=== PATIENT | female | born 1950 | race Caucasian/White ===

== ENCOUNTER 2024-02-18 09:39 | Outpatient (OUT) | payer MEDICARE, SELFPAY ==
--- NOTE | 2024-02-18 09:49 | MM_ITS ---
Patient Name: EUGENE ROGERS MR#: [id number] : 1950 Exam Date: 02/18/2024 Ordering Doctor: DR. SARAY BUCIO . RADIOLOGY REPORT PROCEDURE: MM TOMOSYNTHESIS SCREENING BI COMPARISON: MG MAMM SCREEN 3D ANTONIO CAD, 11/30/2022. MG MAMM SCREEN 3D ANTONIO CAD, 11/11/2021. MG MAMM SCREEN ANTONIO W CAD, 09/13/2020. MG MAMM ANTONIO SCRN W CAD DIG, 02/27/2014. INDICATIONS: Screening Calculator Name NCI Breast Cancer Risk Assessment Tool 5 Year Breast Cancer Risk 1.80% Lifetime Breast Cancer Risk 4.90% Personal Breast Cancer No Personal Ovarian Cancer No Treatments None Family Cancers Brother with lymphoma cancer at age 40; Brother with neurofibromitosis cancer at age 39; Brother with prostate cancer at age 69; Brother with prostate cancer at age 60. LOCATION: [facility] BREAST COMPOSITION: The breasts are heterogeneously dense,which may obscure small masses. FINDINGS: DIAGNOSTIC CATEGORY 1--NEGATIVE. RIGHT BREAST: No significant suspicious finding. No significant change has occurred. LEFT BREAST: No significant suspicious finding. No significant change has occurred. RECOMMENDATIONS: ROUTINE MAMMOGRAM AND CLINICAL EVALUATION IN 12 MONTHS. PLEASE NOTE: A NORMAL MAMMOGRAM DOES NOT EXCLUDE THE POSSIBILITY OF BREAST CANCER. A CLINICALLY SUSPICIOUS PALPABLE LUMP SHOULD BE BIOPSIED. Dictated by: Colt Hubbard M.D. on 02/18/2024 at 13:19 Approved by: Colt Hubbard M.D. on 02/18/2024 at 13:22
== END 2024-02-18 09:40 | disposition home or self-care (01) ==
LOC: MAMMO 09:44
PROVIDERS: PCP Family Medicine; Visit Provider Family Medicine
DX: Z12.31 Encounter for screening mammogram for malignant neoplasm of breast (principal); Z80.7 Family history of other malignant neoplasms of lymphoid, hematopoietic and related tissues; Z80.42 Family history of malignant neoplasm of prostate; Z80.8 Family history of malignant neoplasm of other organs or systems
CPT/HCPCS: 77063; 77067

== ENCOUNTER 2025-02-20 09:52 | Outpatient (OUT) | payer MEDICARE, SELFPAY ==
--- NOTE | 2025-02-20 10:22 | MM_ITS ---
Patient Name: EUGENE ROGERS MR#: [id number] : 1950 Exam Date: 02/20/2025 Ordering Doctor: CARMEN ANDERSON . RADIOLOGY REPORT PROCEDURE: MM TOMOSYNTHESIS SCREENING BI COMPARISON: MM TOMOSYNTHESIS SCREENING BI, 02/18/2024. MG MAMM SCREEN 3D ANTONIO CAD, 11/30/2022. MG MAMM SCREEN 3D ANTONIO CAD, 11/11/2021. MG MAMM ANTONIO SCRN W CAD DIG, 02/27/2014. INDICATIONS: Screening Calculator Name NCI Breast Cancer Risk Assessment Tool 5 Year Breast Cancer Risk 1.80% Lifetime Breast Cancer Risk 4.60% Personal Breast Cancer No Personal Ovarian Cancer No Treatments None Family Cancers Brother with lymphoma cancer at age 40; Brother with neurofibromitosis cancer at age 39; Brother with prostate cancer at age 69; Brother with prostate cancer at age 60. LOCATION: [facility] BREAST COMPOSITION: There are scattered areas of fibroglandular density. FINDINGS: DIAGNOSTIC CATEGORY 1--NEGATIVE. RIGHT BREAST: No significant suspicious finding. LEFT BREAST: No significant suspicious finding. RECOMMENDATIONS: ROUTINE MAMMOGRAM AND CLINICAL EVALUATION IN 12 MONTHS. PLEASE NOTE: A NORMAL MAMMOGRAM DOES NOT EXCLUDE THE POSSIBILITY OF BREAST CANCER. A CLINICALLY SUSPICIOUS PALPABLE LUMP SHOULD BE BIOPSIED. Dictated by: Juancho Villasenor DO on 02/20/2025 at 15:55 Approved by: Juancho Villasenor DO on 02/20/2025 at 15:56
== END 2025-02-20 09:53 | disposition home or self-care (01) ==
LOC: MAMMO 09:52
PROVIDERS: PCP Family Medicine; Visit Provider Nurse Practitioner
DX: Z12.31 Encounter for screening mammogram for malignant neoplasm of breast (principal); Z80.7 Family history of other malignant neoplasms of lymphoid, hematopoietic and related tissues; Z80.42 Family history of malignant neoplasm of prostate; Z80.8 Family history of malignant neoplasm of other organs or systems
CPT/HCPCS: 77063; 77067

== ENCOUNTER 2025-05-29 08:54 | Outpatient (OUT) | payer MEDICARE, SELFPAY ==
--- OUTSIDE RECORDS SUMMARY | 2025-05-19 23:59 | XMS_ITS | Continuity of Care Document ---
Author Organization [facility] Address [address] [place] [id number] Care Team Providers Care Drywall Hanger Framer Name Role Phone Darcy Trujillo Primary Care Physician [phone] Encounter FT_AMBFIN [id number] Date(s): 05/19/25 - 05/19/[address] [address]- Encounter Diagnosis Generalized anxiety disorder(Discharge Diagnosis) - 05/19/25 HTN (hypertension)(Discharge Diagnosis) - 05/19/25 BMI 23.0-23.9, adult(Discharge Diagnosis) - 05/19/25 Former smoker(Discharge Diagnosis) - 05/19/25 Discharge Disposition: Home (Routine DC) Attending Physician: Darcy Cerda Encounter Type: Clinic Allergies, Adverse Reactions, Alerts Substance Criticality Severity Reaction Reaction Severity Status Advicor Unknown Active Assessment and Plan Future Appointments Appointment Date:05/29/2025 12:30:00 PM Scheduled Provider: Location:[facility] Appointment Type:Urology CALL PAT FT Appointment Date:06/02/2025 11:00:00 AM Scheduled Provider: Location:[facility] Appointment Type:Urology FT Appointment Date:06/03/2025 01:00:00 PM Scheduled Provider: Location:[facility] Appointment Type:FM Medicare Wellness Subsequent Appointment Date:06/03/2025 02:00:00 PM Scheduled Provider:Darcy Cerda Location:[facility] Appointment Type: Open Future Scheduled Tests Laboratory* Basic Metabolic Panel 05/07/25 Immunizations Given and Recorded Vaccine Date Status Refusal Reason zoster vaccine, inactivated 09/09/24 Recorded zoster vaccine, inactivated 06/05/24 Recorded influenza virus vaccine, inactivated 08/12/24 Alex rded influenza virus vaccine, inactivated 09/04/23 Alex rded influenza virus vaccine, inactivated 08/15/22 Alex rded influenza virus vaccine, inactivated 08/05/21 Alex rded influenza virus vaccine, inactivated 07/28/20 Alex rded influenza virus vaccine, inactivated 08/22/19 Alex rded SARS-CoV-2 (COVID-19) [id number] 08/15/22 Recorded SARSCoV2 mRNA(gckuhpmys-zigh-sjdgqc) vac 02/24/22 Recorded SARS-CoV-2 (COVID-19) mRNA BNT-162b2 vax 07/28/21 Recorded SARS-CoV-2 (COVID-19) mRNA BNT-162b2 vax 01/11/21 Recorded SARS-CoV-2 (COVID-19) mRNA BNT-162b2 vax 12/20/20 Recorded pneumococcal 23-valent vaccine 07/28/20 Recorded pneumococcal 13-valent vaccine 08/22/19 Recorded Medications atorvastatin 20 mg Tab See Instructions, TAKE 1 TABLET BY MOUTH DAILY, # 90 tab(s), Refills(s) 0, Pharmacy: [facility] [id number], 171, cm, 03/03/25 13:32:00 EDT, Height/Length Dosing, 73.9, kg, 03/03/25 13:32:00 EDT, Weight Dosing Start Date: 03/20/25 Status: Ordered Quantity: 90.0 Unit: tab(s) Repeat number: 1 bisoprolol-hydrochlorothiazide 5 mg-6.25 mg Tab See Instructions, 90 tab(s), Refill(s) 0, TAKE 1 TABLET BY MOUTH DAILY, [facility] [id number], 171, cm, 03/03/25 13:32:00 EDT, Height/Length Dosing, 73.9, kg, 03/03/25 13:32:00 EDT, Weight Dosing Start Date: 04/03/25 Status: Ordered Quantity: 90.0 Unit: tab(s) Repeat number: 1 busPIRone 15 mg Tab 15 mg = 1 tab(s), Oral, TID, # 90 tab(s), Refills(s) 0, Pharmacy: [facility] [id number], 173, cm, 05/19/25 11:46:00 EDT, Height/Length Dosing, 69.2, kg, 05/19/25 11:46:00 EDT, Weight Dosing Start Date: 05/19/25 Status: Ordered Quantity: 90.0 Unit: tab(s) Repeat number: 1 Indications: Essential (primary) hypertension; Generalized anxiety disorder; CeleBREX 200 mg Cap 200 mg = 1 cap(s), Oral, Daily, # 90 cap(s), Refills(s) 0, Pharmacy: [facility] [id number], 171,cm, 05/02/24 10:21:00 EDT, Height/Length Dosing, 72.7, kg, 05/02/24 10:21:00 EDT, Weight Dosing Start Date: 01/27/25 Status: Ordered Quantity: 90.0 Unit: cap(s) Repeat number: 1 Indications: Menopausal and female climacteric states; Cipro 250 mg Tab 250 mg = 1 tab(s), Oral, q24hr, # 30 tab(s), Refills(s) 1, Pharmacy: [facility] [id number], 173,cm, 04/27/25 12:29:00 EDT, Height/Length Dosing, 71.1, kg, 04/27/25 12:29:00 EDT, Weight Dosing Start Date: 04/28/25 Status: Ordered Quantity: 30.0 Unit: tab(s) Repeat number: 2 cloNIDine 0.1 mg tab 0.1 mg = 1 tab(s), Oral, BID, # 14 tab(s), Refills(s) 0, Pharmacy: [facility] [id number], 173, cm, 05/01/25 10:05:00 EDT, Height/Length Dosing, 69.8, kg, 05/01/25 10:05:00 EDT, Weight Dosing Start Date: 05/13/25 Status: Ordered Quantity: 14.0 Unit: tab(s) Repeat number: 1 Indications: Hesitancy of micturition; Essential (primary) hypertension; Unspecified abnormal findings in urine; Personal history of nicotine dependence; Body mass index [BMI] 25.0-25.9, adult; cloNIDine 0.1 mg tab See Instructions, TAKE 1 TABLET BY MOUTH 2 TIMES A DAY, # 60 tab(s), Refills(s) 0, Pharmacy: [facility] [id number], 173, cm, 05/19/25 11:46:00 EDT, Height/Length Dosing, 69.2, kg, 05/19/25 11:46:00 EDT, Weight Dosing Start Date: 05/19/25 Status: Ordered Quantity: 60.0 Unit: tab(s) Repeat number: 1 levothyroxine 100 mcg (0.1 mg) Tab See Instructions, TAKE 1 TABLET BY MOUTH DAILY, # 90 tab(s), Refills(s) 0, Pharmacy: [facility] [id number], 171, cm, 03/03/25 13:32:00 EDT, Height/Length Dosing, 73.9, kg, 03/03/25 13:32:00 EDT, Weight Dosing Start Date: 03/20/25 Status: Ordered Quantity: 90.0 Unit: tab(s) Repeat number: 1 meloxicam 15 mg Tab 15 mg = 1 tab(s), Oral, Daily, # 30 tab(s), Refills(s) 1, Pharmacy: [facility] [id number], 171, cm, 05/02/24 10:21:00 EDT, Height/Length Dosing, 72.7, kg, 05/02/24 10:21:00 EDT, Weight Dosing Start Date: 08/25/24 Status: Ordered Quantity: 30.0 Unit: tab(s) Repeat number: 2 Indications: Menopausal and female climacteric states; MiraLax 17 gm, Oral, Daily, Refill(s) 0 Start Date: 09/27/22 Status: Ordered Repeat number: 1 omeprazole 20 mg Cap-DR See Instructions, TAKE 1 CAPSULE BY MOUTH DAILY, # 90 cap(s), Refills(s) 0, Pharmacy: [facility] [id number], 171, cm, 03/03/25 13:32:00 EDT, Height/Length Dosing, 73.9, kg, 03/03/25 13:32:00 EDT, Weight Dosing Start Date: 03/17/25 Status: Ordered Quantity: 90.0 Unit: cap(s) Repeat number: 1 Vitamin D3 2000 intl units oral Tab 50 mcg, Oral, Daily, tab(s), Refills(s) 0 Start Date: 05/02/24 Status: Ordered Repeat number: 1 Problem List Condition Confirmation Course Effective Dates Status Health Status Informant BMI 23.0-23.9, adult Confirmed Active Chronic UTI Confirmed Active Cloudy urine Confirmed Active Urinary hesitancy Confirmed Active Diverticulosis Confirmed Active Dizziness Confirmed Active Fatigue Confirmed Active GERD (gastroesophageal reflux disease) Confirmed Active Generalized anxiety disorder Confirmed Active Hyperlipidemia Confirmed Active HTN (hypertension) Confirmed Active Hypothyroidism Confirmed Active Iron deficiency Confirmed Resolved Iron deficiency anemia Confirmed Active Menopausal syndrome Confirmed Active Pre-op exam Confirmed Active Pneumaturia Confirmed Active Pre-diabetes Confirmed Active Pure hypercholesterolemia Confirmed Active Recurrent UTI Confirmed Active UTI symptoms Confirmed Active Procedures Procedure Date Related Diagnosis Body Site Status Colonoscopy 2010 Completed Fracture of odontoid process Completed History of cervical spine surgery Completed Social History Social History Type Response Smoking Status Former smoker, quit more than 30 days ago entered on: 05/19/25 Sex Female Sex Representation Female (finding) Patient Care team information Care Team Personnel Name: TRAM DURBIN DO Position: FT Physician Member Role: Surgeon Address: [address] [place] [id number] Telecom: Name: Bro Schaefer Member Role: Junior Systems Engineer Telecom: Name: Darcy Cerda Position: FT Ambulatory - Primary Care - RONALDO Member Role: Primary Care Physician Address: [address] [place] [address]- Telecom: Name: JR VANESSA JOYNER GEORGE C Position: FT Physician Member Role: Orthopaedist Address: [address] [place] [phone] Telecom: Care Team Related Persons Name: TRAM ROGERS Name: TRAM ROGERS Name: TRAM ROGERS Insurance Providers Guarantor name: Health Plan Information #: 1 Payer: NA Payer Identifier: [id number] Member Number: [id number] Group Number: [id number] Subscriber Identifier: [id number] Relationship to Subscriber: Self Coverage Type: MEDICARE Coverage Verification Date: 25 Telecom: NA Address: Health Plan Information #: 2 Payer: LONNIE Payer Identifier: [id number] Member Number: [id number] Group Number: [id number] Subscriber Identifier: [id number] Relationship to Subscriber: Self Coverage Type: PRIVATE HEALTH INSURANCE Coverage Verification Date: 25 Telecom: LONNIE Address:
--- OUTSIDE RECORDS SUMMARY | 2025-05-29 08:56 | XMS_ITS | Clinical Summary ---
Author Organization [facility] Address [address] [place] [address] Care Team Providers Care Pecan Mallow Dipper Name Role Phone Trent Nielsen MD Unavailable [phone] Darcy Trujillo NP Unavailable Allergies No known active allergies Medications atorvastatin (Lipitor) 20 MG tablet 1 (one) time each day at the same time. Active bisoprolol-hydr oCHLOROthiazide (Ziac) 5-6.25 MG tablet 1 (one) time each day at the same time. Active cholecalciferol (Vitamin D-3) 10 MCG (400 UNIT) tablet 1 (one) time each day at the same time. 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 08/01/2023 Peripheral neuritis of left foot 08/01/2023 Shoulder arthritis 08/01/2023 Unilateral primary osteoarthritis, left hip 07/22 Hyperlipidemia 04/10/2019 Hypothyroid 04/10/2019 Immunizations Immunization Administration Dates Next Due Influenza, High Dose Seasonal, Preservative Free 08/22/2019 Influenza, High-dose Seasona l, Quadrivalent, Preservative Free 08/15/2022,08/05/2021 Influenza, Seasonal, Quadrivalent, Adjuvanted Pneumococcal Conjugate PCV 13 08/22/2019 Pneumococcal Polysaccharide PPSV23 07/28/2020 Family History Relation Name Status Comments Father Mother Social History Tobacco Use Types Packs/Day Years Used Date Smoking Tobacco: Never Smokeless Tobacco: Never Tobacco Cessation:Counseling Given: Not Answered Alcohol Use Standard Drinks/Week Comments Yes 0 (1 standard drink = 0.6 oz pur e alcohol) AUDIT-C Answer Date Recorded Q1: How often do you have a drink containing alc ohol? 2-4 times a month 12/05/2023 Average Number of Drinks Not on file 024 Frequency of Binge Drinking Not on file 11/22 Comments Unknown Sex and Gender Information Value Date Recorded Sex Assigned at Not on file Legal Sex Female 8:00 PM EDT Gender Identity Not on file Sexual Orientation Not on file Last Filed Vital Signs Vital Sign Reading Time Taken Comments Blood Pressure - - Pulse - - Temperature - - Respiratory Rate - - Oxygen Saturation - - Inhaled Oxygen Concentration - - Weight 70.3 kg (155 lb) 12/15/2024 10:07 AM EST Height 172.7 cm (5' 8 ) 12/15/2024 10:07 AM EST Body Mass Index 23.57 12/15/2024 10:07 AM EST Plan of Treatment Health Maintenance Due Date Last Done Comments CT Colonography 1952 FIT-DNA 1950 FIT 1950 FOBT 1950 Sigmoidoscopy 1950 Mammogram 1992 Influenza Vaccine (#1) 2025 4, 09/04/2023, 08/15/2022, Additional history exists Colonoscopy 06/09/2031 06/09/2021 Colorectal Cancer Screening 06/09/2031 Pneumococcal Vaccine: 65+ Years Completed 0, 08/22/2019 Insurance MEDICARE AETNA Care Teams Pecan Mallow Dipper Relationship Specialty Start Date End Date Trent Nielsen MD [address] [place] [address] Referring Physician Family Medicine 12/30/24 Darcy Trujillo NP [address] [place] [address] Referring Physician Family Medicine 12/30/24
--- OUTSIDE RECORDS SUMMARY | 2025-05-29 08:56 | XMS_ITS | Clinical Summary ---
Author Organization [employer] tem Address [id number] [address] [place] [address] Care Team Providers Care Petroleum Products Sales Representative Name Role Phone Trent Nielsen MD Primary Care Provider Allergies No known active allergies Medications levothyroxine (SYNTHROID, LEVOTHROID) 175 MCG tablet Take 175 mcg by mouth daily. 03/14/2019 Active atorvastatin (LIPITOR) 20 mg tablet Take 20 mg by mouth daily. 03/07/2019 Active celecoxib (CeleBREX) 200 mg capsule Take 200 mg by mouth 2 (two) times a day. Active sennosides (sennosides) 8.8 mg/5 mL syrup Take by mouth nightly. Active Active Problems Problem Noted Date Diagnosed Date Hyperlipidemia 04/10/2019 Hypothyroid 04/10/2019 Family History Medical History Relation Name Comments Hodgkin's lymphoma Brother 1 Cancer Brother 2 Neurofibromatos is Parkinsonism Father Relation Name Status Comments Brother 1 Brother 2 Brother 3 Alive Brother 4 Alive Brother 5 Alive Daughter Alive Father Mother Sister 1 Alive Sister 2 Alive Sister 3 Alive Sister 4 Alive Sister 5 Alive Sister 6 Alive Son 1 Alive Son 2 Alive Son 3 Alive Social History Tobacco Use Types Packs/Day Years Used Date Smoking Tobacco: Former Cigarettes Q uit: 2010 Smokeless Tobacco: Never Alcohol Use Standard Drinks/Week Comments Yes 0 (1 standard drink = 0.6 oz pur e alcohol) socially Childcare Answer Date Recorded Childcare Unknown 03/31/2019 Employment Answer Date Recorded Employment Unknown 03/31/2019 Purpose - Life Answer Date Recorded Purpose and direction in life Unknown Comments No Sex and Gender Information Value Date Recorded Sex Assigned at Not on file Legal Sex Female 11:21 AM EDT Gender Identity Not on file Sexual Orientation Not on file Last Filed Vital Signs Vital Sign Reading Time Taken Comments Blood Pressure 134/78 06/17/2021 8:59 AM EDT Pulse 77 06/09/2021 9:00 AM EDT Temperature 36.2 C (97.1 F) 06/17/2021 8:59 AM EDT Respiratory Rate 19 06/09/2021 9:00 AM EDT Oxygen Saturation 97% 06/09/2021 9:00 AM EDT Inhaled Oxygen Concentration - - Weight 67.1 kg (148 lb) 06/17/2021 8:59 AM EDT Height 172.7 cm (5' 8 ) 06/17/2021 8:59 AM EDT Body Mass Index 22.5 06/17/2021 8:59 AM EDT Plan of Treatment Health Maintenance Due Date Last Done Comments Depression Screening 1964 Tobacco Screening 1964 Adult BMI Screening 1970 DTaP,Tdap and Td Vaccines (1 - Tdap) 1971 Fall Risk Screening 2017 COVID-19 Vaccine (6 2023-2 5 season) 2024 08/15/2022, 02/24/2022, 07/28/2021, Additional history exists Zoster (Shingles) Vaccine (2 of 3) 11/09/2024 09/14/2024 Influenza Vaccine 06/22/2025 08/12/2024, , 08/05/2021, Additional history exists Colonoscopy 06/09/2026 06/09/2021, 06/09/2021 Medical Devices Not on file Procedures Procedure Name Priority Date/Time Associated Diagnosis Comments COLONOSCOPY 06/09/2021 7:56 AM EDT from Last 3 Months or Most Recently Relevant to Health Maintenance Results * Colonoscopy (06/09/2021 7:56 AM EDT) 06/09/2021 7:56 AM EDT Narrative PM CARDIOVASCULAR - 06/09/2021 8:22 AM EDT [facility] Patient Name: Kelin Wong Procedure Date No Time: 06/09/2021 [facility] : [id number] Date of : 1950 Admit Type: Outpatient Age: 70 Room: [place] [address] Gender: Female Note Status: Finalized Attending MD: Arnie Bell DO Procedure: Colonoscopy Indications: Constipation Providers: Arnie Bell DO Referring MD: Arnie Bell DO Medicines: Propofol per Anesthesia Complications: No immediate complications. Procedure: After I obtained informed consent, the scope was passed under direct vision. Throughout the procedure, the patient's blood pressure, pulse, and oxygen saturations were monitored continuously. The [employer] [id number] #[id number] ADULT COLONOSCOPE was introduced through the anus with the intention of advancing to the cecum. The scope was advanced to the splenic flexure before the procedure was aborted. Medications were given. The colonoscopy was technically difficult and complex due to poor bowel prep with stool present. Successful completion of the procedure was aided by changing the patient to a supine position. The patient tolerated the procedure well. The quality of the bowel preparation was poor. Findings: The perianal and digital rectal examinations were normal. Multiple large-mouthed diverticula were found in the sigmoid colon and descending colon. The exam was otherwise without abnormality. Will need to have outpatient barium enema air contrast with better prep Estimated Blood Loss: Estimated blood loss: none. Impression: - Preparation of the colon was poor. - Diverticulosis in the sigmoid colon and in the descending colon. - The examination was otherwise normal. - No specimens collected. Recommendation: - Discharge patient to home. - Patient has a contact number available for emergencies. The signs and symptoms of potential delayed complications were discussed with the patient. Return to normal activities tomorrow. Written discharge instructions were provided to the patient. - High fiber diet for the rest of the patient's life. - Continue present medications. - Perform an air contrast barium enema in 1 week. Procedure Code(s): --- Professional --- 68213, 53, Colonoscopy, flexible; diagnostic, including collection of specimen(s) by brushing or washing, when performed (separate procedure) Diagnosis Code(s): --- Professional --- K59.00, Constipation, unspecified K57.30, Diverticulosis of large intestine without perforation or abscess without bleeding CPT copyright 2019 [employer]. All rights reserved. The codes documented in this report are preliminary and upon dry chain operator review may be revised to meet current compliance requirements. DO Arnie Stovall DO 06/09/2021 8:22:33 AM Number of Addenda: 0 Note Initiated On: 06/09/2021 7:56 AM Procedure Note Arnie Bell DO - 06/09/2021 [facility] Patient Name: Kelin Wong Procedure Date No Time: 06/09/2021 CSN : [id number] Date of : 1950 Admit Type: Outpatient Age: 70 Room: [place] [address] Gender: Female Note Status: Finalized Attending MD: Arnie Bell DO Procedure: Colonoscopy Indications: Constipation Providers: Arnie Bell DO Referring MD: Arnie Bell DO Medicines: Propofol per Anesthesia Complications: No immediate complications. Procedure: After I obtained informed consent, the scope was passed under direct vision. Throughout theprocedure, the patient's blood pressure, pulse, and oxygen saturations were monitored continuously. [facility] [id number] #[id number] ADULT COLONOSCOPE was introduced through the anus with the intention of advancing to the cecum. The scope was advanced to the splenic flexure before the procedure was aborted.Medications were given. The colonoscopy was technicallydifficult and complex due to poor bowel prep with stoolpresent. Successful completion of the procedure was aided by changing the patient to a supine position. Thepatient tolerated the procedure well. The quality of thebowel preparation was poor. Findings: The perianal and digital rectal examinations were normal. Multiple large-mouthed diverticula were found in the sigmoid colonand descending colon. The exam was otherwise without abnormality. Will need to have outpatient barium enema air contrast with betterprep Estimated Blood Loss: Estimated blood loss: none. Impression: - Preparation of the colon was poor. - Diverticulosis in the sigmoid colon and in the descending colon. - The examination was otherwise normal. - No specimens collected. Recommendation: - Discharge patient to home. - Patient has a contact number available for emergencies. The signs and symptoms of potential delayed complications were discussed with thepatient. Return to normal activities tomorrow. Written discharge instructions were provided to thepatient. - High fiber diet for the rest of the patient'slife. - Continue present medications. - Perform an air contrast barium enema in 1 week. Procedure Code(s): --- Professional --- 41017, 53, Colonoscopy, flexible; diagnostic, including collection of specimen(s) by brushing or washing, when performed (separate procedure) Diagnosis Code(s): --- Professional --- K59.00, Constipation, unspecified K57.30, Diverticulosis of large intestine without perforation orabscess without bleeding CPT copyright 2019 [employer]. All rights reserved. The codes documented in this report are preliminary and upon dry chain operator reviewmay be revised to meet current compliance requirements. DO Arnie Stovall DO 06/09/2021 8:22:33 AM Number of Addenda: 0 Note Initiated On: 06/09/2021 7:56 AM Arnie Bell DO GI PROCEDURE ORDERABLES Fin al Result PM CARDIOVASCULAR from Last 3 Months or Most Recently Relevant to Health Maintenance Insurance MEDICARE AETNA Care Teams Petroleum Products Sales Representative Relationship Specialty Start Date End Date Trent Nielsen MD PCP - General Family Medicine 04/17/23
--- OUTSIDE RECORDS SUMMARY | 2025-05-29 08:56 | XMS_ITS | Encounter Summary ---
Author Organization [facility] Address [address] [place] [address] Care Team Providers Care Ironer Hand Name Role Phone Trent Nielsen MD Unavailable [phone] Darcy Trujillo NP Unavailable Encounter Details Date Type Department Care Team ([facility] Contact Info) Description 05/13/2023 External Result Encounter [facility] External Department Unsolicited Provider, Generic External Data Social History Tobacco Use Types Packs/Day Years Used Date Smoking Tobacco: Never Assessed Comments Unknown Sex and Gender Information Value Date Recorded Sex Assigned at Not on file Legal Sex Female 8:00 PM EDT Gender Identity Not on file Sexual Orientation Not on file documented as of this encounter Plan of Treatment Not on file documented as of this encounter Procedures Procedure Name Priority Date/Time Associated Diagnosis Comments UNLISTED TEST ([facility]) Routine 08/02/2023 10:48 AM EDT LYME DISEASE AB ([facility]) Routine 08/02/2023 10:40 AM EDT CBC WITH AUTO DIFFERENTIAL Routine 08/02/2023 10:40 AM EDT HLA-B27 ANTIGEN Routine 08/02/2023 10:40 AM EDT SED RATE BY MODIFIED WESTERGREN Routine 08/02/2023 10:40 AM EDT RHEUMATOID FACTOR Routine 08/02/2023 10: 40 AM EDT C-REACTIVE PROTEIN Routine 08/02/2023 10 :40 AM EDT BARBARA SCREEN W/REFLEX Routine 08/02/2023 1 0:40 AM EDT URIC ACID Routine 08/02/2023 10:40 AM EDT DEXA BONE DENSITY 05/13/2023 6:1 6 PM EDT documented in this encounter Results * UNLISTED TEST ([facility]) (08/02/2023 10:48 AM EDT) UNLISTED LAB TEST Sent to reference lab [facility] 08/02/2023 10:4 8 AM EDT 08/02/2023 10:49 AM EDT Jr. Gonzalo Amaral DO LAB BLOOD ORDERABLES [facility] Result [facility] * LYME DISEASE AB ([facility]) (08/02/2023 10:40 AM EDT) LYME DISEASE AB See Below [facility] Comment: NOTE TEST RESULT FLAG UNIT REF.RANGE Lyme IgG Wblot Negative Negative CDC criteria for a positive Western blot are the presence of >=5 bands for IgG. Lyme IgG Bands No Bands Seen Lyme IgM Wblot Negative Negative CDC criteria for a positive Western Blot are the presence of >=2 bands for IgM. Lyme IgM Bands p-23 Lyme Interp See below No evidence of antibodies to Borrelia burgdorferi. Test Performed By: [email or web address] [address] [place] [address] Laserist: Mike Simmons III, M.D. CLIA #[id number]^ PERFORMED AT [address] [place] [address] 08/02/2023 10:4 0 AM EDT 08/02/2023 10:44 AM EDT . [facility] LAB BLOOD ORDERABLES Fi nal Result Performing Organization Address [facility] Co de Phone Number [facility] * BARBARA (08/02/2023 10:40 AM EDT) BARBARA SCREEN W/REFLEX Negative Negative [facility] Comment: Testing performed using multiplex flow immunoassay. Eleven different antigens associated with systemic autoimmune diseases (dsDNA,Sm,Sm/[employer],Chromatin, SSA,SSB,Gifty-1,Scl70,Ribo P,Centromere B) are included in this screening test. PERFORMED [address],[place] [address] 08/02/2023 10:4 0 AM EDT 08/02/2023 10:44 AM EDT . [facility] LAB BLOOD ORDERABLES Fi nal Result Performing Organization Address [facility] Co de Phone Number [facility] * HLA-B27 antigen (08/02/2023 10:40 AM EDT) HLA-B27 TYPING Negative [facility] Comment:PERFORMED AT [address],[place] [address] 08/02/2023 10:4 0 AM EDT 08/02/2023 10:44 AM EDT [facility] LAB MOLECULAR DIAGNOSTI CS ORDERABLES Final Result Performing Organization Address City/[facility] Co de Phone Number [facility] * Uric acid (08/02/2023 10:40 AM EDT) URIC ACID 4.6 2.6 - 7.2 mg/dL [facility] Comment:PERFORMED AT [address],[place] [address] 08/02/2023 10:4 0 AM EDT 08/02/2023 10:44 AM EDT us Jr. [facility]alo [facility] LAB BLOOD ORDERABLES Fi nal Result Performing Organization Address [facility] Co de Phone Number [facility] * C-reactive protein (08/02/2023 10:40 AM EDT) C REACTIVE PROTEIN <0.1 0.000 - 0.744 mg/dL [facility] Comment:PERFORMED AT [address],[place] [address] 08/02/2023 10:4 0 AM EDT 08/02/2023 10:44 AM EDT us Jr. Gonzalo Sloan [facility] LAB BLOOD ORDERABLES Fi nal Result Performing Organization Address [facility] de Phone Number [facility] * Sedimentation rate, automated (08/02/2023 10:40 AM EDT) ESR 22 0 - 30 mm/h [facility] Comment:PERFORMED AT [address],[place] [address] 08/02/2023 10:4 0 AM EDT 08/02/2023 10:44 AM EDT [facility] LAB BLOOD ORDERABLES Fi nal Result Performing Organization Address [facility] Co de Phone Number [facility] * Rheumatoid factor (08/02/2023 10:40 AM EDT) RHEUMATOID FACTOR <10 <20 IU/mL [facility] Comment:PERFORMED AT [address],[place] [address] 08/02/2023 10:4 0 AM EDT 08/02/2023 10:44 AM EDT us Jr. Walter [facility] LAB BLOOD ORDERABLES Fi nal Result Performing Organization Address [facility]/ZIP Co de Phone Number [facility] * (ABNORMAL) CBC auto differential (08/02/2023 10:40 AM EDT) WHITE BLOOD CELL COUNT, WBC 4.9 4.0 - 11.0 X10E9/L [facility] RED BLOOD CELL COUNT, RBC 4.22 3.80 - 5.20 X10E12/L [facility] HEMOGLOBIN 10.8(L) 11.7 - 15.5 g/dL [facility] HEMATOCRIT 32.8(L) 35 - 47 % [facility] MEAN CELL VOLUME, MCV 78(L) 80 - 100 fL [facility] MEAN CELL HEMOGLOBIN, MCH 25.6(L) 27 - 34 pg [facility] MEAN CELL HEMOGLOGIN CONCENTRATION, MCHC 33.0 32 - 36 g/dL [facility] RED CELL DISTRIBUTION WIDTH, RDW 15.2(H) 11.5 - 15.0 % [facility] PLATELET COUNT 350 150 - 450 X10E9/L [facility] MEAN PLATELET VOLUME, MPV 7.4 7 - 12 fL [facility] % NEUTROPHILS 56.7 % [facility] % LYMPHOCYTES 35.7 % [facility] % MONOCYTES 4.1 % [facility] % EOSINOPHILS 3.0 % [facility] % BASOPHILS 0.5 % [facility] ABSOLUTE NEUTROPHIL 2.8 1.5 - 6.6 X10E9/L [facility] ABSOLUTE LYMPHOCYTE 1.7 1.0 - 3.5 X10E9/L [facility] ABSOLUTE MONOCYTE 0.2 0 - 0.9 X10E9/L [facility] ABSOLUTE EOSINOPHIL 0.1 0.0 - 0.4 X10E9/L [facility] ABSOLUTE BASOPHIL 0.0 0.0 - 0.2 X10E9/L [facility] Comment:PERFORMED AT [facility] [address],[place] [address] 08/02/2023 10:4 0 AM EDT 08/02/2023 10:44 AM EDT Jr. Gonzalo Amaral DO LAB BLOOD ORDERABLES Fi nal Result [facility] * DEXA bone density (05/13/2023 6:16 PM EDT) Anatomical Region Laterality Modality Body Radiographic Altagracia ging 05/13/2023 6:16 PM EDT Narrative 05/13/2023 6:15 PM EDT [facility] CENTRAL SKELETAL: 05/10/2023 11:19 AM CLINICAL: Post menopausal. Exam/Technique: DEXA Scan (Dual Energy X-ray Absorptiometry) Findings: PA Lumbar Spine: BMD: 1.004 g/cm2. T-score: -1.5 Left Proximal Femur: BMD 0.933 g/cm2. T-score: -0.8 Right Proximal Femur: BMD 0.982 g/cm2. T-score: -0.4 Fracture Risk: According to FRAX, 10 year probability of any major osteoporosis-related fracture is 19.4%, 10 year probability of hip fracture is 2.7 % IMPRESSION: * Osteopenia, nearly stable compared with 06/10/2015. PLEASE NOTE * T-score compares patient BMD to a reference of young normal controls. World Health Organization Classification: Osteoporosis: T-score=-2.5 or below. Osteopenia (low bone mass): T-score between -1.0 and -2.5. Normal: T-score -1.0 or above. Secondary causes of bone loss should be evaluated if clinically indicated since the etiology of low BMD cannot be determined by BMD measurement alone. Finalized by Vaibhav Lorenzo MD on 05/13/2023 6:15 PM The copy-to physician of this order is GONZALO Fulton JR Note Radiology, Radiologist, - 05/13/2023 [facility] CENTRAL SKELETAL: 05/10/2023 11:19 AM CLINICAL: Post menopausal. Exam/Technique: DEXA Scan (Dual Energy X-ray Absorptiometry) Findings: PA Lumbar Spine: BMD: 1.004 g/cm2. T-score: -1.5 Left Proximal Femur: BMD 0.933 g/cm2. T-score: -0.8 Right Proximal Femur: BMD 0.982 g/cm2. T-score: -0.4 Fracture Risk: According to FRAX, 10 year probability of any major osteoporosis-relatedfracture is 19.4%, 10 year probability of hip fracture is 2.7 % IMPRESSION: * Osteopenia, nearly stable compared with 06/10/2015. PLEASE NOTE * T-score compares patient BMD to a reference of young normal controls. World Health Organization Classification: Osteoporosis: T-score=-2.5 or below. Osteopenia (low bone mass): T-score between -1.0 and -2.5. Normal: T-score -1.0 or above. Secondary causes of bone loss should be evaluated if clinically indicatedsince the etiology of low BMD cannot be determined by BMD measurementalone. Finalized by Vaibhav Lorenzo MD on 05/13/2023 6:15 PM The copy-to physician of this order is GONZALO Fulton JR Generic External Data Provider IMG DXA PROCEDURE S Final Result documented in this encounter Visit Diagnoses Not on filedocumented in this encounter Care Teams Ironer Hand Relationship Specialty Start Date End Date Trent Nielsen MD [address] [place] [address] Referring Physician Family Medicine 12/30/24 Darcy Trujillo NP [address] [place] [address] Referring Physician Family Medicine 12/30/24 documented as of this encounter
--- OUTSIDE RECORDS SUMMARY | 2025-05-29 08:56 | XMS_ITS | Clinical Summary ---
Author Organization [facility] Address [address] [place] [address] Care Team Providers Care Dyeing Machine Tender Name Role Phone Justina Mitchell MD Primary Care Provider [phone] Social History Tobacco Use Types Packs/Day Years Used Date Smoking Tobacco: Never Assessed Comments Unknown Sex and Gender Information Value Date Recorded Sex Assigned at Not on file Legal Sex Female 10:45 PM EDT Gender Identity Not on file Sexual Orientation Not on file Plan of Treatment Not on file Care Teams Dyeing Machine Tender Relationship Specialty Start Date End Date Justina Mitchell MD [address] [place] [address] PCP - General 11/21/12
[2025-05-29 09:12] LABS: Estimated GFR (African America >60 (>=60 mL/min/1.73m^2); Estimated GFR (Non-African Ame >60 (>=60 mL/min/1.73m^2)
--- NOTE | 2025-05-29 09:13 | CT_ITS ---
The [address] [address] Patient Name: EUGENE ROGERS MRN: [id number] date: 1950 Sex: F Assigned Patient Location: LAB Current Patient Location: LAB Accession/Order Number: [id number] Exam Date: 05/29/2025 11:28 Report Date: 05/29/2025 11:51 At the request of: HIPOLITO ROJAS Procedure: CT abdomen pelvis wo/w con CT ABDOMEN AND PELVIS WITHOUT AND WITH INTRAVENOUS CONTRAST CLINICAL DATA: Recurrent urinary tract infections with cloudy urine and pneumaturia. Chronic constipation. Symptoms began after a hip replacement 2 months ago. COMPARISON: None Spiral images were obtained through the abdomen and pelvis before and after intravenous administration of 100 mL of Omnipaque 300. Patient also received oral and rectal contrast. This CT exam was performed using one or more following dose reduction techniques: Automated exposure control, adjustment of the mA and/or kV according to patient size, or use of iterative reconstruction technique. Limited cuts through the lung bases show no contributory pulmonary findings. There is a tiny hiatal hernia. The kidneys are within normal limits for size, position and contour. No renal, ureteral or bladder stones are seen precontrast. Assessment of the pelvis is slightly limited by artifact from a left hip replacement. There is a small amount of air within the urinary bladder. Correlation will be needed as to whether patient was recently catheterized in order to exclude iatrogenic etiology. The Following contrast administration, the renal nephrograms are symmetric. No hydronephrosis is identified. A tiny left upper pole renal cyst is present. No renal mass lesions are seen. The urinary bladder is displaced to the right. The bladder wall is top normal in thickness. Along the left aspect of the bladder there is an air-containing structure with thickened enhancing wall measuring approximately 4 cm in size. This does abut the sigmoid colon and could be a large inflamed diverticulum or diverticular abscess. There is, however, no significant surrounding inflammation. Delayed images of the pelvis were obtained after patient voided. There is contrast within the urinary bladder however it is impossible to determine if this is renal excretion versus a possible rectovesical fistula. No calcified gallstones are identified. Mild fatty infiltration of the liver is suspected. The spleen and pancreas show no acute findings. There is minor left adrenal limb thickening. There is atherosclerotic plaque involving the aorta and iliac arteries. No enlarged lymph nodes or ascites are present. The small bowel loops are normal caliber. There is stool along the colon. There are several scattered colonic diverticula, greater on the left. There is slight dextroscoliotic curvature and degenerative changes spine. Images through the pelvis show no appendiceal inflammation. No dilated small bowel loops are seen. There is stool and contrast in the distal colon. A rectal catheter is present. There are additional colonic diverticula, without associated active inflammation. The uterus is slightly dextroverted. There is no ascites. CT/CT abdomen pelvis wo/w con IMPRESSION: TINY HIATAL HERNIA. FATTY LIVER. NO BOWEL OR URINARY TRACT OBSTRUCTION. EXTENSIVE DIVERTICULAR DISEASE. AIR WITHIN THE URINARY BLADDER, DESCRIBED. THERE IS AN AIR-CONTAINING THICK-WALLED STRUCTURE ALONG THE LEFT ASPECT OF THE BLADDER THAT ALSO ABUTS THE SIGMOID COLON. DIVERTICULITIS AND/OR DIVERTICULAR ABSCESS WITH COLOVESICAL FISTULA IS NOT COMPLETELY EXCLUDED ON THE BASIS OF THIS STUDY, DISCUSSED ABOVE. CONTINUED FOLLOW-UP WILL BE NEEDED. Impression dictated by: Renea Ryan M.D. 05/29/2025 11:51 AM Dictation Location: [place] [address] Electronically authenticated by: [id number] Y Date: 05/29/2025 11:51
== END 2025-05-29 08:55 | disposition home or self-care (01) ==
LOC: LAB 08:54
PROVIDERS: PCP Family Medicine; Visit Provider Physician Assistant
DX: R39.89 Other symptoms and signs involving the genitourinary system (principal); N39.0 Urinary tract infection, site not specified
CPT/HCPCS: 36415; 74178; 82565; Q9963; Q9967

== ENCOUNTER 2025-06-09 09:52 | Outpatient (OUT) | payer MEDICARE, SELFPAY ==
--- OUTSIDE RECORDS SUMMARY | 2025-06-02 23:59 | XMS_ITS | Continuity of Care Document ---
Author Organization [facility] Address Unknown Care Team Providers Care Colleter Name Role Phone Darcy Trujillo Primary Care Physician [phone] Encounter [facility] [id number] Date(s): 06/02/25 - 06/02/[address] [address] Discharge Disposition: Home (Routine DC) Attending Physician: Reza ROBLERO MD Admitting Physician: Reza ROBLERO MD Referring Physician: Reza ROBLERO MD Encounter Type: Outpatient Allergies, Adverse Reactions, Alerts Substance Criticality Severity Reaction Reaction Severity Status Advicor Unknown Active Assessment and Plan Extracted from: Title:History and Physical > 30 days Author:Reza ORELLANA MD Date:06/02/25 Impression and Plan Diagnosis Pneumaturia ([id number]-SG R39.89, Working, Medical). Recurrent UTI ([id number]-KI N39.0, Working, Medical). Condition: Stable. Counseled: Patient, Regarding diagnosis, Regarding treatment. Future Appointments Appointment Date:06/03/2025 01:00:00 PM Scheduled Provider: Location:[facility] Appointment Type: Medicare Wellness Subsequent Appointment Date:06/03/2025 02:00:00 PM Scheduled Provider:Darcy Cerda Location:[facility] Appointment Type: Open Future Scheduled Tests Laboratory* [...] vaccine, inactivated 08/22/19 Alex rded SARS-CoV-2 (COVID-19) [id number] 08/15/22 Recorded SARSCoV2 mRNA(mgiixetam-nqlp-vkdcxh) vac 02/24/22 Recorded SARS-CoV-2 (COVID-19) mRNA BNT-162b2 vax 07/28/21 Recorded SARS-CoV-2 (COVID-19) mRNA BNT-162b2 vax 01/11/21 Recorded SARS-CoV-2 (COVID-19) mRNA BNT-162b2 vax 12/20/20 Recorded pneumococcal 23-valent vaccine 07/28/20 Recorded pneumococcal 13-valent vaccine 08/22/19 Recorded Medications atorvastatin 20 mg Tab See Instructions, TAKE 1 TABLET BY MOUTH DAILY, # 90 tab(s), Refills(s) 0, Pharmacy: [facility] [id number], 171, cm, 03/03/25 13:32:00 EDT, Height/Length Dosing, 73.9, kg, 03/03/25 13:32:00 EDT, Weight Dosing Start Date: 03/20/25 Status: Ordered Quantity: 90.0 Unit: tab(s) Repeat number: 1 bisoprolol-hydrochlorothiazide 5 mg-6.25 mg Tab See Instructions, 90 tab(s), Refill(s) 0, TAKE 1 TABLET BY MOUTH DAILY, [facility] [id number], 171, cm, 03/03/25 13:32:00 EDT, Height/Length Dosing, 73.9, kg, 03/03/25 13:32:00 EDT, Weight Dosing Start Date: 04/03/25 Status: Ordered Quantity: 90.0 Unit: tab(s) Repeat number: 1 busPIRone 15 mg Tab 15 mg = 1 tab(s), Oral, TID, # 90 tab(s), Refills(s) 0, Pharmacy: [facility] [id number], 173, cm, 05/19/25 11:46:00 EDT, Height/Length Dosing, 69.2, kg, 05/19/25 11:46:00 EDT, Weight Dosing Start Date: 05/19/25 Status: Ordered Quantity: 90.0 Unit: tab(s) Repeat number: 1 Indications: Generalized anxiety disorder; Essential (primary) hypertension; CeleBREX 200 mg Cap 200 mg = 1 cap(s), Oral, Daily, # 90 cap(s), Refills(s) 0, Pharmacy: [facility] [id number], 171,cm, 05/02/24 10:21:00 EDT, Height/Length Dosing, 72.7, kg, 05/02/24 10:21:00 EDT, Weight Dosing Start Date: 01/27/25 Status: Ordered Quantity: 90.0 Unit: cap(s) Repeat number: 1 Indications: Menopausal and female climacteric states; Cipro 250 mg Tab 250 mg = 1 tab(s), Oral, q24hr, # 30 tab(s), Refills(s) 1, Pharmacy: [facility] [id number], 173,cm, 04/27/25 12:29:00 EDT, Height/Length Dosing, 71.1, kg, 04/27/25 12:29:00 EDT, Weight Dosing Start Date: 04/28/25 Status: Ordered Quantity: 30.0 Unit: tab(s) Repeat number: 2 cloNIDine 0.1 mg tab See Instructions, TAKE 1 TABLET BY MOUTH 2 TIMES A DAY, # 60 tab(s), Refills(s) 0, Pharmacy: [facility] [id number], 173, cm, 05/19/25 11:46:00 EDT, Height/Length Dosing, 69.2, kg, 05/19/25 11:46:00 EDT, Weight Dosing Start Date: 06/01/25 Status: Ordered Quantity: 60.0 Unit: tab(s) Repeat number: 1 levothyroxine 100 mcg (0.1 mg) Tab See Instructions, TAKE 1 TABLET BY MOUTH DAILY, # 90 tab(s), Refills(s) 0, Pharmacy: [facility] [id number], 171, cm, 03/03/25 13:32:00 EDT, Height/Length Dosing, 73.9, kg, 03/03/25 13:32:00 EDT, Weight Dosing Start Date: 03/20/25 Status: Ordered Quantity: 90.0 Unit: tab(s) Repeat number: 1 meloxicam 15 mg Tab 15 mg = 1 tab(s), Oral, Daily, # 30 tab(s), Refills(s) 1, Pharmacy: [facility] [id number], 171, cm, 05/02/24 10:21:00 EDT, Height/Length Dosing, [...] DAILY, # 90 cap(s), Refills(s) 0, [facility] [id number], 171, cm, 03/03/25 13:32:00 EDT, Height/Length Dosing, [...] 05/19/25 Sex Female Sex Representation Female (finding) Hospital Discharge Instructions Patient Education 06/02/2025 11:32:33 EU - Cystoscopy Discharge Instructions (CUSTOM) Cystoscopy ??? Voiding after the procedure: there may be some pain, burning, urgency, frequency and blood tinged urine following the procedure. These symptoms usually resolve within 2-5 days. Drink the amount of fluid it takes to keep the urine pink to yellow or clear in color. Drinking enough water and fluids will help to ease any discomfort after your procedure. ??? If you are having problems that seem out of the ordinary, please call. ??? If unable to contact your physician and you feel it is an emergency, go to the nearest emergency room or call 911 ??? Diet ??? you may resume your normal diet. ??? Activity ??? you may resume your normal activities ??? Call if you have a fever over 100 degrees. Follow Up Care 04/28/2025 15:45:42 With:Reza ROBLERO Address: [address] [place] [address] [facility] (1) When: Unknown Comments:Office will call to schedule follow up Surgical operation note * Reza ROBLERO MD: PERFORM, SIGN, VERIFY Event Display: Operative Report Authored Date: Patient: EUGENE ROGERS Age: 74 years Sex: Female : 1950 Associated Diagnoses: None Author: Reza ROBLERO MD Procedure Operative Information Details: Date/ Time: 06/02/2025 11:33:00. Pre-Op Dx: Hx of UTI's - Z87.440, Pneumaturia. Post-Op Dx: Same, Plus colovesical fistula. Anesthesia Type: Local. Procedure: Local Cystoscopy. Complications: None. Risks/Benefits/Informed Consent: Surgical risks, benefits, details of the procedure have been explained to the patient, Full informed consent has been obtained. Intraoperative Information Prepped: Patient is brought back to the endoscopy suite, Patient is placed in modified dorso/lithotomy position, Patient prepped in the usual fashion with Betadine solution, 2% Xylocaine Jelly is placed per Urethra, After waiting several minutes the Cystoscope is introduced. The Urethra is: Tight. The Bladder is: Abnormal, Trabeculated Moderate (2), No bladder tumors. On the left floor towards the left wall proximal to the left UO is a large 4 to 5 cm edematous patch with erythematous areas centrally. I believe this represents the fistulous site and extrinsic compression from the bowel abscess onto the bladder. I did not see any E flux of colonic debris.. The ureteral orifices: Show efflux of clear urine. Devices Implanted: None. Removal: Cystoscope is removed, The patient tolerated it well. Postoperative Information Discharge: Patient is discharged home with antibiotic coverage, Follow up arranged. She needs to get referral to a general surgeon for bowel resection regarding her severe diverticular disease, colonic abscess and colovesical fistula. For now, she will continue her Cipro.. Electronically Signed By: Reza ROBLERO MD Date and Time Signed: 06/02/25 11:37 EDT History and physical note * Reza ROBLERO MD: PERFORM, SIGN, VERIFY Event Display: History and Physical Authored Date: [id number] Patient: EUGENE ROGERS Age: 74 years Sex: Female : 1950 Associated Diagnoses: None Author: Reza ROBLERO MD Preoperative Information Pneumaturia, Recurrent UTI's Chief Complaint Pneumaturia, Recurrent UTI's Review of Systems Constitutional: Negative. Eye: Negative. Ear/Nose/Mouth/Throat: Negative. Respiratory: No shortness of breath. Cardiovascular: No palpitations. Genitourinary: Pneumaturia, Recurrent UTI's. Endocrine: Negative. Immunologic: Negative. Musculoskeletal: Negative. Neurologic: Alert and oriented X4. Health Status Allergies: Allergic Reactions (Selected) Severity Not Documented Advicor- Unknown. Current medications: Home Medications (12) Active atorvastatin 20 mg Tab See Instructions bisoprolol-hydrochlorothiazide 5 mg-6.25 mg Tab See Instructions busPIRone 15 mg Tab 15 mg = 1 tab(s), Oral, TID CeleBREX 200 mg Cap 200 mg = 1 cap(s), Oral, Daily Cipro 250 mg Tab 250 mg = 1 tab(s), Oral, q24hr cloNIDine 0.1 mg tab 0.1 mg = 1 tab(s), Oral, BID cloNIDine 0.1 mg tab See Instructions levothyroxine 100 mcg (0.1 mg) Tab See Instructions meloxicam 15 mg Tab 15 mg = 1 tab(s), Oral, Daily MiraLax 17 gm, Oral, Daily omeprazole 20 mg Cap-DR See Instructions Vitamin D3 2000 intl units oral Tab 50 mcg, Oral, Daily Problem list: All Problems Hypothyroidism / SNOMED CT 38673339 / Confirmed Hyperlipidemia / SNOMED CT 33205492 / Confirmed GERD (gastroesophageal reflux disease) / SNOMED CT 104768644 / Confirmed HTN (hypertension) / SNOMED CT 6449228232 / Confirmed Pure hypercholesterolemia / SNOMED CT 108873776 / Confirmed BMI 23.0-23.9, adult / SNOMED CT 9027241380 / Confirmed Menopausal syndrome / SNOMED CT 083003422 / Confirmed Fatigue / SNOMED CT 276579742 / Confirmed Iron deficiency anemia / SNOMED CT 511157590 / Confirmed Pre-op exam / SNOMED CT 474592983 / Confirmed Pre-diabetes / SNOMED CT 9435715267 / Confirmed UTI symptoms / SNOMED CT 197734460 / Confirmed Cloudy urine / SNOMED CT 88539382 / Confirmed Urinary hesitancy / SNOMED CT 366117381 / Confirmed Pneumaturia / SNOMED CT 56304598 / Confirmed Recurrent UTI / SNOMED CT 084357706 / Confirmed Diverticulosis / SNOMED CT 3754460668 / Confirmed Dizziness / SNOMED CT 5135855275 / Confirmed Chronic UTI / SNOMED CT 825964028 / Confirmed Generalized anxiety disorder / SNOMED CT 92876412 / Confirmed Resolved: Iron deficiency / SNOMED CT 03634806 Canceled: Dysphagia / SNOMED CT 02925304 Canceled: Low hemoglobin / SNOMED CT 3813287548 Histories Family History: Heart disease Father NF - Neurofibromatosis Brother Hodgkin's disease Mother Procedure history: Colonoscopy ([id number]) in 2010 at 61 Years. Fracture of odontoid process (6211373455). History of cervical spine surgery (7531425611). Social History Social & Psychosocial Habits Alcohol 05/19/2025 Risk Assessment: Low Risk 05/19/2025 Type: Wine Frequency: 3-5 times per week Use: Current Comment: Patient states she drinks alcohol 2-3 times per month, 1-2 drinks per episode. - 04/10/2024 10:28 - Dorinda Mills LPN Substance Abuse 05/19/2025 Risk Assessment: Denies Substance Abuse Tobacco 05/19/2025 Risk Assessment: Denies Tobacco Use 05/19/2025 Tobacco Use: Former smoker, quit more . Physical Examination General: Alert and oriented, No acute distress. HENT: Normocephalic. Neck: Supple. Respiratory: Respirations are non-labored, Symmetrical chest wall expansion. Cardiovascular: Normal peripheral perfusion. Gastrointestinal: Soft. Musculoskeletal Normal strength. Integumentary: Warm, Dry, [place]. Neurologic: Alert, Oriented. Psychiatric: Cooperative, Appropriate mood & affect. Impression and Plan Diagnosis Pneumaturia (VNC08-QM R39.89, Working, Medical). Recurrent UTI (APV93-RS N39.0, Working, Medical). Condition: Stable. Counseled: Patient, Regarding diagnosis, Regarding treatment. Electronically Signed By: Reza ROBLERO MD Date and Time Signed: 06/02/25 07:57 EDT Patient Care team information Care Team Personnel Name: TRAM DURBIN DO Position: FT Physician Member Role: Surgeon Address: [address] [place] [id number]- Telecom: Name: Bro Schaefer Member Role: Chief Cardiopulmonary Technologist Telecom: Name: Darcy Cerda Position: FT Ambulatory - Primary Care - RONALDO Member Role: Primary Care Physician Address: [address] [place] [phone]- Telecom: Name: JR VANESSA JOYNER GEORGE C Position: FT Physician Member Role: Orthopaedist Address: [address] [place] [phone] Telecom: Care Team Related Persons Name: TRAM ROGERS Name: TRAM ROGERS Name: TRAM ROGERS Name: TRAM ROGERS Name: TRAM ROGERS Insurance Providers Guarantor name: Health Plan Information #: 1 Payer: NA Payer Identifier: [id number] Member Number: [id number] Group Number: [id number] Subscriber Identifier: [id number] Relationship to Subscriber: Self Coverage Type: MEDICARE Coverage Verification Date: 25 Telecom: NA Address: Health Plan Information #: 2 Payer: LONNIE Payer Identifier: [id number] Member Number: [id number] Group Number: [id number] Subscriber Identifier: [id number] Relationship to Subscriber: Self Coverage Type: PRIVATE HEALTH INSURANCE Coverage Verification Date: 25 Telecom: NA Address:
--- OUTSIDE RECORDS SUMMARY | 2025-06-03 23:59 | XMS_ITS | Continuity of Care Document ---
Author Organization [facility] Address [address] [place] [address] Care Team Providers Care Photo Technologist Name Role Phone Darcy Trujillo Primary Care Physician Encounter FT_AMBFIN [id number] Date(s): 06/03/25 - 06/03/25 [facility] [address] [place] [phone] Encounter Diagnosis HTN (hypertension)(Discharge Diagnosis) - 06/03/25 Ovarian failure due to menopause(Discharge Diagnosis) - 06/03/25 Medicare annual wellness visit, subsequent(Discharge Diagnosis) - 06/03/25 GERD (gastroesophageal reflux disease)(Discharge Diagnosis) - 06/03/25 Generalized anxiety disorder(Discharge Diagnosis) - 06/03/25 Hypothyroidism(Discharge Diagnosis) - 06/03/25 Pre-diabetes(Discharge Diagnosis) - 06/03/25 Hyperlipidemia(Discharge Diagnosis) - 06/03/25 Discharge Disposition: Home (Routine DC) Attending Physician: Darcy Cerda Encounter Type: Clinic Allergies, Adverse Reactions, Alerts Substance Criticality Severity Reaction Reaction Severity Status Bactrim Vomit Active Advicor Unknown Active Assessment and Plan Future Appointments Appointment Date:06/03/2026 01:00:00 PM Scheduled Provider: Location:[facility] Appointment Type:FM Medicare Wellness Subsequent Future Scheduled Tests Laboratory* Basic Metabolic Panel [...] vaccine, inactivated 08/22/19 Alex rded SARS-CoV-2 (COVID-19) [id number] 08/15/22 Recorded SARSCoV2 mRNA(mmbahirjd-gbri-srmmqf) vac 02/24/22 Recorded SARS-CoV-2 (COVID-19) mRNA BNT-162b2 vax 07/28/21 Recorded SARS-CoV-2 (COVID-19) mRNA BNT-162b2 vax 01/11/21 Recorded SARS-CoV-2 (COVID-19) mRNA BNT-162b2 vax 12/20/20 Recorded pneumococcal 23-valent vaccine 07/28/20 Recorded pneumococcal 13-valent vaccine 08/22/19 Recorded Medications atorvastatin 20 mg Tab See Instructions, TAKE 1 TABLET BY MOUTH DAILY, # 90 tab(s), Refills(s) 0, Pharmacy: [facility] [id number], 171, cm, 03/03/25 13:32:00 EDT, Height/Length Dosing, 73.9, kg, 03/03/25 13:32:00 EDT, Weight Dosing Start Date: 03/20/25 Status: Ordered Quantity: 90.0 Unit: tab(s) Repeat number: 1 bisoprolol-hydrochlorothiazide 5 mg-6.25 mg Tab See Instructions, 90 tab(s), Refill(s) 0, TAKE 1 TABLET BY MOUTH DAILY, [facility] [id number], 171, cm, 03/03/25 13:32:00 EDT, Height/Length Dosing, 73.9, kg, 03/03/25 13:32:00 EDT, Weight Dosing Start Date: 04/03/25 Status: Ordered Quantity: 90.0 Unit: tab(s) Repeat number: 1 busPIRone 15 mg Tab 15 mg = 1 tab(s), Oral, TID, # 90 tab(s), Refills(s) 0, Pharmacy: [facility] [id number], 173, cm, 05/19/25 11:46:00 EDT, Height/Length Dosing, 69.2, kg, 05/19/25 11:46:00 EDT, Weight Dosing Start Date: 05/19/25 Status: Ordered Quantity: 90.0 Unit: tab(s) Repeat number: 1 Indications: Essential (primary) hypertension; Generalized anxiety disorder; CeleBREX 200 mg Cap 200 mg = 1 cap(s), Oral, Daily, # 90 cap(s), Refills(s) 0, Pharmacy: [facility] [id number], 171,cm, 05/02/24 10:21:00 EDT, Height/Length Dosing, 72.7, kg, 05/02/24 10:21:00 EDT, Weight Dosing Start Date: 01/27/25 Status: Ordered Quantity: 90.0 Unit: cap(s) Repeat number: 1 Indications: Menopausal and female climacteric states; Cipro 250 mg Tab 250 mg = 1 tab(s), Oral, q24hr, # 30 tab(s), Refills(s) 1, Pharmacy: [facility] [id number], 173,cm, 04/27/25 12:29:00 EDT, Height/Length Dosing, 71.1, kg, 04/27/25 12:29:00 EDT, Weight Dosing Start Date: 04/28/25 Status: Ordered Quantity: 30.0 Unit: tab(s) Repeat number: 2 cloNIDine 0.1 mg tab See Instructions, TAKE 1 TABLET BY MOUTH 2 TIMES A DAY, # 60 tab(s), Refills(s) 0, Pharmacy: [facility] [id number], 173, cm, 05/19/25 11:46:00 EDT, Height/Length Dosing, 69.2, kg, 05/19/25 11:46:00 EDT, Weight Dosing Start Date: 06/01/25 Status: Ordered Quantity: 60.0 Unit: tab(s) Repeat number: 1 Flonase 0.05 mg/inh [place] 2 spray(s), Nasal, Daily, 16 gram, Refill(s) 0, each nostril, [facility] [id number], 173, cm, 06/03/25 14:03:00 EDT, Height/Length Dosing, 67.6, kg, 06/03/25 14:03:00 EDT, Weight Dosing Start Date: 06/03/25 Status: Ordered Quantity: 16.0 Unit: g Repeat number: 1 Indications: Unspecified nonsuppurative otitis media, right ear; Personal history of nicotine dependence; Essential (primary) hypertension; Body mass index [BMI] 22.0-22.9, adult; levothyroxine 100 mcg (0.1 mg) Tab See Instructions, TAKE 1 TABLET BY MOUTH DAILY, # 90 tab(s), Refills(s) 0, Pharmacy: [facility] [id number], 171, cm, 03/03/25 13:32:00 EDT, Height/Length Dosing, 73.9, kg, 03/03/25 13:32:00 EDT, Weight Dosing Start Date: 03/20/25 Status: Ordered Quantity: 90.0 Unit: tab(s) Repeat number: 1 meloxicam 15 mg Tab 15 mg = 1 tab(s), Oral, Daily, # 30 tab(s), Refills(s) 1, Pharmacy: [facility] [id number], 171, cm, 05/02/24 10:21:00 EDT, Height/Length Dosing, 72.7, kg, 05/02/24 10:21:00 EDT, Weight Dosing Start Date: 08/25/24 Status: Ordered Quantity: 30.0 Unit: tab(s) Repeat number: 2 Indications: Menopausal and female climacteric states; MiraLax 17 gm, Oral, Daily, Refill(s) 0 Start Date: 09/27/22 Status: Ordered Repeat number: 1 Multi Vitamin+ Refill(s) 0 Start Date: 06/03/25 Status: Ordered Repeat number: 1 omeprazole 20 mg Cap-DR See Instructions, TAKE 1 CAPSULE BY MOUTH DAILY, # 90 cap(s), Refills(s) 0, Pharmacy: [facility] [id number], 171, cm, 03/03/25 13:32:00 EDT, Height/Length Dosing, 73.9, kg, 03/03/25 13:32:00 EDT, Weight Dosing Start Date: 03/17/25 Status: Ordered Quantity: 90.0 Unit: cap(s) Repeat number: 1 Vitamin D3 2000 intl units oral Tab 50 mcg, Oral, Daily, tab(s), Refills(s) 0 Start Date: 05/02/24 Status: Ordered Repeat number: 1 Problem List Condition Confirmation Course Effective Dates Status Health Status Informant BMI 22.0-22.9, adult Confirmed Active Chronic UTI Confirmed Active Cloudy urine Confirmed Active Urinary hesitancy Confirmed Active Diverticulosis Confirmed Active Dizziness Confirmed Active Fatigue Confirmed Active Fluid level behind tympanic membrane of right ear Confirmed Active GERD (gastroesophageal reflux disease) Confirmed [...] Procedure Date Related Diagnosis Body Site Status History of left hip replacement 03/25/25 Completed Colonoscopy 2010 Completed Fracture of odontoid process Completed History of cervical spine surgery Completed Social History Social History Type Response Smoking Status Former smoker, quit more than 30 days ago 1 entered on: 06/03/25 Sex Female Sex Representation Female (finding) 1denies use. Stopped smoking in . Hospital Discharge Instructions Patient Education 06/03/2025 14:08:19 Health Maintenance After Age 65 Health Maintenance After Age 65 After age 65, you are at a higher risk for certain long-term diseases and infections as well as injuries from falls. Falls are a major cause of broken bones and head injuries in people who are older than age 65. Getting regular preventive care can help to keep you healthy and well. Preventive care includes getting regular testing and making lifestyle changes as recommended by your health care provider. Talk with your health care provider about: ??? Which screenings and tests you should have. A screening is a test that checks for a disease when you have no symptoms. ??? A diet and exercise plan that is right for you. What should I know about screenings and tests to prevent falls? Screening and testing are the best ways to find a health problem early. Early diagnosis and treatment give you the best chance of managing medical conditions that are common after age 65. Certain conditions and lifestyle choices may make you more likely to have a fall. Your health care provider mayrecommend: ??? Regular vision checks. Poor vision and conditions such as cataracts can make you more likely tohave a fall. If you wear glasses, make sure to get your prescription updated if your vision changes. ??? Medicine review. Work with your health care provider to regularly review all of the medicines you are taking, including ogoe-lzv-erlzapu medicines. Ask your health care provider about any side effects that may make you more likely to have a fall. Tell your health care provider if any medicines that you take make you feel dizzy or sleepy. ??? Strength and balance checks. Your health care provider may recommend certain tests to check your strength and balance while standing, walking, or changing positions. ??? Foot health exam. Foot pain and numbness, as well as not wearing proper footwear, can make you more likely to have a fall. ??? Screenings, including: ??? Osteoporosis screening. Osteoporosis is a condition that causes the bones to get weaker and break more easily. ??? Blood pressure screening. Blood pressure changes and medicines to control blood pressure can make you feel dizzy. ??? Depression screening. You may be more likely to have a fall if you have a fear of falling, feeldepressed, or feel unable to do activities that you used to do. ??? Alcohol use screening. Using too much alcohol can affect your balance and may make you more likely to have a fall. Follow these instructions at home: Lifestyle ??? Do not drink alcohol if: ??? Your health care provider tells you not to drink. ??? If you drink alcohol: ??? Limit how much you have to: ??? 0???1 drink a day for women. ??? 0???2 drinks a day for men. ??? Know how much alcohol is in your drink. In the [place] one drink equals one 12 oz bottle of beer (355 mL), one 5 oz glass of wine (148 mL), or one 1?? oz glass of hard liquor (44 mL). ??? Do not use any products that contain nicotine or tobacco. These products include cigarettes, chewing tobacco, and vaping devices, such as e-cigarettes. If you need help quitting, ask your health care provider. Activity ??? Follow a regular exercise program to stay fit. This will help you maintain your balance. Ask your health care provider what types of exercise are appropriate for you. ??? If you need a cane or walker, use it as recommended by your health care provider. ??? Wear supportive shoes that have nonskid soles. Safety ??? Remove any tripping hazards, such as rugs, cords, and clutter. ??? Install safety equipment such as grab bars in bathrooms and safety rails on stairs. ??? Keep rooms and walkways well-lit. General instructions ??? Talk with your health care provider about your risks for falling. Tell your health care provider if: ??? You fall. Be sure to tell your health care provider about all falls, even ones that seem minor. ??? You feel dizzy, tiredness (fatigue), or off-balance. ??? Take yogh-ixu-eqblldp and prescription medicines only as told by your health care provider. These include supplements. ??? Eat a healthy diet and maintain a healthy weight. A healthy diet includes low-fat dairy products, low-fat (lean) meats, and fiber from whole grains, beans, and lots of fruits and vegetables. ??? Stay current with your vaccines. ??? Schedule regular health, dental, and eye exams. Summary ??? Having a healthy lifestyle and getting preventive care can help to protect your health and wellness after age 65. ??? Screening and testing are the best way to find a health problem early and help you avoid havinga fall. Early diagnosis and treatment give you the best chance for managing medical conditions thatare more common for people who are older than age 65. ??? Falls are a major cause of broken bones and head injuries in people who are older than age 65. Take precautions to prevent a fall at home. ??? Work with your health care provider to learn what changes you can make to improve your health and wellness and to prevent falls. This information is not intended to replace advice given to you by your health care provider. Make sure you discuss any questions you have with your health care provider. Document Revised: 02/27/2022 Document Reviewed: 02/27/2022 [employer]IGENCE Patient Education ?? 2023 [employer]. 06/03/2025 14:08:16 Prediabetes Eating Plan Prediabetes Eating Plan Prediabetes is a condition that causes blood sugar (glucose) levels to be higher than normal. This increases the risk for developing type 2 diabetes (type 2 diabetes mellitus). Working with a health care provider or nutrition services assistant (dietitian) to make diet and lifestyle changes can help prevent the onset of diabetes. These changes may help you: ??? Control your blood glucose levels. ??? Improve your cholesterol levels. ??? Manage your blood pressure. What are tips for following this plan? Reading food labels ??? Read food labels to check the amount of fat, salt (sodium), and sugar in prepackaged foods. Avoid foods that have: ??? Saturated fats. ??? Trans fats. ??? Added sugars. ??? Avoid foods that have more than 300 milligrams (mg) of sodium per serving. Limit your sodium intake to less than 2,300 mg each day. Shopping ??? Avoid buying pre-made and processed foods. ??? Avoid buying drinks with added sugar. Cooking ??? Cook with olive oil. Do not use butter, lard, or ghee. ??? Bake, broil, grill, steam, or boil foods. Avoid frying. Meal planning ??? Work with your dietitian to create an eating plan that is right for you. This may include tracking how many calories you take in each day. Use a food diary, notebook, or mobile application to track what you eat at each meal. ??? Consider following a Mediterranean diet. This includes: ??? Eating several servings of fresh fruits and vegetables each day. ??? Eating fish at least twice a week. ??? Eating one serving each day of whole grains, beans, nuts, and seeds. ??? Using olive oil instead of other fats. ??? Limiting alcohol. ??? Limiting red meat. ??? Using nonfat or low-fat dairy products. ??? Consider following a plant-based diet. This includes dietary choices that focus on eating mostly vegetables and fruit, grains, beans, nuts, and seeds. ??? If you have high blood pressure, you may need to limit your sodium intake or follow a diet suchas the DASH (Dietary Approaches to Stop Hypertension) eating plan. The DASH diet aims to lower highblood pressure. Lifestyle ??? Set weight loss goals with help from your health care team. It is recommended that most people with prediabetes lose 7% of their body weight. ??? Exercise for at least 30 minutes 5 or more days a week. ??? Attend a support group or seek support from a mental health counselor. ??? Take qqhn-grh-yxqdaox and prescription medicines only as told by your health care provider. What foods are recommended? Fruits Berries. Bananas. Apples. Oranges. Grapes. Papaya. Gucci. Pomegranate. Kiwi. Grapefruit. Cherries. Vegetables Lettuce. Spinach. Peas. Beets. Cauliflower. Cabbage. Broccoli. Carrots. Tomatoes. Squash. Eggplant.Herbs. Peppers. Onions. Cucumbers. [place] sprouts. Grains Whole grains, such as whole-wheat or whole-grain breads, crackers, cereals, and pasta. Unsweetened oatmeal. Bulgur. Barley. Quinoa. Brown rice. [place] or whole- wheat flour tortillas or taco shells. Meats and other proteins Seafood. Poultry without skin. Lean cuts of pork and beef. Tofu. Eggs. Nuts. Beans. Dairy Low-fat or fat-free dairy products, such as yogurt, cottage cheese, and cheese. Beverages Water. Tea. Coffee. Sugar-free or diet soda. [place] water. Low-fat or nonfat milk. Milk alternatives, such as soy or almond milk. Fats and oils [place] oil. Canola oil. [place] oil. Grapeseed oil. Avocado. Walnuts. Sweets and desserts Sugar-free or low-fat pudding. Sugar-free or low-fat ice cream and other frozen treats. Seasonings and condiments Herbs. Sodium-free spices. Mustard. Relish. Low-salt, low-sugar ketchup. Low- salt, low-sugar barbecue sauce. Low-fat or fat-free mayonnaise. The items listed above may not be a complete list of recommended foods and beverages. Contact a dietitian for more information. What foods are not recommended? Fruits Fruits canned with syrup. Vegetables Canned vegetables. Frozen vegetables with butter or cream sauce. Grains Refined white flour and flour products, such as bread, pasta, snack foods, and cereals. Meats and other proteins Fatty cuts of meat. Poultry with skin. Breaded or fried meat. Processed meats. Dairy Full-fat yogurt, cheese, or milk. Beverages Sweetened drinks, such as iced tea and soda. Fats and oils Butter. Lard. Ghee. Sweets and desserts Baked goods, such as cake, cupcakes, pastries, cookies, and cheesecake. Seasonings and condiments Spice mixes with added salt. Ketchup. Barbecue sauce. Mayonnaise. The items listed above may not be a complete list of foods and beverages that are not recommended. Contact a dietitian for more information. Where to find more information ??? [place] [employer]: www.diabetes.org Summary ??? You may need to make diet and lifestyle changes to help prevent the onset of diabetes. These changes can help you control blood sugar, improve cholesterol levels, and manage blood pressure. ??? Set weight loss goals with help from your health care team. It is recommended that most people with prediabetes lose 7% of their body weight. ??? Consider following a Mediterranean diet. This includes eating plenty of fresh fruits and vegetables, whole grains, beans, nuts, seeds, fish, and low-fat dairy, and using olive oil instead of other fats. This information is not intended to replace advice given to you by your health care provider. Make sure you discuss any questions you have with your health care provider. Document Revised: 01/06/2021 Document Reviewed: 01/06/2021 [employer]TELLIGENCE Patient Education ?? 2023 [employer]. 06/03/2025 14:08:14 Prediabetes Prediabetes Prediabetes is when your blood sugar (blood glucose) level is higher than normal but not high enough for you to be diagnosed with type 2 diabetes. Having prediabetes puts you at risk for developing type 2 diabetes (type 2 diabetes mellitus). With certain lifestyle changes, you may be able to prevent or delay the onset of type 2 diabetes. This is important because type 2 diabetes can lead to serious complications, such as: ??? Heart disease. ??? Stroke. ??? Blindness. ??? Kidney disease. ??? Depression. ??? Poor circulation in the feet and legs. In severe cases, this could lead to surgical removal of a leg (amputation). What are the causes? The exact cause of prediabetes is not known. It may result from insulin resistance. Insulin resistance develops when cells in the body do not respond properly to insulin that the body makes. This cancause excess glucose to build up in the blood. High blood glucose (hyperglycemia) can develop. What increases the risk? The following factors may make you more likely to develop this condition: ??? You have a family member with type 2 diabetes. ??? You are older than 45 years. ??? You had a temporary form of diabetes during a (gestational diabetes). ??? You had polycystic ovary syndrome (PCOS). ??? You are overweight or obese. ??? You are inactive (sedentary). ??? You have a history of heart disease, including problems with cholesterol levels, high levels ofblood fats, or high blood pressure. What are the signs or symptoms? You may have no symptoms. If you do have symptoms, they may include: ??? Increased hunger. ??? Increased thirst. ??? Increased urination. ??? Vision changes, such as blurry vision. ??? Tiredness (fatigue). How is this diagnosed? This condition can be diagnosed with blood tests. Your blood glucose may be checked with one or more of the following tests: ??? A fasting blood glucose (FBG) test. You will not be allowed to eat (you will fast) for at least8 hours before a blood sample is taken. ??? An A1C blood test (hemoglobin A1C). This test provides information about blood glucose levels over the previous 2???3 months. ??? An oral glucose tolerance test (OGTT). This test measures your blood glucose at two points in time: ??? After fasting. This is your baseline level. ??? Two hours after you drink a beverage that contains glucose. You may be diagnosed with prediabetes if: ??? Your FBG is 100???125 mg/dL (5.6???6.9 mmol/L). ??? Your A1C level is 5.7???6.4% (39???46 mmol/mol). ??? Your OGTT result is 140???199 mg/dL (7.8???11 mmol/L). These blood tests may be repeated to confirm your diagnosis. How is this treated? Treatment may include dietary and lifestyle changes to help lower your blood glucose and prevent type 2 diabetes from developing. In some cases, medicine may be prescribed to help lower the risk of type 2 diabetes. Follow these instructions at home: Nutrition ??? Follow a healthy meal plan. This includes eating lean proteins, whole grains, legumes, fresh fruits and vegetables, low-fat dairy products, and healthy fats. ??? Follow instructions from your health care provider about eating or drinking restrictions. ??? Meet with a dietitian to create a healthy eating plan that is right for you. Lifestyle ??? Do moderate-intensity exercise for at least 30 minutes a day on 5 or more days each week, or astold by your health care provider. A mix of activities may be best, such as: ??? Brisk walking, swimming, biking, and weight lifting. ??? Lose weight as told by your health care provider. Losing 5???7% of your body weight can reverseinsulin resistance. ??? Do not drink alcohol if: ??? Your health care provider tells you not to drink. ??? You are , may be , or are planning to become . ??? If you drink alcohol: ??? Limit how much you use to: ??? 0???1 drink a day for women. ??? 0???2 drinks a day for men. ??? Be aware of how much alcohol is in your drink. In the [place] one drink equals one 12 oz bottle of beer (355 mL), one 5 oz glass of wine (148 mL), or one 1?? oz glass of hard liquor (44 mL). General instructions ??? Take dddo-vcv-vdskycg and prescription medicines only as told by your health care provider. Youmay be prescribed medicines that help lower the risk of type 2 diabetes. ??? Do not use any products that contain nicotine or tobacco, such as cigarettes, e-cigarettes, andchewing tobacco. If you need help quitting, ask your health care provider. ??? Keep all follow-up visits. This is important. Where to find more information ??? [place] [employer]: www.diabetes.org ??? Academy of Nutrition and Dietetics: www.eatright.org ??? [place] [employer]: www.heart.org Contact a health care provider if: ??? You have any of these symptoms: ??? Increased hunger. ??? Increased urination. ??? Increased thirst. ??? Fatigue. ??? Vision changes, such as blurry vision. Get help right away if you: ??? Have shortness of breath. ??? Feel confused. ??? Vomit or feel like you may vomit. Summary ??? Prediabetes is when your blood sugar (blood glucose)level is higher than normal but not high enough for you to be diagnosed with type 2 diabetes. ??? Having prediabetes puts you at risk for developing type 2 diabetes (type 2 diabetes mellitus). ??? Make lifestyle changes such as eating a healthy diet and exercising regularly to help prevent diabetes. Lose weight as told by your health care provider. This information is not intended to replace advice given to you by your health care provider. Make sure you discuss any questions you have with your health care provider. Document Revised: 01/06/2021 Document Reviewed: 01/06/2021 ADTELLIGENCE Patient Education ?? 2023 [employer]. 06/03/2025 14:08:04 Hypothyroidism Hypothyroidism Hypothyroidism is when the thyroid gland does not make enough of certain hormones. This is called an underactive thyroid. The thyroid gland is a small gland located in the lower front part of the neck, just in front of the windpipe (trachea). This gland makes hormones that help control how the bodyuses food for energy (metabolism) as well as how the heart and brain function. These hormones also play a role in keeping your bones strong. When the thyroid is underactive, it produces too little ofthe hormones thyroxine (T4) and triiodothyronine (T3). What are the causes? This condition may be caused by: ??? Valdez's disease. This is a disease in which the body's disease-fighting system (immune system) attacks the thyroid gland. This is the most common cause. ??? Viral infections. ??? . ??? Certain medicines. ??? defects. ??? Problems with a gland in the center of the brain (pituitary gland). ??? Lack of enough iodine in the diet. Other causes may include: ??? Past radiation treatments to the head or neck for cancer. ??? Past treatment with radioactive iodine. ??? Past exposure to radiation in the environment. ??? Past surgical removal of part or all of the thyroid. What increases the risk? You are more likely to develop this condition if: ??? You are female. ??? You have a family history of thyroid conditions. ??? You use a medicine called lithium. ??? You take medicines that affect the immune system (immunosuppressants). What are the signs or symptoms? Common symptoms of this condition include: ??? Not being able to tolerate cold. ??? Feeling as though you have no energy (lethargy). ??? Lack of appetite. ??? Constipation. ??? Sadness or depression. ??? Weight gain that is not explained by a change in diet or exercise habits. ??? Menstrual irregularity. ??? Dry skin, coarse hair, or brittle nails. Other symptoms may include: ??? Muscle pain. ??? Slowing of thought processes. ??? Poor memory. How is this diagnosed? This condition may be diagnosed based on: ??? Your symptoms, your medical history, and a physical exam. ??? Blood tests. You may also have imaging tests, such as an ultrasound or MRI. How is this treated? This condition is treated with medicine that replaces the thyroid hormones that your body does not make. After you begin treatment, it may take several weeks for symptoms to go away. Follow these instructions at home: ??? Take [id number] and prescription medicines only as told by your health care provider. ??? If you start taking any new medicines, tell your health care provider. ??? Keep all follow-up visits as told by your health care provider. This is important. ??? As your condition improves, your dosage of thyroid hormone medicine may change. ??? You will need to have blood tests regularly so that your health care provider can monitor your condition. Contact a health care provider if: ??? Your symptoms do not get better with treatment. ??? You are taking thyroid hormone replacement medicine and you: ??? Sweat a lot. ??? Have tremors. ??? Feel anxious. ??? Lose weight rapidly. ??? Cannot tolerate heat. ??? Have emotional swings. ??? Have diarrhea. ??? Feel weak. Get help right away if: ??? You have chest pain. ??? You have an irregular heartbeat. ??? You have a rapid heartbeat. ??? You have difficulty breathing. These symptoms may be an emergency. Get help right away. Call 911. ??? Do not wait to see if the symptoms will go away. ??? Do not drive yourself to the hospital. Summary ??? Hypothyroidism is when the thyroid gland does not make enough of certain hormones (it is underactive). ??? When the thyroid is underactive, it produces too little of the hormones thyroxine (T4) and triiodothyronine (T3). ??? The most common cause is Valdez's disease, a disease in which the body's disease-fighting system (immune system) attacks the thyroid gland. The condition can also be caused by viral infections, medicine, , or past radiation treatment to the head or neck. ??? Symptoms may include weight gain, dry skin, constipation, feeling as though you do not have energy, and not being able to tolerate cold. ??? This condition is treated with medicine to replace the thyroid hormones that your body does notmake. This information is not intended to replace advice given to you by your health care provider. Make sure you discuss any questions you have with your health care provider. Document Revised: 10/10/2022 Document Reviewed: 10/10/2022 [employer] Patient Education ?? 2023 [employer]. 06/03/2025 14:07:59 High Triglycerides Eating Plan High Triglycerides Eating Plan Triglycerides are a type of fat in the blood. High levels of triglycerides can increase your risk of heart disease and stroke. If your triglyceride levels are high, choosing the right foods can help lower your triglycerides and keep your heart healthy. Work with your health care provider or a dietitian to develop an eating plan that is right for you. What are tips for following this plan? General guidelines ??? Lose weight, if you are overweight. For most people, losing 5???10 lb (2???5 kg) helps lower triglyceride levels. A weight-loss plan may include: ??? 30 minutes of exercise at least 5 days a week. ??? Reducing the amount of calories, sugar, and fat you eat. ??? Eat a wide variety of fresh fruits, vegetables, and whole grains. These foods are high in fiber. ??? Eat foods that contain healthy fats, such as fatty fish, nuts, seeds, and olive oil. ??? Avoid foods that are high in added sugar, added salt (sodium), and saturated fat. ??? Avoid low-fiber, refined carbohydrates such as white bread, crackers, noodles, and white rice. ??? Avoid foods with trans fats or partially hydrogenated oils, such as fried foods or stick margarine. ??? If you drink alcohol: ??? Limit how much you have to: ??? 0???1 drink a day for women who are not . ??? 0???2 drinks a day for men. ??? Your health care provider may recommend that you drink less than these amounts depending on your overall health. ??? Know how much alcohol is in a drink. In the [place] one drink equals one 12 oz bottle of beer (355 mL), one 5 oz glass of wine (148 mL), or one 1?? oz glass of hard liquor (44 mL). Reading food labels Check food labels for: ??? The amount of saturated fat. Choose foods with no or very little saturated fat (less than 2 g). ??? The amount of trans fat. Choose foods with no transfat. ??? The amount of cholesterol. Choose foods that are low in cholesterol. ??? The amount of sodium. Choose foods with less than 140 milligrams (mg) per serving. Shopping ??? Buy dairy products labeled as nonfat (skim) or low-fat (1%). ??? Avoid buying processed or prepackaged foods. These are often high in added sugar, sodium, and fat. Cooking ??? Choose healthy fats when cooking, such as olive oil, avocado oil, or canola oil. ??? Cook foods using lower fat methods, such as baking, broiling, boiling, or grilling. ??? Make your own sauces, dressings, and marinades when possible, instead of buying them. Store-bought sauces, dressings, and marinades are often high in sodium and sugar. Meal planning ??? Eat more home-cooked food and less restaurant, buffet, and fast food. ??? Eat fatty fish at least 2 times each week. Examples of fatty fish include salmon, trout, sardines, mackerel, tuna, and siu. ??? If you eat whole eggs, do not eat more than 4 egg yolks per week. What foods should I eat? Fruits All fresh, canned (in natural juice), or frozen fruits. Vegetables Fresh or frozen vegetables. Low-sodium canned vegetables. Grains Whole wheat or whole grain breads, crackers, cereals, and pasta. Unsweetened oatmeal. Bulgur. Barley. Quinoa. Brown rice. Whole wheat flour tortillas. Meats and other proteins Skinless chicken or turkey. Ground chicken or turkey. Lean cuts of pork, trimmed of fat. Fish and seafood, especially salmon, trout, and siu. Egg whites. Dried beans, peas, or lentils. Unsalted nuts or seeds. Unsalted canned beans. Natural peanut or almond butter or other nut butters. Dairy Low-fat dairy products. Skim or low-fat (1%) milk. Reduced fat (2%) and low- sodium cheese. Low-fat ricotta cheese. Low-fat cottage cheese. Plain, low-fat yogurt. Fats and oils Tub margarine without trans fats. Light or reduced-fat mayonnaise. Light or reduced-fat salad dressings. Avocado. Safflower, olive, sunflower, soybean, and canola oils. The items listed above may not be a complete list of recommended foods and beverages. Talk with your dietitian about what dietary choices are best for you. What foods should I avoid? Fruits Sweetened dried fruit. Canned fruit in syrup. Fruit juice. Vegetables Creamed or fried vegetables. Vegetables in a cheese sauce. Grains White bread. White (regular) pasta. White rice. Cornbread. Bagels. Pastries. Crackers that contain trans fat. Meats and other proteins Fatty cuts of meat. Ribs. Chicken wings. Cotton. Sausage. Bologna. Salami. Chitterlings. Fatback. Hot dogs. Bratwurst. Packaged lunch meats. Dairy Whole or reduced-fat (2%) milk. Wdfu-[id number]. Cream cheese. Full-fat or sweetened yogurt. Full-fatcheese. Nondairy creamers. Whipped toppings. Processed cheese or cheese spreads. Cheese curds. Fats and oils Butter. Stick margarine. Lard. Shortening. Ghee. Cotton fat. Tropical oils, such as coconut, palm kernel, or palm oils. Beverages Alcohol. Sweetened drinks, such as soda, lemonade, fruit drinks, or punches. Sweets and desserts [place] syrup. Sugars. Honey. Molasses. Candy. Jam and jelly. Syrup. Sweetened cereals. Cookies. Pies.Cakes. Donuts. Muffins. Ice cream. Condiments Store-bought sauces, dressings, and marinades that are high in sugar, such as ketchup and barbecue sauce. The items listed above may not be a complete list of foods and beverages you should avoid. Talk with your dietitian about what dietary choices are best for you. Summary ??? High levels of triglycerides can increase the risk of heart disease and stroke. Choosing the right foods can help lower your triglycerides. ??? Eat plenty of fresh fruits, vegetables, and whole grains. Choose low-fat dairy and lean meats. Eat fatty fish at least twice a week. ??? Avoid processed and prepackaged foods with added sugar, sodium, saturated fat, and trans fat. ??? If you need suggestions or have questions about what types of food are good for you, talk with your health care provider or a dietitian. This information is not intended to replace advice given to you by your health care provider. Make sure you discuss any questions you have with your health care provider. Document Revised: 02/17/2022 Document Reviewed: 02/17/2022 [employer] Patient Education ?? 2023 [employer]. 06/03/2025 14:07:55 Heart Attack, Xkyy-jr-[id number] Heart Attack A heart attack occurs when blood and oxygen supply to the heart is cut off. A heart attack can cause damage to the heart that cannot be fixed. A heart attack is also called a myocardial infarction, or UT. If you think you are having a heart attack, do not wait to see if the symptoms will go away. Get medical help right away. What are the causes? This condition may be caused by: ??? A fatty substance (plaque) in the blood vessels (arteries). This can block the flow of blood tothe heart. ??? A blood clot in the blood vessels that go to the heart. The blood clot blocks blood flow. ??? An abnormal heartbeat. ??? Some diseases, such as problems in red blood cells (anemia)orproblems in breathing (respiratoryfailure). ??? Tightening (spasm) of a blood vessel that cuts off blood to the heart. ??? A tear in a blood vessel of the heart. Other causes may include: ??? Using drugs such as cocaine or methamphetamine. ??? Low blood pressure. What increases the risk? Aging. The risk gets higher as you get older. ??? Having a personal or family history of chest pain, heart attack, stroke, or narrowing of the arteries in the legs, arms, head, or stomach (peripheral vascular disease). ??? Having taken chemotherapy or immune-suppressing medicines. ??? Being male. ??? Being overweight or obese. ??? Having any of these conditions: ??? High blood pressure. ??? High cholesterol. ??? Diabetes. ??? Making lifestyle choices such as: ??? Drinking too much alcohol. ??? Not getting regular exercise. ??? Smoking. What are the signs or symptoms? Chest pain. It may feel like: ??? Crushing or squeezing. ??? Tightness, pressure, fullness, or heaviness. ??? Pain in the arm, neck, jaw, back, or upper body. ??? Heartburn. ??? Upset stomach (indigestion). ??? Shortness of breath. ??? Feeling like you may vomit (nauseous). ??? Cold sweats. ??? Sudden light-headedness, dizziness, or passing out. ??? Feeling tired. How is this treated? A heart attack must be treated as soon as possible. Treatment may include: ??? Medicines to: ??? Break up or dissolve blood clots. ??? Thin your blood and help prevent blood clots. ??? Treat blood pressure. ??? Improve blood flow to the heart. ??? Reduce pain. ??? Reduce cholesterol. ??? Procedures to widen a blocked artery and keep it open. ??? Open heart surgery. ??? Making your heart strong again (cardiac rehabilitation) through exercise, education, and counseling. Follow these instructions at home: Medicines ??? Take vjyh-ghm-[id number] and prescription medicines only as told by your doctor. ??? Do not take these medicines unless your doctor says it is okay: ??? NSAIDs, such as ibuprofen, naproxen, or celecoxib. ??? Any vitamins or supplements. ??? Hormone replacement therapy that has estrogen with or without progestin. ??? If you are taking blood thinners: ??? Talk with your doctor before taking any medicines that have aspirin or NSAIDs, such as ibuprofen. ??? Take medicines exactly as told. Take them at the same time each day. ??? Avoid doing things that could hurt or bruise you. Take action to prevent falls. ??? Wear an alert bracelet or carry a card that shows you are taking blood thinners. Lifestyle ??? Do not smoke or use any products that contain nicotine or tobacco. If you need help quitting, ask your doctor. ??? Avoid secondhand smoke. ??? Exercise regularly. Ask your doctor about a cardiac rehab program. ??? Eat heart-healthy foods. Your doctor will tell you what foods to eat. ??? Stay at a healthy weight. ??? Learn ways to lower your stress level. ??? Do not use illegal drugs. Alcohol use ??? Do not drink alcohol if: ??? Your doctor tells you not to drink. ??? You are , may be , or are planning to become . ??? If you drink alcohol: ??? Limit how much you have to: ??? 0???1 drink a day for women. ??? 0???2 drinks a day for men. ??? Know how much alcohol is in your drink. In the [place] one drink equals one 12 oz bottle of beer (355 mL), one 5 oz glass of wine (148 mL), or one 1?? oz glass of hard liquor (44 mL). General instructions ??? Work with your doctor to treat other problems you may have, such as diabetes or high blood pressure. ??? Get screened for depression. Get treatment if needed. ??? Keep your vaccines up to date. Get the flu shot (influenza vaccine) every year. ??? Keep all follow-up visits. Contact a doctor if: ??? You feel very sad. ??? You have trouble doing your daily activities. ??? You get light-headed or dizzy. Get help right away if: ??? You have sudden, unexplained discomfort in your chest, arms, back, neck, jaw, or upper body. ??? You have shortness of breath. ??? You have sudden sweating or clammy skin. ??? You feel like you may vomit or you vomit. ??? You feel tired or weak. ??? You feel your heart beating fast. ??? You feel your heart skipping beats. ??? You have blood pressure that is higher than 180/120. These symptoms may be an emergency. Get help right away. Call your local emergency services ([facility] [place] ??? Do not wait to see if the symptoms will go away. ??? Do not drive yourself to the hospital. Summary ??? A heart attack occurs when blood and oxygen supply to the heart is cut off. ??? Do not take NSAIDs unless your doctor says it is okay. ??? Do not smoke. Avoid secondhand smoke. ??? Exercise regularly. Ask your doctor about a cardiac rehab program. This information is not intended to replace advice given to you by your health care provider. Make sure you discuss any questions you have with your health care provider. Document Revised: 03/30/2022 Document Reviewed: 03/30/2022 [employer] Patient Education ?? 2023 [employer]. 06/03/2025 14:07:53 DASH Eating Plan DASH Eating Plan DASH stands for Dietary Approaches to Stop Hypertension. The DASH eating plan is a healthy eating plan that has been shown to: ??? Lower high blood pressure (hypertension). ??? Reduce your risk for type 2 diabetes, heart disease, and stroke. ??? Help with weight loss. What are tips for following this plan? Reading food labels ??? Check food labels for the amount of salt (sodium) per serving. Choose foods with less than 5 percent of the Daily Value (DV) of sodium. In general, foods with less than 300 milligrams (mg) of sodium per serving fit into this eating plan. ??? To find whole grains, look for the word whole as the first word in the ingredient list. Shopping ??? Buy products labeled as low-sodium or no salt added. ??? Buy fresh foods. Avoid canned foods and pre-made or frozen meals. Cooking ??? Try not to add salt when you cook. Use salt-free seasonings or herbs instead of table salt or sea salt. Check with your health care provider or pharmacist before using salt substitutes. ??? Do not goodrich foods. Cook foods in healthy ways, such as baking, boiling, grilling, roasting, or broiling. ??? Cook using oils that are good for your heart. These include olive, canola, avocado, soybean, and sunflower oil. Meal planning ??? Eat a balanced diet. This should include: ??? 4 or more servings of fruits and 4 or more servings of vegetables each day. Try to fill half ofyour plate with fruits and vegetables. ??? 6???8 servings of whole grains each day. ??? 6 or less servings of lean meat, poultry, or fish each day. 1 oz is 1 serving. A 3 oz (85 g) serving of meat is about the same size as the palm of your hand. One egg is 1 oz (28 g). ??? 2???3 servings of low-fat dairy each day. One serving is 1 cup (237 mL). ??? 1 serving of nuts, seeds, or beans 5 times each week. ??? 2???3 servings of heart-healthy fats. Healthy fats called omega-3 fatty acids are found in foods such as walnuts, flaxseeds, fortified milks, and eggs. These fats are also found in cold-water fish, such as sardines, salmon, and mackerel. ??? Limit how much you eat of: ??? Canned or prepackaged foods. ??? Food that is high in trans fat, such as fried foods. ??? Food that is high in saturated fat, such as fatty meat. ??? Desserts and other sweets, sugary drinks, and other foods with added sugar. ??? Full-fat dairy products. ??? Do not salt foods before eating. ??? Do not eat more than 4 egg yolks a week. ??? Try to eat at least 2 vegetarian meals a week. ??? Eat more home-cooked food and less restaurant, buffet, and fast food. Lifestyle ??? When eating at a restaurant, ask if your food can be made with less salt or no salt. ??? If you drink alcohol: ??? Limit how much you have to: ??? 0???1 drink a day if you are female. ??? 0???2 drinks a day if you are male. ??? Know how much alcohol is in your drink. In the [place] one drink is one 12 oz bottle of beer (355mL), one 5 oz glass of wine (148 mL), or one 1?? oz glass of hard liquor (44 mL). General information ??? Avoid eating more than 2,300 mg of salt a day. If you have hypertension, you may need to reduceyour sodium intake to 1,500 mg a day. ??? Work with your provider to stay at a healthy body weight or lose weight. Ask what the best weight range is for you. ??? On most days of the week, get at least 30 minutes of exercise that causes your heart to beat faster. This may include walking, swimming, or biking. ??? Work with your provider or dietitian to adjust your eating plan to meet your specific calorie needs. What foods should I eat? Fruits All fresh, dried, or frozen fruit. Canned fruits that are in their natural juice and do not have sugar added to them. Vegetables Fresh or frozen vegetables that are raw, steamed, roasted, or grilled. Low- sodium or reduced-sodiumtomato and vegetable juice. Low-sodium or reduced-sodium tomato sauce and tomato paste. Low-sodium or reduced-sodium canned vegetables. Grains Whole-grain or whole-wheat bread. Whole-grain or whole-wheat pasta. Brown rice. Oatmeal. Quinoa. Bulgur. Whole-grain and low-sodium cereals. [place]anne bread. Low- fat, low-sodium crackers. Whole-wheat flour tortillas. Meats and other proteins Skinless chicken or turkey. Ground chicken or turkey. Pork with fat trimmed off. Fish and seafood. Egg whites. Dried beans, peas, or lentils. Unsalted nuts, nut butters, and seeds. Unsalted canned beans. Lean cuts of beef with fat trimmed off. Low-sodium, lean precooked or cured meat, such as sausages or meat loaves. Dairy Low-fat (1%) or fat-free (skim) milk. Reduced-fat, low-fat, or fat-free cheeses. Nonfat, low-sodiumricotta or cottage cheese. Low-fat or nonfat yogurt. Low-fat, low-sodium cheese. Fats and oils Soft margarine without trans fats. Vegetable oil. Reduced-fat, low-fat, or light mayonnaise and salad dressings (reduced-sodium). Canola, safflower, olive, avocado, soybean, and sunflower oils. Avocado. Seasonings and condiments Herbs. Spices. Seasoning mixes without salt. Other foods Unsalted popcorn and pretzels. Fat-free sweets. The items listed above may not be all the foods and drinks you can have. Talk to a dietitian to learn more. What foods should I avoid? Fruits Canned fruit in a light or heavy syrup. Fried fruit. Fruit in cream or butter sauce. Vegetables Creamed or fried vegetables. Vegetables in a cheese sauce. Regular canned vegetables that are not marked as low-sodium or reduced-sodium. Regular canned tomato sauce and paste that are not marked as low-sodium or reduced-sodium. Regular tomato and vegetable juices that are not marked as low-sodium or reduced-sodium. Pickles. Olives. Grains Baked goods made with fat, such as croissants, muffins, or some breads. Dry pasta or rice meal packs. Meats and other proteins Fatty cuts of meat. Ribs. Fried meat. Cotton. Bologna, salami, and other precooked or cured meats, such as sausages or meat loaves, that are not lean and low in sodium. Fat from the back of a pig (fatback). Bratwurst. Salted nuts and seeds. Canned beans with added salt. Canned or smoked fish. Whole eggs or egg yolks. Chicken or turkey with skin. Dairy Whole or 2% milk, cream, and [id number]. Whole or full-fat cream cheese. Whole-fat or sweetened yogurt. Full-fat cheese. Nondairy creamers. Whipped toppings. Processed cheese and cheese spreads. Fats and oils Butter. Stick margarine. Lard. Shortening. Ghee. Cotton fat. Tropical oils, such as coconut, palm kernel, or palm oil. Seasonings and condiments Onion salt, garlic salt, seasoned salt, table salt, and sea salt. Worcestershire sauce. Tartar sauce. Barbecue sauce. Teriyaki sauce. Soy sauce, including reduced-sodium soy sauce. Steak sauce. Canned and packaged gravies. Fish sauce. Oyster sauce. Cocktail sauce. Store-bought horseradish. Ketchup.Mustard. Meat flavorings and tenderizers. Bouillon cubes. Hot sauces. Pre-made or packaged marinades. Pre-made or packaged taco seasonings. Relishes. Regular salad dressings. Other foods Salted popcorn and pretzels. The items listed above may not be all the foods and drinks you should avoid. Talk to a dietitian mars more. Where to find more information ??? National Heart, Lung, and Blood [place] (NHLBI): nhlbi.nih.gov ??? [place] [employer] (AHA): heart.org ??? Academy of Nutrition and Dietetics: eatright.org ??? National Kidney Foundation (NKF): kidney.org This information is not intended to replace advice given to you by your health care provider. Make sure you discuss any questions you have with your health care provider. Document Revised: 10/25/2023 Document Reviewed: 10/25/2023 [employer] Patient Education ?? 2023 [employer]. 06/03/2025 14:07:51 Managing Anxiety, Adult Managing Anxiety, Adult After being diagnosed with anxiety, you may be relieved to know why you have felt or behaved a certain way. You may also feel overwhelmed about the treatment ahead and what it will mean for your life. With care and support, you can manage your anxiety. How to manage lifestyle changes Understanding the difference between stress and anxiety Although stress can play a role in anxiety, it is not the same as anxiety. Stress is your body's reaction to life changes and events, both good and bad. Stress is often caused by something external, such as a deadline, test, or competition. It normally goes away after the event has ended and will last just a few hours. But, stress can be ongoing and can lead to more than just stress. Anxiety is caused by something internal, such as imagining a terrible outcome or worrying that something will go wrong that will greatly upset you. Anxiety often does not go away even after the eventis over, and it can become a long- term (chronic) worry. Lowering stress and anxiety Talk with your health care provider or a counselor to learn more about lowering anxiety and stress.They may suggest tension-reduction techniques, such as: ??? Music. Spend time creating or listening to music that you enjoy and that inspires you. ??? Mindfulness-based meditation. Practice being aware of your normal breaths while not trying to control your breathing. It can be done while sitting or walking. ??? Centering prayer. Focus on a word, phrase, or sacred image that means something to you and brings you peace. ??? Deep breathing. Expand your stomach and inhale slowly through your nose. Hold your breath for 3???5 seconds. Then breathe out slowly, letting your stomach muscles relax. ??? Self-talk. Learn to notice and spot thought patterns that lead to anxiety reactions. Change those patterns to thoughts that feel peaceful. ??? Muscle relaxation. Take time to tense muscles and then relax them. Choose a tension-reduction technique that fits your lifestyle and personality. These techniques take time and practice. Set aside 5???15 minutes a day to do them. Specialized therapists can offer counseling and training in these techniques. The training to help with anxiety may be covered by some insurance plans. Other things you can do to manage stress and anxiety include: ??? Keeping a stress diary. This can help you learn what triggers your reaction and then learn waysto manage your response. ??? Thinking about how you react to certain situations. You may not be able to control everything, but you can control your response. ??? Making time for activities that help you relax and not feeling guilty about spending your time in this way. ??? Doing visual imagery. This involves imagining or creating mental pictures to help you relax. ??? Practicing yoga. Through yoga poses, you can lower tension and relax. Medicines Medicines for anxiety include: ??? Antidepressant medicines. These are usually prescribed for long-term daily control. ??? Anti-anxiety medicines. These may be added in severe cases, especially when panic attacks occur. When used together, medicines, psychotherapy, and tension-reduction techniques may be the most effective treatment. Relationships Relationships can play a big part in helping you recover. Spend more time connecting with trusted friends and family members. Think about going to couples counseling if you have a partner, taking family education classes, or going to family therapy. Therapy can help you and others better understandyour anxiety. How to recognize changes in your anxiety Everyone responds differently to treatment for anxiety. Recovery from anxiety happens when symptomslessen and stop interfering with your daily life at home or work. This may mean that you will startto: ??? Have better concentration and focus. Worry will interfere less in your daily thinking. ??? Sleep better. ??? Be less irritable. ??? Have more energy. ??? Have improved memory. Try to recognize when your condition is getting worse. Contact your provider if your symptoms interfere with home or work and you feel like your condition is not improving. Follow these instructions at home: Activity ??? Exercise. Adults should: ??? Exercise for at least 150 minutes each week. The exercise should increase your heart rate and make you sweat (moderate-intensity exercise). ??? Do strengthening exercises at least twice a week. ??? Get the right amount and quality of sleep. Most adults need 7???9 hours of sleep each night. Lifestyle ??? Eat a healthy diet that includes plenty of vegetables, fruits, whole grains, low-fat dairy products, and lean protein. ??? Do not eat a lot of foods that are high in fats, added sugars, or salt (sodium). ??? Make choices that simplify your life. ??? Do not use any products that contain nicotine or tobacco. These products include cigarettes, chewing tobacco, and vaping devices, such as e-cigarettes. If you need help quitting, ask your provider. ??? Avoid caffeine, alcohol, and certain vrjo-jhv-zpijale cold medicines. These may make you feel worse. Ask your pharmacist which medicines to avoid. General instructions ??? Take vjeq-may-owkisyr and prescription medicines only as told by your provider. ??? Keep all follow-up visits. This is to make sure you are managing your anxiety well or if you need more support. Where to find support You can get help and support from: ??? Self-help groups. ??? Online and community organizations. ??? A trusted spiritual leader. ??? Couples counseling. ??? Family education classes. ??? Family therapy. Where to find more information You may find that joining a support group helps you deal with your anxiety. The following sources can help you find counselors or support groups near you: ??? Mental Health [place]: mentalhealthamerica.net ??? Anxiety and Depression Association of [place] (ADAA): adaa.org ??? National [place] on Mental Illness (RONNY): ronny.org Contact a health care provider if: ??? You have a hard time staying focused or finishing tasks. ??? You spend many hours a day feeling worried about everyday life. ??? You are very tired because you cannot stop worrying. ??? You start to have headaches or often feel tense. ??? You have chronic nausea or diarrhea. Get help right away if: ??? Your heart feels like it is racing. ??? You have shortness of breath. ??? You have thoughts of hurting yourself or others. Get help right away if you feel like you may hurt yourself or others, or have thoughts about takingyour own life. Go to your nearest emergency room or: ??? Call 911. ??? Call the National Suicide Prevention Lifeline at or 919. This is open 24 hours aday. ??? Text the Crisis Text Line at 491288. This information is not intended to replace advice given to you by your health care provider. Make sure you discuss any questions you have with your health care provider. Document Revised: 07/17/2023 Document Reviewed: 01/29/2022 Elsevier Patient Education ?? 2023 [employer] 06/03/2025 14:07:47 Heartburn Heartburn Heartburn is a type of pain or discomfort that can happen in the throat or chest. It is often described as a burning pain. It may also cause a bad, acid- like taste in the mouth. Heartburn may feel worse when you lie down or bend over, and it is often worse at night. Heartburn may be caused by stomach contents that move back up into the esophagus (reflux). Follow these instructions at home: Eating and drinking ??? Avoid certain foods and drinks as told by your health care provider. This may include: ??? Coffee and tea, with or without caffeine. ??? Drinks that contain alcohol. ??? Energy drinks and sports drinks. ??? Carbonated drinks or sodas. ??? Chocolate and cocoa. ??? Peppermint and mint flavorings. ??? Garlic and onions. ??? Horseradish. ??? Spicy and acidic foods, including peppers, chili powder, nicholson powder, vinegar, hot sauces, andbarbecue sauce. ??? Gap fruit juices and citrus fruits, such as oranges, herson, and limes. ??? Tomato-based foods, such as red sauce, chili, salsa, and pizza with red sauce. ??? Fried and fatty foods, such as donuts, kosovan fries, potato chips, and high- fat dressings. ??? High-fat meats, such as hot dogs and fatty cuts of red and white meats, such as rib eye steak, sausage, ham, and cotton. ??? High-fat dairy items, such as whole milk, butter, and cream cheese. ??? Eat small, frequent meals instead of large meals. ??? Avoid drinking large amounts of liquid with your meals. ??? Avoid eating meals during the 2???3 hours before bedtime. ??? Avoid lying down right after you eat. ??? Do not exercise right after you eat. Lifestyle ??? If you are overweight, reduce your weight to an amount that is healthy for you. Ask your healthcare provider for guidance about a safe weight loss goal. ??? Do not use any products that contain nicotine or tobacco. These products include cigarettes, chewing tobacco, and vaping devices, such as e-cigarettes. These can make symptoms worse. If you need help quitting, ask your health care provider. ??? Wear loose-fitting clothing. Do not wear anything tight around your waist that causes pressure on your abdomen. ??? Raise (elevate) the head of your bed about 6 inches (15 cm) when you sleep. You can use a wedgeto do this. ??? Try to reduce your stress, such as with yoga or meditation. If you need help reducing stress, ask your health care provider. Medicines ??? Take fetn-edf-pssgtnq and prescription medicines only as told by your health care provider. ??? Do not take aspirin or NSAIDs, such as ibuprofen, unless your health care provider told you to do so. ??? Stop medicines only as told by your health care provider. If you stop taking some medicines tooquickly, your symptoms may get worse. General instructions ??? Pay attention to any changes in your symptoms. ??? Keep all follow-up visits. This is important. Contact a health care provider if: ??? You have new symptoms. ??? You have unexplained weight loss. ??? You have difficulty swallowing, or it hurts to swallow. ??? You have wheezing or a persistent cough. ??? Your symptoms do not improve with treatment. ??? You have frequent heartburn for more than 2 weeks. Get help right away if: ??? You suddenly have pain in your arms, neck, jaw, teeth, or back. ??? You suddenly feel sweaty, dizzy, or light-headed. ??? You have chest pain or shortness of breath. ??? You vomit and your vomit looks like blood or coffee grounds. ??? Your stool is bloody or black. These symptoms may represent a serious problem that is an emergency. Do not wait to see if the symptoms will go away. Get medical help right away. Call your local emergency services (911 in the [place] Do not drive yourself to the hospital. Summary ??? Heartburn is a type of pain or discomfort that can happen in the throat or chest. It is often described as a burning pain. It may also cause a bad, acid- like taste in the mouth. ??? Avoid certain foods and drinks as told by your health care provider. ??? Take atmj-llo-myvdopp and prescription medicines only as told by your health care provider. Do not take aspirin or NSAIDs, such as ibuprofen, unless your health care provider told you to do so. ??? Contact a health care provider if your symptoms do not improve or they get worse. This information is not intended to replace advice given to you by your health care provider. Make sure you discuss any questions you have with your health care provider. Document Revised: 04/13/2021 Document Reviewed: 04/13/2021 Elsevier Patient Education ?? 2023 [employer] Patient Care team information Care Team Personnel Name: TRAM DURBIN DO Position: FT Physician Member Role: Surgeon [address] [place] [address]- Telecom: Name: Bro Schaefer Member Role: Machine Lay Out Worker Telecom: Name: Darcy Cerda Position: FT Ambulatory - Primary Care - [facility] Member Role: Primary Care Physician Address: [address] [place] [address]- Telecom: Name: JR VANESSA JOYNER GEORGE C Position: FT Physician Member Role: Orthopaedist Address: [address] [place] [id number] Telecom: Care Team Related Persons Name: TRAM ROGERS Name: TRAM ROGERS Name: TRAM ROGERS S Name: TRAM ROGERS S Name: TRAM ROGERS S Insurance Providers Guarantor name: Health Plan Information #: 1 Payer: NA Payer Identifier: [id number] Member Number: [id number] Group Number: [id number] Subscriber Identifier: [id number] Relationship to Subscriber: Self Coverage Type: MEDICARE Coverage Verification Date: 25 Telecom: NA Address: Health Plan Information #: 2 Payer: NA Payer Identifier: [id number] Member Number: [id number] Group Number: [id number] Subscriber Identifier: [id number] Relationship to Subscriber: Self Coverage Type: PRIVATE HEALTH INSURANCE Coverage Verification Date: 25 Telecom: Address:
--- OUTSIDE RECORDS SUMMARY | 2025-06-03 23:59 | XMS_ITS | Continuity of Care Document ---
Author Organization [facility] Address [address] [place] [address] Care Team Providers Care Operations Support Manager Name Role Phone Darcy Trujillo Primary Care Physician [phone] Encounter FT_AMBFIN [id number] Date(s): 06/03/25 - 06/03/25 [facility] [address] [place] [address]- Encounter Diagnosis HTN (hypertension)(Discharge Diagnosis) - 06/03/25 BMI 22.0-22.9, adult(Discharge Diagnosis) - 06/03/25 Former smoker(Discharge Diagnosis) - 06/03/25 Fluid level behind tympanic membrane of right ear(Discharge Diagnosis) - 06/03/25 Discharge Disposition: Home (Routine DC) Attending Physician: Darcy Cerda Encounter Type: Clinic Allergies, Adverse Reactions, Alerts Substance Criticality Severity Reaction Reaction Severity Status Bactrim Vomit Active Advicor Unknown Active Assessment and Plan Future Appointments Appointment Date:06/03/2026 01:00:00 PM Scheduled Provider: Location:[facility] Appointment Type:FM Medicare Wellness Subsequent Future Scheduled [...] vaccine, inactivated 08/22/19 Alex rded SARS-CoV-2 (COVID-19) [id number].[id number] 08/15/22 Recorded SARSCoV2 mRNA(gisfwzuza-pzwl-kqovsi) vac 02/24/22 Recorded SARS-CoV-2 (COVID-19) mRNA BNT-162b2 vax 07/28/21 Recorded SARS-CoV-2 (COVID-19) mRNA BNT-162b2 vax 01/11/21 Recorded SARS-CoV-2 (COVID-19) mRNA BNT-162b2 vax 12/20/20 Recorded pneumococcal 23-valent vaccine 07/28/20 Recorded pneumococcal 13-valent vaccine 08/22/19 Recorded Medications atorvastatin 20 mg Tab See Instructions, TAKE 1 TABLET BY MOUTH DAILY, # 90 tab(s), Refills(s) 0, Pharmacy: [facility] [id number], 171, cm, 03/03/25 13:32:00 EDT, Height/Length Dosing, 73.9, kg, 03/03/25 13:32:00 EDT, Weight Dosing Start Date: 03/20/25 Status: Ordered Quantity: 90.0 Unit: tab(s) Repeat number: 1 bisoprolol-hydrochlorothiazide 5 mg-6.25 mg Tab See Instructions, 90 tab(s), Refill(s) 0, TAKE 1 TABLET BY MOUTH DAILY, [facility] [id number], 171, cm, 03/03/25 13:32:00 EDT, Height/Length Dosing, 73.9, kg, 03/03/25 13:32:00 EDT, Weight Dosing Start Date: 04/03/25 Status: Ordered Quantity: 90.0 Unit: tab(s) Repeat number: 1 busPIRone 15 mg Tab 15 mg = 1 tab(s), Oral, TID, # 90 tab(s), Refills(s) 0, Pharmacy: [facility] [id number], 173, cm, 05/19/25 11:46:00 EDT, Height/Length Dosing, 69.2, kg, 05/19/25 11:46:00 EDT, Weight Dosing Start Date: 05/19/25 Status: Ordered Quantity: 90.0 Unit: tab(s) Repeat number: 1 Indications: Essential (primary) hypertension; Generalized anxiety disorder; CeleBREX 200 mg Cap 200 mg = 1 cap(s), Oral, Daily, # 90 cap(s), Refills(s) 0, Pharmacy: [facility] [id number], 171,cm, 05/02/24 10:21:00 EDT, Height/Length Dosing, 72.7, kg, 05/02/24 10:21:00 EDT, Weight Dosing Start Date: 01/27/25 Status: Ordered Quantity: 90.0 Unit: cap(s) Repeat number: 1 Indications: Menopausal and female climacteric states; Cipro 250 mg Tab 250 mg = 1 tab(s), Oral, q24hr, # 30 tab(s), Refills(s) 1, Pharmacy: [facility] [id number], 173,cm, 04/27/25 12:29:00 EDT, Height/Length Dosing, 71.1, kg, 04/27/25 12:29:00 EDT, Weight Dosing Start Date: 04/28/25 Status: Ordered Quantity: 30.0 Unit: tab(s) Repeat number: 2 cloNIDine 0.1 mg tab See Instructions, TAKE 1 TABLET BY MOUTH 2 TIMES A DAY, # 60 tab(s), Refills(s) 0, Pharmacy: [facility] [id number], 173, cm, 05/19/25 11:46:00 EDT, Height/Length Dosing, 69.2, kg, 05/19/25 11:46:00 EDT, Weight Dosing Start Date: 06/01/25 Status: Ordered Quantity: 60.0 Unit: tab(s) Repeat number: 1 Flonase 0.05 mg/inh [place] 2 spray(s), Nasal, Daily, 16 gram, Refill(s) 0, each nostril, [facility] [id number], 173, cm, 06/03/25 14:03:00 EDT, Height/Length Dosing, [...] # 90 tab(s), Refills(s) 0, Pharmacy: [facility] [id number], 171, cm, 03/03/25 13:32:00 EDT, Height/Length Dosing, 73.9, kg, 03/03/25 13:32:00 EDT, Weight Dosing Start Date: 03/20/25 Status: Ordered Quantity: 90.0 Unit: tab(s) Repeat number: 1 meloxicam 15 mg Tab 15 mg = 1 tab(s), Oral, Daily, # 30 tab(s), Refills(s) 1, Pharmacy: [facility] [id number], 171, cm, 05/02/24 10:21:00 EDT, Height/Length Dosing, [...] 0, Pharmacy: [facility] [id number], 171, cm, 03/03/25 13:32:00 EDT, Height/Length Dosing, [...] (finding) 1denies use. Stopped smoking in . Patient Care team information Care Team Personnel Name: TRAM DURBIN DO Position: FT Physician Member Role: Surgeon Address: [address] [place] [id number] Telecom: Name: Bro Schaefer Member Role: Gradall Operator Telecom: Name: Darcy Cerda Position: FT Ambulatory - Primary Care - [facility] Member Role: Primary Care Physician Address: [address] [place] [address]- Telecom: Name: JR VANESSA JOYNER GEORGE C Position: FT Physician Member Role: Orthopaedist Address: [address] [place] [phone] Telecom: Care Team Related Persons Name: TRAM ROGERS Name: TRAM ROGERS Name: TRAM ROGERS Name: TRAM ROGERS Name: TRAM ROGERS Insurance Providers Guarantor name: Health Plan Information #: 1 Payer: NA Payer Identifier: [id number] Member Number: [id number] Group Number: [id number] Subscriber Identifier: [id number] Relationship to Subscriber: Self Coverage Type: MEDICARE Coverage Verification Date: 25 Telecom: NA Address: Health Plan Information #: 2 Payer: NA Payer Identifier: [id number] Member Number: [id number] Group Number: [id number] Subscriber Identifier: [id number] Relationship to Subscriber: Self Coverage Type: PRIVATE HEALTH INSURANCE Coverage Verification Date: 25 Telecom: LONNIE Address: NA
--- OUTSIDE RECORDS SUMMARY | 2025-06-03 23:59 | XMS_ITS | Continuity of Care Document ---
Author Organization [facility] Address Unknown Care Team Providers Care Regional Sales Representative Name Role Phone Darcy Trujillo Primary Care Physician [phone] Encounter _[facility] [id number] Date(s): 06/03/25 - 06/03/[address] [address] Discharge Disposition: Home (Routine DC) Attending Physician: Darcy Cerda Admitting Physician: Darcy Cerda Encounter Type: Lab Drop off Allergies, Adverse Reactions, Alerts Substance Criticality Severity Reaction Reaction Severity Status Bactrim Vomit Active Advicor Unknown Active Assessment and Plan Future Appointments Appointment Date:06/03/2026 01:00:00 PM Scheduled Provider: Location:[facility] Appointment Type:FM Medicare Wellness Subsequent Diagnostic Tests Pending * Comprehensive Metabolic Panel 06/03/25 * HgbA1c 06/03/25 * Lipid Panel 06/03/25 * Urine Microalbumin/Creatinine Ratio 06/03/25 * Thyroid Stimulating Hormone 06/03/25 Future Scheduled Tests Laboratory* Basic Metabolic Panel [...] vaccine, inactivated 08/22/19 Alex rded SARS-CoV-2 (COVID-19) [id number].[id number] 08/15/22 Recorded SARSCoV2 mRNA(xpozmjycn-cpqq-jgwmpv) vac 02/24/22 Recorded SARS-CoV-2 (COVID-19) mRNA BNT-162b2 vax 07/28/21 Recorded SARS-CoV-2 (COVID-19) mRNA BNT-162b2 vax 01/11/21 Recorded SARS-CoV-2 (COVID-19) mRNA BNT-162b2 vax 12/20/20 Recorded pneumococcal 23-valent vaccine 07/28/20 Recorded pneumococcal 13-valent vaccine 08/22/19 Recorded Medications atorvastatin 20 mg Tab See Instructions, TAKE 1 TABLET BY MOUTH DAILY, # 90 tab(s), Refills(s) 0, Pharmacy: [facility] [id number], 171, cm, 03/03/25 13:32:00 EDT, Height/Length Dosing, 73.9, kg, 03/03/25 13:32:00 EDT, Weight Dosing Start Date: 03/20/25 Status: Ordered Quantity: 90.0 Unit: tab(s) Repeat number: 1 bisoprolol-hydrochlorothiazide 5 mg-6.25 mg Tab See Instructions, 90 tab(s), Refill(s) 0, TAKE 1 TABLET BY MOUTH DAILY, [facility] [id number], 171, cm, 03/03/25 13:32:00 EDT, Height/Length Dosing, 73.9, kg, 03/03/25 13:32:00 EDT, Weight Dosing Start Date: 04/03/25 Status: Ordered Quantity: 90.0 Unit: tab(s) Repeat number: 1 busPIRone 15 mg Tab 15 mg = 1 tab(s), Oral, TID, # 90 tab(s), Refills(s) 0, Pharmacy: [facility] [id number], 173, cm, 05/19/25 11:46:00 EDT, Height/Length Dosing, 69.2, kg, 05/19/25 11:46:00 EDT, Weight Dosing Start Date: 05/19/25 Status: Ordered Quantity: 90.0 Unit: tab(s) Repeat number: 1 Indications: Essential (primary) hypertension; Generalized anxiety disorder; CeleBREX 200 mg Cap 200 mg = 1 cap(s), Oral, Daily, # 90 cap(s), Refills(s) 0, Pharmacy: [facility] [id number], 171,cm, 05/02/24 10:21:00 EDT, Height/Length Dosing, 72.7, kg, 05/02/24 10:21:00 EDT, Weight Dosing Start Date: 01/27/25 Status: Ordered Quantity: 90.0 Unit: cap(s) Repeat number: 1 Indications: Menopausal and female climacteric states; Cipro 250 mg Tab 250 mg = 1 tab(s), Oral, q24hr, # 30 tab(s), Refills(s) 1, Pharmacy: [facility] [id number], 173,cm, 04/27/25 12:29:00 EDT, Height/Length Dosing, 71.1, kg, 04/27/25 12:29:00 EDT, Weight Dosing Start Date: 04/28/25 Status: Ordered Quantity: 30.0 Unit: tab(s) Repeat number: 2 cloNIDine 0.1 mg tab See Instructions, TAKE 1 TABLET BY MOUTH 2 TIMES A DAY, # 60 tab(s), Refills(s) 0, Pharmacy: [facility] [id number], 173, cm, 05/19/25 11:46:00 EDT, Height/Length Dosing, 69.2, kg, 05/19/25 11:46:00 EDT, Weight Dosing Start Date: 06/01/25 Status: Ordered Quantity: 60.0 Unit: tab(s) Repeat number: 1 Flonase 0.05 mg/inh [place] 2 spray(s), Nasal, Daily, 16 gram, Refill(s) 0, each nostril, [facility] [id number], 173, cm, 06/03/25 14:03:00 EDT, Height/Length Dosing, [...] DAILY, # 90 tab(s), Refills(s) 0, Pharmacy: [facility] [id number], 171, cm, 03/03/25 13:32:00 EDT, Height/Length Dosing, 73.9, kg, 03/03/25 13:32:00 EDT, Weight Dosing Start Date: 03/20/25 Status: Ordered Quantity: 90.0 Unit: tab(s) Repeat number: 1 meloxicam 15 mg Tab 15 mg = 1 tab(s), Oral, Daily, # 30 tab(s), Refills(s) 1, Pharmacy: [facility] [id number], 171, cm, 05/02/24 10:21:00 EDT, Height/Length Dosing, [...] DAILY, # 90 cap(s), Refills(s) 0, Pharmacy: [facility] [id number], 171, cm, 03/03/25 13:32:00 EDT, Height/Length Dosing, [...] Position: FT Physician Member Role: Surgeon Address: [address] [place] [id number] Telecom: Name: Bro Schaefer Member Role: Air Value Tester Telecom: Name: Darcy Cerda Position: FT Ambulatory - Primary Care - [facility]ALDO Member Role: Primary Care Physician Address: [address] [place] [address]- Telecom: Name: JR VANESSA JOYNER GEORGE C Position: FT Physician Member Role: Orthopaedist Address: [address] [place] [phone] Telecom: Care Team Related Persons Name: TRAM ROGERS Name: TRAM ROGERS Name: TRAM ROGERS Name: TRAM ROGERS Name: TRAM ROGERS Insurance Providers Guarantor name: Health Plan Information #: 1 Payer: NA Payer Identifier: [id number] Member Number: [id number] Group Number: [id number] Subscriber Identifier: [id number] Relationship to Subscriber: Self Coverage Type: MEDICARE Coverage Verification Date: 25 Telecom: NA Address: Health Plan Information #: 2 Payer: NA Payer Identifier: [id number] Member Number: [id number] Group Number: [id number] Subscriber Identifier: [id number] Relationship to Subscriber: Self Coverage Type: PRIVATE HEALTH INSURANCE Coverage Verification Date: 25 Telecom: LONNIE Address: NA
--- OUTSIDE RECORDS SUMMARY | 2025-06-09 09:57 | XMS_ITS | Clinical Summary ---
Author Organization [facility] Address [address] [place] [address] Care Team Providers Care Cabinet Assembler Name Role Phone Justina Mitchell MD Primary Care Provider [phone] Social History Tobacco Use Types Packs/Day Years Used Date Smoking Tobacco: Never Assessed Comments Unknown Sex and Gender Information Value Date Recorded Sex Assigned at Not on file Legal Sex Female 10:45 PM EDT Gender Identity Not on file Sexual Orientation Not on file Plan of Treatment Not on file Care Teams Cabinet Assembler Relationship Specialty Start Date End Date Justina Mitchell MD [address] [place] [address] PCP - General 11/21/12
--- OUTSIDE RECORDS SUMMARY | 2025-06-09 09:57 | XMS_ITS | Clinical Summary ---
Author Organization Venmo tem Address [id number] [address] [place] [address] Care Team Providers Care Bomb Squad Commander Name Role Phone Trent Nielsen MD Primary Care Provider [phone] Allergies No known active allergies Medications levothyroxine [...] PM CARDIOVASCULAR - 06/09/2021 8:22 AM EDT [facility] Patient Name: Kelin Wong Procedure Date No Time: 06/09/2021 [facility] : [id number] Date of : 1950 Admit Type: Outpatient Age: 70 Room: [place] [address] Gender: Female Note Status: Finalized Attending MD: Arnie Bell DO Procedure: Colonoscopy Indications: Constipation Providers: Arnie Bell DO Referring MD: Arnie Bell DO Medicines: Propofol per Anesthesia Complications: No immediate complications. Procedure: After I obtained informed consent, the scope was passed under direct vision. Throughout the procedure, the patient's blood pressure, pulse, and oxygen saturations were monitored continuously. The [employer] [id number] #[id number] ADULT COLONOSCOPE was introduced through the anus [...] 1 week. Procedure Code(s): --- Professional --- 59842, 53, Colonoscopy, flexible; diagnostic, including collection of specimen(s) by brushing or washing, when performed (separate procedure) Diagnosis Code(s): --- Professional --- K59.00, Constipation, unspecified K57.30, Diverticulosis of large intestine without perforation or abscess without bleeding CPT copyright 2019 [employer]. All rights reserved. The codes documented in this report are preliminary and upon pearl stringer review may be revised to meet current compliance requirements. DO Arnie Stovall DO 06/09/2021 8:22:33 AM Number of Addenda: 0 Note Initiated On: 06/09/2021 7:56 AM Procedure Note Arnie Bell DO - 06/09/2021 [facility] Patient Name: Kelin Wong Procedure Date No Time: 06/09/2021 CSN : [id number] Date of : 1950 Admit Type: Outpatient Age: 70 Room: [place] [address] Gender: Female Note Status: Finalized Attending MD: Arnie Bell DO Procedure: Colonoscopy Indications: Constipation Providers: Arnie Bell DO Referring MD: Arnie Bell DO Medicines: Propofol per Anesthesia Complications: No immediate complications. Procedure: After I obtained informed consent, the scope was passed under direct vision. Throughout theprocedure, the patient's blood pressure, pulse, and oxygen saturations were monitored continuously. [employer] [facility] [id number] #[id number] ADULT COLONOSCOPE was introduced through the anus [...] 1 week. Procedure Code(s): --- Professional --- 94899, 53, Colonoscopy, flexible; diagnostic, including collection of specimen(s) by brushing or washing, when performed (separate procedure) Diagnosis Code(s): --- Professional --- K59.00, Constipation, unspecified K57.30, Diverticulosis of large intestine without perforation orabscess without bleeding CPT copyright 2019 [employer]. All rights reserved. The codes documented in this report are preliminary and upon pearl stringer reviewmay be revised to meet current compliance requirements. DO Arnie Stovall DO 06/09/2021 8:22:33 AM Number of Addenda: 0 Note Initiated On: 06/09/2021 7:56 AM Arnie Bell DO GI PROCEDURE ORDERABLES Fin al Result PM CARDIOVASCULAR from Last 3 Months or Most Recently Relevant to Health Maintenance Insurance MEDICARE [employer]ET[employer] Care Teams Bomb Squad Commander Relationship Specialty Start Date End Date Trent Nielsen MD PCP - General Family Medicine 04/17/23
--- OUTSIDE RECORDS SUMMARY | 2025-06-09 09:57 | XMS_ITS | Encounter Summary ---
Author Organization [facility] Address [address] [place] [address] Care Team Providers Care Paper Sealer Name Role Phone Trent Nielsen MD Unavailable [phone] Darcy Trujillo NP Unavailable Encounter Details Date Type Department Care Team ([facility] Contact Info) Description 05/13/2023 External Result Encounter [...] Jr. Gonzalo Amaral DO LAB BLOOD ORDERABLES [facility] Result [facility] * LYME DISEASE AB ([facility]) [...] antibodies to Borrelia burgdorferi. Test Performed By: [facility] [address] [place] [address] Lab Technician: Mike Simmons III, M.D. CLIA #[id number]^ PERFORMED AT [address] [place] [address] 08/02/2023 10:4 0 AM EDT 08/02/2023 10:44 AM EDT . [facility] LAB BLOOD ORDERABLES Fi nal Result Performing Organization Address [facility] Co de Phone Number [facility] * BARBARA (08/02/2023 10:40 AM EDT) BARBARA SCREEN W/REFLEX Negative Negative [facility] Comment: Testing performed using multiplex flow immunoassay. Eleven different antigens associated with systemic autoimmune diseases (dsDNA,Sm,Sm/ENVIRONMENTAL SAMPLING TECHNICIAN,ENVIRONMENTAL SAMPLING TECHNICIAN,Chromatin, SSA,SSB,Gifty-1,Scl70,Ribo P,Centromere B) are included in this screening test. PERFORMED AT [address],[place] [address] 08/02/2023 10:4 0 AM EDT 08/02/2023 10:44 AM EDT . [facility] LAB BLOOD ORDERABLES Fi nal Result Performing Organization Address [facility] Co de Phone Number [facility] * HLA-B27 antigen (08/02/2023 10:40 AM EDT) HLA-B27 TYPING Negative [facility] Comment:PERFORMED AT [address],[place] [address] 08/02/2023 10:4 0 AM EDT 08/02/2023 10:44 AM EDT [facility] LAB MOLECULAR DIAGNOSTI CS ORDERABLES Final Result Performing Organization Address City/[facility] Co de Phone Number [facility] * Uric acid (08/02/2023 10:40 AM EDT) URIC ACID 4.6 2.6 - 7.2 mg/dL [facility] Comment:PERFORMED AT [address],[place] [address] 08/02/2023 10:4 0 AM EDT 08/02/2023 10:44 AM EDT us Jr. Gonzalo [facility] DO LAB BLOOD ORDERABLES Fi nal Result Performing Organization Address City/[facility] Co de Phone Number [facility] * C-reactive protein (08/02/2023 10:40 AM EDT) C REACTIVE PROTEIN <0.1 0.000 - 0.744 mg/dL [facility] Comment:PERFORMED AT [address],[place] [address] 08/02/2023 10:4 0 AM EDT 08/02/2023 10:44 AM EDT us Jr. Gonzalo Sloan [facility] AGLOGIC LAB BLOOD ORDERABLES Fi nal Result Performing Organization Address [facility] de Phone Number [facility] * Sedimentation rate, automated (08/02/2023 10:40 AM EDT) ESR 22 0 - 30 mm/h [facility] Comment:PERFORMED AT [address],[place] [address] 08/02/2023 10:4 0 AM EDT 08/02/2023 10:44 AM EDT [facility] A[facility] LAB BLOOD ORDERABLES Fi nal Result Performing Organization Address [facility] Co de Phone Number [facility] * Rheumatoid factor (08/02/2023 10:40 AM EDT) RHEUMATOID FACTOR <10 <20 IU/mL [facility] Comment:PERFORMED AT [address],[place] [address] 08/02/2023 10:4 0 AM EDT 08/02/2023 10:44 AM EDT us Jr. Walter [facility] DO LAB BLOOD ORDERABLES Fi nal Result Performing Organization Address [facility]/ZIP Co de Phone Number [facility] * [...] 0.0 - 0.2 [id number] [facility] Comment:PERFORMED AT [facility] [address],[place] [address] 08/02/2023 10:4 0 AM EDT 08/02/2023 10:44 AM EDT Jr. Gonzalo Amaral DO LAB BLOOD ORDERABLES Fi nal Result [facility] * DEXA bone density (05/13/2023 6:16 PM EDT) Anatomical Region Laterality Modality Body Radiographic Altagracia ging 05/13/2023 6:16 PM EDT Narrative 05/13/2023 6:15 PM EDT [facility]AL SKELETAL: 05/10/2023 11:19 AM [...] - 05/13/2023 THIS EX[facility] D[facility]A SCAN CENTRAL SKELETAL: 05/10/2023 11:19 AM [...] on filedocumented in this encounter Care Teams Paper Sealer Relationship Specialty Start Date End Date Trent Nielsen MD [address] [place] [address] Referring Physician Family Medicine 12/30/24 Darcy Trujillo NP [address] [place] [address] Referring Physician Family Medicine 12/30/24 documented as of this encounter
--- OUTSIDE RECORDS SUMMARY | 2025-06-09 09:57 | XMS_ITS | Clinical Summary ---
Author Organization [facility] Address [address] [place] [address] Care Team Providers Care Produce Runner Name Role Phone Trent Nielsen MD Unavailable [phone] Darcy Trujillo NP Unavailable Allergies No [...] 0, 08/22/2019 Insurance MEDICARE [employer] Care Teams Produce Runner Relationship Specialty Start Date End Date Trent Nielsen MD [address] [place] [address] Referring Physician Family Medicine 12/30/24 Darcy Trujillo NP [address] [place] [address] Referring Physician Family Medicine 12/30/24
--- OUTSIDE RECORDS SUMMARY | 2025-06-09 09:57 | XMS_ITS | Clinical Summary ---
Author Organization [facility] Address [address] [place] [phone] Care Team Providers Care Cartography Supervisor Name Role Phone Darcy Trujillo Primary Care Provider [phone] Allergies Active Allergy Reactions Criticality Noted Date Comments Niacin-Lovastatin 01/07/2025 Other Reaction(s): Unknown Medications bisoprolol-hydroc hlorothiazide 5-6.25 MG tablet Take by mouth daily every morning. 04/14/20 24 Active cholecalciferol 10 MCG (400 UNIT) tablet daily. Active omeprazole [address] capsule Take 1 capsule by mouth daily. PM Active Atorvastatin 20 MG tablet Take 1 tablet by mouth daily. PM Active Levothyroxine 100 MCG tablet Take 1 tablet by mouth every morning before breakfast. Active melatonin capsule Take 2 capsules by mouth at bedtime as needed. Active Polyethylene glycol 17 g Pack packet Take 1 packet by mouth daily. Active Aspirin [address] tablet Take 1 tablet by mouth 2 times daily. This medication is for blood clot prevention. Take with food. 60 tablet 03/25/20 25 Active Celecoxib 200 MG capsule Take 1 capsule by mouth 2 times daily. Take with food. 84 capsule 03/25/20 25 Active Docusate 100 MG capsule Take 1 capsule by mouth 2 times daily. Hold for loose stools. 60 capsule 03/25/20 25 Active therapeutic multivitamin-mine rals tablet Take 1 tablet by mouth at bedtime. 30 tablet 03/25/20 25 Active hydroCODone-aceta minophen 5-325 MG tabletIndications :Acute postoperative pain of left hip Take 1-2 tablets by mouth every 6 hours as needed for Severe Pain for up to 7 days. Do not take over 4000mg acetaminophen daily. 10 tablet 03/25/20 25 Active Ondansetron 4 MG tablet Take 1 tablet by mouth every 8 hours as needed for Nausea / Vomiting. 6 tablet 03/25/20 25 Active traMADol 50 MG tabletIndications :Acute postoperative pain of left hip 1-2 tabs every 6 hours as needed for mild/moderate pain. 20 tablet 03/25/20 25 Active Acetaminophen 325 MG tablet Take 2 tablets by mouth every 4 hours as needed for Mild Pain. Do not exceed 4000mg of Tylenol in 24 hour period. 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 08/01/2023 Peripheral neuritis of left foot 08/01/2023 Unilateral primary osteoarthritis, left hip 07/22 Hyperlipidemia 04/10/2019 Hypothyroid 04/10/2019 Encounters Date Type Department Care Team Description 04/13/2025 1:20 PM EDT Office Visit [facility] [address] [place] [phone] Sarah Rojas PA-C Hx of total hip arthroplasty, left (Primary Dx) 04/13/2025 12:59 PM EDT - 04/13/2025 11:59 PM EDT Hospital Encounter [facility] [address] [place] [phone] Ashok Deluca APRN-CNP Discharge Disposition: Home or Self Care 04/09/2025 Telephone [facility] [address] [place] [phone] Ashok Deluca APRN-CNP Other (R/s) 04/07/2025 Telephone [facility] [address] [place] [phone] Kassandra Hopper LPN Returning Phone Call; Other; Post Op Questions 03/27/2025 Telephone [facility] [address] [place] [phone] Kassandra Hopper LPN Post Op Questions 03/26/2025 [facility] Patient Management [address] [place] [phone] Karma Villa RN Post-Discharge Follow Up 03/25/2025 8:00 AM EDT - 03/25/2025 9:15 AM EDT Surgery [address] [phone] Pretty Fisher MD ARTHROPLASTY HIP TOTAL DA 03/25/2025 7:44 AM EDT Anesthesia Event [address] [phone] Juan M Ibanez, FIELD CLERK-CONSTRUCTION TECHNICIAN 03/25/2025 5:31 AM EDT - 03/25/2025 4:38 PM EDT Hospital Encounter [address] [phone] Pretty Fisher MD Osteoarthritis of left hip, unspecified osteoarthritis type Discharge Disposition: Home or Self Care 03/23/[address]25 [facility] [address] [place] [phone] Sarah Rojas PA-C Results 03/23/2025 Telephone [facility] [address] [place] [phone] Brigette Garcia Results 03/18/2025 [facility] [address] [place] [phone] Brigette Garcia Surgery from Last 3 Months Family History Medical History Relation Name Comments Myocardial Infarction Brother 1 Other - Specify Brother 2 neurofibroma tosis Myocardial Infarction Brother 3 Myocardial Infarction Father Arthritis - Osteo Mother Heart Disease - Other Mother Relation Name Status Comments Brother 1 Brother 2 Alive Brother 3 Father Mother Social History Tobacco Use Types Packs/Day Years Used Date Smoking Tobacco: Never Smokeless Tobacco: Never Tobacco Cessation:Counseling Given: Not Answered Alcohol Use Standard Drinks/Week Comments Yes 0 (1 standard drink = 0.6 oz pure alcohol) 3-4 drinks/week-wine and gin/tonic Comments Unknown Sex and Gender Information Value Date Recorded Sex Assigned at Not on file Legal Sex Female 2:35 PM EDT Gender Identity Female 01/06/2025 4:16 PM EDT Sexual Orientation Straight 01/06/2025 4: 16 PM EDT Last Filed Vital Signs Vital Sign Reading Time Taken Comments Blood Pressure 140/77 03/25/2025 4:10 PM EDT Pulse 78 03/25/2025 4:10 PM EDT Temperature 36.6 C (97.8 F) 03/25/2025 10:00 AM EDT Respiratory Rate 14 03/25/2025 10:45 AM EDT Oxygen Saturation 97% 03/25/2025 4:10 PM EDT Inhaled Oxygen Concentration - - Weight 73.5 kg (162 lb) 04/13/2025 1:16 PM EDT Height 172.7 cm (5' 8 ) 04/13/2025 1:16 PM EDT Body Mass Index 24.63 04/13/2025 1:16 PM EDT Plan of Treatment Upcoming Encounters Date Type Department Care Team (Late st Contact Info) Description 07/29/2025 1:00 PM EDT Office Visit [facility] [address] [place] [address] Eliz Block [address] [place] [address] Health Maintenance Due Date Last Done Comments DEXA SCAN DISCUSSION 1950 HEPATITIS C VIRUS SCREENING 1950 TETANUS 1950 TSH 1950 TDAP (ADULT) 1971 CERVICAL CANCER SCREENING DISCUSSION 1973 LIPID SCREENING 1992 MAMMOGRAM SCREENING DISCUSSION 1992 COLORECTAL CANCER SCREENING DISCUSSION 06/10/2022 06/10/2021 COVID-19 VACCINE ( season) 2025 08/12/2024, 09/04/2023, 08/15/2022, Additional history exists INFLUENZA VACCINE (#1) 2025 , 09/04/2023, 08/15/2022, Additional history exists RSV VACCINE (1 - 1-dose 75+ series) 2027 PNEUMOCOCCAL VACCINE SERIES Completed 07/28/2020, 1 10/22/2018 ZOSTER (SHINGLES) VACCINE Completed 09/09/2024, HEP B VACCINE Aged Out No longer elig ible based on patient's age to complete this topic Medical Devices Implanted Type Area Certified Substance Abuse Counselor Device Identifier Shelf Expiration Date Model / Serial / Lot [place] Gription Acetabular Shell Sector 52mm Od Implanted:Qty: 1 on 03/25/2025 by Pretty Fisher MD at [facility] Left: Hip [employer] 01/19/2035 2 / / [id number] [place] Altrx Polyethylene Acetabular Liner Neutral 36mm Id 52mm Od Implanted:Qty: 1 on 03/25/2025 by Pretty Fisher MD at [facility] Left: Hip [employer] 10/21/2029 2 / / [id number] Actis Duofix Hip Prosthesis Femoral Stem 10/04taper Cementless Size 5 Std Collar Implanted:Qty: 1 on 03/25/2025 by Pretty Fisher MD at [facility] Left: Hip [employer] 01/19/2035 1010-08-26 0 / / [id number] [employer] Delta Ceramic Femoral Head +8.5 36mm Nidia 10/04 Taper Implanted:Qty: 1 on 03/25/2025 by Pretty Fisher MD at [facility] Left: Hip [employer] 10/21/2029 0 / / [id number] Procedures Procedure Name Priority Date/Time Associated Diagnosis Comments ORDERS (SCAN) Routine 03/26/2025 10:11 AM EDT PROCEDURE NOTE (SCANNED) Routine 03/26/2025 10:10 AM EDT CARDIAC RHYTHM Routine 03/26/2025 10:09 AM EDT ORDERS (SCAN) Routine 03/26/2025 10:07 AM EDT XR PELVIS 1-2 VIEWS Routine 03/25/2025 9 :46 AM EDT SURGICAL PATHOLOGY REQUEST Routine 03/25/2025 8:39 AM EDT Osteoarthritis of left hip, unspecified osteoarthritis type PROCEDURE - INTUBATION Routine 03/25/2025 7:51 AM EDT AK ARTHRP ACETBLR/PROX FEM PROSTC AGRFT/ALGRFT 03/25/2025 7:44 AM EDT Osteoarthritis of left hip, unspecified osteoarthritis type URINE CULTURE Today 03/25/2025 5:40 AM EDT from Last 3 Months Results * ORDERS (SCANNED) (03/26/2025 10:11 AM EDT) Anatomical Region Laterality Modality Other [facility] Provider PROC - OPERATIVE Final Resul t * PROCEDURE NOTE (SCANNED) (03/26/2025 10:10 AM EDT) Anatomical Region Laterality Modality Other [facility] Provider PROC - OPERATIVE Final Resul t * CARDIAC RHYTHM (SCANNED) (03/26/2025 10:09 AM EDT) [facility] Provider ECG ORDERABLES Final Result * ORDERS (SCANNED) (03/26/2025 10:07 AM EDT) Anatomical Region Laterality Modality Other [facility] Provider PROC - OPERATIVE Final Resul t * XR PELVIS 1-2 VIEWS (03/25/2025 9:46 AM EDT) Anatomical Region Laterality Modality Pelvis Digital Radiogra phy 03/25/2025 9:41 AM EDT Impressions 03/26/2025 11:08 AM EDT IMPRESSION: 1. Satisfactory and expected findings status post left hip arthroplasty. Narrative 03/26/2025 11:08 AM EDT EXAMINATION: XR PELVIS 1-2 VIEWS, 03/25/2025 9:41 AM EDT INDICATION: Left hip arthroplasty. FINDINGS: Left hip arthroplastic hardware appears intact. No fracture. Alignment is anatomic. Expected surrounding post surgical soft tissue findings. Limited visualization of the right hip demonstrates advanced osteoarthritis. Procedure Note Kandi Bridges MD - 03/26/2025 EXAMINATION: XR PELVIS 1-2 VIEWS, 03/25/2025 9:41 AM EDT INDICATION: Left hip arthroplasty. FINDINGS: Left hip arthroplastic hardware appears intact. No fracture. Alignment is anatomic. Expected surrounding post surgical soft tissue findings. Limited visualization of the right hip demonstrates advancedosteoarthritis. IMPRESSION IMPRESSION: 1. Satisfactory and expected findings status post left hip arthroplasty. Eliz Block DIAGNOSTIC IMAGING ORDERABLE S Final Result * SURGICAL PATHOLOGY REQUEST (03/25/2025 8:39 AM EDT) SURG PATH RESULT Surgical Final Report Patient Name: EUGENE WONG Med. Rec. #: [id number] Physician: PRETTY FISHER Specimen(s) Received Left femoral head Other Related Clinical Data Not provided Clinical / Pre-Operative Diagnosis Osteoarthritis of left hip, unspecified type Post-Operative Diagnosis Not provided Surgical Procedure Arthroplasty hip total anterior approach Diagnosis: Left Femoral Head, excision: -Consistent with degenerative joint disease Electronically Signed lks/03/26/2025 Bro Paul MD Gross Description: The specimen is received in formalin, and labeled left femoral head, Eugene Wong and date of 1950. The specimen consists of a femoral head and neck measuring 5.2 x 5 x 5 cm with articular cartilage degeneration. Sectioning reveals unremarkable bone. A commercial sales representative section is submitted in one cassette and placed in decalcification solution prior to processing. Billing Fee Code(s) A: 81515, [id number] LAB, [facility] Permanent TISSUE SPECIMEN / Unknown 03/25/2025 8:30 AM EDT Pretty Fisher MD SURG PATH Final Result LAB, [facility] [address] [place] [address] * AK PROCEDURE - INTUBATION ETT (03/25/2025 7:51 AM EDT) Anatomical Region Laterality Modality Other Narrative 03/25/2025 7:51 AM EDT Juan M Ibanez APRN-CONSTRUCTION TECHNICIAN 03/25/2025 8:02 AM *INTUBATION Date/Time: 03/25/2025 7:51 AM Authorized by: RICKIE Bell Performed by: RICKIE Bell GENERAL STAFF INFORMATION: Patient location during procedure: OR Room: 04PO OPERI No anticipated increased risk of difficult airway INDICATIONS AND PATIENT CONDITION: Sedation level: general anesthesia Patient position: supine Preoxygenated: yes Preoxygenation method: bag mask Mask difficulty assessment: Indication(s) for intubation: general anesthesia FINAL AIRWAY DETAILS: Final airway type: endotracheal airway Final airway difficulty assessment: airway not difficult Successful airway: standard ETT size: 7.0 mm Cuffed: yes Endotracheal tube insertion site: oral Successful intubation technique: video laryngoscopy Video Laryngoscope: glidescope Blade: Rubén Blade size: #4 Facilitating devices/methods: intubating stylet Cormack-Lehane Classification: grade I - full view of glottis Placement verified by: auscultation, CO2 detection and visualization through the cords Tube secured: 22 CM at the lips Tube Secured with: tape Number of attempts at approach: 1 Airway placement result: atraumatic intubation Successful Placement?: Yes Juan M DAMIAN BEDSIDE PROCEDURES Fi nal Result * URINE CULTURE (03/25/2025 5:40 AM EDT) SPECIMEN DESCRIPTION URINE [facility] CATCH [address] RESULT-CULT NO PATHOGENS ISOLATED [address] Comment:Testing performed at [place], [place] [address] Report Status 03/27/[address] Comment:FINAL Urine URINE SPECIMEN OBTAINED BY CLEAN CATCH PROCEDURE / Unknown 03/25/2025 5:40 AM EDT 03/25/2025 5:55 AM EDT Sarah Rojas PA-C MICROBIOLOGY - GENERAL ORDERABLE S Final Result [address] [address] [place] [address] [place] [address] from Last 3 Months Insurance Medicare [place] [address] Advance Directives For more information, please contact: [phone] (7:30 AM - 6PM [facility], Sunday-Sunday) Documents on File Type Date Recorded Patient Ice Cream Server Expl anation HealthCare Power of Multiple Pressure Riveter Operator 03/25/2025 5:36 AM * Full Code (Latest Code Status on File) Date Activated Date Inactivated Comments 03/25/2025 9:32 AM Care Teams Cartography Supervisor Relationship Specialty Start Date End Date Darcy Trujillo [address] [place] [phone] PCP - General Certified Nurse Practitioner 01/06/25
--- OUTSIDE RECORDS SUMMARY | 2025-06-09 09:57 | XMS_ITS | Clinical Summary ---
Author Organization [facility] Address [address] [place] [phone] Care Team Providers Care Lathe Puller Name Role Phone Unavailable Primary Care Provider Unavailabl e Social History Tobacco Use Types Packs/Day Years Used Date Smoking Tobacco: Never Assessed Comments Unknown Sex and Gender Information Value Date Recorded Sex Assigned at Not on file Legal Sex Female 11:40 AM EDT Gender Identity Not on file Sexual Orientation Not on file Plan of Treatment Upcoming Encounters Date Type Department Care Team (Late st Contact Info) Description 06/18/2025 10:40 AM EDT Office Visit Colorectal Surgery [facility] [address] [place], [place] [phone] [place] [phone] ELMA VALDEZ [place], [place] [phone] Colovesical fistuala ref by Dr Reza Gallego Health Maintenance Due Date Last Done Comments Anxiety Screening 1970 Depression Screening 1970 Hepatitis C Screening 1970 DTaP,Tdap,Td Vaccine (1 - Tdap) [address] Colonography 1997 Cologuard (FIT-DNA) 1997 Colonoscopy 1997 Colorectal Cancer Screening 1997 Diabetes Screening 1997 Fecal Occult Blood 1997 Lipid Screening 1997 Sigmoidoscopy 1997 Pneumococcal Vaccine: 50+ (1 of 1 - PCV) 2002 Shingrix Vaccine (1 of 2) 2002 Bone Density Screening 2017 Advance Directive Discussion 10/22/2024 Influenza Vaccine (#1) 2025 RSV Vaccine (1 - 1-dose 75+ series) 2027 Procedures Procedure Name Priority Date/Time Associated Diagnosis Comments CT OUTSIDE CD DICOM IMPORT 05/29/2025 from Last 3 Months Results * CT-CT ABDOMEN PELVIS WO/W CON IMPORT (05/29/2025) Anatomical Region Laterality Modality Other 05/29/2025 Narrative 06/04/2025 9:14 AM EDT Images were obtained outside of [facility] Procedure Note Provider, [facility] [place] - 06/04/2025 Images were obtained outside of [facility] Cc Provider RADIOLOGY Final Result from Last 3 Months Insurance MEDICARE A[employer] SUPPLEMENT
--- OUTSIDE RECORDS SUMMARY | 2025-06-09 12:04 | XMS_ITS | CCD ---
Author Organization [facility]iniSym[facility] Care Team Providers Care Mechanical Technologist Name Role Phone MARISOL, DR ANTONY Bowser Admitting Unavailable MARISOL, DR ANTONY Bowser Attending Unavailable MARISOL, DR ANTONY Bowser Primary Care Unavailable MARISOL, DR ANTONY Bowser Consulting Unavailable MARISOL, DR ANTONY Bowser Admitting Unavailable MARISOL, DR ANTONY Bowser Attending Unavailable MARISOL, DR ANTONY Bowser Primary Care Unavailable MARISOL, DR ANTONY Bowser Consulting Unavailable WEST, DR RYAN Wills Consulting Unavailable Justin, Carmen Leslie Primary Care Physician Antony Mitchell MD Primary Care Provider Justin, C CONSULTANT Carmen Leslie Admitting Unavailable Justin, C CONSULTANT Carmen Leslie Attending Unavailable Trent Nielsen MD Unavailable Justin GAITAN, Carmen Unavailable DENNIS RAI Attending Unavailable DENNIS RAI Referring Unavailable DENNIS RAI Referring Unavailable JR. ANYA, GONZALO Sloan Attending Unavaila alix AMARAL JR., GONZALO Sloan Attending Unavaila Carmen Connor Primary Care Provider CARMEN ANDERSON Primary Care Unavailable MANJIT KEANE Referring Unavailable MANJIT KEANE Attending Unavailable Nicole Goff APRN Attending Provider Nicole Goff Attending Unavailable Nicole Goff Admitting Unavailable Justin, C CONSULTANT Carmen Leslie Admitting Unavailable Justin, C CONSULTANT Carmen Leslie Attending Unavailable Justin, C CONSULTANT Carmen Leslie Attending Unavailable Justin, C CONSULTANT Carmen Leslie Attending Unavailable Justin, C CONSULTANT Carmen Leslie Admitting Unavailable MANJIT KEANE Attending Unavailable MANJIT KEANE Referring Unavailable MANJIT KEANE Admitting Unavailable JUSTIN, CARMEN Primary Care Unavailable JUSTIN, CARMEN Primary Care Unavailable GONZALO AMARAL JR. Referring Unavailable MANJIT KEANE Attending Unavailable MAJNIT KEANE Attending Unavailable MANJIT KEANE Referring Unavailable JUSTIN, CARMEN Primary Care Unavailable JACK, PASTORA Attending Unavailable JACK, PASTORA Referring Unavailable JUSTIN, CARMEN Primary Care Unavailable SARAH ROJAS Attending Unavailable JACK, PASTORA Referring Unavailable JUSTIN, CARMEN Primary Care Unavailable JUSTIN, CARMEN Primary Care Unavailable DIYA, MANJIT Attending Unavailable FOSTER, MANJIT Referring Unavailable Justin, Carmen L Admitting Unavailable Justin, Carmen L Attending Unavailable Justin, Carmen L Attending Unavailable Justin, Carmen L Attending Unavailable Justin, Carmen L Attending Unavailable Justin, Carmen L Referring Unavailable REBECCACHANI STEVENS Attending Unavailab le OSBALDO, Reza R Referring Unavailable ROBLERO, Reza R Admitting Unavailable ROBLERO, Reza R Attending Unavailable Justin, Carmen L Admitting Unavailable Justin, Carmen L Attending Unavailable Justin, Carmen L Attending Unavailable Justin, Carmen L Attending Unavailable Justin, Carmen L Attending Unavailable Justin, Carmen L Attending Unavailable Justin, Carmen L Attending Unavailable Justin, Carmen L Attending Unavailable Justin, Carmen L Admitting Unavailable Justin, C CONSULTANT Carmen L Attending Unavailable Justin, C CONSULTANT Carmen L Admitting Unavailable Justin, C CONSULTANT Carmen L Attending Unavailable Justin, C CONSULTANT Carmen L Attending Unavailable Justin, C CONSULTANT Carmen L Attending Unavailable Allergies Allergy Classification Reported Allergen(s) Allergy Type Date of Onset Reaction(s) Facility (20 sources) Lovastatin / Niacin; Translations: [lovastatin-niacin] Drug Allergy 5 Unknown (qualifier value) General Surgery [place] (3 sources) Sulfamethoxazole / Trimethoprim; Translations: [Bactrim] Drug Allergy [facility] Repository Medications Current Medications Medication Drug Class(es) Dates Sig (Normalized) Sig (Original) acetaminophen 325 mg oral tablet (5 sources) Start: 03-25-2025 take 2 tablets by mouth every four hours as needed Acetaminophen 325 MG tablet Take 2 tablets by mouth every 4 hours as needed for Mild Pain. Do not exceed 4000mg of Tylenol in 24 hour period. 50 tablet 1 03/25/2025 Active Start: 03-25-2025 End: 03-25-2025 take 1 tablet by mouth every six hours 1,000 mg, Oral, EVERY 6 HOURS NON-STANDARD, First dose on Sun03/25/25 at 1300, Until Discontinued, Maximum dose of acetaminophen is 4000 mg from all sources in 24 hours., Post-op/Post-Proc Start: 03-25-2025 take 1 dose by mouth every hour 1,000 mg, Oral, ONCE DIRECTED, 1 dose, Starting on Sun03/25/25 at 0545, Until Sun03/25/25 at 0612, See admin instructions, Administer 1 hour preop., Pre-op/Pre-Proc acetaminophen 325 mg / HYDROcodone bitartrate 5 mg oral tablet (2 sources) Opioid Agonist Start: 03-25-2025 End: 04-01-2025 take 1 tablet by mouth once daily as needed hydroCODone-acetaminophen 5-325 MG tablet Indications: Acute postoperative pain of left hip Take 1-2 tablets by mouth every 6 hours as needed for Severe Pain for up to 7 days. Do not take over 4000mg acetaminophen daily. 10 tablet 03/25/2025 Active amoxicillin 500 mg oral capsule (3 sources) Penicillin-class Antibacterial Start: 04-13-2025 End: 04-15-2026 Amoxicillin 500 MG capsule Take 4 capsules 1 hour before procedure 8 capsule 1 04/15/2025 04/15/2026 Active aspirin 81 mg delayed release oral tablet (4 sources) Platelet Aggregation Inhibitor, Nonsteroidal Anti-inflammatory Drug Start: 03-26-2025 End: 03-25-2025 take 81 mg by mouth every twelve hours in the morning 81 mg, Oral, EVERY 12 HOURS, First dose on Sun03/26/25 at 0900, Until Discontinued, Start in AM day after surgery, Post-op/Post-Proc Start: 03-25-2025 End: 04-24-2025 take 1 tablet by mouth twice daily Aspirin [address] tablet Take 1 tablet by mouth 2 times daily. This medication is for blood clot prevention. Take with food. 60 tablet 03/25/2025 04/24/2025 Active atorvastatin 20 mg oral tablet (20 sources) HMG-CoA Reductase Inhibitor Start: 09-27-2022 take 1 tablet by mouth once daily atorvastatin 20 mg Tab See Instructions, TAKE 1 TABLET BY MOUTH DAILY, # 90 tab(s), Refills(s) 0, Pharmacy: [facility] [id number], 171, cm, 03/03/25 13:32:00 EDT, Height/Length Dosing, 73.9, kg, 03/03/25 13:32:00 EDT, Weight Dosing Start Date: 03/20/25 Status: Ordered Quantity: 90.0 Unit: tab(s) Repeat number: 1 bisoprolol fumarate 5 mg / hydroCHLOROthiazide 6.25 mg oral tablet (20 sources) Thiazide Diuretic, beta-Adrenergic Maycol Start: 04-03-2025 bisoprolol-hydroch lorothiazide 5 mg-6.25 mg Tab See Instructions, 90 tab(s), Refill(s) 0, TAKE 1 TABLET BY MOUTH DAILY, [facility] [id number], 171, cm, 03/03/25 13:32:00 EDT, Height/Length Dosing, 73.9, kg, 03/03/25 13:32:00 EDT, Weight Dosing Start Date: 04/03/25 Status: Ordered Quantity: 90.0 Unit: tab(s) Repeat number: 1 Start: 03-20-2025 take 1 tablet by neo once daily Bisoprolol-Hydrochlorothiazide 5-6.25 mg tablet Active 1 TAB PO Daily March 20, 2025 12:00am Start: 04-14-2024 bisoprolol-hyd rochlorothiazide 5-6.25 MG tablet Take by mouth. 04/14/2024 Active Start: 05-01-2023 take 5-6.25 tablets by mouth once daily in the morning bisoprolol-hydrochlorothiazide 5-6.25 MG tablet Take by mouth daily every morning. 04/14/2024 Active celecoxib 200 mg oral capsule (19 sources) Nonsteroidal Anti-inflammatory Drug Start: 03-25-2025 take 1 dose by mouth every two hours 200 mg, Oral, ONCE DIRECTED, 1 dose, Starting on Sun03/25/25 at 0545, Until Sun03/25/25 at 0612, See admin instructions, Administer 2 hours preop., Pre-op/Pre-Proc Start: 01-27-2025 take 1 capsule by mo uth once daily CeleBREX 200 mg Cap 200 mg = 1 cap(s), Oral, Daily, # 90 cap(s), Refills(s) 0, Pharmacy: [facility] [id number], 171, cm, 05/02/24 10:21:00 EDT, Height/Length Dosing, 72.7, kg, 05/02/24 10:21:00 EDT, Weight Dosing Start Date: 01/27/25 Status: Ordered Quantity: 90.0 Unit: cap(s) Repeat number: 1 Indications: Menopausal and female climacteric states; Start: 09-27-2022 End: 05-06-2025 take 1 capsule by mouth twice daily at mealtime Celecoxib 200 MG capsule Take 1 capsule by mouth 2 times daily. Take with food. 84 capsule 03/25/2025 05/06/2025 Active cephalexin 500 mg oral capsule (1 source) Cephalosporin Antibacterial Start: 03-25-2025 End: 03-26-2025 take 1 capsule by mouth every six hours cephALEXin 500 MG capsule Take 1 capsule by mouth every 6 hours for 3 doses. Start 6 hours after last dose of IV antibiotics. 3 capsule 03/25/2025 03/26/2025 Active cholecalciferol 0.01 mg oral tablet (16 sources) Vitamin D cholecalciferol 10 MCG (400 UNIT) tablet daily. Active cloNIDine hydrochloride 0.1 mg oral tablet (2 sources) Central alpha-2 Adrenergic Agonist Start: 04-17-2025 take 1 tablet by mouth twice daily cloNIDine 0.1 mg tab 0.1 mg = 1 tab(s), Oral, BID, # 60 tab(s), Refills(s) 0, Pharmacy: [facility] [id number], 171, cm, 04/17/25 11:49:00 EDT, Height/Length Dosing, 74, kg, 04/17/25 11:49:00 EDT, Weight Dosing Start Date: 04/17/25 Status: Ordered Quantity: 60.0 Unit: tab(s) Repeat number: 1 Indications: Body mass index [BMI] 25.0-25.9, adult; Personal history of nicotine dependence; Hesitancy of micturition; Essential (primary) hypertension; Unspecified abnormal findings in urine; docusate sodium 100 mg oral capsule (4 sources) Start: 03-25-2025 End: 03-25-2025 take 1 capsule by mouth twice daily Docusate 100 MG capsule Take 1 capsule by mouth 2 times daily. Hold for loose stools. 60 capsule 03/25/2025 Active ferrous sulfate 325 mg oral tablet (10 sources) Start: 10-05-2023 End: 12-15-2024 take 1 tablet by mouth once daily ferrous sulfate 325 mg Tab 325 mg = 1 tab(s), Oral, Daily, # 90 tab(s), Refills(s) 1, Pharmacy: [facility] [id number], 173, cm, 11/01/23 9:21:00 EST, Height/Length Dosing, 70.6, kg, 11/01/23 9:21:00 EST, Weight Dosing Start Date: 11/19/23 Status: Ordered Ibuprofen (4 sources) Nonsteroidal Anti-inflammatory Drug Start: 04-10-2024 take 1 tablet by mouth once daily at bedtime Ibuprofen PM 38 mg-200 mg oral tablet 1 tab(s), Oral, Once a day (at bedtime), Refill(s) 0 Start Date: 04/10/24 Status: Ordered Repeat number: 1 Start: 04-10-2024 take 1 tablet by neo th once daily at bedtime Ibuprofen PM 38 mg-200 mg oral tablet 1 tab(s), Oral, Once a day (at bedtime), Refill(s) 0 Start Date: 04/10/24 Status: Ordered levoFLOXacin 500 mg oral tablet (1 source) Quinolone Antimicrobial Start: 04-17-2025 End: 04-24-2025 take 1 tablet by mouth every twenty-four hours levofloxacin 500 mg Tab 500 mg = 1 tab(s), Oral, q24hr, X 7 day(s), # 7 tab(s), Refills(s) 0, Pharmacy: [facility] [id number], 171, cm, 04/17/25 11:49:00 EDT, Height/Length Dosing, 74, kg, 04/17/25 11:49:00 EDT, Weight Dosing Start Date: 04/17/25 Stop Date: 04/24/25 Status: Ordered Quantity: 7.0 Unit: tab(s) Repeat number: 1 Indications: Body mass index [BMI] 25.0-25.9, adult; Personal history of nicotine dependence; Hesitancy of micturition; Essential (primary) hypertension; Unspecified abnormal findings in urine; levothyroxine sodium 0.1 mg oral tablet (20 sources) l-Thyroxine Start: 03-20-2025 take 1 tablet by mouth once daily levothyroxine 100 mcg (0.1 mg) Tab See Instructions, TAKE 1 TABLET BY MOUTH DAILY, # 90 tab(s), Refills(s) 0, Pharmacy: [facility] [id number], 171, cm, 03/03/25 13:32:00 EDT, Height/Length Dosing, 73.9, kg, 03/03/25 13:32:00 EDT, Weight Dosing Start Date: 03/20/25 Status: Ordered Quantity: 90.0 Unit: tab(s) Repeat number: 1 Start: 03-20-2025 take 1 tablet by neo once daily Levothyroxine 100 mcg tablet Active 100 MCG PO Daily March 20, 2025 12:00am Start: 03-31-2024 take 1 tablet by neo th once daily levothyroxine 100 mcg (0.1 mg) Tab 100 mcg = 1 tab(s), Oral, Daily, # 90 tab(s), Refills(s) 1, Pharmacy: [facility] [id number], 173, cm, 11/01/23 9:21:00 EST, Height/Length Dosing, 70.6, kg, 11/01/23 9:21:00 EST, Weight Dosing Start Date: 03/31/24 Status: Ordered Start: 01-09-2024 take 1 tablet by neo once daily levothyroxine 100 mcg (0.1 mg) Tab 100 mcg = 1 tab(s), Oral, Daily, # 90 tab(s), Refills(s) 1, Pharmacy: [facility] [id number], 173, cm, 11/01/23 9:21:00 EST, Height/Length Dosing, 70.6, kg, 11/01/23 9:21:00 EST, Weight Dosing Start Date: 01/09/24 Status: Ordered Start: 10-08-2023 take 1 tablet by neo once daily levothyroxine 100 mcg (0.1 mg) Tab 100 mcg = 1 tab(s), Oral, Daily, # 90 tab(s), Refills(s) 1, Pharmacy: [facility] [id number], 173, cm, 10/04/23 9:21:00 EST, Height/Length Dosing, 72.2, kg, 10/04/23 9:21:00 EST, Weight Dosing Start Date: 10/08/23 Status: Ordered Start: 08-23-2023 take 1 tablet by neo once daily levothyroxine 100 mcg (0.1 mg) Tab 100 mcg = 1 tab(s), Oral, Daily, # 30 tab(s), Refills(s) 1, Pharmacy: [facility] [id number], 173, cm, 04/30/23 9:47:00 EDT, Height/Length Dosing, 70.9, kg, 04/30/23 9:47:00 EDT, Weight Dosing Start Date: 08/23/23 Status: Ordered Start: 07-11-2023 End: 12-15-2024 levothyroxine (Synthroid, Le voxyl) 125 MCG tablet Take 100 mcg by mouth in the morning. Take before meals. 07/11/2023 12/15/2024 Discontinued (Therapy completed) Start: 07-11-2023 levothyroxine (Synthroid, Levoxyl) 125 MCG tablet 07/11/2023 Active Start: 07-11-2023 take 1 capsule by [facility] once daily levothyroxine 125 mcg (0.125 mg) oral capsule 125 mcg = 1 cap(s), Oral, Daily, # 30 cap(s), Refills(s) 2, Pharmacy: [facility] [id number], 173, cm, 04/30/23 9:47:00 EDT, Height/Length Dosing, 70.9, kg, 04/30/23 9:47:00 EDT, Weight Dosing Start Date: 07/11/23 Status: Ordered Melatonin (4 sources) take 2 capsules by mouth at bedtime as needed melatonin capsule Take 2 capsules by mouth at bedtime as needed. Active meloxicam 15 mg oral tablet (8 sources) Nonsteroidal Anti-inflammatory Drug Start: take 1 tablet by mouth once daily meloxicam 15 mg Tab 15 mg = 1 tab(s), Oral, Daily, # 30 tab(s), Refills(s) 1, Pharmacy: [facility] [id number], 171, cm, 05/02/24 10:21:00 EDT, Height/Length Dosing, 72.7, kg, 05/02/24 10:21:00 EDT, Weight Dosing Start Date: 08/25/24 Status: Ordered Quantity: 30.0 Unit: tab(s) Repeat number: 2 Indications: Menopausal and female climacteric states; End: 03-25-2025 Meloxicam 15 MG Tab Dispersi ble Take 1 tablet by mouth as needed. 03/25/2025 Discontinued (Stop Taking at Discharge) Multiple Vitamins-Minerals ( Centrum Adults) tablet (9 sources) Multiple Vitamin s-Minerals (Centrum Adults) tablet as directed Orally Active Multiple Vitamin s-Minerals (Centrum Adults) tablet as directed Orally 0 Active omeprazole 20 mg delayed release oral capsule (20 sources) Proton Pump Inhibitor Start: 09-27-2022 take 1 capsule by mouth once daily omeprazole 20 mg Cap-DR See Instructions, TAKE 1 CAPSULE BY MOUTH DAILY, # 90 cap(s), Refills(s) 0, Pharmacy: [facility] [id number], 171, cm, 03/03/25 13:32:00 EDT, Height/Length Dosing, 73.9, kg, 03/03/25 13:32:00 EDT, Weight Dosing Start Date: 03/17/25 Status: Ordered Quantity: 90.0 Unit: cap(s) Repeat number: 1 Omeprazole 20 mg capsule,delayed release(DR/EC) (2 sources) Start: 03-20-2025 take 1 capsule by mouth once daily Omeprazole 20 mg capsule,delayed release(DR/EC) Active 20 MG PO Daily March 20, 2025 12:00am ondansetron 4 mg oral tablet (4 sources) Serotonin-3 Receptor Antagonist Start: 03-25-2025 take 1 tablet by mouth every eight hours as needed Ondansetron 4 MG tablet Take 1 tablet by mouth every 8 hours as needed for Nausea / Vomiting. 6 tablet 03/25/2025 Active Start: 03-25-2025 End: 03-25-2025 take 4 mg intravenously every four hours as needed 4 mg, Intravenous, EVERY 4 HOURS NEEDED, Starting on Sun03/25/25 at 1031, Until Sun03/25/25 at 1839, Nausea / Vomiting, Post-op/Post-Proc Miralax (14 sources) Osmotic Laxative Start: 09-27-2022 take 17 g by mouth once daily MiraLax 17 gm, Oral, Daily, Refill(s) 0 Start Date: 09/27/22 Status: Ordered Repeat number: 1 Start: 09-27-2022 take 17 g by mouth once daily MiraLax 17 gm, Oral, Daily, Refill(s) 0 Start Date: 09/27/22 Status: Ordered take 1 dose by mouth once daily Polyethylene glycol 17 g Pack packet Take 1 packet by mouth daily. Active sulfamethoxazole 400 mg / trimethoprim 80 mg oral tablet (1 source) Dihydrofolate Reductase Inhibitor Antibacterial, Sulfonamide Antimicrobial Start: 04-27-2025 End: 06-26-2025 take 1 tablet by mouth once daily Bactrim 400 mg-80 mg Tab 1 tab(s), Oral, Daily for 30 day(s), 30 tab(s), Refill(s) 1, [facility] [id number], 173, cm, 04/27/25 12:29:00 EDT, Height/Length Dosing, 71.1, kg, 04/27/25 12:29:00 EDT, Weight Dosing Start Date: 04/27/25 Stop Date: 06/26/25 Status: Ordered Quantity: 30.0 Unit: tab(s) Repeat number: 2 Indications: Urinary tract infection, site not specified; therapeutic multivitamin-minerals tablet (3 sources) Start: 03-25-2025 take 1 tablet by mouth at bedtime therapeutic multivitamin-gold miner als tablet Take 1 tablet by mouth at bedtime. 30 tablet 03/25/2025 Active traMADol hydrochloride 50 mg oral tablet (3 sources) Opioid Agonist Start: 03-25-2025 End: 04-01-2025 traMADol 50 MG tablet Indications: Acute postoperative pain of left hip 1-2 tabs every 6 hours as needed for mild/moderate pain. 20 tablet 03/25/2025 Active Vitamin D3 2000 intl units oral Tab (4 sources) Start: 05-02-2024 take 1 tablet by mouth once daily Vitamin D3 2000 intl units oral Tab 50 mcg, Oral, Daily, tab(s), Refills(s) 0 Start Date: 05/02/24 Status: Ordered Repeat number: 1 Start: 05-02-2024 take 1 tablet by neo once daily Vitamin D3 2000 intl units oral Tab 50 mcg, Oral, Daily, tab(s), Refills(s) 0 Start Date: 05/02/24 Status: Ordered Vitamin D3 5000 intl units (125 mcg) oral tab (6 sources) Start: 04-30-2023 take 1 tablet by mouth once daily Vitamin D3 5000 intl units (125 mcg) oral tab 125 mcg = 1 tab(s), Oral, Daily, Refills(s) 0 Start Date: 04/30/23 Status: Ordered Completed/Discontinued Medications Medication Drug Class(es) Dates Sig (Normalized) Sig (Original) bisacodyl 10 mg rectal suppository (1 source) Stimulant Laxative Start: 03-25-2025 End: 03-25-2025 take 10 mg rectal route once daily as needed for constipation 10 mg, Rectal, DAILY NEEDED, Starting on Sun03/25/25 at 1031, Until Sun03/25/25 at 1839, constipation, Post-op/Post-Pro c calcium chloride 0.0014 meq/ml / potassium chloride 0.004 meq/ml / sodium chloride 0.103 meq/ml / sodium lactate 0.028 meq/ml injectable solution (1 source) Start: 03-25-2025 End: 03-25-2025 Intravenous, at 75 mL/hr, CONTINUOUS, Starting on Sun03/25/25 at 0600, Until Sun03/25/25 at 1839, Pre-op/Pre-Proc ceFAZolin 2000 mg injection (1 source) Cephalosporin Antibacterial Start: 03-25-2025 End: 03-25-2025 take 2 g intravenously every eight hours 2 g, Intravenous, Administer over 30 Minutes, EVERY 8 HOURS NON-STANDARD, 3 doses, First dose on Sun03/25/25 at 1600, Last dose on Sun03/26/25 at 0800, Post-op/Post-Pro c dexamethasone phosphate 10 mg/ml injectable solution (1 source) Corticosteroid Start: 03-25-2025 End: 03-25-2025 take 10 mg intravenously every twenty-four hours 10 mg, Intravenous, EVERY 24 HOURS, 1 dose, First dose on Sun03/25/25 at 1600, 24 hours post op, Post-op/Post-Pro c Start: 03-25-2025 End: 03-25-2025 take 10 mg intravenously every twenty-four hours 10 mg, Intravenous, EVERY 24 HOURS, 1 dose, First dose on Sun03/25/25 at 1600, 24 hours post op, Post-op/Post-Proc diphenhydrAMINE citrate 38 mg / ibuprofen 200 mg oral tablet (5 sources) Histamine-1 Receptor Antagonist, Nonsteroidal Anti-inflammatory Drug Start: 04-10-2024 End: 03-25-2025 Ibuprofen-diphenhydrAMINE Cit (Ibuprofen PM) 200-38 MG tablet Take by mouth as needed. 04/10/2024 03/25/2025 Discontinued (Stop Taking at Discharge) docusate sodium 50 mg / sennosides, shelter 8.6 mg oral tablet (1 source) Start: 03-25-2025 End: 03-25-2025 take 2 tablets by mouth twice daily as needed for constipation 2 tablet, Oral, 2 TIMES DAILY NEEDED, Starting on Sun03/25/25 at 1031, Until Sun03/25/25 at 1839, constipation, Post-op/Post-Proc 1 ml hydrALAZINE hydrochloride 20 mg/ml injection (1 source) Arteriolar Vasodilator Start: 03-25-2025 End: 03-25-2025 5 mg, Intravenous, EVERY 30 MINUTES NEEDED, 2 doses, Starting on Sun03/25/25 at 0940, Until Sun03/25/25 at 1839, SBP > 160 mmHg with HR 1 ml HYDROmorphone hydrochloride 1 mg/ml cartridge (2 sources) Opioid Agonist Start: 03-25-2025 End: 03-25-2025 take 0.5 mg intravenously every four hours as needed 0.5 mg, Intravenous, EVERY 4 HOURS NEEDED, Starting on Sun03/25/25 at 1031, Until Sun03/25/25 at 1839, Severe Pain, Post-op/Post-Proc Start: 03-25-2025 End: 03-25-2025 0.5 mg, Intravenous, EVERY 1 5 MINUTES NEEDED, 2 doses, Starting on Sun03/25/25 at 0940, Until Sun03/25/25 at 1839, Severe Pain, Recovery Multiple Vitamins-Minerals (WOMENS 50+ MULTI VITAMIN/MIN PO) (5 sources) End: 03-25-2025 Multiple Vitamins-Minerals (WOMENS 50+ MULTI VITAMIN/MIN PO) Take by mouth daily. 03/25/2025 Discontinued (Stop Taking at Discharge) Multiple Vitamin s-Minerals (WOMENS 50+ MULTI VITAMIN/MIN PO) Take by mouth daily. Active Multiple Vitamin s-Minerals (WOMENS 50+ MULTI VITAMIN/MIN PO) Take by mouth. Active 250 ml sodium chloride 9 mg/ml injection (1 source) Start: 03-25-2025 End: 03-25-2025 Intravenous, at 100 mL/hr, CONTINUOUS, Starting on Sun03/25/25 at 1045, Until Sun03/25/25 at 1839, Convert IV to PRN adapter post op day 1 if adequate oral intake, Post-op/Post-Proc sodium phosphate, dibasic 35.5 mg/ml / sodium phosphate, monobasic 96.4 mg/ml enema (1 source) Start: 03-25-2025 End: 03-25-2025 1 enema, Rectal, DAILY NEEDED, Starting on Sun03/25/25 at 1031, Until Sun03/25/25 at 1839, Refractory Constipation, use per package instructions, Post-op/Post-Proc total joint mixture (no clonidine) premade bag 1 Bag (1 source) Start: 03-25-2025 End: 03-25-2025 total joint mixture (no clonidine) premade bag 1 Bag tranexamic acid 650 mg oral tablet (1 source) Antifibrinolytic Agent Start: 03-25-2025 End: 03-25-2025 take 1 dose by mouth every two hours 1,950 mg, Oral, ONCE DIRECTED, 1 dose, Starting on Sun03/25/25 at 0545, Until Sun03/25/25 at 0612, See admin instructions, Administer 2 hours preop, Pre-op/Pre-Proc zolpidem tartrate 5 mg oral tablet (1 source) gamma-Aminobutyric Acid-ergic Agonist Start: 03-25-2025 End: 03-25-2025 take 5 mg by mouth once daily at bedtime as needed for sleep 5 mg, Oral, DAILY AT BEDTIME NEEDED, Starting on Sun03/25/25 at 1031, Until Sun03/25/25 at 1839, Sleep, Post-op/Post-Proc Problems Active Problems Problem Classification Problem Date Documented Date Episodic/Chronic Deficiency and other anemia (9 sources) Hemoglobin low; Translations: [Anemia, unspecified] Onset: 03-25-2025 10-04-2023 Episodic Deficiency and other anemia (11 sources) Iron deficiency anemia; Translations: [Iron deficiency anemia, unspecified] Onset: 03-25-2025 11-09-2023 Episodic Diabetes mellitus without complication (9 sources) Abnormal glucose level; Translations: [Other abnormal glucose] Onset: 02-26-2025 02-10-2025 Episodic Disorders of lipid metabolism (20 sources) Pure hypercholesterolemia, unspecified; Translations: [Hyperlipidemia] Onset: 04-10-2019 Chronic Diverticulosis and diverticulitis (2 sources) Diverticula of intestine; Translations: [Diverticulosis of intestine, part unspecified, without perforation or abscess without bleeding] Onset: 04-27-2025 Chronic Esophageal disorders (13 sources) Gastroesophageal reflux disease; Translations: [Gastro-esophageal reflux disease without esophagitis] Onset: 03-25-2025 09-27-2022 Chronic Essential hypertension (13 sources) Hypertensive disorder; Translations: [Essential (primary) hypertension] Onset: 03-25-2025 09-27-2022 Chronic Genitourinary symptoms and ill-defined conditions (10 sources) Frequency of micturition; Translations: [Urinary symptoms ] Onset: 03-20-2025 04-02-2025 Episodic Malaise and fatigue (12 sources) Fatigue; Translations: [Other fatigue] Onset: 03-25-2025 10-04-2023 Episodic Menopausal disorders (13 sources) Menopausal syndrome; Translations: [Menopausal and female climacteric states] Onset: 03-25-2025 04-30-2023 Chronic Nutritional deficiencies (8 sources) Iron deficiency 11-09-2023 Episodic Osteoarthritis (20 sources) Arthritis of hip; Translations: [Unilateral primary osteoarthritis, unspecified hip] Onset: 08-01-2023 08-01-2023 Chronic Other connective tissue disease (1 source) History of total replacement of left hip joint; Translations: [Presence of left artificial hip joint] 04-13-2025 Chronic Other connective tissue disease (2 sources) Presence of left artificial hip joint; Translations: [Presence of left artificial hip joint] Onset: 04-13-2025 Chronic Other nervous system disorders (12 sources) Difficulty walking; Translations: [Difficulty in walking, not elsewhere classified] Onset: 08-01-2023 08-01-2023 Chronic Other nervous system disorders (12 sources) Mortons neuroma of left foot; Translations: [Lesion of plantar nerve, left lower limb] Onset: 08-01-2023 08-01-2023 Chronic Other nervous system disorders (12 sources) Left foot neuritis; Translations: [Unspecified mononeuropathy of left lower limb] Onset: 08-01-2023 08-01-2023 Chronic Other nervous system disorders (2 sources) Other acute postprocedural pain; Translations: [Other acute postprocedural pain] Onset: 03-25-2025 Episodic Other non-traumatic joint disorders (12 sources) Derangement of right shoulder joint; Translations: [Other specific joint derangements of right shoulder, not elsewhere classified] Onset: 08-01-2023 08-01-2023 Chronic Other non-traumatic joint disorders (2 sources) Pain in left knee; Translations: [Pain in joint, lower leg] 12-15-2024 Episodic Other non-traumatic joint disorders (6 sources) Hip pain; Translations: [Pain in left hip] 12-15-2024 Episodic Other non-traumatic joint disorders (1 source) Joint pain; Translations: [Pain in other specified joint] 02-10-2025 Episodic Other non-traumatic joint disorders (2 sources) Pain in left hip; Translations: [Pain in left hip] Onset: 03-25-2025 Episodic Other screening for suspected conditions (not mental disorders or infectious disease) (4 sources) Encounter for screening mammogram for malignant neoplasm of breast; Translations: [ENC SCR MAMMO MALIG NEOPLASM BREAST] Onset: 11-30-2022 Episodic Residual codes; unclassified (1 source) Family history of other malignant neoplasms of lymphoid, hematopoietic and related tissues; Translations: [FAM HX OTH MAL JO-ANN LYMPH HEMATPOETC] Onset: 12-04-2022 Episodic Residual codes; unclassified (1 source) Family history of malignant neoplasm of other organs or systems; Translations: [FAM HX MALIG NEOPLASM OTH ORGN/SYS] Onset: 12-04-2022 Episodic Thyroid disorders (20 sources) Hypothyroidism, unspecified; Translations: [Hypothyroidism] Onset: 04-10-2019 09-27-2022 Chronic Unclassified (4 sources) Patient encounter status 02-26-2025 Unclassified (1 source) Pain in other specified joint; Translations: [Pain in other specified joint] Onset: 02-26-2025 Urinary tract infections (2 sources) Urinary tract infectious disease; Translations: [Urinary tract infection, site not specified] Onset: 04-27-2025 Episodic Past or Other Problems Problem Classification Problem Date Documented Da te Episodic/Chronic Unclassified (10 sources) Body mass index 20-24 - normal 09-29-2022 Unclassified (1 source) History of total replacement of left hip joint 04-15-2025 Unclassified (1 source) Pain in other specified joint; Translations: [Pain in other specified joint] Onset: 02-26-2025 Results Test Name Value Interpretation Reference Range Facility Ambulatory Visit Summaryon 0 06-04-2025 Ambulatory Visit Summary Ambulatory Visit Summary EUGENE ROGERS :1950 Visit Date:06/03/2025 Ambulatory Visit Instructions Your Diagnosis Medicare annual wellness visit, subsequent GERD (gastroesophageal reflux disease) Generalized anxiety disorder HTN (hypertension) Hyperlipidemia Hypothyroidism Pre-diabetes Ovarian failure due to menopause Tests Performed BD Bone Density DEXA -- Results Pending -- Please visit your patient portal for your results or contact your primary care physician. Your Care Team Attending Physician - Carmen Cerda Primary Care Physician - Carmen Cerda This Is Your Medications List atorvastatin (atorvastatin 20 mg Tab) bisoprolol-hydrochlorot hiazide (bisoprolol-hydrochloro thiazide 5 mg-6.25 mg Tab) busPIRone (busPIRone 15 mg Tab) celecoxib (CeleBREX 200 mg Cap) cholecalciferol (Vitamin D3 2000 intl units oral Tab) ciprofloxacin (Cipro 250 mg Tab) clonidine (cloNIDine 0.1 mg tab) levothyroxine (levothyroxine 100 mcg (0.1 mg) Tab) meloxicam (meloxicam 15 mg Tab) multivitamin (Multi Vitamin+) omeprazole (omeprazole 20 mg Cap-DR) polyethylene glycol 3350 (MiraLax) Procedures Performed History of left hip replacement (03/25/2025), Colonoscopy (2010), Fracture of odontoid process, History of cervical spine surgery. Discharge Vitals Heart Rate (Peripheral) 67 Blood Pressure 132/80 Height 173 cm Height 68 in Weight 67.6 kg Weight 149.032 lb BMI 22.59 What to do next Scheduled Follow-Up Appointments 2025 1:00 PM EDT Where: [facility] [address] [address]- You Need to Complete the Following Comprehensive Metabolic Panel, Blood, Routine collect, 06/03/25, Order for future visit, Lab Collect, HTN (hypertension) Pre-diabetes, Not Required, Print Label By Order Location HgbA1c, Blood, Routine collect, 06/03/25, Order for future visit, Lab Collect, Pre-diabetes, Required & Missing, Print Label By Order Location Lipid Panel, Blood, Routine collect, 06/03/25, Order for future visit, Lab Collect, Hyperlipidemia, Required & Missing, Print Label By Order Location Thyroid Stimulating Hormone, Blood, Routine collect, 06/03/25, Order for future visit, Lab Collect, Hypothyroidism, Required & Missing, Print Label By Order Location Urine Microalbumin/Creatinine Ratio, Urine, Routine collect, 06/03/25, Order for future visit, Nurse collect, HTN (hypertension) Pre-diabetes, Not Required, Print Label By Order Location Medications What How Much When Why Instructions Unchanged atorvastatin (atorvastatin 20 mg Tab) See instructions TAKE 1 TABLET BY MOUTH DAILY Unchanged bisoprolol-hydrochlorot hiazide (bisoprolol-hydrochloro thiazide 5 mg-6.25 mg Tab) See instructions TAKE 1 TABLET BY MOUTH DAILY Unchanged busPIRone (busPIRone 15 mg Tab) 1 Tablets By Mouth 3 times a day HTN (hypertension) Generalized anxiety disorder Unchanged celecoxib (CeleBREX 200 mg Cap) 1 Capsules By Mouth Every day Menopausal syndrome Unchanged cholecalciferol (Vitamin D3 2000 intl units oral Tab) 50 Microgram By Mouth Every day Unchanged ciprofloxacin (Cipro 250 mg Tab) 1 Tablets By Mouth Every 24 hours Unchanged clonidine (cloNIDine 0.1 mg tab) See instructions TAKE 1 TABLET BY MOUTH 2 TIMES A DAY Unchanged levothyroxine (levothyroxine 100 mcg (0.1 mg) Tab) See instructions TAKE 1 TABLET BY MOUTH DAILY Unchanged meloxicam (meloxicam 15 mg Tab) 1 Tablets By Mouth Every day Menopausal syndrome Unchanged multivitamin (Multi Vitamin+) Unchanged omeprazole (omeprazole 20 mg Cap-DR) See instructions TAKE 1 CAPSULE BY MOUTH DAILY Unchanged polyethylene glycol 3350 (MiraLax) 17 Gram By Mouth Every day Allergies Advicor (Unknown) Bactrim (Vomit) Problems Ongoing - Any problem that you are currently receiving treatment for. BMI 22.0-22.9, adult Chronic UTI Cloudy urine Diverticulosis Dizziness Fatigue Generalized anxiety disorder GERD (gastroesophageal reflux disease) HTN (hypertension) Hyperlipidemia Hypothyroidism Iron deficiency anemia Menopausal syndrome Pneumaturia Pre-diabetes Pre-op exam Pure hypercholesterolemia Recurrent UTI Urinary hesitancy UTI symptoms Historical - Any problem that you are no longer receiving treatment for. Iron deficiency Patient Survey You may receive a survey via text or e-mail asking about your office visit. Please share your experience with us by completing your survey. We appreciate your feedback and thank you for choosing us for your care. Education Materials Health Maintenance After Age 65 After age 65, you are at a higher risk for certain long-term diseases and infections as well as injuries from falls. Falls are a major cause of broken bones and head injuries in people who are older than age 65. Getting regular preventive care can help to keep you healthy and well. Preventive care (more content not included)... Normal [facility] CMPon 06-04-2025 Albumin [Mass/Vol] 4.8 g/dL Normal 3.3-5.0 [facility] Comment on above: Performed By: #### 2 [id number] #### [facility] [address] [place] [address] Albumin/Globulin [Mass ratio] 1.6 {ratio} Normal 1.1-2.2 [facility] Comment on above: Performed By: #### 2 [id number] #### [facility] [address] [place] [address] Alk Phos 71 Int._Unit/L Normal 21-98 [facility] Comment on above: Performed By: #### 2 [id number] #### [facility] [address] [place] [address] ALT 18 Int._Unit/L Normal 6-46 [facility] Comment on above: Performed By: #### 2 [id number] #### [facility] [address] [place] [address] Anion gap [Moles/Vol] 12 mmol/L Normal 6-16 [facility] Comment on above: Performed By: #### 2 [id number] #### [facility] [address] [place] [address] AST 26 Int._Unit/L Normal 5-43 [facility] Comment on above: Performed By: #### 2 [id number] #### [facility] [address] [place] [address] Bili Total 0.6 mg/dL Normal 0.0-1.1 [facility] Comment on above: Performed By: #### 2 [id number] #### [facility] [address] [place] [address] BUN/Creat Ratio 17 No Units Normal 10-20 [facility] Comment on above: Performed By: #### 2 [id number] #### [facility] [address] [place] [address] Calcium [Mass/Vol] 10.0 mg/dL Normal 8.9-11.1 [facility] Comment on above: Performed By: #### 2 [id number] #### [facility] [address] [place] [address] Chloride [Moles/Vol] 97 mmol/L Low 101-111 [facility] Comment on above: Performed By: #### 2 [id number] #### [facility] [address] [place] [address] CO2 [Moles/Vol] 28 mmol/L Normal 21-31 [facility] Comment on above: Performed By: #### 2 [id number] #### [facility] [address] [place] [address] Creatinine [Mass/Vol] 0.9 mg/dL Normal 0.5-1.3 [facility] Comment on above: Performed By: #### 2 [id number] #### [facility] [address] [place] [address] Globulin (S) [Mass/Vol] 3.0 g/dL Normal 1.4-4.0 [facility] Comment on above: Performed By: #### 2 [id number] #### [facility] [address] [place] [address] Glucose [Mass/Vol] 73 mg/dL Normal 55-199 [facility] Comment on above: Performed By: #### 2 [id number] #### [facility] [address] [place] [address] Potassium [Moles/Vol] 5.2 mmol/L Normal 3.5-5.3 [facility] Comment on above: Performed By: #### 2 [id number] #### [facility] [address] [place] [address] Protein [Mass/Vol] 7.8 g/dL Normal 6.0-7.8 [facility] Comment on above: Performed By: #### 2 [id number] #### [facility] [address] [place] [address] Sodium [Moles/Vol] 132 mmol/L Low 135-145 [facility] Comment on above: Performed By: #### 2 [id number] #### [facility] [address] [place] [address] Urea nitrogen [Mass/Vol] 15 mg/dL Normal 5-21 [facility] Comment on above: Performed By: #### 2 [id number] #### [facility] [address] [place] [address] Family Medicine Office/Clini c Noteon 06-04-2025 Family Medicine Office/Clinic Note Family Medicine Office/Clinic Note Chief Complaint Subsequent Medicare Wellness Review of Systems PHQ Score Initial Depression Screen Score: 0 SCORE Physical Exam Vitals & Measurements HR: 67(Peripheral) BP: 132/80 SpO2: 97% HT: 68 in HT: 173 cm WT: 67.6 kg WT: 149.032 lb BMI: 22.59 Assessment/Plan 1. Medicare annual wellness visit, subsequent (Z00.00: Encounter for general adult medical examination without abnormal findings) Patient in office today for her Subsequent Medicare Wellness Visit. A customized and personalized print out of all the current AHRQ USPSTF???s recommendations for preventative services and all current CDC recommended immunizations, relevant risk recommendations and the following patient brochures were given. Reviewed What can I expect during my Medicare preventative care visit CDC-Falls Prevention and home safety screening reviewed. Patient denies any falls in last 12 months, voices no worry about falling, exhibits no problems with sitting and standing. Pt voices understanding with keeping walk way area free of clutter to prevent tripping and/or falling. [place] Advance Directives reviewed, at home. Encouraged to bring in to scan into chart. Patient denies any problems with ADL???s and Instrumental ADL???s. Cognitive screening completed with memory and clock face drawing. Immunization Record reviewed with the patient. 2 COVID vaccines have been administered, 3 boosters. Immunization record is up to date. Allergies and medications reviewed and up to date. Patient denies concerns with taking medication as prescribed, reviewed OTC medications with patient with medication list up to date. Blood tests were reviewed: Discussed what tests need to be updated. Labs were ordered per patient request, [place] [facility] [place] next [place]CP visit. Reviewed concerns with bladder control over past 6 months with no concerns. Reviewed pain symptoms with patient: Patient reports headache today 12/29. Patient has not taken any medication for it. Reviewed all outside providers that patient follows. Last visit summary notes available in chart and/or have been requested. Follow up scheduled: Today after AWV. AWV has been scheduled: 06/03/2026. Medicare provides yearly screening for alcohol and depression concerns. This is completed during our Medicare wellness visit for those who do not have a current diagnosis of depression or concerns with alcohol use. I spent a total of (12) minutes on this date of service which included preparing to see the patient, face to face patient care, completing clinical documentation, obtaining and/or reviewing separately obtained history, counseling and educating the patient with handouts. Explanations were provided with reviewing questionnaires. AUDIT risk assessment screening completed, risk score(2) with patient denying concerns with use. Completed PHQ-2 risk assessment for depression with risk score(0), negative findings. Patient has been reminded to notify the provider if there would be a change or concerns with symptoms with fear, unable to sleep, worrying too much or feeling down and/or sad with lost of interest with daily activities. Will continue to monitor with screening yearly during Medicare wellness visits. 2. GERD (gastroesophageal reflux disease) (K21.9: Gastro-esophageal reflux disease without esophagitis) Patient is aware of diet changes with healthier eating habits, such as not eating late at night, losing or maintaining a healthy weight. Importance of not smoking and avoiding and/or reducing alcohol intake. Avoid tight clothing around the waist line and try to avoid spicy or high acid foods. Patient taking PPI medications as directed with symptom management. Reviewed nutrition therapy with recommended foods to help control your symptoms. 3. Generalized anxiety disorder (F41.1: Generalized anxiety disorder) Patient takes Clonidine bid as directed. KIMBERLY-7 screening completed today with a score of (9). Follows with PCP as directed for management and symptom control. Denies any suicidal ideations at this time. Education provided, stress management and relaxation techniques reviewed. Will continue to follow with PCP and communicate any changes of increased anxiety. Reviewed additional signs/symptoms to monitor for and report to provider. Patient reports that she has not started the buspirone yet as she is worried about the side effects. Patient encouraged to talk to pcp about this. 4. HTN (hypertension) (I10: Essential (primary) hypertension) Patient is taking bisoprolol-hctz daily as directed. Does monitor BP pressure at home. HTN stoplight reviewed with BP goal to be <140/90. Reviewed different factors that can alter blood pressure readings. Education handout provided with s/s to monitor for and report to provider. Patient is encouraged to increase portions of fruit, vegetables, fiber and increase exercise as much as tolerable. Reviewed importance with monitoring foods high in salt content (more content not included)... Normal [facility] Comment on above: Result Comment: Elec tronically Signed By: Carmen Cerda\.br\Date and Time Signed: 06/04/25 08:48 EDT\.br\Electronically Co-Signed By: Irasema Rojas\.br\Date and Time Co-Signed: 06/03/25 14:09 EDT [id number] 06-04-2025 HbA1c (Bld) [Mass fraction] 5.8 % Normal <=5.9 [facility] Comment on above: Performed By: #### 7 [id number] #### [facility] [address] [place] [address] Lipid Panelon 06-04-2025 Cholesterol [Mass/Vol] 199 mg/dL Normal 120-200 [facility] Comment on above: Performed By: #### 2 [id number] #### [facility] [address] [place] [address] Cholesterol in HDL [Mass/Vol] 51 mg/dL Invalid Interpretation Code [facility] Comment on above: Result Comment: '>= 60 LOW RISK' '<= 40 HIGH RISK' Performed By: #### 2 [id number] #### [facility] [address] [place] [address] Cholesterol in LDL [Mass/Vol] 111 mg/dL Normal <=129 [facility] Comment on above: Performed By: #### 2 [id number] #### [facility] [address] [place] [address] Cholesterol in VLDL [Mass/Vol] 42 mg/dL High 7-40 [facility] Comment on above: Performed By: #### 2 [id number] #### [facility] [address] [place] [address] Triglyceride [Mass/Vol] 212 mg/dL High <=149 [facility] Comment on above: Performed By: #### 2 [id number] #### [facility] [address] [place] [address] TSHon 06-04-2025 TSH Qn 6.05 m[IU]/L High 0.34-5.60 [facility] Comment on above: Performed By: #### 2 [id number] #### [facility] [address] [place] [address] U MA/Cr Ratioon 06-04-2025 Microalb/Cr Ratio 62.4 mg/gm Cr High .0-30.0 [facility] Comment on above: Result Comment: 30-3 00 mg/g Cr indicates an increased risk for diabetic nephropathy. >300 mg/g Cr is consistent with clinical nephropathy. Performed By: #### 1 [id number] #### [facility] [address] [place] [address] U Creatinine 129.9 mg/dL Invalid Interpretation Code [facility] Comment on above: Performed By: #### 1 [id number] #### [facility] [address] [place] [address] U Microalb 8.1 mg/dL High 0.0-1.9 [facility] Comment on above: Performed By: #### 1 [id number] #### [facility] [address] [place] [address] eGFRon 06-04-2025 eGFR 68 mL/min/1.73 m2 Normal >=59 [facility] Comment on above: Performed By: #### 1 [id number] #### [facility] [address] [place] [address] Family Medicine Office/Clini c Noteon 06-03-2025 Family Medicine Office/Clinic Note Family Medicine Office/Clinic Note HPI Staff Eugene is a 74 year old female presenting with check on her b/p AYAAN- she was encouraged to check her b/p 1-2 hours after taking her medication and check every other day She was taking her b/p right after taking her meds, she did not bring a log but she was checking it here and there nothing, she has been getting headaches, ears plugged up, History of Present Illness pt presents today for BP follow up. Review of Systems PHQ Score Initial Depression Screen Score: 0 SCORE Physical Exam Vitals & Measurements HR: 67(Peripheral) RR: 18 BP: 132/80 SpO2: 97% HT: 68 in HT: 173.0 cm WT: 67.6 kg WT: 149.032 lb BMI: 22.59 General: alert, no acute distress ENMT: oral mucosa moist, no pharyngeal erythema or exudate, right TM full of clear fluid Cardiovascular: regular rate and rhythm, normal peripheral perfusion Respiratory: Lungs CTA, respirations non labored Extremities: no deformity, no trauma Neurological: oriented x 4, LOC appropriate for age, CN II-XII intact, motor strength equal & normal bilaterally, speech normal Assessment/Plan 1. HTN (hypertension) (I10: Essential (primary) hypertension) BP WNL limits at visit today. pt feels the BP was elevated due to stress and anxiety. since having the cystoscopy she is feeling much better. Ordered: fluticasone nasal, 2 spray(s), Nasal, Daily, 16 gram, Refill(s) 0, each nostril, [facility] [id number], 173, cm, 06/03/25 14:03:00 EDT, Height/Length Dosing, 67.6, kg, 06/03/25 14:03:00 EDT, Weight Dosing Comprehensive Metabolic Panel Urine Microalbumin/Creatinine Ratio 2. Fluid level behind tympanic membrane of right ear (H65.91: Unspecified nonsuppurative otitis media, right ear) c/o ear pressure and headache. right TM full of clear fluid. will order flonase Ordered: fluticasone nasal, 2 spray(s), Nasal, Daily, 16 gram, Refill(s) 0, each nostril, [facility] [id number], 173, cm, 06/03/25 14:03:00 EDT, Height/Length Dosing, 67.6, kg, 06/03/25 14:03:00 EDT, Weight Dosing Lab Specimen Collect [id number] 3. BMI 22.0-22.9, adult (Z68.22: Body mass index [BMI] 22.0-22.9, adult) BMI education Ordered: fluticasone nasal, 2 spray(s), Nasal, Daily, 16 gram, Refill(s) 0, each nostril, [facility] [id number], 173, cm, 06/03/25 14:03:00 EDT, Height/Length Dosing, 67.6, kg, 06/03/25 14:03:00 EDT, Weight Dosing 4. Former smoker (Z87.891: Personal history of nicotine dependence) continue not smoking Ordered: fluticasone nasal, 2 spray(s), Nasal, Daily, 16 gram, Refill(s) 0, each nostril, [facility] [id number], 173, cm, 06/03/25 14:03:00 EDT, Height/Length Dosing, 67.6, kg, 06/03/25 14:03:00 EDT, Weight Dosing Orders: ADM OF SOC DTR G0136 Annual alcohol misuse screening, 15 min G0442 Annual Depression Screening 15 min G0444 BD Bone Density DEXA Body Mass Index (BMI) documented 3008F Current tobacco non-user 1036F Depression Screening Negative 3352F HgbA1c Influenza immunization status assessed 1030F Lipid Panel Medicare Subsequent Visit G0439 Most recent diastolic blood pressure 80-89 mm Hg 3079F Patient screen for fall risk: no falls in last year or 1 fall with no injury in last year 1101F Pneumococcus immunization status assessed 1022F Screening mammography documented and reviewed 3014F Systolic BP 130-139 mm Hg (Most Recent) 3075F Thyroid Stimulating Hormone Follow-up No qualifying data available Problem List/Past Medical History Ongoing BMI 22.0-22.9, adult Chronic UTI Cloudy urine Diverticulosis Dizziness Fatigue Fluid level behind tympanic membrane of right ear Generalized anxiety disorder GERD (gastroesophageal reflux disease) HTN (hypertension) Hyperlipidemia Hypothyroidism Iron deficiency anemia Menopausal syndrome Pneumaturia Pre-diabetes Pre-op exam Pure hypercholesterolemia Recurrent UTI Urinary hesitancy UTI symptoms Historical Iron deficiency Procedure/Surgical History History of left hip replacement (03/25/2025), Colonoscopy (2010), Fracture of odontoid process, History of cervical spine surgery. Medications atorvastatin 20 mg Tab, See Instructions bisoprolol-hydrochlorot hiazide 5 mg-6.25 mg Tab, See Instructions busPIRone 15 mg Tab, 15 mg= 1 tab(s), Oral, TID, Not taking CeleBREX 200 mg Cap, 200 mg= 1 cap(s), Oral, Daily Cipro 250 mg Tab, 250 mg= 1 tab(s), Oral, q24hr, 1 refills cloNIDine 0.1 mg tab, See Instructions Flonase 0.05 mg/inh [place], 2 spray(s), Nasal, Daily levothyroxine 100 mcg (0.1 mg) Tab, See Instructions meloxicam 15 mg Tab, 15 mg= 1 tab(s), Oral, Daily, 1 refills MiraLax, 17 gm, Oral, Daily Multi Vitamin+ omeprazole 20 mg Cap-DR, See Instructions Vitamin D3 2000 intl units oral Tab, 50 mcg, Oral, Daily Allergies Advicor (Unknown) Bactrim (Vomit) Social History Alcohol - Low Risk, 04/10/2024 Current, Wine, 1-2 times per week, 06/03/2025 Substance Abuse - Denies Substance Abuse, 09/29/2022 Ne (more content not included)... Normal [facility] Comment on above: Result Comment: Elec tronically Signed By: Carmen Cerda\.br\Date and Time Signed: 06/03/25 15:49 EDT Main OR Intraoperative Recor don 06-02-2025 Main OR Intraoperative Record Main OR Intraoperative Record IntraOp Document Type FTURO Summary Primary Physician: Reza ROBLERO MD Finalized Date/Time: 06/02/25 11:35:11 Pt. Name: EUGENE ROGERS/Sex: 1950 Female Med Rec #: [id number] Physician: Reza ROBLERO MD Financial #: [id number] Pt. Type: O Room/Bed: / Admit/Disch: 06/02/25 10:25:42 - Institution: Case Times FTURO Entry 1 Patient Times In Room 06/02/25 11:06:00 Out Room 06/02/25 11:29:00 Procedure Times Start 06/02/25 11:17:00 Stop 06/02/25 11:23:00 Anesthesia Times Last Modified By: Jeri SAGASTUME, Elvira Domínguez 06/02/25 11:23:49 Case Attendance FTURO Entry 1 Entry 2 Entry 3 Case Attendee OSBALDO GAITAN, Reza Wilcox RN, Elvira Yee CST, Kena Domínguez Role Performed Surgeon - Primary Traveling Nurse - Primary Scrub - Primary Time In 06/02/25 11:06:00 06/02/25 11:06:00 06/02/25 11:06:00 Time Out 06/02/25 11:29:00 06/02/25 11:29:00 06/02/25 11:29:00 Procedure CYSTOSCOPY LOCAL(.) CYSTOSCOPY LOCAL(.) CYSTOSCOPY LOCAL(.) Comments Last Modified By: Jeri SAGASTMUE, Elvira Wilcox RN, Elvira Wilcox RN, Elvira Domínguez 06/02/25 Elin Domínguez 06/02/25 Elin Domínguez 06/02/25 11:23:53 11:23:53 11:23:53 Surgical Procedures FTURO Entry 1 Procedure Description Procedure CYSTOSCOPY LOCAL Modifiers . Surgeon Description CYSTOSCOPY Primary Procedure Yes Primary Surgeon Reza ROBLERO MD Start 06/02/25 11:17:00 Stop 06/02/25 11:23:00 Anesthesia Type Local Surgical Service Urology Wound Class 2 - Clean-Contaminated Last Modified By: Jeri SAGASTUME, Elvira Domínguez 06/02/25 11:23:52 General Case Data FTURO Pre-Care Text: Classifies surgical wound, implements aseptic technique, initiates traffic control Entry 1 Case Information OR URO 1 FT Case Level None Wound Class 2 - Clean-Contaminated Specialty Urology Preop Diagnosis PNEUMATURIA AND Postop Same As Preop Yes RECURRENT UTI'S Postop Diagnosis PNEUMATURIA AND Outcomes Met? Yes RECURRENT UTI'S Last Modified By: Elvira Wilcox RN 06/02/25 11:06:39 Post-Care Text: The patient is free from signs and symptoms of infection EU IntraOp - FTURO Pre-Care Text: Implements protective measures prior to operative or invasive procedure, confirms identity before the operative or invasive procedure, verifies operative procedure, surgical site, and laterality Entry 1 EU Perioperative Protocols Procedure(s) CYSTOSCOPY LOCAL(.) Patient Identity Birthday, ID Band Verified (select at Check, Patient least 2): Participation Consents / H and P H&P, Surgery/Procedure Operative Site N/A Verified Consent Marking Verified Surgical Site Yes Laterality Verified n/a Verified Procedure Verified Yes Correct Patient Yes Position Verified Availability Equipment, Medication Time Out OSBALDO GAITAN, Reza Mercedes, Verified (If Participants Elvira Wilcox RN Applicable) Joselito Loya CST, Kena Rubio Time Out Complete 06/02/25 11:13:00 Allergies Reviewed? Yes Allergies Reviewed Self/Patient With Body Position Frog Legged Prep Area PERINEAL AREA Prep Agents Betadine Solution Skin. Condition Unable to Visualize Description partially clothed and draped Additional None Specimens Collected Vitals - EU Blood Pressure 190/91 Pulse 73 bpm Respirations 18 br/min SPO2 98 % I&O - EU Outcomes Met? Yes Last Modified By: Elvira Wilcox RN 06/02/25 11:13:59 Post-Care Text: The patient is free from signs and symptoms of injury caused by extraneous objects Sign Out FTURO Entry 1 Before Patient Leaves OR Nurse verbally Yes Nurse verbally Yes confirms with the confirms with the team the name of team that the procedure(s) instrument, sponge, recorded and needle counts are correct (or N/A) Nurse verbally n/a Nurse verbally n/a confirms with the confirms with the team how the team whether there specimen is labeled are any equipment (including patient problems to be name), if applicable addressed Sign Out Complete 06/02/25 11:23:00 Last Modified By: Elvira Wilcox RN 06/02/25 11:23:52 Case Comments Finalized By: Elvira Wilcox RN Document Signatures Signed By: Elvira Wilcox RN 06/02/25 11:35 Normal [facility] Main OR Preoperative Recordo n 06-02-2025 Main OR Preoperative Record Main OR Preoperative Record Holding Area Document Type FTURO Summary Primary Physician: Reza ROBLERO MD Finalized Date/Time: 06/02/25 10:45:06 Pt. Name: EUGENE ROGERS /Sex: 1950 Female Med Rec #: [id number] Physician: Reza ROBLERO MD Financial #: [id number] Pt. Type: O Room/Bed: / Admit/Disch: 06/02/25 10:25:42 - Institution: Case Times Holding FTURO Pre-Care Text: Verifies consent for planned procedure, identifies individual values and wishes concerning care, includes family members in perioperative teaching Secures patient's records' belongings, and valuables, maintains patient's dignity and privacy, and maintains patient confidentiality Entry 1 In Holding 06/02/25 10:34:00 Outcomes Met? Yes Last Modified By: Ivanna Grier LPN 06/02/25 10:34:13 Post-Care Text: The patient participates in decisions affecting his or her perioperative plan of care The patient's right to privacy is maintained Surgery Checklist FTURO Entry 1 Patient Birthday, ID Band Procedure Surgical Consent, With Identification: Check, Patient Verification: Patient Participation NPO after Midnight: n/a Personal Items: Glasses Limitations: up ad rhiannon Complaints of Pain: No Skin Integrity Intact, [place], Warm, & Dry Vitals - EU Blood Pressure 190/91 Pulse 73 bpm Respirations 18 br/min SPO2 98 % Additional None Specimens Collected Last Modified By: Ivanna Grier LPN 06/02/25 10:45:02 Finalized By: Ivanna Grier LPN Document Signatures Signed By: Ivanna Grier LPN 06/02/25 10:45 Normal [facility] Operative Reporton Operative Report Operative Report Patient: EUGENE ROGERS Age: 74 years Sex: [...] For now, she will continue her Cipro.. Normal [facility] Comment on above: Result Comment: Elec tronically Signed By: OSBALDO GAITAN, Reza Nix.br\Date and Time Signed: 06/02/25 11:37 EDT Ambulatory Visit Summaryon 0 05-19-2025 Ambulatory Visit Summary Ambulatory Visit Summary EUGENE ROGERS :1950 Visit Date:05/19/2025 Ambulatory Visit Instructions Your Care Team Attending Physician - Carmen Cerda Primary Care Physician - Carmen Cerda This Is Your Medications List atorvastatin (atorvastatin 20 mg Tab) bisoprolol-hydrochlorot hiazide (bisoprolol-hydrochloro thiazide 5 mg-6.25 mg Tab) celecoxib (CeleBREX 200 mg Cap) cholecalciferol (Vitamin D3 2000 intl units oral Tab) ciprofloxacin (Cipro 250 mg Tab) clonidine (cloNIDine 0.1 mg tab) levothyroxine (levothyroxine 100 mcg (0.1 mg) Tab) meloxicam (meloxicam 15 mg Tab) omeprazole (omeprazole 20 mg Cap-DR) polyethylene glycol 3350 (MiraLax) Procedures Performed Colonoscopy (2010), Fracture of odontoid process, History of cervical spine surgery. Discharge Vitals Temperature (Temporal Artery) 36.2 ???C Heart Rate (Peripheral) 74 Respiratory Rate 18 Blood Pressure 160/88 Height 173.0 cm Height 68 in Weight 69.2 kg Weight 152.56 lb BMI 23.12 What to do next Scheduled Follow-Up Appointments Sunday 12:30 PM EDT With: Where: [facility] Sunday 11:00 AM EDT With: Where: [facility] Sunday 1:00 PM EDT With: Where: [address] [address]- Sunday 2:00 PM EDT With: Carmen Cerda Where: [address] [address]- Medications What How Much When Why Instructions Unchanged atorvastatin (atorvastatin 20 mg Tab) See instructions TAKE 1 TABLET BY MOUTH DAILY Unchanged bisoprolol-hydrochlorot hiazide (bisoprolol-hydrochloro thiazide 5 mg-6.25 mg Tab) See instructions TAKE 1 TABLET BY MOUTH DAILY Unchanged celecoxib (CeleBREX 200 mg Cap) 1 Capsules By Mouth Every day Menopausal syndrome Unchanged cholecalciferol (Vitamin D3 2000 intl units oral Tab) 50 Microgram By Mouth Every day Unchanged ciprofloxacin (Cipro 250 mg Tab) 1 Tablets By Mouth Every 24 hours Unchanged clonidine (cloNIDine 0.1 mg tab) 1 Tablets By Mouth 2 times a day Cloudy urine Urinary hesitancy HTN (hypertension) BMI 25.0-25.9,adult Former smoker Unchanged levothyroxine (levothyroxine 100 mcg (0.1 mg) Tab) See instructions TAKE 1 TABLET BY MOUTH DAILY Unchanged meloxicam (meloxicam 15 mg Tab) 1 Tablets By Mouth Every day Menopausal syndrome Unchanged omeprazole (omeprazole 20 mg Cap-DR) See instructions TAKE 1 CAPSULE BY MOUTH DAILY Unchanged polyethylene glycol 3350 (MiraLax) 17 Gram By Mouth Every day Allergies Advicor (Unknown) Problems Ongoing - Any problem that you are currently receiving treatment for. Chronic UTI Cloudy urine Diverticulosis Dizziness Fatigue GERD (gastroesophageal reflux disease) HTN (hypertension) Hyperlipidemia Hypothyroidism Iron deficiency anemia Menopausal syndrome Pneumaturia Pre-diabetes Pre-op exam Pure hypercholesterolemia Recurrent UTI Urinary hesitancy UTI symptoms Historical - Any problem that you are no longer receiving treatment for. BMI 23.0-23.9, adult Iron deficiency Patient Survey You may receive a survey via text or e-mail asking about your office visit. Please share your experience with us by completing your survey. We appreciate your feedback and thank you for choosing us for your care. Patient Portal You may access all of your results and other medical record information on our secure patient portal. If you are not signed up for this yet, please contact [employer] at [phone] to get signed up today. Language Information Language assistance services are available as needed. Normal [facility] Family Medicine Office/Clini c Noteon 05-19-2025 Family Medicine Office/Clinic Note Family Medicine Office/Clinic Note HPI Staff Eugene is a 74 year old female presenting with blood pressure f/u taking Clonidine 10 mg BID and hydrochlorothiazide 5 mg- 6.25 mg Patient is here for follow up on hypertension. How often are you checking your blood pressure? daily for awhile What are your average readings? 130/80 Yearly BMP: July 25 2024 History of Present Illness pt presents today for follow up on BP Review of Systems PHQ Score Initial Depression Screen Score: 0 SCORE Physical Exam Vitals & Measurements T: 36.2 ???C(Temporal Artery) HR: 74(Peripheral) RR: 18 BP: 160/88 SpO2: 97% HT: 173.0 cm HT: 68 in WT: 69.2 kg WT: 152.56 lb BMI: 23.12 General: alert, no acute distress ENMT: oral mucosa moist, no pharyngeal erythema or exudate Cardiovascular: regular rate and rhythm, normal peripheral perfusion Respiratory: Lungs CTA, respirations non labored Extremities: no deformity, no trauma Neurological: oriented x 4, LOC appropriate for age, CN II-XII intact, motor strength equal & normal bilaterally, speech normal Assessment/Plan 1. HTN (hypertension) (I10: Essential (primary) hypertension) BP log reviewed. pt is very anxious about upcoming cystoscopy. is obsessing over checking her BP. encouraged her to check BP 1-2 hours after taking medication and only check every other day. to help her stop obsessing over it. RTC as needed Ordered: busPIRone, 15 mg = 1 tab(s), Oral, TID, # 90 tab(s), Refills(s) 0, Pharmacy: [facility] [id number], 173, cm, 05/19/25 11:46:00 EDT, Height/Length Dosing, 69.2, kg, 05/19/25 11:46:00 EDT, Weight Dosing 2. Generalized anxiety disorder (F41.1: Generalized anxiety disorder) pt is really struggling with anxiety and stressing over everything especially upcoming testing she has scheduled. will start Buspar to be taken as needed up to TID. pt feels she will start taking it at lunchtime and see how it goes. Ordered: busPIRone, 15 mg = 1 tab(s), Oral, TID, # 90 tab(s), Refills(s) 0, Pharmacy: [facility] [id number], 173, cm, 05/19/25 11:46:00 EDT, Height/Length Dosing, 69.2, kg, 05/19/25 11:46:00 EDT, Weight Dosing 3. BMI 23.0-23.9, adult (Z68.23: Body mass index [BMI] 23.0-23.9, adult) BMI education Orders: clonidine, See Instructions, TAKE 1 TABLET BY MOUTH 2 TIMES A DAY, # 60 tab(s), Refills(s) 0, Pharmacy: [facility] [id number], 173, cm, 05/19/25 11:46:00 EDT, Height/Length Dosing, 69.2, kg, 05/19/25 11:46:00 EDT, Weight Dosing Follow-up No qualifying data available Problem List/Past Medical History Ongoing BMI 23.0-23.9, adult Chronic UTI Cloudy urine Diverticulosis Dizziness Fatigue Generalized anxiety disorder GERD (gastroesophageal reflux disease) HTN (hypertension) Hyperlipidemia Hypothyroidism Iron deficiency anemia Menopausal syndrome Pneumaturia Pre-diabetes Pre-op exam Pure hypercholesterolemia Recurrent UTI Urinary hesitancy UTI symptoms Historical Iron deficiency Procedure/Surgical History Colonoscopy (2010), Fracture of odontoid process, History of cervical spine surgery. Medications atorvastatin 20 mg Tab, See Instructions bisoprolol-hydrochlorot hiazide 5 mg-6.25 mg Tab, See Instructions busPIRone 15 mg Tab, 15 mg= 1 tab(s), Oral, TID CeleBREX 200 mg Cap, 200 mg= 1 cap(s), Oral, Daily Cipro 250 mg Tab, 250 mg= 1 tab(s), Oral, q24hr, 1 refills cloNIDine 0.1 mg tab, 0.1 mg= 1 tab(s), Oral, BID cloNIDine 0.1 mg tab, See Instructions levothyroxine 100 mcg (0.1 mg) Tab, See Instructions meloxicam 15 mg Tab, 15 mg= 1 tab(s), Oral, Daily, 1 refills MiraLax, 17 gm, Oral, Daily omeprazole 20 mg Cap-DR, See Instructions Vitamin D3 2000 intl units oral Tab, 50 mcg, Oral, Daily Allergies Advicor (Unknown) Social History Alcohol - Low Risk, 04/10/2024 Current. Wine. 3-5 times per week., 02/27/2025 Substance Abuse - Denies Substance Abuse, 09/29/2022 Never., 02/27/2025 Tobacco - Denies Tobacco Use, 04/10/2024 Former smoker, quit more than 30 days ago Tobacco Use:., 05/19/2025 Family History Heart disease: Father. Hodgkin's disease: Mother. NF - Neurofibromatosis: Brother. Immunizations Vaccine Date Status zoster vaccine, inactivated 09/09/2024 Recorded influenza virus vaccine, inactivated 08/12/2024 Recorded zoster vaccine, inactivated 06/05/2024 Recorded influenza virus vaccine, inactivated 09/04/2023 Recorded influenza virus vaccine, inactivated 08/15/2022 Recorded SARS-CoV-2 (COVID-19) [id number] 08/15/2022 Recorded SARSCoV2 mRNA(cqvszbtrn-fafv-gyw ros) vac 02/24/2022 Recorded influenza virus vaccine, inactivated 08/05/2021 Recorded SARS-CoV-2 (COVID-19) mRNA BNT-162b2 vax 07/28/2021 Recorded SARS-CoV-2 (COVID-19) mRNA BNT-162b2 vax 01/11/2021 Recorded SARS-CoV-2 (COVID-19) mRNA BNT-162b2 vax 12/20/2020 Recorded pneumococcal 23-valent vaccine 07/28/2020 Recorded influenza virus vaccine, inactivated 07/28/2020 Recorded pneumococcal 13-valent vac (more content not included)... Normal [facility] Comment on above: Result Comment: Elec tronically Signed By: Carmen Cerda\.br\Date and Time Signed: 05/19/25 12:24 EDT Ambulatory Visit Summaryon 0 05-01-2025 Ambulatory Visit Summary Ambulatory Visit Summary EUGENE ROGERS :1950 Visit Date:05/01/2025 Ambulatory Visit Instructions Your Diagnosis BMI 23.0-23.9, adult Former smoker Your Care Team Attending Physician - Carmen Cerda Primary Care Physician - Carmen Cerda This Is Your Medications List atorvastatin (atorvastatin 20 mg Tab) bisoprolol-hydrochlorot hiazide (bisoprolol-hydrochloro thiazide 5 mg-6.25 mg Tab) celecoxib (CeleBREX 200 mg Cap) cholecalciferol (Vitamin D3 2000 intl units oral Tab) ciprofloxacin (Cipro 250 mg Tab) clonidine (cloNIDine 0.1 mg tab) levothyroxine (levothyroxine 100 mcg (0.1 mg) Tab) meloxicam (meloxicam 15 mg Tab) omeprazole (omeprazole 20 mg Cap-DR) polyethylene glycol 3350 (MiraLax) Procedures Performed Colonoscopy (2010), Fracture of odontoid process, History of cervical spine surgery. Discharge Vitals Temperature (Temporal Artery) 35.8 ???C Heart Rate (Peripheral) 78 Respiratory Rate 18 Blood Pressure 143/86 Height 173.0 cm Height 68 in Weight 69.8 kg Weight 153.882 lb BMI 23.32 What to do next Scheduled Follow-Up Appointments Sunday 12:30 PM EDT With: Where: [facility] Sunday 11:00 AM EDT With: Where: [facility] Sunday 1:00 PM EDT With: Where: [address] [address]- Sunday 2:00 PM EDT With: Carmen Cerda Where: [address] [address]- Medications What How Much When Why Instructions Unchanged atorvastatin (atorvastatin 20 mg Tab) See instructions TAKE 1 TABLET BY MOUTH DAILY Unchanged bisoprolol-hydrochlorot hiazide (bisoprolol-hydrochloro thiazide 5 mg-6.25 mg Tab) See instructions TAKE 1 TABLET BY MOUTH DAILY Unchanged celecoxib (CeleBREX 200 mg Cap) 1 Capsules By Mouth Every day Menopausal syndrome Unchanged cholecalciferol (Vitamin D3 2000 intl units oral Tab) 50 Microgram By Mouth Every day Unchanged ciprofloxacin (Cipro 250 mg Tab) 1 Tablets By Mouth Every 24 hours Unchanged clonidine (cloNIDine 0.1 mg tab) 1 Tablets By Mouth 2 times a day Cloudy urine Urinary hesitancy HTN (hypertension) BMI 25.0-25.9,adult Former smoker Unchanged levothyroxine (levothyroxine 100 mcg (0.1 mg) Tab) See instructions TAKE 1 TABLET BY MOUTH DAILY Unchanged meloxicam (meloxicam 15 mg Tab) 1 Tablets By Mouth Every day Menopausal syndrome Unchanged omeprazole (omeprazole 20 mg Cap-DR) See instructions TAKE 1 CAPSULE BY MOUTH DAILY Unchanged polyethylene glycol 3350 (MiraLax) 17 Gram By Mouth Every day Allergies Advicor (Unknown) Problems Ongoing - Any problem that you are currently receiving treatment for. Cloudy urine Diverticulosis Fatigue GERD (gastroesophageal reflux disease) HTN (hypertension) Hyperlipidemia Hypothyroidism Iron deficiency anemia Menopausal syndrome Pneumaturia Pre-diabetes Pre-op exam Pure hypercholesterolemia Recurrent UTI Urinary hesitancy UTI symptoms Historical - Any problem that you are no longer receiving treatment for. BMI 23.0-23.9, adult Iron deficiency Patient Survey You may receive a survey via text or e-mail asking about your office visit. Please share your experience with us by completing your survey. We appreciate your feedback and thank you for choosing us for your care. Patient Portal You may access all of your results and other medical record information on our secure patient portal. If you are not signed up for this yet, please contact [employer] at [phone] to get signed up today. Language Information Language assistance services are available as needed. [facility] Medicine Office/Clini c Noteon 05-01-2025 Family Medicine Office/Clinic Note Family Medicine Office/Clinic Note HPI Staff Patient is presenting to discuss medication The Cipro is making her dizzy, walking with a cane to feel more stable. having loss of appetite. Still having UTI symptoms, has appt. with urology june 02 wants to know if she can restart the vitamin d and if she should take a multivitamin History of Present Illness pt presents today to discuss dizziness and no appetite. Review of Systems PHQ Score Initial Depression Screen Score: 2 SCORE Physical Exam Vitals & Measurements T: 35.8 ???C(Temporal Artery) HR: 78(Peripheral) RR: 18 BP: 143/86 SpO2: 96% HT: 173.0 cm HT: 68 in WT: 69.8 kg WT: 153.882 lb BMI: 23.32 General: alert, no acute distress ENMT: oral mucosa moist, no pharyngeal erythema or exudate, Rigth TM full of clear fluid Cardiovascular: regular rate and rhythm, normal peripheral perfusion Respiratory: Lungs CTA, respirations non labored Extremities: no deformity, no trauma Neurological: oriented x 4, LOC appropriate for age, CN II-XII intact, motor strength equal & normal bilaterally, speech normal Assessment/Plan 1. Dizziness (R42: Dizziness and giddiness) pt is c/o dizziness. she stated that it started when she started the cipro. but her spoke up and said no it started before that. they are wondering if she has an ear infection. she does have some fluid behind right TM but no infection is noted. will send in flonase and she will take daily antihistamine. to see if that helps improve the dizziness. she will return for [facility] visit. will do annual labs then. 2. BMI 23.0-23.9, adult (Z68.23: Body mass index [BMI] 23.0-23.9, adult) BMI education given 3. Former smoker (Z87.891: Personal history of nicotine dependence) continue not smoking 4. Chronic UTI (N39.0: Urinary tract infection, site not specified) pt is being followed by urology. pt felt the cipro was causing dizziness but it started before the cipro. she will continue to take med as ordered by Primitivo Rucker from urology Follow-up No qualifying data available Problem List/Past Medical History Ongoing Chronic UTI Cloudy urine Diverticulosis Dizziness Fatigue GERD (gastroesophageal reflux disease) HTN (hypertension) Hyperlipidemia Hypothyroidism Iron deficiency anemia Menopausal syndrome Pneumaturia Pre-diabetes Pre-op exam Pure hypercholesterolemia Recurrent UTI Urinary hesitancy UTI symptoms Historical BMI 23.0-23.9, adult Iron deficiency Procedure/Surgical History Colonoscopy (2010), Fracture of odontoid process, History of cervical spine surgery. Medications atorvastatin 20 mg Tab, See Instructions bisoprolol-hydrochlorot hiazide 5 mg-6.25 mg Tab, See Instructions CeleBREX 200 mg Cap, 200 mg= 1 cap(s), Oral, Daily Cipro 250 mg Tab, 250 mg= 1 tab(s), Oral, q24hr, 1 refills cloNIDine 0.1 mg tab, 0.1 mg= 1 tab(s), Oral, BID levothyroxine 100 mcg (0.1 mg) Tab, See Instructions meloxicam 15 mg Tab, 15 mg= 1 tab(s), Oral, Daily, 1 refills MiraLax, 17 gm, Oral, Daily omeprazole 20 mg Cap-DR, See Instructions Vitamin D3 2000 intl units oral Tab, 50 mcg, Oral, Daily, Not taking Allergies Advicor (Unknown) Social History Alcohol - Low Risk, 04/10/2024 Current. Wine. 3-5 times per week., 02/27/2025 Substance Abuse - Denies Substance Abuse, 09/29/2022 Never., 02/27/2025 Tobacco - Denies Tobacco Use, 04/10/2024 Former smoker, quit more than 30 days ago Tobacco Use:., 05/01/2025 Family History Heart disease: Father. Hodgkin's disease: Mother. NF - Neurofibromatosis: Brother. Immunizations Vaccine Date Status zoster vaccine, inactivated 09/09/2024 Recorded influenza virus vaccine, inactivated 08/12/2024 Recorded zoster vaccine, inactivated 06/05/2024 Recorded influenza virus vaccine, inactivated 09/04/2023 Recorded influenza virus vaccine, inactivated 08/15/2022 Recorded SARS-CoV-2 (COVID-19) [id number] 08/15/2022 Recorded SARSCoV2 mRNA(geqchudyr-tcbn-wni ros) vac 02/24/2022 Recorded influenza virus vaccine, inactivated 08/05/2021 Recorded SARS-CoV-2 (COVID-19) mRNA BNT-162b2 vax 07/28/2021 Recorded SARS-CoV-2 (COVID-19) mRNA BNT-162b2 vax 01/11/2021 Recorded SARS-CoV-2 (COVID-19) mRNA BNT-162b2 vax 12/20/2020 Recorded pneumococcal 23-valent vaccine 07/28/2020 Recorded influenza virus vaccine, inactivated 07/28/2020 Recorded pneumococcal 13-valent vaccine 08/22/2019 Recorded influenza virus vaccine, inactivated 08/22/2019 Recorded Normal [facility] Comment on above: Result Comment: Elec tronically Signed By: Carmen Cerda\.br\Date and Time Signed: 05/01/25 13:20 EDT Ambulatory Visit Summaryon 0 04-27-2025 Ambulatory Visit Summary Ambulatory Visit Summary EUGENE ROGERS :1950 Visit Date:04/27/2025 Ambulatory Visit Instructions Your Diagnosis Pneumaturia Recurrent UTI Diverticulosis Your Care Team Attending Physician - HIPOLITO RUCKER PA-C Primary Care Physician - Carmen Cerda Referring Physician - Carmen Cerda This Is Your Medications List atorvastatin (atorvastatin 20 mg Tab) bisoprolol-hydrochlorot hiazide (bisoprolol-hydrochloro thiazide 5 mg-6.25 mg Tab) celecoxib (CeleBREX 200 mg Cap) cholecalciferol (Vitamin D3 2000 intl units oral Tab) clonidine (cloNIDine 0.1 mg tab) diphenhydrAMINE-ibuprof en (Ibuprofen PM 38 mg-200 mg oral tablet) levothyroxine (levothyroxine 100 mcg (0.1 mg) Tab) meloxicam (meloxicam 15 mg Tab) omeprazole (omeprazole 20 mg Cap-DR) polyethylene glycol 3350 (MiraLax) sulfamethoxazole-trimet hoprim (Bactrim 400 mg-80 mg Tab) Procedures Performed Colonoscopy (2010), Fracture of odontoid process, History of cervical spine surgery. Discharge Vitals Heart Rate (Peripheral) 69 Blood Pressure 190/105 Height 173 cm Height 68 in Weight 71.1 kg Weight 156.748 lb BMI 23.76 What to do next Scheduled Follow-Up Appointments Sunday 9:00 AM EDT With: Carmen Cerda Where: [address] [address] [address]- Sunday 1:00 PM EDT With: Where: [address] [address]- Sunday 2:00 PM EDT With: Carmen Cerda Where: [address] [address]- You Need to Schedule the Following Appointments Follow Up with REBECCA WILDE, FRANCISCO FELICIANO When: Comments: pending results of imaging/testing, will call with next steps Where: [address] [place] [address] Business (1) Medications What How Much When Why Instructions New sulfamethoxazole-trimet hoprim (Bactrim 400 mg-80 mg Tab) 1 Tablets By Mouth Every day Recurrent UTI Duration: 30 Days Refills: 1 Pickup at [facility] [id number] Unchanged atorvastatin (atorvastatin 20 mg Tab) See instructions TAKE 1 TABLET BY MOUTH DAILY Unchanged bisoprolol-hydrochlorot hiazide (bisoprolol-hydrochloro thiazide 5 mg-6.25 mg Tab) See instructions TAKE 1 TABLET BY MOUTH DAILY Unchanged celecoxib (CeleBREX 200 mg Cap) 1 Capsules By Mouth Every day Menopausal syndrome Unchanged cholecalciferol (Vitamin D3 2000 intl units oral Tab) 50 Microgram By Mouth Every day Unchanged clonidine (cloNIDine 0.1 mg tab) 1 Tablets By Mouth 2 times a day Cloudy urine Urinary hesitancy HTN (hypertension) BMI 25.0-25.9,adult Former smoker Unchanged diphenhydrAMINE-ibuprof en (Ibuprofen PM 38 mg-200 mg oral tablet) 1 Tablets By Mouth Once a day (at bedtime) Unchanged levothyroxine (levothyroxine 100 mcg (0.1 mg) Tab) See instructions TAKE 1 TABLET BY MOUTH DAILY Unchanged meloxicam (meloxicam 15 mg Tab) 1 Tablets By Mouth Every day Menopausal syndrome Unchanged omeprazole (omeprazole 20 mg Cap-DR) See instructions TAKE 1 CAPSULE BY MOUTH DAILY Unchanged polyethylene glycol 3350 (MiraLax) 17 Gram By Mouth Every day Pharmacy Information [facility] [id number]: [address] [place], [place] [id number] [phone] Allergies Advicor (Unknown) Problems Ongoing - Any problem that you are currently receiving treatment for. Cloudy urine Diverticulosis Fatigue GERD (gastroesophageal reflux disease) HTN (hypertension) Hyperlipidemia Hypothyroidism Iron deficiency anemia Menopausal syndrome Pneumaturia Pre-diabetes Pre-op exam Pure hypercholesterolemia Recurrent UTI Urinary hesitancy UTI symptoms Historical - Any problem that you are no longer receiving treatment for. BMI 23.0-23.9, adult Iron deficiency Patient Survey You may receive a survey via text or e-mail asking about your office visit. Please share your experience with us by completing your survey. We appreciate your feedback and thank you for choosing us for your care. Education Materials Antibiotic Medicine, Adult Antibiotic medicines are used to treat infections caused by bacteria. These medicines do not work for illnesses caused by viruses. Antibiotics work by killing the bacteria that are making you sick, but they can also have serious side effects. Antibiotics must be used safely and only when needed. When do I need to take antibiotics? You may need antibiotics for: ??? A urinary tract infection (UTI). ??? Strep throat. ??? Bacterial sinus infection. ??? Meningitis. ??? Serious lung infections. Your health care provider may start you on antibiotics while you are waiting for test results. Tests may include a culture of the throat, urine, blood, or mucus. Y (more content not included)... Normal [facility] Urology Office/Clinic Noteon 04-27-2025 Urology Office/Clinic Note Urology Office/Clinic Note HPI Staff 74 year old female referred for UTI. Went to [facility] end of February d/t cloudy urine and low abd pain. Had upcoming hip replacement surgery and was worried they'd cancel surgery if she had UTI. UA+ so they gave Macrobid. Pt had hip surgery on 03/25 and they checked Cx which was negative. Cloudy urine persisted. Also intermittent sediment in urine. And noticed air passing through urethra. Sees bubbles in urine. Causes intermittent stream. brought sample from home on 04/02, +UA so PCP started on empiric Cipro. Cx grew 3 orgs - Klebsiella, Pseudomonas, and E Coli. PCP wanted to switch to IV abx to cover all 3 but pt declined thinking it could have been a contaminated sample. Repeat sample showed 2 new orgs - Serratia and Enterococcus on 04/17. Initially started on Levaquin, then switched to Bactrim. Pt just finished this yesterday. Pt overall feels ok. Denies fever, chills, malaise, myalgia. No nausea/vomiting. Good po intake food/fluids. Hasn't seen any blood in urine. Review of Systems PHQ Score Initial Depression Screen Score: 0 SCORE No SOB, chest pain, rash, unilateral calf swelling/redness/tender ness. Physical Exam Vitals & Measurements HR: 69(Peripheral) BP: 190/105 HT: 68 in HT: 173 cm WT: 156.748 lb WT: 71.1 kg BMI: 23.76 General: nontoxic, NAD Mouth: moist mucosa Lungs: normal respiratory effort Cardio: regular rate, good distal perfusion Abdomen: nondistended Neurologic: Grossly normal Skin: No rashes or suspicious lesions Assessment/Plan Nl renal function A1c 6.1 1. Pneumaturia (R39.89: Other symptoms and signs involving the genitourinary system) Need to rule out fistula d/t pneumaturia, sediment/particles in urine, and persistent +Cx. Will order CT Abd/Pelv w rectal con. Return for cysto. The risks and benefits for cystoscopy have been discussed. The risks include bleeding, infection, and irritation of the bladder and urinary channel, among others. The patient, after being informed of procedural details and after questions have been answered, wishes to proceed. Full informed consent has been obtained. Will order Local anesthesia. Ordered: E&M of New Patient Moderate 45-59 Min 25922 2. Recurrent UTI (N39.0: Urinary tract infection, site not specified) No hx. All started recently. IO UA shows +hgb +leuks. Not enough to send for C&S. Start suppressive abx until we can complete CT/cysto - Bactrim SS qd. Risks/benefits/side effects discussed. Ordered: sulfamethoxazole-trimet hoprim, 1 tab(s), Oral, Daily for 30 day(s), 30 tab(s), Refill(s) 1, [facility] [id number], 173, cm, 04/27/25 12:29:00 EDT, Height/Length Dosing, 71.1, kg, 04/27/25 12:29:00 EDT, Weight Dosing E&M of New Patient Moderate 45-59 Min 19745 3. Diverticulosis (K57.90: Diverticulosis of intestine, part unspecified, without perforation or abscess without bleeding) Identified on recent hip MRI. No hx diverticulitis. Ordered: E&M of New Patient Moderate 45-59 Min [id number] Orders: Urnls Dip Stick Auto w/o Microscopy POC 77152 Follow-up With When Contact Information REBECCA WILDE, HIPOLITO Bowser, URL [address] [place] [address] [facility] (1) Additional Instructions: pending results of imaging/testing, will call with next steps Patient Education Antibiotic Medicine, Adult Problem List/Past Medical History Ongoing Cloudy urine Diverticulosis Fatigue GERD (gastroesophageal reflux disease) HTN (hypertension) Hyperlipidemia Hypothyroidism Iron deficiency anemia Menopausal syndrome Pneumaturia Pre-diabetes Pre-op exam Pure hypercholesterolemia Recurrent UTI Urinary hesitancy UTI symptoms Historical BMI 23.0-23.9, adult Iron deficiency Procedure/Surgical History Colonoscopy (2010), Fracture of odontoid process, History of cervical spine surgery. Medications atorvastatin 20 mg Tab, See Instructions Bactrim 400 mg-80 mg Tab, 1 tab(s), Oral, Daily, 1 refills bisoprolol-hydrochlorot hiazide 5 mg-6.25 mg Tab, See Instructions CeleBREX 200 mg Cap, 200 mg= 1 cap(s), Oral, Daily cloNIDine 0.1 mg tab, 0.1 mg= 1 tab(s), Oral, BID Ibuprofen PM 38 mg-200 mg oral tablet, 1 tab(s), Oral, Once a day (at bedtime) levothyroxine 100 mcg (0.1 mg) Tab, See Instructions meloxicam 15 mg Tab, 15 mg= 1 tab(s), Oral, Daily, 1 refills MiraLax, 17 gm, Oral, Daily omeprazole 20 mg Cap-DR, See Instructions Vitamin D3 2000 intl units oral Tab, 50 mcg, Oral, Daily Allergies Advicor (Unknown) Social History Alcohol - Low Risk, 04/10/2024 Current. Wine. 3-5 times per week., 02/27/2025 Substance Abuse - Denies Substance Abuse, 09/29/2022 Never., 02/27/2025 Tobacco - Denies Tobacco Use, 04/10/2024 Former smoker, quit more than 30 days ago Tobacco Use:., 04/27/2025 Family History Heart disease: Father. Hodgkin's disease: Mother. NF - Neurofibromatosis: Brother. Immunizations Vaccine Date Status zoster vac (more content not included)... Normal [facility] Comment on above: Result Comment: Elec tronically Signed By: HIPOLITO RUCKER PA-C\.br\Date and Time Signed: 04/27/25 13:20 EDT C Urineon 04-20-2025 Bacteria identified Cx Nom (U) Microbiology PROCEDURE: Urine Culture [R1] SOURCE: U CleanCatch BODY SITE: COLLECTED DATE/TIME: 04/17/2025 12:40 EDT RECEIVED DATE/TIME: 04/17/2025 17:20 EDT START DATE/TIME: 04/17/2025 17:20 EDT FREE TEXT SOURCE: Carmen Cerda, Carmen Leslie FINAL REPORTS Final Report [] Verified Date/Time: 04/20/2025 07:55 EDT 20,000 cfu/ml Serratia marcescens 15,000 cfu/ml Enterococcus faecium SUSCEPTIBILITY RESULTS ____ LEGEND: S=Susceptible, N/R=Not Reported, Blank=Data not available, or drug not advisable or tested, I=Intermediate, ESBL=Extended spectrum beta-lactamase, R=Resistant, TFG=Thymidine-dependent strain, FELISHA=Beta-lactamase positive, BRITNEY=mcg/m;(mg/L), S*=Predicted susceptible interp, R*=Predicted resistant interp ___ Sermar Entfaeci Antibiotic BRITNEY Dilutn BRITNEY Interp BRITNEY Dilutn BRITNEY Interp Ampicillin <=8 R* <=2 S Ampicillin/ <=8/4 R* Sulbactam Cefazolin >16 R Cefepime <=2 S Ceftazidime/ <=8 S Avibactam Ceftriaxone <=1 S Cefuroxime >16 R Ciprofloxacin 2 R 2 I Daptomycin 4 S Ertapenem <=0.5 S Gentamicin <=2 S Levofloxacin 2 R 2 S Linezolid <=2 S Meropenem <=1 S Nitrofurantoin >64 R <=32 S Penicillin 2 S Piperacillin/ <=8 S Tazobactam Tetracycline >8 R <=4 S Tobramycin 4 S Trimethoprim/ <=2/38 S Sulfa Vancomycin <=0.5 S Performing Locations R1: This test was performed at: [facility], [address] [place] [address], [address] , , [facility] Comment on above: Performed By: #### [id number] #### [facility] [address] [place] [address] Performed By: #### 2 [id number] ####[facility] [address] [place] [address] Ambulatory Visit Summaryon 0 04-17-2025 Ambulatory Visit Summary Ambulatory Visit Summary EUGENE ROGERS :1950 Visit Date:04/17/2025 Ambulatory Visit Instructions Your Diagnosis Cloudy urine BMI 25.0-25.9,adult Former smoker Your Care Team Attending Physician - Carmen Cerda Primary Care Physician - Carmen Cerda This Is Your Medications List atorvastatin (atorvastatin 20 mg Tab) bisoprolol-hydrochlorot hiazide (bisoprolol-hydrochloro thiazide 5 mg-6.25 mg Tab) celecoxib (CeleBREX 200 mg Cap) cholecalciferol (Vitamin D3 2000 intl units oral Tab) diphenhydrAMINE-ibuprof en (Ibuprofen PM 38 mg-200 mg oral tablet) levothyroxine (levothyroxine 100 mcg (0.1 mg) Tab) meloxicam (meloxicam 15 mg Tab) omeprazole (omeprazole 20 mg Cap-DR) polyethylene glycol 3350 (MiraLax) Procedures Performed Colonoscopy (2010), Fracture of odontoid process, History of cervical spine surgery. Discharge Vitals Temperature (Temporal Artery) 36.6 ???C Heart Rate (Peripheral) 69 Respiratory Rate 18 Blood Pressure 190/106 Height 171.0 cm Height 67 in Weight 74.0 kg Weight 163.142 lb BMI 25.31 What to do next Scheduled Follow-Up Appointments Sunday 9:00 AM EDT With: Carmen Cerda Where: [place] [id number]- Sunday 1:00 PM EDT With: Where: [address] [address]- Sunday 2:00 PM EDT With: Carmen Cerda Where: [address] [address]- Medications What How Much When Why Instructions Unchanged atorvastatin (atorvastatin 20 mg Tab) See instructions TAKE 1 TABLET BY MOUTH DAILY Unchanged bisoprolol-hydrochlorot hiazide (bisoprolol-hydrochloro thiazide 5 mg-6.25 mg Tab) See instructions TAKE 1 TABLET BY MOUTH DAILY Unchanged celecoxib (CeleBREX 200 mg Cap) 1 Capsules By Mouth Every day Menopausal syndrome Unchanged cholecalciferol (Vitamin D3 2000 intl units oral Tab) 50 Microgram By Mouth Every day Unchanged diphenhydrAMINE-ibuprof en (Ibuprofen PM 38 mg-200 mg oral tablet) 1 Tablets By Mouth Once a day (at bedtime) Unchanged levothyroxine (levothyroxine 100 mcg (0.1 mg) Tab) See instructions TAKE 1 TABLET BY MOUTH DAILY Unchanged meloxicam (meloxicam 15 mg Tab) 1 Tablets By Mouth Every day Menopausal syndrome Unchanged omeprazole (omeprazole 20 mg Cap-DR) See instructions TAKE 1 CAPSULE BY MOUTH DAILY Unchanged polyethylene glycol 3350 (MiraLax) 17 Gram By Mouth Every day Allergies Advicor (Unknown) Problems Ongoing - Any problem that you are currently receiving treatment for. Cloudy urine Fatigue GERD (gastroesophageal reflux disease) HTN (hypertension) Hyperlipidemia Hypothyroidism Iron deficiency anemia Menopausal syndrome Pre-diabetes Pre-op exam Pure hypercholesterolemia UTI symptoms Historical - Any problem that you are no longer receiving treatment for. BMI 23.0-23.9, adult Iron deficiency Patient Survey You may receive a survey via text or e-mail asking about your office visit. Please share your experience with us by completing your survey. We appreciate your feedback and thank you for choosing us for your care. Patient Portal You may access all of your results and other medical record information on our secure patient portal. If you are not signed up for this yet, please contact [employer] at [phone] to get signed up today. Language Information Language assistance services are available as needed. Rayshawn [facility] Family Medicine Office/Clini c Noteon 04-17-2025 Family Medicine Office/Clinic Note Family Medicine Office/Clinic Note HPI Staff Patient is presenting to recheck for UTI As per message 04/06/25, patients urine came back for multiple bacteria, two of which were treated with Cipro but the other required IV antibiotics. Pt did not set up IV antibiotics and would like a recheck for her urine first in case the sample she gave was contaminated States that after her surgery she is going to the bathroom and is having air coming from her vagina, she tried doing leg exercises. She states that now she air from her urethra while in the middle of urinating History of Present Illness pt presents today for UTI follow up Review of Systems PHQ Score Initial Depression Screen Score: 0 SCORE Physical Exam Vitals & Measurements T: 36.6 ???C(Temporal Artery) HR: 69(Peripheral) RR: 18 BP: 220/110 SpO2: 99% HT: 171.0 cm HT: 67 in WT: 74.0 kg WT: 163.142 lb BMI: 25.31 General: alert, no acute distress ENMT: oral mucosa moist, no pharyngeal erythema or exudate Cardiovascular: regular rate and rhythm, normal peripheral perfusion Respiratory: Lungs CTA, respirations non labored Extremities: no deformity, no trauma Neurological: oriented x 4, LOC appropriate for age, CN II-XII intact, motor strength equal & normal bilaterally, speech normal Assessment/Plan 1. Cloudy urine (R82.90: Unspecified abnormal findings in urine) pt completed cipro 7 days ago. is still having cloudy urine and is now complaining that she has trouble with urinary stream. she feels like she is blowing air out of her urethra. u/a was positive in office today. will send for culture. RTC 2 weeks Ordered: clonidine, 0.1 mg = 1 tab(s), Oral, BID, # 60 tab(s), Refills(s) 0, Pharmacy: [facility] [id number], 171, cm, 04/17/25 11:49:00 EDT, Height/Length Dosing, 74, kg, 04/17/25 11:49:00 EDT, Weight Dosing levofloxacin, 500 mg = 1 tab(s), Oral, q24hr, X 7 day(s), # 7 tab(s), Refills(s) 0, Pharmacy: [facility] [id number], 171, cm, 04/17/25 11:49:00 EDT, Height/Length Dosing, 74, kg, 04/17/25 11:49:00 EDT, Weight Dosing Urine Culture Urnls Dip Stick Auto w/o Microscopy POC 60885 2. Urinary hesitancy (R39.11: Hesitancy of micturition) see above. may consider referral to urology if symptoms do not improve Ordered: clonidine, 0.1 mg = 1 tab(s), Oral, BID, # 60 tab(s), Refills(s) 0, Pharmacy: [facility] [id number], 171, cm, 04/17/25 11:49:00 EDT, Height/Length Dosing, 74, kg, 04/17/25 11:49:00 EDT, Weight Dosing levofloxacin, 500 mg = 1 tab(s), Oral, q24hr, X 7 day(s), # 7 tab(s), Refills(s) 0, Pharmacy: [facility] [id number], 171, cm, 04/17/25 11:49:00 EDT, Height/Length Dosing, 74, kg, 04/17/25 11:49:00 EDT, Weight Dosing Urine Culture Urnls Dip Stick Auto w/o Microscopy POC 15748 3. HTN (hypertension) (I10: Essential (primary) hypertension) BP is elevated in office today. she is also very worked up about everything. she is going to check her BP at home in a couple hours and report it to us. if it is still elevated I will send something else in for BP. BP is still elevated at home. I sent in clonidine BID. pt will keep an eye on BP this and report to us on Sunday. she denies chest pain, headache, SOB Ordered: clonidine, 0.1 mg = 1 tab(s), Oral, BID, # 60 tab(s), Refills(s) 0, Pharmacy: [facility] [id number], 171, cm, 04/17/25 11:49:00 EDT, Height/Length Dosing, 74, kg, 04/17/25 11:49:00 EDT, Weight Dosing levofloxacin, 500 mg = 1 tab(s), Oral, q24hr, X 7 day(s), # 7 tab(s), Refills(s) 0, Pharmacy: [facility] [id number], 171, cm, 04/17/25 11:49:00 EDT, Height/Length Dosing, 74, kg, 04/17/25 11:49:00 EDT, Weight Dosing 4. BMI 25.0-25.9,adult (Z68.25: Body mass index [BMI] 25.0-25.9, adult) BMI education Ordered: clonidine, 0.1 mg = 1 tab(s), Oral, BID, # 60 tab(s), Refills(s) 0, Pharmacy: [facility] [id number], 171, cm, 04/17/25 11:49:00 EDT, Height/Length Dosing, 74, kg, 04/17/25 11:49:00 EDT, Weight Dosing levofloxacin, 500 mg = 1 tab(s), Oral, q24hr, X 7 day(s), # 7 tab(s), Refills(s) 0, Pharmacy: [facility] [id number], 171, cm, 04/17/25 11:49:00 EDT, Height/Length Dosing, 74, kg, 04/17/25 11:49:00 EDT, Weight Dosing 5. Former smoker (Z87.891: Personal history of nicotine dependence) continue not smoking Ordered: clonidine, 0.1 mg = 1 tab(s), Oral, BID, # 60 tab(s), Refills(s) 0, Pharmacy: [facility] [id number], 171, cm, 04/17/25 11:49:00 EDT, Height/Length Dosing, 74, kg, 04/17/25 11:49:00 EDT, Weight Dosing levofloxacin, 500 mg = 1 tab(s), Oral, q24hr, X 7 day(s), # 7 tab(s), Refills(s) 0, Pharmacy: [facility] [id number], 171, cm, 04/17/25 11:49:00 EDT, Height/Length Dosing, 74, kg, 04/17/25 11:49:00 EDT, Weight Dosing Follow-up No qualifying data available Problem List/Past Medical History Ongoing Cloudy urine Fatigue GERD (gastroesophageal reflux disease) HTN (hypertension) Hyperlipidemia Hypothyroidism Iron deficiency anemia Menopausal syndrome Pre-diabetes Pre-op exam Pure hyper (more content not included)... Normal [facility] Comment on above: Result Comment: Elec tronically Signed By: Carmen Cerda\.br\Date and Time Signed: 04/17/25 14:51 EDT C Urineon 04-05-2025 Bacteria identified Cx Nom (U) Microbiology PROCEDURE: Urine Culture [R1] SOURCE: U CleanCatch BODY SITE: COLLECTED DATE/TIME: 04/02/2025 10:58 EDT RECEIVED DATE/TIME: 04/02/2025 20:23 EDT START DATE/TIME: 04/02/2025 20:23 EDT FREE TEXT SOURCE: Justin DEE, Carmen DEE, Carmen Leslie FINAL REPORTS Final Report [] Verified Date/Time: 04/05/2025 08:54 EDT >100,000 cfu/ml Klebsiella pneumoniae >100,000 cfu/ml Pseudomonas fluorescens/putida 50,000 cfu/ml Escherichia coli SUSCEPTIBILITY RESULTS ____ LEGEND: S=Susceptible, N/R=Not Reported, Blank=Data not available, or drug not advisable or tested, I=Intermediate, ESBL=Extended spectrum beta-lactamase, R=Resistant, TFG=Thymidine-dependent strain, FELISHA=Beta-lactamase positive, BRITNEY=mcg/m;(mg/L), S*=Predicted susceptible interp, R*=Predicted resistant interp ___ Klepne Psefluput EC Antibiotic BRITNEY Dilutn BRITNEY Interp BRITNEY Dilutn BRITNEY Interp BRITNEY Dilutn BRITNEY Interp Ampicillin >16 R <=8 S Ampicillin/ >16/8 R <=8/4 S Sulbactam Aztreonam <=4 S Cefazolin 8 S <=2 S Cefepime <=2 S <=2 S <=2 S Ceftazidime/ <=8 S <=8 S Avibactam Ceftriaxone <=1 S <=1 S Cefuroxime <=4 S <=4 S Ciprofloxacin <=0.25 S <=0.25 S Ertapenem <=0.5 S <=0.5 S Gentamicin <=2 S <=2 S <=2 S Levofloxacin <=0.5 S <=0.5 S Meropenem <=1 S <=1 S Nitrofurantoin <=32 S <=32 S Piperacillin/ <=8 S <=8 S <=8 S Tazobactam Tetracycline >8 R 8 I <=4 S Tobramycin <=2 S <=2 S <=2 S Trimethoprim/ <=2/38 S >2/38 R <=2/38 S Sulfa Performing Locations R1: This test was performed at: [facility], [address] [place] [address], [phone]- , [place], Normal [facility] Comment on above: Performed By: #### 2 [id number] #### [facility] [address] [place] [address] UA with Cult Rflxon 04-02-20 25 Color (U) Yellow Normal Yellow [facility] Comment on above: Result Comment: Micr oscopic readings are only performed on those samples that meet specific criteria set forth by [facility]. Performed By: #### 4 [id number] #### [facility] [address] [place] [address] Glucose (U) [Mass/Vol] Negative Normal Negative [facility] Comment on above: Performed By: #### 4 [id number] #### [facility] [address] [place] [address] Ketones Ql (U) Negative Normal Negative [facility] Comment on above: Performed By: #### 4 [id number] #### [facility] [address] [place] [address] UA Blood 2+ mg/dL Abnormal Negative [facility] Comment on above: Performed By: #### 4 [id number] #### [facility] [address] [place] [address] UA Clarity Turbid Abnormal Clear [facility] Comment on above: Performed By: #### 4 [id number] #### [facility] [address] [place] [address] UA Leuk Est 500 Bella/uL Abnormal Negative [facility] Comment on above: Performed By: #### 4 [id number] #### [facility] [address] [place] [address] UA Mucous Negative Normal Negative [facility] Comment on above: Performed By: #### 4 [id number] #### [facility] [address] [place] [address] UA Nitrite Negative Normal Negative [facility] Comment on above: Performed By: #### 4 [id number] #### [facility] [address] [place] [address] UA pH 7.0 Invalid Interpretation Code 5.0-9.0 [facility] Comment on above: Performed By: #### 4 [id number] #### [facility] [address] [place] [address] UA Protein Trace Abnormal Negative [facility] Comment on above: Performed By: #### 4 [id number] #### [facility] [address] [place] [address] UA RBC >75 Abnormal 0-3 [facility] Comment on above: Performed By: #### 4 [id number] #### [facility] [address] [place] [address] UA Spec Grav 1.013 Invalid Interpretation Code 1.005-1.030 [facility] Comment on above: Performed By: #### 4 [id number] #### [facility] [address] [place] [address] UA Urobilinogen Negative Normal Negative [facility] Comment on above: Performed By: #### 4 [id number] #### [facility] [address] [place] [address] UA WBC >75 Abnormal 0-5 [facility] Comment on above: Performed By: #### 4 [id number] #### [facility] [address] [place] [address] UA WBC Clump >30 Abnormal [facility] Comment on above: Performed By: #### 4 [id number] #### [facility] [address] [place] [address] Urobilinogen (U) [Mass/Vol] Negative Normal Negative [facility] Comment on above: Performed By: #### 4 [id number] #### [facility] [address] [facility] [place] [address] UA Spec Desc Clean Catch Normal [facility] Comment on above: Performed By: #### 4 [id number] #### [facility] [address] [place] [address] Color (U) see comment Invalid Interpretation Code [facility] Comment on above: Result Comment: Orde red on wrong encounter. Microscopic readings are only performed on those samples that meet specific criteria set forth by [facility]. Performed By: #### 4 [id number] #### [facility] [address] [place] [address] Ketones Ql (U) see comment Invalid Interpretation Code [facility] Comment on above: Performed By: #### 4 [id number] #### [facility] [address] [place] [address] UA Blood see comment Invalid Interpretation Code [facility] Comment on above: Performed By: #### 4 [id number] #### [facility] [address] [place] [address] UA Bili see comment Invalid Interpretation Code [facility] Comment on above: Performed By: #### 4 [id number] #### [facility] [address] [facility] [place] [address] UA Clarity see comment Invalid Interpretation Code [facility] Comment on above: Performed By: #### 4 [id number] #### [facility] [address] [facility] [place] [address] UA Glucose see comment Invalid Interpretation Code [facility] Comment on above: Performed By: #### 4 [id number] #### [facility] [address] [place] [address] UA Leuk Est see comment Invalid Interpretation Code [facility] Comment on above: Performed By: #### 4 [id number] #### [facility] [address] [place] [address] UA Nitrite see comment Invalid Interpretation Code [facility] Comment on above: Performed By: #### 4 [id number] #### [facility] [address] [place] [address] UA pH see comment Invalid Interpretation Code 5.0-9.0 [facility] Comment on above: Performed By: #### 4 [id number] #### [facility] [address] [place] [address] UA Protein see comment Invalid Interpretation Code [facility] Comment on above: Performed By: #### 4 [id number] #### [facility] [address] [place] [address] UA RBC see comment Invalid Interpretation Code [facility] Comment on above: Performed By: #### 4 [id number] #### [facility] [address] [place] [address] UA Spec Grav see comment Invalid Interpretation Code 1.005-1.030 [facility] Comment on above: Performed By: #### 4 [id number] #### [facility] [address] [place] [address] UA Squam Epithelial see comment Invalid Interpretation Code [facility] Comment on above: Performed By: #### 4 [id number] #### [facility] [address] [place] [address] UA Urobilinogen see comment Invalid Interpretation Code [facility] Comment on above: Performed By: #### 4 [id number] #### [facility] [address] [place] [address] UA WBC see comment Invalid Interpretation Code [facility] Comment on above: Performed By: #### 4 [id number] #### [facility] [address] [place] [address] UA Spec Desc Clean Catch Normal [facility] Comment on above: Performed By: #### 4 [id number] #### [facility] [address] [place] [address] URINALYSISOrdered By: SYSTEM SYSTEM on 04-02-2025 Bilirubin Ql (U) Negative Normal Negativemg/ d L [facility] UA Auto SS Clarity (U) Turbid *ABN* (04/02/25 10:58 AM) Invalid Interpretation Code Clear [facility] UA Auto SS Color (U) Yellow 1 (04/02/25 10:58 AM) Normal Yellow [facility] UA Auto SS Comment on above: Interpretive Data: M icroscopic readings are only performed on those samples that meet specific criteria set forth by [facility]. Glucose Ql (U) Negative Normal Negativemg/d L [facility] UA Auto SS Hemoglobin Auto test strip (U) [Mass/Vol] 2+ mg/dL Invalid Interpretation Code Negativemg/d L [facility] UA Auto SS Ketones Auto test strip Ql (U) Negative Normal Negativemg/d L [facility] UA Auto SS Leukocyte clumps Auto (Urine sed) [#/Area] >30 graded/HPF Invalid Interpretation Code [facility] UA Auto SS Leukocyte esterase Auto test strip Ql (U) 500 Bella/uL Bella/uL Invalid Interpretation Code NegativeLeu/ uL [facility] UA Auto SS Mucus Auto Ql (U) Negative Normal Negativegr ad ed/LPF [facility] UA Auto SS Nitrite Auto test strip Ql (U) Negative Normal Negativemg/d L [facility] UA Auto SS pH (U) 7.0 *NA* (04/02/25 10:58 AM) Invalid Interpretation Code 5.0 - 9.0 [facility] UA Auto SS Protein Ql (U) Trace mg/dL Invalid Interpretation Code Negativemg/d L [facility] UA Auto SS RBC Ql (U) >75 graded/HPF Invalid Interpretation Code 0-3graded/HP F [facility] UA Auto SS Specific gravity (U) [Rel density] 1.013 *NA* (04/02/25 10:58 AM) Invalid Interpretation Code 1.005 - 1.030 [facility] UA Auto SS Urobilinogen (U) [Mass/Vol] Negative Normal Negativemg/d L [facility] UA Auto SS WBC Auto (Urine sed) [#/Area] >75 graded/HPF Invalid Interpretation Code 0-5graded/HP F [facility] UA Auto SS URINALYSISOrdered By: Gavin Nielsen on 04-02-2025 UA Spec Desc Clean Catch (04/02/25 10:58 AM) Normal [facility] [place] Auto SS XR PELVIS 1-2 VIEWSon 2024 XR PELVIS 1-2 VIEWS EXAMINATION: XR PELV IS 1-2 VIEWS, 03/25/2025 9:41 AM EDT INDICATION: Left hip arthroplasty. FINDINGS: Left hip arthroplastic hardware appears intact. No fracture. Alignment is anatomic. Expected surrounding post surgical soft tissue findings. Limited visualization of the right hip demonstrates advanced osteoarthritis. IMPRESSION: 1. Satisfactory and expected findings status post left hip arthroplasty. Normal [facility] URINE CULTUREon 03-25-2025 Bacteria identified Cx Nom (U) SPECIMEN DESCRIPTION URINE CLEAN CATCH CULTURE NO PATHOGENS ISOLATED * Result Note: Testing performed at [place] [address] * REPORT STATUS 03/27/2025 * Result Note: FINAL * Normal [facility] Comment on above: Performed By: #### A URNC #### Testing performed at [facility] [address] [place] [address] Testing performed at [facility] [address] [place] [address] Urine Cultureon 03-20-2025 Bacteria identified Cx Nom (U) ORGANISM: Klebsiella pneumoniae (O:KLEPNE) [place] Count 75,000 Aerobic BRITNEY Charge (NMIC56) -- SUSCEPTIBILITY - ORGANISM: O:KLEPNE ANTIBIOTIC INTERPRETATION BRITNEY Amikacin S <16 Amoxacillin/K Clavulanate S <8 Ampicillin/Sulbactam S <4 Aztreonam S <4 Cefazolin S <2 Cefepime S <2 Ceftazidime S <1 Ceftazidime/Avibactam S <4 Ceftolozane/Tazobactam S <2 Ceftriaxone S <1 Cefuroxime S <4 Ciprofloxacin S <0.25 Ertapenem S <0.5 Gentamicin S <2 Levofloxacin S <0.5 Meropenem S <1 Meropenem/Vaborbactam S <2 Nitrofurantoin S <32 Piperacillin/Tazobactam S <8 Tetracycline S <4 Tigecycline S <2 Tobramycin S <2 Trimethoprim/Sulfametho xazole S <0.5 S = SUSCEPTIBLE I = INTERMEDIATE R = RESISTANT BLANK = DATA NOT AVAILABLE, OR DRUG NOT ADVISABLE OR TESTED R* = RESISTANCE DUE TO EXTENDED SPECTRUM BETA-LACTAMASES ESBL = EXTENDED SPECTRUM BETA-LACTAMASE TFG = THYMIDINE-DEPENDENT STRAIN FELISHA = BETA-LACTAMASE POSITIVE IB = INDUCIBLE BETA-LACTAMASE. APPEARS IN PLACE OF 'S' WITH SPECIES KNOWN TO POSSESS INDUCIBLE BETA-LACTAMASES. POTENTIALLY THEY MAY BECOME RESISTANT TO ALL B-LACTAM DRUGS. PERFORMED BY: [place] [address] PATHOLOGIST [employer] МАРИНА WORTHY M.D. Normal [facility] Comment on above: Performed By: #### C UU #### [address] Family Medicine Office/Clini c Noteon 03-03-2025 Family Medicine Office/Clinic Note Family Medicine Office/Clinic Note HPI Staff Eugene is a 74 year old female presenting for surgical clearance Pt is having left total hip arthroplasty on 03/25/[address] Keane, [facility] [employer] desk) Pt has had pre admission testing done and results are in chart from 02/26/25 History of Present Illness pt presents today for pre op visit for left hip arthroplasty on 03/25/25 Review of Systems PHQ Score Initial Depression Screen Score: 0 SCORE Physical Exam Vitals & Measurements HR: 66(Peripheral) RR: 18 BP: 128/76 SpO2: 99% HT: 67 in HT: 171.0 cm WT: 73.9 kg WT: 162.921 lb BMI: 25.27 General: alert, no acute distress ENMT: oral mucosa moist, no pharyngeal erythema or exudate Cardiovascular: regular rate and rhythm, normal peripheral perfusion Respiratory: Lungs CTA, respirations non labored Extremities: no deformity, no trauma Neurological: oriented x 4, LOC appropriate for age, CN II-XII intact, motor strength equal & normal bilaterally, speech normal Assessment/Plan 1. Pre-op exam (Z01.818: Encounter for other preprocedural examination) pt presents for surgical clearance for left hip arthroplasty by Dr. Keane. I reviewed her most recent labs and EKG. physical exam WNL. pt is cleared for surgical clearance. will send letter to Dr. Keane. 2. Pre-diabetes (R73.03: Prediabetes) after reviewing pre op labs it was noted that her HGBA1C is 6.1. pt has gained some weight since she is not very active due to hip pain. encouraged her to start following a diabetic diet. she's hoping to become more active after her surgery. will recheck HGBA1C in 3 months. 3. BMI 24.0-24.9, adult (Z68.24: Body mass index [BMI] 24.0-24.9, adult) BMI education given. will start to follow diabetic diet Ordered: Body Mass Index (BMI) documented 3008F Depression Screening Negative 3352F Most recent diastolic blood pressure <80 mm Hg 3078F Patient screen for fall risk: no falls in last year or 1 fall with no injury in last year 1101F Systolic BP <130 mm Hg (Most Recent) 3074F 4. Non-smoker (Z78.9: Other specified health status) continue not smoking Ordered: Body Mass Index (BMI) documented 3008F Depression Screening Negative 3352F Most recent diastolic blood pressure <80 mm Hg 3078F Patient screen for fall risk: no falls in last year or 1 fall with no injury in last year 1101F Systolic BP <130 mm Hg (Most Recent) 3074F Follow-up No qualifying data available Problem List/Past Medical History Ongoing Fatigue GERD (gastroesophageal reflux disease) HTN (hypertension) Hyperlipidemia Hypothyroidism Iron deficiency anemia Menopausal syndrome Pre-diabetes Pre-op exam Pure hypercholesterolemia Historical BMI 23.0-23.9, adult Iron deficiency Procedure/Surgical History Colonoscopy (2010), Fracture of odontoid process, History of cervical spine surgery. Medications atorvastatin 20 mg Tab, See Instructions bisoprolol-hydrochlorot hiazide 5 mg-6.25 mg Tab, 1 tab(s), Oral, Daily, 3 refills CeleBREX 200 mg Cap, 200 mg= 1 cap(s), Oral, Daily Ibuprofen PM 38 mg-200 mg oral tablet, 1 tab(s), Oral, Once a day (at bedtime) levothyroxine 100 mcg (0.1 mg) Tab, See Instructions meloxicam 15 mg Tab, 15 mg= 1 tab(s), Oral, Daily, 1 refills MiraLax, 17 gm, Oral, Daily omeprazole 20 mg Cap-DR, See Instructions Vitamin D3 2000 intl units oral Tab, 50 mcg, Oral, Daily Allergies Advicor (Unknown) Social History Alcohol - Low Risk, 04/10/2024 Current. Wine. 3-5 times per week., 02/27/2025 Substance Abuse - Denies Substance Abuse, 09/29/2022 Never., 02/27/2025 Tobacco - Denies Tobacco Use, 04/10/2024 Former smoker, quit more than 30 days ago Tobacco Use:., 02/27/2025 Family History Heart disease: Father. Hodgkin's disease: Mother. NF - Neurofibromatosis: Brother. Immunizations Vaccine Date Status influenza virus vaccine, inactivated 09/04/2023 Recorded influenza virus vaccine, inactivated 08/15/2022 Recorded SARS-CoV-2 (COVID-19) [id number] 08/15/2022 Recorded SARSCoV2 mRNA(zurfoqjwk-nakx-oxg ros) vac 02/24/2022 Recorded influenza virus vaccine, inactivated 08/05/2021 Recorded SARS-CoV-2 (COVID-19) mRNA BNT-162b2 vax 07/28/2021 Recorded SARS-CoV-2 (COVID-19) mRNA BNT-162b2 vax 01/11/2021 Recorded SARS-CoV-2 (COVID-19) mRNA BNT-162b2 vax 12/20/2020 Recorded pneumococcal 23-valent vaccine 07/28/2020 Recorded influenza virus vaccine, inactivated 07/28/2020 Recorded pneumococcal 13-valent vaccine 08/22/2019 Recorded influenza virus vaccine, inactivated 08/22/2019 Recorded Normal [facility] Comment on above: Result Comment: Elec tronically Signed By: Carmen Cerda\.melinda\Date and Time Signed: 03/03/25 13:54 EDT Provider Letteron 03-03-2025 Provider Letter Provider Letter [address] [place] [id number] March 03, [address] [address] : [address] Keane, The above patient has been evaluated at your request for preoperative clearance. After assessment of available pertinent labs and diagnostic tests, I feel this patient is medically optimized for surgery. Final discretion of whether the patient is cleared for surgery remains up to the surgeon/anesthesiologis t. Thank you, Carmen Anderson, C CONSULTANT-C Normal [facility] CBCon 02-26-2025 ABSOLUTE BAS 0.0 10*3/uL Normal 0.0-0.2 [facility] Comment on above: Performed By: #### P T, ACBC, CMPF #### Testing performed at [address] [address] ABSOLUTE EOS 0.1 10*3/uL Normal 0.0-0.7 [facility] Comment on above: Performed By: #### P T, ACBC, CMPF #### Testing performed at [address] [address] ABSOLUTE NEUTROPHIL COUNT 4.1 10*3/uL Normal 1.4-6.5 [facility] Comment on above: Performed By: #### P T, ACBC, CMPF #### Testing performed at [address] [address] Basophils/100 WBC (Bld) 0.2 % Normal 0.0-2.0 [facility] Comment on above: Performed By: #### P T, ACBC, CMPF #### Testing performed at [address] [address] DTYPE AUT[address] Normal [facility] Comment on above: Performed By: #### P T, ACBC, CMPF #### Testing performed at [address] [address] Eosinophils/100 WBC (Bld) 1.2 % Normal 0.0-11.0 [facility] Comment on above: Performed By: #### P T, ACBC, CMPF #### Testing performed at [address] [address] Lymphocytes (Bld) [#/Vol] 1.7 10*3/uL Normal 1.2-3.4 [facility] Comment on above: Performed By: #### P T, ACBC, CMPF #### Testing performed at [address] [address] Lymphocytes/100 WBC (Bld) 27.0 % Normal 20.0-55.0 [facility] Comment on above: Performed By: #### P T, ACBC, CMPF #### Testing performed at [address] [address] Monocytes (Bld) [#/Vol] 0.5 10*3/uL Normal 0.0-0.7 [facility] Comment on above: Performed By: #### P T, ACBC, CMPF #### Testing performed at [address] [address] Monocytes/100 WBC (Bld) 8.5 % Normal 0.0-10.0 [facility] Comment on above: Performed By: #### P T, ACBC, CMPF #### Testing performed at [address] [address] Neutrophils/100 WBC (Bld) 63.1 % Normal 37.0-75.0 [facility] Comment on above: Performed By: #### P T, ACBC, CMPF #### Testing performed at [address] [address] Erythrocyte distribution width (RBC) [Ratio] 13.6 % Normal 11.5-14.5 [facility] Comment on above: Performed By: #### P T, ACBC, CMPF #### Testing performed at [address] [address] Hematocrit (Bld) [Volume fraction] 40.8 % Normal 36.0-48.0 [facility] Comment on above: Performed By: #### P T, ACBC, CMPF #### Testing performed at [address] [address] Hemoglobin (Bld) [Mass/Vol] 13.8 g/dL Normal 12.0-16.0 [facility] Comment on above: Performed By: #### P T, ACBC, CMPF #### Testing performed at [address] [address] MCH (RBC) [Entitic mass] 29.6 pg Normal 26.0-35.0 [facility] Comment on above: Performed By: #### P T, ACBC, CMPF #### Testing performed at [address] [address] MCHC (RBC) [Mass/Vol] 33.9 g/dL Normal 27.0-37.0 [facility] Comment on above: Performed By: #### P T, ACBC, CMPF #### Testing performed at [address] [address] MCV (RBC) [Entitic vol] 87.3 fL Normal 80.0-100.0 [facility] Comment on above: Performed By: #### P T, ACBC, CMPF #### Testing performed at [address] [address] Platelet mean volume (Bld) [Entitic vol] 7.1 fL Low 7.4-11.0 [facility] Comment on above: Performed By: #### P T, ACBC, CMPF #### Testing performed at [address] [address] Platelets (Bld) [#/Vol] 371 10*3/uL Normal 130-400 [facility] Comment on above: Performed By: #### P T, ACBC, CMPF #### Testing performed at [address] [address] RBC (Bld) [#/Vol] 4.67 10*6/uL Normal 4.0-5.4 [facility] Comment on above: Performed By: #### P T, ACBC, CMPF #### Testing performed at [address] [address] WBC (Bld) [#/Vol] 6.4 10*3/uL Normal 3.6-11.0 [facility] Comment on above: Performed By: #### P T, ACBC, CMPF #### Testing performed at [address] [address] CBC, EDIF, PLATELETon 2024 ABSOLUTE BASOPHIL COUNT 0 10*3/uL 0.0 - 0.2 10*3/uL [facility] Basophils/100 WBC (Bld) 0.2 % 0.0 - 2.0 % [facility] Differential cell count method Nom (Bld) AUTO DIFF % [facility] Eosinophils (Bld) [#/Vol] 0.1 10*3/uL 0.0 - 0.7 10*3/uL [facility] Eosinophils/100 WBC (Bld) 1.2 % 0.0 - 11.0 % [facility] Erythrocyte distribution width (RBC) [Ratio] 13.6 % 11.5 - 14.5 % [facility] Hematocrit (Bld) [Volume fraction] 40.8 % 36.0 - 48.0 % [facility] Hemoglobin (Bld) [Mass/Vol] 13.8 g/dL [facility] Interpretation and review of laboratory results Abnormal [facility] Lymphocytes (Bld) [#/Vol] 1.7 10*3/uL 1.2 - 3.4 10*3/uL [facility] Lymphocytes/100 WBC (Bld) 27 % 20.0 - 55.0 % [facility] MCH (RBC) [Entitic mass] 29.6 pg 26.0 - 35.0 PG [facility] MCHC (RBC) [Mass/Vol] 33.9 g/dL [facility] MCV (RBC) [Entitic vol] 87.3 fL [facility] Monocytes (Bld) [#/Vol] 0.5 10*3/uL 0.0 - 0.7 10*3/uL [facility] Monocytes/100 WBC (Bld) 8.5 % 0.0 - 10.0 % [facility] Neutrophils (Bld) [#/Vol] 4.1 10*3/uL 1.4 - 6.5 10*3/uL [facility] Neutrophils/100 WBC (Bld) 63.1 % 37.0 - 75.0 % [facility] Platelet mean volume (Bld) [Entitic vol] 7.1 fL Low [facility] Platelets (Bld) [#/Vol] 371 10*3/uL 130 - 400 10*3/uL [facility] RBC (Bld) [#/Vol] 4.67 10*6/uL 4.0 - 5.4 10*6/uL [facility] WBC (Bld) [#/Vol] 6.4 10*3/uL 3.6 - 11.0 10*3/uL [facility] CMP FASTINGon 02-26-2025 A:G RATIO 1.[address] [facility] Comment on above: Performed By: #### P T ACBC CMPF #### Testing performed at [address] [address] ALBUMIN 4.6 G/dl Normal 3.5-5.0 [facility] Comment on above: Performed By: #### P T, ACBC CMPF #### Testing performed at [address] [address] ALP [Catalytic activity/Vol] 102 U/L Normal 38-126 [facility] Comment on above: Performed By: #### P T ACBC CMPF #### Testing performed at [address] [address] ALT [Catalytic activity/Vol] 21 U/L Normal <35 [facility] Comment on above: Performed By: #### P T ACBC CMPF #### Testing performed at [address] [address] AST [Catalytic activity/Vol] 34 U/L Normal 14-36 [facility] Comment on above: Performed By: #### P T ACBC CMPF #### Testing performed at [address] [address] Bilirubin [Mass/Vol] 0.6 mg/dL Normal 0.2-1.3 [facility] Comment on above: Performed By: #### P T, ACBC, CMPF #### Testing performed at [address] [address] Calcium [Mass/Vol] 9.7 mg/dL Normal 8.4-10.2 [facility] Comment on above: Performed By: #### P T, ACBC, CMPF #### Testing performed at [address] [address] Chloride [Moles/Vol] 94 mmol/L Low 98-107 [facility] Comment on above: Result Comment: Juanito wilhelm note: Triglyceride levels of 600mg/dL or higher may positively bias chloride results by approximately 2.1 mmol Performed By: #### P T, ACBC, CMPF #### Testing performed at [address] [address] CO2 [Moles/Vol] 27 mmol/L Normal 22-30 [facility] Comment on above: Performed By: #### P TRENEE CMPF #### Testing performed at [address] [address] Creatinine [Mass/Vol] 0.90 mg/dL Normal 0.70-1.20 [facility] Comment on above: Performed By: #### P T, ACKOBI, CMPF #### Testing performed at [address] [address] EST. GFR, 79 ml/min/1.73sq.m [facility] Comment on above: Performed By: #### P T ACKOBI CMPF #### Testing performed at [address] [address] EST. GFR,Non 65 ml/min/1.73sq.m [facility] Comment on above: Performed By: #### P T ACKOBI CMPF #### Testing performed at [address] [address] GFR Information Average GFR for 70+ years old = 75. Normal [facility] Comment on above: Result Comment: Dealership Manager ariana Kidney disease, GFR = <60. Kidney failure, GFR = <15. The GFR estimate is not adjusted for extreme body surface area or acute process, nor has it been validated for women or ethnic groups other than and . Performed By: #### P T ACKOBI, CMPF #### Testing performed at [address] [address] Glucose [Mass/Vol] 104 mg/dL High 70-100 [facility] Comment on above: Result Comment: NORMAL <100 mg/dL PREDIABETES 101-126 mg/dL DIABETES 126 mg/dL or higher Performed By: #### P T, ACBC, CMPF #### Testing performed at [address] [address] Potassium [Moles/Vol] 3.9 mmol/L Normal 3.5-5.1 [facility] Comment on above: Performed By: #### P T, ACBC CMPF #### Testing performed at [address] [address] Protein [Mass/Vol] 8.1 g/dL Normal 6.3-8.2 [facility] Comment on above: Performed By: #### P T, ACBC CMPF #### Testing performed at [address] [address] Sodium [Moles/Vol] 134 mmol/L Low 137-145 [facility] Comment on above: Performed By: #### P T, ACBC CMPF #### Testing performed at [address] [address] Urea nitrogen [Mass/Vol] 16 mg/dL Normal 7-20 [facility] Comment on above: Performed By: #### P T, ACBC CMPF #### Testing performed at [address] [address] COMPREHENSIVE METABOLIC PANE Jose 02-26-2025 Albumin [Mass/Vol] 4.6 G/dl 3.5 - 5.0 G/dl [facility] Albumin/Globulin [Mass ratio] 1.3 {ratio} RATIO [facility] ALP [Catalytic activity/Vol] 102 U/L [facility] ALT [Catalytic activity/Vol] 21 U/L NINF [facility] AST [Catalytic activity/Vol] 34 U/L [facility] Bilirubin [Mass/Vol] 0.6 mg/dL [facility] Calcium [Mass/Vol] 9.7 mg/dL [facility] Chloride [Moles/Vol] 94 mmol/L Low [facility] Comment on above: Please note: Triglyc eride levels of 600mg/dL or higher may positively bias chloride results by approximately 2.1 mmol CO2 [Moles/Vol] 27 mmol/L [facility] Creatinine [Mass/Vol] 0.9 mg/dL [facility] GFR COMMENT Average GFR for 70+ years old = 75. [facility] Comment on above: Chronic Kidney disea se, GFR = <60. Kidney failure, GFR = <15. The GFR estimate is not adjusted for extreme body surface area or acute process, nor has it been validated for women or ethnic groups other than and . GFR/1.73 sq M.predicted among blacks MDRD (S/P/Bld) [Vol rate/Area] 79 mL/min/{1.73_m2} ml/min/1.73s q.m [facility] GFR/1.73 sq M.predicted among non-blacks MDRD (S/P/Bld) [Vol rate/Area] 65 mL/min/{1.73_m2} ml/min/1.73s q.m [facility] Glucose post fast [Mass/Vol] 104 mg/dL High [facility] Comment on above: NORMAL <100 mg/dL PREDIABETES 101-126 mg/dL DIABETES 126 mg/dL or higher Interpretation and review of laboratory results Abnormal [facility] Potassium [Moles/Vol] 3.9 mmol/L [facility] Protein [Mass/Vol] 8.1 g/dL [facility] Sodium [Moles/Vol] 134 mmol/L Low [facility] Urea nitrogen [Mass/Vol] 16 mg/dL [facility] ECGOrdered By: rAnie Watts on 02-26-2025 [facility] Work Phone: HEMOGLOBIN A1Con 02-26-2025 Glucose [Mass/Vol] 128 mg/dL [facility] HbA1c (Bld) [Mass fraction] 6.1 % High 0 - 6 % [facility] Comment on above: NORMAL <5.7% PREDIABETES 5.7-6.4% DIABETES 6.5% OR HIGHER Interpretation and review of laboratory results Abnormal [facility] Glucose [Mass/Vol] 128 mg/dL Normal [facility] Comment on above: Performed By: #### H A1CT #### Testing performed at [address] [address] HbA1c (Bld) [Mass fraction] 6.1 % High 06 [facility] Comment on above: Result Comment: NORMAL <5.7% PREDIABETES 5.7-6.4% DIABETES 6.5% OR HIGHER Performed By: #### H A1CT #### Testing performed at [address] [address] MRSA SCREENon 02-26-2025 MRSA DNA NGOZI+probe Ql (Unsp spec) Negative Normal NEGATIVE [facility] Comment on above: Performed By: #### M RSAST #### Testing performed at [address] [address] STAPH AUREUS SCREEN Negative Normal NEGATIVE [facility] Comment on above: Result Comment: TEST ING PERFORMED BY PCR Performed By: #### M RSAST #### Testing performed at [address] [address] PROTIMEon 02-26-2025 INR Coag (PPP) [Relative time] 0.98 {INR} Normal 0.85-1.10 [facility] Comment on above: Result Comment: 2.0-3.0 THERAPEUTIC RANGE 2.5-3.5 MECHANICAL VALVE RANGE Performed By: #### P T, RENEE, TAMIKO #### Testing performed at [address] [address] PT Coag (PPP) [Time] 13.1 s Normal 11.8-14.4 [facility] Comment on above: Performed By: #### P T, RENEE, CMPF #### Testing performed at [address] [address] PROTIME-INRon 02-26-2025 INR Coag (PPP) [Relative time] 0.98 {INR} 0.85 - 1.10 [facility] Comment on above: 2.0-3.0 THERAPEUTIC RANGE 2.5-3.5 MECHANICAL VALVE RANGE PT Coag (PPP) [Time] 13.1 s [facility] SCREEN: MRSA ONLY, NARES (IS OLATION SCREEN)on 02-26-2025 MRSA isol Org specific cx Ql (Nose) Negative NEGATIVE [facility] STAPHYOCOCCUS AUREUS BY PCR Negative NEGATIVE [facility] Comment on above: TESTING PERFORMED BY PCR [facility] URINALYSIS, MACROon 02-27-20 25 Bilirubin Ql (U) Negative NEGATIVE [facility] Clarity (U) CLEAR CLEAR [facility] Color (U) YELLOW YELLOW [facility] Glucose Test strip (U) [Mass/Vol] Negative NEGATIVE mg/dl [facility] Hemoglobin Ql (U) Negative NEGATIVE [facility] Ketones (U) [Mass/Vol] Negative NEGATIVE mg/dl [facility] Leukocyte esterase Test strip Ql (U) Negative NEGATIVE [facility] Nitrite Ql (U) Negative NEGATIVE [facility] pH (U) 6.5 [pH] 5.0 - 7.0 [facility] Protein Ql (U) Negative NEGATIVE mg/dl [facility] Specific gravity (U) [Rel density] 1.01 1.010 - 1.025 [facility] Urobilinogen (U) [Mass/Vol] 0.2 mg/dL [facility] URINE MACROSCOPICon 02-27-20 25 Bilirubin Ql (U) Negative Normal NEGATIVE [facility] Comment on above: Performed By: #### U MAC #### Testing performed at [address] [address] Clarity (U) CLEAR Normal CLEAR [facility] Comment on above: Performed By: #### U MAC #### Testing performed at [address] [address] Color (U) YELLOW Normal YELLOW [facility] Comment on above: Performed By: #### U MAC #### Testing performed at [address] [address] Glucose Ql (U) Negative Normal NEGATIVE [facility] Comment on above: Performed By: #### U MAC #### Testing performed at [address] [address] pH (U) 6.5 [pH] Normal 5.0-7.0 [facility] Comment on above: Performed By: #### U MAC #### Testing performed at [address] [address] URINE HEMOGLOBIN Negative Normal NEGATIVE [facility] Comment on above: Performed By: #### U MAC #### Testing performed at [address] [address] URINE KETONE Negative Normal NEGATIVE [facility] Comment on above: Performed By: #### U MAC #### Testing performed at [address] [address] URINE LEUKOTEST Negative Normal NEGATIVE [facility] Comment on above: Performed By: #### U MAC #### Testing performed at [address] [address] URINE NITRATES Negative Normal NEGATIVE [facility] Comment on above: Performed By: #### U MAC #### Testing performed at [address] [address] URINE SPEC GRAVITY 1.010 Normal 1.010-1.025 [facility] Comment on above: Performed By: #### U MAC #### Testing performed at [address] [address] URINE TOTAL PROTEIN Negative Normal NEGATIVE [facility] Comment on above: Performed By: #### U MAC #### Testing performed at [address] [address] Urobilinogen Qn (U) 0.2 {Gage'U}/dL Normal 0.2-1.0 [facility] Comment on above: Performed By: #### U MAC #### Testing performed at [address] [address] MR Hip - left WO contraston 02-04-2025 IMPRESSION: 1. No acute displaced fracture or dislocation of the left hip or bony pelvis no left femoral head osteonecrosis. 2. Severe left and moderate to severe right hip osteoarthritis with bilateral, left greater than right, hip effusions. There is a tiny filling defects within the left hip effusion and may represent a tiny osteochondral loose body. 3. 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 4. Normal and symmetric appearance of muscles of the hips and pelvis for patient's age. Specifically, the left gluteus minimus and gluteus medius muscles and tendons appear normal. 5. Degeneration and degenerative tears of the left acetabular labrum. RADIOLOGY EXAM: MRI HIP LEFT WITHOUT CONTRAST HISTORY: to assess abductor muscles . Left hip pain for years. No known injury. COMPARISON: Comparison is made to left hip and pelvic radiographs dated 01/07/2025. TECHNIQUE: Multiplanar multisequence imaging of the left hip without contrast. FINDINGS: There is no acute displaced fracture or dislocation of the left hip or bony pelvis. There is no left femoral head osteonecrosis. There is severe left and moderate to severe right hip osteoarthritis with bilateral, left greater than right, hip effusions. There is a tiny filling defect within the left hip effusion that may represent a tiny subcentimeter osteochondral loose body. Subchondral cysts and bone marrow edema are noted at the left neural head and superolateral left acetabulum. Similar findings are noted at the contralateral right hip to a lesser extent. There is degenerative disc disease of the lower lumbar spine with facet joint osteoarthritis. Muscles of the hips and pelvis are normal and symmetric bilaterally. Specifically, left gluteus minimus and gluteus medius tendons are normal. There is no greater trochanteric bursitis. Evaluation of the left acetabular labrum is limited on this nonarthrographic examination. However, there appears to be degeneration and degenerative tears of the left superolateral, anterior, and posterior acetabular labrum. There is colonic diverticulosis. RADIOLOGY Arnie Langford MD - 02/04/2025 EXAM: MRI HIP LEFT WITHOUT CONTRAST HISTORY: to assess abductor muscles . Left hip pain for years. No known injury. COMPARISON: Comparison is made to left hip and pelvic radiographs dated 01/07/2025. TECHNIQUE: Multiplanar multisequence imaging of the left hip without contrast. FINDINGS: There is no acute displaced fracture or dislocation of the left hip or bony pelvis. There is no left femoral head osteonecrosis. There is severe left and moderate to severe right hip osteoarthritis with bilateral, left greater than right, hip effusions. There is a tiny filling defect within the left hip effusion that may represent a tiny subcentimeter osteochondral loose body. Subchondral cysts and bone marrow edema are noted at the left neural head and superolateral left acetabulum. Similar findings are noted at the contralateral right hip to a lesser extent. There is degenerative disc disease of the lower lumbar spine with facet joint osteoarthritis. Muscles of the hips and pelvis are normal and symmetric bilaterally. Specifically, left gluteus minimus and gluteus medius tendons are normal. There is no greater trochanteric bursitis. Evaluation of the left acetabular labrum is limited on this nonarthrographic examination. However, there appears to be degeneration and degenerative tears of the left superolateral, anterior, and posterior acetabular labrum. There is colonic diverticulosis. IMPRESSION IMPRESSION: 1. No acute displaced fracture or dislocation of the left hip or bony pelvis no left femoral head osteonecrosis. 2. Severe left and moderate to severe right hip osteoarthritis with bilateral, left greater than right, hip effusions. There is a tiny filling defects within the left hip effusion and may represent a tiny osteochondral loose body. 3. 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 4. Normal and symmetric appearance of muscles of the hips and pelvis for patient's age. Specifically, the left gluteus minimus and gluteus medius muscles and tendons appear normal. 5. Degeneration and degenerative tears of the left acetabular labrum. [employer] MR Hip - left WO contrastOrd ered By: Arnie Langford on 02-04-2025 [employer] Work Phone: MRI HIP LEFT WITHOUT CONTRAS Ton 02-04-2025 MRI HIP LEFT WITHOUT CONTRAST EXAM: MRI HIP LEFT WITHOUT CONTRAST HISTORY: to assess abductor muscles . Left hip pain for years. No known injury. COMPARISON: Comparison is made to left hip and pelvic radiographs dated 01/07/2025. TECHNIQUE: Multiplanar multisequence imaging of the left hip without contrast. FINDINGS: There is no acute displaced fracture or dislocation of the left hip or bony pelvis. There is no left femoral head osteonecrosis. There is severe left and moderate to severe right hip osteoarthritis with bilateral, left greater than right, hip effusions. There is a tiny filling defect within the left hip effusion that may represent a tiny subcentimeter osteochondral loose body. Subchondral cysts and bone marrow edema are noted at the left neural head and superolateral left acetabulum. Similar findings are noted at the contralateral right hip to a lesser extent. There is degenerative disc disease of the lower lumbar spine with facet joint osteoarthritis. Muscles of the hips and pelvis are normal and symmetric bilaterally. Specifically, left gluteus minimus and gluteus medius tendons are normal. There is no greater trochanteric bursitis. Evaluation of the left acetabular labrum is limited on this nonarthrographic examination. However, there appears to be degeneration and degenerative tears of the left superolateral, anterior, and posterior acetabular labrum. There is colonic diverticulosis. IMPRESSION: 1. No acute displaced fracture or dislocation of the left hip or bony pelvis no left femoral head osteonecrosis. 2. Severe left and moderate to severe right hip osteoarthritis with bilateral, left greater than right, hip effusions. There is a tiny filling defects within the left hip effusion and may represent a tiny osteochondral loose body. 3. 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 4. Normal and symmetric appearance of muscles of the hips and pelvis for patient's age. Specifically, the left gluteus minimus and gluteus medius muscles and tendons appear normal. 5. Degeneration and degenerative tears of the left acetabular labrum. Normal [facility] MR Hip - left WO contraston 02-03-2025 Radiology Study observation (narrative) [facility] XR Hip - left 3 Viewson 11-23 [facility] Imaging Result: 12/15/2024: AP and lateral of left hip showed femoral head to be well centered in the acetabulum with subchondral cysts noted. There is spurring at the inferior medial aspect of the femoral acetabular junction. There was severe decrease in joint space height. There was no acute bony process including but not limited to, fracture and/or dislocation. Impression Severe degenerative joint disease, left hip Dennis Rai [employer] [facility] Radiology Study observation (narrative) [facility] XR Knee - left 1 or 2 Viewso n 12-15-2024 Imaging Result: 12/15/2024: AP and lateral views of left knee showed mild decreased medial joint space, flattening of the articular surfaces to the medial joint line and bone on bone patellofemoral arthritis. Subchondral sclerosis was noted at the medial joint line surfaces as well as the patellofemoral joint. Atherosclerosis noted. Osteophytic formation was noted medially on poles of patella. There is no evidence of fracture or dislocation. 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 Performed at: [facility] [id number] PhD Vicki Daniels Performed By: #### 2 [id number] #### [facility] [address] [place] [id number] HCV Antibody RFX to Quant PC Asim 07-27-2024 HCV IgG IA Ql Non-Reactive Invalid Interpretation Code Non Reactive [facility] Comment on above: Result Comment: Perf ormed at: [facility] [address] [id number] PhD Vicki Daniels Performed By: #### 2 [id number] #### [facility] [address] [place] [address] CHEMISTRYOrdered By: SYSTEM SYSTEM on 07-25-2024 Albumin [Mass/Vol] 4.4 g/dL Normal 3.3 - 5.0 gm/dL [facility] Albumin/Globulin [Mass ratio] 1.4 {ratio} Normal 1.1 - 2.2 [facility] ALP [Catalytic activity/Vol] 65 [iU]/d Normal 21 - 98 Int._Unit/L [facility] ALT No additional P-5'-P [Catalytic activity/Vol] 18 [iU]/d Normal 6 - 46 Int._Unit/L [facility] Anion gap [Moles/Vol] 10 mmol/L Normal 6 - 16 mEq/L [facility] AST [Catalytic activity/Vol] 20 [iU]/d Normal 5 - 43 Int._Unit/L [facility] Bilirubin [Mass/Vol] 0.5 mg/dL Normal 0.0 - 1 .1 mg/dL [facility] Calcium [Mass/Vol] 9.3 mg/dL Normal 8.9 - 11. 1 mg/dL [facility] Chloride [Moles/Vol] 101 mmol/L Normal 101 - 1 11 mmol/L [facility] CO2 [Moles/Vol] 29 mmol/L Normal 21 - 31 mmol/L [facility] Creatinine [Mass/Vol] 0.8 mg/dL Normal 0.5 - 1.3 mg/dL [facility] eGFR 78 mL/min/1.73 m2 Normal >=59mL/min /1 .73 m2 [facility] Globulin (S) [Mass/Vol] 3.2 g/dL Normal 1.4 - 4.0 gm/dL [facility] Glucose [Mass/Vol] 121 mg/dL Normal 55 - 199 mg/dL [facility] Potassium [Moles/Vol] 3.9 mmol/L Normal 3.5 - 5.3 mmol/L [facility] Protein [Mass/Vol] 7.6 g/dL Normal 6.0 - 7.8 gm/dL [facility] Sodium [Moles/Vol] 136 mmol/L Normal 135 - 145 mmol/L [facility] Urea nitrogen [Mass/Vol] 13 mg/dL Normal 5 - 21 mg/dL [facility] Urea nitrogen/Creatinine [Mass ratio] 16 mg/mg Normal 10 - 20 [facility] CMPon 07-25-2024 Albumin [Mass/Vol] 4.4 g/dL Normal 3.3-5.0 [facility] Comment on above: Performed By: #### 2 [id number] #### [facility] [address] [place] [address] Albumin/Globulin (S) [Mass conc ratio] 1.4 Normal 1.1-2.2 [facility] Comment on above: Performed By: #### 2 [id number] #### [facility] [address] [place] [address] ALP [Catalytic activity/Vol] 65 Int._Unit/L Normal 21-98 [facility] Comment on above: Performed By: #### 2 [id number] #### [facility] [address] [place] [address] ALT No additional P-5'-P [Catalytic activity/Vol] 18 Int._Unit/L Normal 6-46 [facility] Comment on above: Performed By: #### 2 [id number] #### [facility] [address] [place] [address] Anion gap [Moles/Vol] 10 mmol/L Normal 6-16 [facility] Comment on above: Performed By: #### 2 [id number] #### [facility] [address] [place] [address] AST [Catalytic activity/Vol] 20 Int._Unit/L Normal 5-43 [facility] Comment on above: Performed By: #### 2 [id number] #### [facility] [address] [place] [address] Bilirubin [Mass/Vol] 0.5 mg/dL Normal 0.0-1.1 [facility] Comment on above: Performed By: #### 2 [id number] #### [facility] [address] [place] [address] Calcium [Mass/Vol] 9.3 mg/dL Normal 8.9-11.1 [facility] Comment on above: Performed By: #### 2 [id number] #### [facility] [address] [place] [address] Chloride [Moles/Vol] 101 mmol/L Normal 101-111 [facility] Comment on above: Performed By: #### 2 [id number] #### [facility] [address] [place] [address] CO2 [Moles/Vol] 29 mmol/L Normal 21-31 [facility] Comment on above: Performed By: #### 2 [id number] #### [facility] [address] [place] [address] Creatinine [Mass/Vol] 0.8 mg/dL Normal 0.5-1.3 [facility] Comment on above: Performed By: #### 2 [id number] #### [facility] [address] [place] [address] Globulin (S) [Mass/Vol] 3.2 g/dL Normal 1.4-4.0 [facility] Comment on above: Performed By: #### 2 [id number] #### [facility] [address] [place] [address] Glucose [Mass/Vol] 121 mg/dL Normal 55-199 [facility] Comment on above: Performed By: #### 2 [id number] #### [facility] [address] [place] [address] Potassium [Moles/Vol] 3.9 mmol/L Normal 3.5-5.3 [facility] Comment on above: Performed By: #### 2 [id number] #### [facility] [address] [place] [address] Protein [Mass/Vol] 7.6 g/dL Normal 6.0-7.8 [facility] Comment on above: Performed By: #### 2 [id number] #### [facility] [address] [place] [address] Sodium [Moles/Vol] 136 mmol/L Normal 135-145 [facility] Comment on above: Performed By: #### 2 [id number] #### [facility] [address] [place] [address] Urea nitrogen [Mass/Vol] 13 mg/dL Normal 5-21 [facility] Comment on above: Performed By: #### 2 [id number] #### [facility] [address] [place] [address] Urea nitrogen/Creatinine [Mass ratio] 16 No Units Normal 10-20 [facility] Comment on above: Performed By: #### 2 [id number] #### [facility] [address] [place] [address] eGFRon 07-25-2024 eGFR 78 mL/min/1.73 m2 Normal >=59 [facility] Comment on above: Performed By: #### 1 [id number] #### [facility] [address] [place] [address] CHEMISTRYOrdered By: [employer] on 02-18-2024 Cholesterol [Mass/Vol] 186 mg/dL Normal 120 - 200 mg/dL [facility] Cholesterol in HDL [Mass/Vol] 40 mg/dL Invalid Interpretation Code [facility] Comment on above: Result Comment: '>= 60 LOW RISK' '<= 40 HIGH RISK' Cholesterol in LDL [Mass/Vol] 98 mg/dL Normal <=129mg/dL [facility] Cholesterol in VLDL [Mass/Vol] 46 mg/dL High 7 - 40 mg/dL [facility] Triglyceride [Mass/Vol] 229 mg/dL High <=149mg/dL [facility] HEMATOLOGYOrdered By: SYSTEM SYSTEM on 02-18-2024 Basophils/100 WBC (Bld) 0.5 % Normal 0.0 - 2.0 % [facility] Basophils/Leukocytes Auto (Bld) [Pure # fraction] 0.0 E9/L Normal 0.0 - 0.2 E9/L [facility] Eosinophils (Bld) [#/Vol] 0.1 E9/L Normal 0.0 - 0.5 E9/L [facility] Eosinophils/100 WBC (Bld) 2.1 % Normal 0.0 - 8.0 % [facility] Erythrocyte distribution width (RBC) [Ratio] 13.8 % Normal 10.9 - 14.2 % [facility] Hematocrit (Bld) [Volume fraction] 43.4 % Normal 34.0 - 46.0 % [facility] Hemoglobin (Bld) [Mass/Vol] 14.4 g/dL Normal 12.0 - 16.0 gm/dL [facility] Lymphocytes (Bld) [#/Vol] 1.4 E9/L Normal 1.0 - 4.0 E9/L [facility] Lymphocytes/100 WBC (Bld) 29.6 % Normal 14.0 - 50.0 % [facility] MCH (RBC) [Entitic mass] 29.4 pg Normal 27.0 - 34.0 pg [facility] MCHC (RBC) [Mass/Vol] 33.3 g/dL Normal 31.4 - 36.0 gm/dL [facility] MCV (RBC) [Entitic vol] 88.3 fL Normal 80.0 - 100.0 fL [facility] Monocytes (Bld) [#/Vol] 0.3 E9/L Normal 0.2 - 1.0 E9/L [facility] Monocytes/100 WBC (Bld) 5.7 % Normal 4.0 - 14.0 % [facility] Neutrophils (Bld) [#/Vol] 2.8 E9/L Normal 2.0 - 7.5 E9/L [facility] Neutrophils/100 WBC (Bld) 62.1 % Normal 36.0 - 75.0 % [facility] Platelet mean volume (Bld) [Entitic vol] 7.8 fL Normal 6.4 - 10.8 fL [facility] Platelets (Bld) [#/Vol] 271.0 E9/L Normal 150.0 - 500.0 E9/L [facility] RBC (Bld) [#/Vol] 4.9 E12/L Normal 4.3 - 5.9 E12/L [facility] WBC corrected for nucl RBC Auto (Bld) [#/Vol] 4.6 E9/L Normal 4.0 - 11.0 E9/L [facility] CHEMISTRYOrdered By: SYSTEM SYSTEM on 01-07-2024 TSH Qn 1.10 m[IU]/L Normal 0.34 - 5.60 mcIU/mL [facility] CHEMISTRYOrdered By: SYSTEM SYSTEM on 11-15-2023 Ferritin Lvl 25 ng/mL Normal 11 - 307 ng/mL [facility] Iron [Mass/Vol] 126 ug/dL Normal 35 - 153 mcg/dL [facility] TIBC 469 ug/dL High 250 - 400 mcg/dL [facility] Transferrin [Mass/Vol] 335 mg/dL Normal 200 - 370 mg/dL [facility] HEMATOLOGYOrdered By: Aaron Murrell on 11-15-2023 Anisocytosis Ql (Bld) PRESENT Invalid Interpretation Code [facility] Hypochromasia PRESENT Invalid Interpretation Code [facility] RBC morphology finding Nom (Bld) SEE MORPHOLOGY Invalid Interpretation Code [facility] HEMATOLOGYOrdered By: SYSTEM SYSTEM on 11-15-2023 Basophil Absolute 0.0 E9/L Normal 0.0 - 0.2 E9/L [facility] Basophils/100 WBC (Bld) 0.9 % Normal 0.0 - 2.0 % [facility] Eos Absolute 0.1 E9/L Normal 0.0 - 0.5 E9/L [facility] Eosinophils/100 WBC (Bld) 2.4 % Normal 0.0 - 8.0 % [facility] Erythrocyte distribution width (RBC) [Ratio] 22.8 % High 10.9 - 14.2 % [facility] Hematocrit (Bld) [Volume fraction] 40.0 % Normal 34.0 - 46.0 % [facility] Hemoglobin (Bld) [Mass/Vol] 12.7 g/dL Normal 12.0 - 16.0 gm/dL [facility] Lymph Absolute 1.4 E9/L Normal 1.0 - 4.0 E9/L [facility] Lymphocytes/100 WBC (Bld) 29.0 % Normal 14.0 - 50.0 % [facility] MCH (RBC) [Entitic mass] 25.8 pg Low 27.0 - 34.0 pg [facility] MCHC (RBC) [Mass/Vol] 32.0 g/dL Normal 31.4 - 36.0 gm/dL [facility] MCV (RBC) [Entitic vol] 80.6 fL Normal 80.0 - 100.0 fL [facility] Karnes Absolute 0.4 E9/L Normal 0.2 - 1.0 E9/L [facility] Monocytes/100 WBC (Bld) 8.4 % Normal 4.0 - 14.0 % [facility] Neutro Absolute 2.8 E9/L Normal 2.0 - 7.5 E9/L [facility] Neutro Auto 59.3 % Normal 36.0 - 75.0 % [facility] Platelet 327.0 E9/L Normal 150.0 - 500.0 E9/L [facility] Platelet mean volume (Bld) [Entitic vol] 7.8 fL Normal 6.4 - 10.8 fL [facility] RBC 4.9 E12/L Normal 4.3 - 5.9 E12/L [facility] WBC 4.8 E9/L Normal 4.0 - 11.0 E9/L [facility] CHEMISTRYOrdered By: SYSTEM SYSTEM on 10-04-2023 TSH Qn 0.47 m[IU]/L Normal 0.34 - 5.60 mcIU/mL [facility] Ferritin Lvl 8 ng/mL Low 11 - 307 ng/mL [facility] Iron [Mass/Vol] 52 ug/dL Normal 35 - 153 mcg/dL [facility] TIBC 623 ug/dL High 250 - 400 mcg/dL [facility] Transferrin [Mass/Vol] 445 mg/dL High 200 - 370 mg/dL [facility] HEMATOLOGYOrdered By: Mariza Ansari on 10-04-2023 Anisocytosis Ql (Bld) Present (10/04/23 9:48 AM) Normal [facility] Erythrocyte distribution width (RBC) [Ratio] 16.0 % High 10.9 - 14.2 % [facility] Hematocrit (Bld) [Volume fraction] 35.8 % Normal 34.0 - 46.0 % [facility] Hemoglobin (Bld) [Mass/Vol] 11.4 g/dL Low 12.0 - 16.0 gm/dL [facility] Hypochromia Auto Ql (Bld) Present (10/04/23 9:48 AM) Normal [facility] MCH (RBC) [Entitic mass] 23.7 pg Low 27.0 - 34.0 pg [facility] MCHC (RBC) [Mass/Vol] 31.8 g/dL Normal 31.4 - 36.0 gm/dL [facility] MCV (RBC) [Entitic vol] 74.6 fL Low 80.0 - 100.0 fL [facility] Morphology Jerome (Bld) [Interp] See Morphology (10/04/23 9:48 AM) Normal [facility] Ovalocytes LM Ql (Bld) Present (10/04/23 9:48 AM) Normal [facility] Platelet mean volume (Bld) [Entitic vol] 8.1 fL Normal 6.4 - 10.8 fL [facility] Platelets (Bld) [#/Vol] 357.0 E9/L Normal 150.0 - 500.0 E9/L [facility] RBC (Bld) [#/Vol] 4.8 E12/L Normal 4.3 - 5.9 E12/L [facility] WBC corrected for nucl RBC Auto (Bld) [#/Vol] 4.3 E9/L Normal 4.0 - 11.0 E9/L [facility] HEMATOLOGYOrdered By: SYSTEM SYSTEM on 10-04-2023 Basophils/100 WBC (Bld) 1.1 % Normal 0.0 - 2.0 % [facility] Basophils/Leukocytes Auto (Bld) [Pure # fraction] 0.0 E9/L Normal 0.0 - 0.2 E9/L [facility] Eosinophils/100 WBC (Bld) 2.2 % Normal 0.0 - 8.0 % [facility] Eosinophils/Leukocyt es Auto (Bld) [Pure # fraction] 0.1 E9/L Normal 0.0 - 0.5 E9/L [facility] Lymphocytes/100 WBC (Bld) 26.4 % Normal 14.0 - 50.0 % [facility] Lymphocytes/Leukocyt es Auto (Bld) [Pure # fraction] 1.1 E9/L Normal 1.0 - 4.0 E9/L [facility] HemeAutoSS Monocytes/100 WBC (Bld) 7.0 % Normal 4.0 - 14.0 % [facility] HemeAutoSS Monocytes/Leukocytes Auto (Bld) [Pure # fraction] 0.3 E9/L Normal 0.2 - 1.0 E9/L [facility]eAutoSS Neutrophils/100 WBC (Bld) 63.3 % Normal 36.0 - 75.0 % [facility] HemeAutoSS Neutrophils/Leukocyt es Auto (Bld) [Pure # fraction] 2.7 E9/L Normal 2.0 - 7.5 E9/L [facility] CHEMISTRYOrdered By: SYSTEM SYSTEM on 08-22-2023 TSH Qn 0.05 m[IU]/L Low 0.34 - 5.60 mcIU/mL [facility] MG MAMM SCREEN 3D ANTONIO CADon 11-30-2022 MG MAMM SCREEN 3D ANTONIO CAD Patient: EUGENE ROGERS Exam Date: 11/30/2022 : 1950 Gender:F Ordering : DR ANTONY MITCHELL . Admission #: [id number] Family : Order #: [id number] CLICK HERE TO VIEW EXAM RADIOLOGY REPORT PROCEDURE: MAMMOGRAM SCREENING 3D BILATERAL CAD COMPARISON: MG MAMM SCREEN ANTONIO W CAD, 09/13/2020. MG MAMM SCREEN 3D ANTONIO CAD, 11/11/2021. INDICATIONS: Screening mammography Calculator Name NCI Breast Cancer Risk Assessment Tool 5 Year Breast Cancer Risk 1.70% Lifetime Breast Cancer Risk 5.10% Personal Breast Cancer No Personal Ovarian Cancer No Treatments None Family Cancers Brother with lymphoma cancer at age 40; Brother with neurofibromitosis cancer at age 39; Brother with prostate cancer at age 69; Brother with prostate cancer at age 60. LOCATION: [facility] BREAST COMPOSITION: Heterogeneously dense,which may obscure small masses. FINDINGS: DIAGNOSTIC CATEGORY 1--NEGATIVE. NO CHANGE FROM COMPARISON ASSESSMENT. RIGHT BREAST: No significant suspicious finding. LEFT BREAST: No significant suspicious finding. RECOMMENDATIONS: ROUTINE MAMMOGRAM AND CLINICAL EVALUATION IN 12 MONTHS. PLEASE NOTE: A NORMAL MAMMOGRAM DOES NOT EXCLUDE THE POSSIBILITY OF BREAST CANCER. A CLINICALLY SUSPICIOUS PALPABLE LUMP SHOULD BE BIOPSIED. Dictated by: Ryan Barron MD on 12/01/2022 at 07:23 Approved by: Ryan Barron MD on 12/01/2022 at 07:29 Normal [facility] MRI Shoulder w/o Righton MRI Shoulder w/o Right HISTORY: Shoulder pain and casting. Internal derangement. TECHNIQUE: Multiplanar multisequence MRI of the shoulder was performed without contrast. COMPARISON: Shoulder radiographs 01/25/2022. FINDINGS: Mild degenerative changes of the acromioclavicular joint without undersurface osteophyte formation. Lateral downsloping of the acromion. The acromion is flat. Coracoclavicular ligament intact. Trace subacromial/subdeltoid bursal fluid. Low-grade intrasubstance tearing of distal supraspinatus tendon superimposed on mild tendinosis. Moderate infraspinatus tendinosis. Low-grade intrasubstance tear along the myotendinous junction of subscapularis superimposed on mild tendinosis. Teres minor tendon is intact. No atrophy or fatty infiltration of the rotator cuff musculature. The intra-articular and extra-articular long head biceps tendon is intact. The biceps tendon resides within the bicipital groove. Nondisplaced tear of the posterior superior labrum superimposed on diffuse labral degeneration. Moderate to advanced glenohumeral osteoarthritis including full-thickness cartilage loss of the medial humeral head and anterior inferior glenoid, moderate osteophyte formation of the medial humeral head, and mild remodeling of the glenoid. Small glenohumeral joint effusion with several tiny loose bodies and/or synovitis within the axillary recess and to loose bodies within the superior subscapularis recess each measuring approximately 12 mm. IMPRESSION: Moderate to advanced glenohumeral osteoarthritis. Low-grade intrasubstance tearing of distal supraspinatus tendon. Low-grade intrasubstance tear along the myotendinous junction of subscapularis. Moderate infraspinatus tendinosis. Nondisplaced tear of the posterior superior labrum superimposed on diffuse labral degeneration. Report reported and signed by Gibran West on 06/07/2022 0944 Normal [facility] Instructional Assistant CBC AUTO DIFFon 01-25-2022 BASO # 0.0 103/ul Normal 0.0-0.1 [facility] Comment on above: Performed By: #### C BC #### [facility] [address] [address] [address] Celia Dobbins Basophils/100 WBC (Bld) 0.4 % Normal 0.2-2.0 [facility] Comment on above: Performed By: #### C BC #### [facility] [address] [place] [address] Dr. Celia Dobbins EO # 0.1 103/ul Normal 0.0-0.7 [facility] Comment on above: Performed By: #### C BC #### [facility] [address] [place] [address] Dr. Celia Dobbins Eosinophils/100 WBC (Bld) 2.1 % Normal 0.9-7.0 [facility] Comment on above: Performed By: #### C BC #### [facility] [address] [place] [address] Dr. Celia Dobbins Erythrocyte distribution width (RBC) [Ratio] 12.7 % Normal 11.0-15.0 [facility] Comment on above: Performed By: #### C BC #### [facility] [address] [place] [address] Dr. Celia Dobbins Hematocrit (Bld) [Volume fraction] 42.7 % Normal 36.0-48.0 [facility] Comment on above: Performed By: #### C BC #### [facility] [address] [place] [address] Dr. Celia Dobbins Hemoglobin (Bld) [Mass/Vol] 14.1 g/dL Normal 12.0-16.0 [facility] Comment on above: Performed By: #### C BC #### [facility] [address] [place] [address] Dr. Celia Dobbins IG # 0.02 10e3/ul Normal 0.00-0.03 [facility] Comment on above: Performed By: #### C BC #### [facility] [address] [place] [address] Dr. Celia Dobbins IG % 0.4 % Normal 0.0-0.5 [facility] Comment on above: Performed By: #### C BC #### [facility] [address] [place] [address] Dr. Celia Dobbins LYMPH # 1.6 103/ul Normal 1.2-3.8 [facility] Comment on above: Performed By: #### C BC #### [facility] [address] [place] [address] Dr. Celia Dobbins Lymphocytes/100 WBC (Bld) 31.2 % Normal 20.5-60.0 [facility] Comment on above: Performed By: #### C BC #### [facility] [address] [place] [address] Dr. Celia Dobbins MANUAL DIFF REQ NO Normal [facility] Comment on above: Performed By: #### C BC #### [facility] [address] [place] [address] Dr. Celia Dobbins MCH (RBC) [Entitic mass] 28.7 pg Normal 26.7-34.0 [facility] Comment on above: Performed By: #### C BC #### [facility] [address] [place] [address] Dr. Celia Dobbins MCHC (RBC) [Mass/Vol] 33.0 g/dL Normal 29.9-35.2 [facility] Comment on above: Performed By: #### C BC #### [facility] [address] [place] [address] Dr. Celia Dobbins MCV (RBC) [Entitic vol] 87.0 fL Normal 81.0-99.0 [facility] Comment on above: Performed By: #### C BC #### [facility] [address] [place] [address] Dr. Celia Dobbins MONO # 0.4 103/ul Normal 0.3-0.8 [facility] Comment on above: Performed By: #### C BC #### [facility] [address] [place] [address] Dr. Celia Dobbins Monocytes/100 WBC (Bld) 8.3 % Normal 1.7-12.0 [facility] Comment on above: Performed By: #### C BC #### [facility] [address] [place] [address] Dr. Celia Dobbins NEUT # 3.0 103/ul Normal 1.4-6.5 [facility] Comment on above: Performed By: #### C BC #### [facility] [address] [place] [address] Dr. Celia Dobbins Neutrophils/100 WBC (Bld) 57.6 % Normal 43.0-75.0 [facility] Comment on above: Performed By: #### C BC #### [facility] [address] [place] [address] Dr. Celia Dobbins Platelet mean volume (Bld) [Entitic vol] 9.0 fL Critically low 9.5-13.5 [facility] Comment on above: Performed By: #### C BC #### [facility] [address] [address] [address] Celia Dobbins PLT 260 103/ul Normal 150-450 [facility] Comment on above: Performed By: #### C BC #### [facility] [address] [place] [address] Dr. Celia Dobbins RBC 4.91 106/ul Normal 4.20-5.40 [facility] Comment on above: Performed By: #### C BC #### [facility] [address] [place] [address] Dr. Celia Dobbins WBC 5.2 103/ul Normal 4.0-11.0 [facility] Comment on above: Performed By: #### C BC #### [facility] [address] [place] [address] Dr. Celia Dobbins FREE T3on 01-25-2022 FREE T3 4.01 pg/mlL Normal 2.77-5.27 [facility] Comment on above: Performed By: #### F T3, TSH, CMP, LIPID #### [facility] [address] [place] [address] Dr. Celia Dobbins FREE T4on 01-25-2022 Free T4 [Mass/Vol] 1.88 ng/dL Normal 0.78-2.19 [facility] Comment on above: Performed By: #### F T4 #### [facility] [address] [place] [address] Dr. Celia Dobbins LIPID PROFILEon 01-25-2022 CHOL-HDL RATIO NORM SEE BELOW Normal [facility] Comment on above: Result Comment: 3.3 - 4.4 LOW RISK 4.4 - 7.1 AVERAGE RISK 7.1 - 11.0 MODERATE RISK >11.0 HIGH RISK Performed By: #### F T3, TSH, CMP, LIPID #### [facility] [address] [address] [address] Celia Dobbins Cholesterol [Mass/Vol] 208 mg/dL Critically high <=200 [facility] Comment on above: Performed By: #### F T3, TSH, CMP, LIPID #### [facility] [address] [address] [address] Celia Dobbins Cholesterol in HDL [Mass/Vol] 50 mg/dL Normal 40-60 [facility] Comment on above: Performed By: #### F T3, TSH, CMP, LIPID #### [facility] [address] [place] [address] Dr. Celia Dobbins Cholesterol in LDL [Mass/Vol] 105.2 mg/dL Normal [facility] Comment on above: Performed By: #### F T3, TSH, CMP, LIPID #### [facility] [address] [address] [address] Celia Dobbins Cholesterol.total/Ch olesterol in HDL [Mass ratio] 4.2 {ratio} Normal [facility] Comment on above: Performed By: #### F T3, TSH, CMP, LIPID #### [facility] [address] [address] [address] Celia Dobbins HDL NORMAL > or = 60 mg/dl - LO W CARDIOVASCULAR RISK <40 mg/dl - HIGH CARDIOVASCULAR RISK Normal [facility] Comment on above: Performed By: #### F T3, TSH, CMP, LIPID #### [facility] [address] [place] [address] Dr. Celia Dobbins LDL CALC NORMAL SEE BELOW Normal [facility] Comment on above: Result Comment: <100 mg/dl OPTIMAL 100 - 129 mg/dl NEAR OR ABOVE OPTIMAL 130 - 159 mg/dl BORDERLINE HIGH 160 - 189 mg/dl HIGH >190 mg/dl VERY HIGH Performed By: #### F T3, TSH, CMP, LIPID #### [facility] [address] [address] [address] Celia Dobbins Triglyceride [Mass/Vol] 264 mg/dL Critically high <=150 [facility] Comment on above: Performed By: #### F T3, TSH, CMP, LIPID #### [facility] [address] [address] [address] Celia Dobbins VLDL CALC 52.8 mg/dL Normal [facility] Comment on above: Performed By: #### F T3, TSH, CMP, LIPID #### [facility] [address] [address] [address] Celia Dobbins PROF 14(COMP METB)on 022 Albumin [Mass/Vol] 3.9 g/dL Normal 3.4-5.0 [facility] Comment on above: Performed By: #### F T3, TSH, CMP, LIPID #### [facility] [address] [address] [address] Celia Dobbins Albumin/Globulin [Mass ratio] 1.0 {ratio} Normal [facility] Comment on above: Performed By: #### F T3, TSH, CMP, LIPID #### [facility] [address] [address] [address] Celia Dobbins ALP [Catalytic activity/Vol] 86 U/L Normal 46-116 [facility] Comment on above: Performed By: #### F T3, TSH, CMP, LIPID #### [facility] [address] [place] [address] Dr. Celia Dobbins ALT [Catalytic activity/Vol] 39 U/L Normal 14-59 [facility] Comment on above: Performed By: #### F T3, TSH, CMP, LIPID #### [facility] [address] [place] [address] Dr. Celia Dobbins Anion gap [Moles/Vol] 9.7 mmol/L Normal [facility] Comment on above: Performed By: #### F T3, TSH, CMP, LIPID #### [facility] [address] [address] [address] Celia Dobbins AST [Catalytic activity/Vol] 23 U/L Normal 15-37 [facility] Comment on above: Performed By: #### F T3, TSH, CMP, LIPID #### [facility] [address] [place], [place] [id number] Dr. Celia Dobbins Bilirubin [Mass/Vol] 0.5 mg/dL Normal 0.2-1.3 [facility] Comment on above: Performed By: #### F T3, TSH, CMP, LIPID #### [facility] [address] [address] [address] Celia Dobbins Calcium [Mass/Vol] 9.0 mg/dL Normal 8.5-10.1 [facility] Comment on above: Performed By: #### F T3, TSH, CMP, LIPID #### [facility] [address] [address] [address] Celia Dobbins Chloride [Moles/Vol] 103 mmol/L Normal 98-107 [facility] Comment on above: Performed By: #### F T3, TSH, CMP, LIPID #### [facility] [address] [place] [address] Dr. Celia Dobbins CO2 [Moles/Vol] 29.5 mmol/L Normal 22.0-30.0 [facility] Comment on above: Performed By: #### F T3, TSH, CMP, LIPID #### [facility] [address] [address] [address] Celia Dobbins Creatinine [Mass/Vol] 0.63 mg/dL Normal 0.52-1.04 [facility] Comment on above: Performed By: #### F T3, TSH, CMP, LIPID #### [facility] [address] [address] [address] Celia Dobbins EGFR-AF SAO TOMEAN >60 Normal >=60 [facility] Comment on above: Performed By: #### F T3, TSH, CMP, LIPID #### [facility] [address] [place] [address] Dr. Celia Dobbins EGFR-NON AF SAO TOMEAN >60 Normal >=60 [facility] Comment on above: Performed By: #### F T3, TSH, CMP, LIPID #### [facility] [address] [address] [address] Celia Dobbins Globulin (S) [Mass/Vol] 4.0 g/dL Normal [facility] Comment on above: Performed By: #### F T3, TSH, CMP, LIPID #### [facility] [address] [address] [address] Celia Dobbins Glucose [Mass/Vol] 92 mg/dL Normal 74-106 [facility] Comment on above: Performed By: #### F T3, TSH, CMP, LIPID #### [facility] [address] [place] [address] Dr. Celia Dobbins Potassium [Moles/Vol] 4.2 mmol/L Normal 3.4-5.0 [facility] Comment on above: Performed By: #### F T3, TSH, CMP, LIPID #### [facility] [address] [address] [address] Celia Dobbins Protein [Mass/Vol] 7.9 g/dL Normal 6.1-8.2 [facility] Comment on above: Performed By: #### F T3, TSH, CMP, LIPID #### [facility] [address] [place] [address] Dr. Celia Dobbins Sodium [Moles/Vol] 138 mmol/L Normal 137-145 [facility] Comment on above: Performed By: #### F T3, TSH, CMP, LIPID #### [facility] [address] [place] [address] Dr. Celia Dobbins Urea nitrogen [Mass/Vol] 14.0 mg/dL Normal 7.0-18.0 [facility] Comment on above: Performed By: #### F T3, TSH, CMP, LIPID #### [facility] [address] [place] [address] Dr. Celia Dobbins Urea nitrogen/Creatinine [Mass ratio] 22.2 mg/mg Normal [facility] Comment on above: Performed By: #### F T3, TSH, CMP, LIPID #### [facility] [address] [place] [address] Dr. Celia Dobbins TSHon 01-25-2022 TSH Qn m[IU]/L Critically low 0.470-4.680 [facility] Comment on above: Performed By: #### F T3, TSH, CMP, LIPID #### [facility] [address] [address] [address] Celia Dobbins TSH RANGE SEE BELOW Normal [facility] Comment on above: Result Comment: <0.3 4 UIU/ml HYPERTHYROID 0.34-5.60 UIU/ml EUTHYROID >5.60 UIU/ml HYPOTHYROID Performed By: #### F T3, TSH, CMP, LIPID #### [facility] [address] [id number] Celia Dobbins Vital Signs Date Time Vital Sign Value Performing Clinician Facility 04-13-2025 13:16-0400 Body height 172.7 cm [employer] Work Phone: [facility] 04-13-2025 13:16-0400 Body mass index (BMI) [Ratio] 24.63 kg/m2 [employer] Work Phone: [facility] 04-13-2025 13:16-0400 Body weight 73.48 kg [employer] Work Phone: [facility] 03-25-2025 16:10-0400 Diastolic blood pressure 77 mm[Hg] Manjit Keane MD Work Phone: [facility] 03-25-2025 16:10-0400 Heart rate 78 /min Manjit Keane MD Work Phone: [facility] 03-25-2025 16:10-0400 SaO2% (BldA) [Mass fraction] 97 % Manjit Keane MD Work Phone: [facility] 03-25-2025 16:10-0400 Systolic blood pressure 140 mm[Hg] Manjit Keane MD Work Phone: [facility] 03-25-2025 10:45-0400 Respiratory rate 14 /min Manjit Keane MD Work Phone: [facility] 03-25-2025 10:00-0400 Body temperature 97.81 [degF] Manjit Keane MD Work Phone: [facility] 03-25-2025 06:00-0400 Body height 172.7 cm Manjit Keane MD Work Phone: [facility] 03-25-2025 06:00-0400 Body mass index (BMI) [Ratio] 24.63 kg/m2 Manjit Keane MD Work Phone: [facility] 03-25-2025 06:00-0400 Body weight 73.48 kg Manjit Keane MD Work Phone: [facility] 03-20-2025 14:59-0400 Diastolic blood pressure 98 mm[Hg] Nicole Goff [employer] Work Phone: [facility] 03-20-2025 14:59-0400 Systolic blood pressure 175 mm[Hg] Nicole Goff [employer]AR[employer] EDUCATION WORKER Work Phone: [facility] 03-20-2025 14:34-0400 Body height 172.72 cm [facility] 03-20-2025 14:34-0400 Body mass index (BMI) [Ratio] 25.1 kg/m2 [facility] 03-20-2025 14:34-0400 Body temperature 98.4 [degF] [facility] 03-20-2025 14:34-0400 Body weight 74.95 kg [facility] 03-20-2025 14:34-0400 Diastolic blood pressure 106 mm[Hg] [facility] 03-20-2025 14:34-0400 Heart rate 87 /min [facility] 03-20-2025 14:34-0400 Respiratory rate 18 /min [facility] 03-20-2025 14:34-0400 SaO2% (BldA) [Mass fraction] 98 % [facility] 03-20-2025 14:34-0400 Systolic blood pressure 199 mm[Hg] [facility] 02-10-2025 10:22-0400 Body height 172.7 cm Est[facility] [employer] [facility] 02-10-2025 10:22-0400 Body mass index (BMI) [Ratio] 24.63 kg/m2 [facility] [employer] [facility] 02-10-2025 10:22-0400 Body weight 73.48 kg Est[facility] [employer] [facility] 02-10-2025 10:0400 Diastolic blood pressure 88 mm[Hg] [facility] [employer] [facility] 02-10-2025 10:22-0400 Heart rate 65 /min [facility] [employer] [facility] Comment on above: cta 02-10-2025 10:0400 Respiratory rate 16 /min [employer] [facility] 02-10-2025 10:0400 SaO2% (BldA) [Mass fraction] 100 % [facility] [employer] [facility] Comment on above: cta 02-10-2025 10:0400 Systolic blood pressure 177 mm[Hg] [employer] [facility] 01-07-2025 13:13-0400 Body height 172.7 cm Manjit Keane MD Work Phone: [facility] 01-07-2025 13:13-0400 Body mass index (BMI) [Ratio] 24.66 kg/m2 Manjit Keane MD Work Phone: [facility] 01-07-2025 13:13-0400 Body weight 73.57 kg Manjit Keane MD Work Phone: [facility] 12-15-2024 10:07-0500 Body height 172.7 cm Dennis Rai NP Work Phone: [facility] 12-15-2024 10:07-0500 Body mass index (BMI) [Ratio] 23.57 kg/m2 Dennis Rai NP Work Phone: [facility] 12-15-2024 10:07-0500 Body weight 70.31 kg Dennis Rai NP Work Phone: [facility] Healthcare Encounters Encounter Date Encounter Type Care Provider Facility Start: 06-03-2025 End: 06-03-2025 ambulatory Carmen L Justin [place] [place]: 06-03-2025 End: 06-03-2025 ambulatory Carmen L Justin [facility] Start: 06-02-2025 End: 06-02-2025 ambulatory Reza ROBLERO [place] [place] Start: 05-19-2025 End: 05-19-2025 ambulatory Carmen L Justin [facility] [place] [facility] Start: 05-01-2025 End: 05-01-2025 ambulatory Carmen L Justin [facility] [place] [facility] Start: 04-27-2025 ambulatory Carmen Justin Facility:[facility] Start: 04-27-2025 End: 04-27-2025 ambulatory Carmen L Justin Facility:[facility] Start: 04-27-2025 End: 04-27-2025 Patient encounter procedure HIPOLITO E REBECCA [facility] Start: 04-17-2025 End: 04-17-2025 Lab Drop off Carmen L Justin [facility] Start: 04-17-2025 End: 04-17-2025 ambulatory Carmen L Justin [place] [place] Start: 04-13-2025 End: 04-13-2025 Postop follow up visit related to original px Sarah Rojas PA-C Work Phone: [facility] Comment on above: Hx of total hip arth roplasty, left (Primary Dx) Start: 04-13-2025 ambulatory SARAH ROJAS [facility] Start: 04-13-2025 End: 04-13-2025 Subsequent hospital visit by physician Pastora ESCOBAR Work Phone: [facility] Start: 04-06-2025 End: 04-06-2025 ambulatory Carmen L Justin Facility: [facility] Start: 04-02-2025 End: 04-02-2025 Lab Drop off Carmen L Justin [facility] Start: 04-02-2025 End: 04-02-2025 ambulatory C CONSULTANT Carmen L Justin [place] [place] Start: 04-02-2025 End: 04-02-2025 ambulatory C CONSULTANT Carmen L Justin Facility: [facility] Start: 03-25-2025 End: 03-25-2025 ambulatory [facility] Start: 03-25-2025 End: 03-25-2025 Subsequent hospital visit by physician Manjit Keane MD Work Phone: [facility] Comment on above: Osteoarthritis of le ft hip, unspecified osteoarthritis type Start: 03-20-2025 End: 03-20-2025 Patient encounter procedure [facility] Work Phone: Start: 03-20-2025 End: 03-20-2025 ambulatory Nicole Goff [facility] Work Phone: Start: 03-20-2025 End: 03-20-2025 Departed Referred Nicole Goff [employer]AR[employer] EDUCATION WORKER Work Phone: [facility] Start: 03-03-2025 End: 03-03-2025 ambulatory C CONSULTANT Carmen L Justin Facility: [facility] Start: 02-26-2025 End: 02-26-2025 Admission to establishment Manjit Keane MD Work Phone: [facility] Pre Admission Comment on above: Preop testing (Prima ry Dx); Alteration in blood glucose level; Pain in other specified joint Start: 02-26-2025 End: 02-26-2025 Patient encounter status Manjit Keane MD Work Phone: [facility] Start: 02-26-2025 ambulatory [facility] Start: 02-26-2025 Encounter for other preprocedural examination [facility] Start: 02-03-2025 ambulatory [facility] Start: 02-03-2025 End: 02-03-2025 Subsequent hospital visit by physician Manjit Keane MD Work Phone: [facility] MRI Comment on above: Arrived Start: 01-07-2025 End: 01-07-2025 Office outpatient new 60 minutes Manjit Keane MD Work Phone: [facility] Comment on above: Left hip pain (Prima ry Dx) Start: 01-07-2025 ambulatory CAMREN JUSTIN [facility] Start: 01-07-2025 End: 01-07-2025 Subsequent hospital visit by physician Manjit Keane MD Work Phone: [facility] Start: 12-30-2024 End: 12-30-2024 Office outpatient visit 15 minutes JrBeena Amaral DO Work Phone: [facility] Comment on above: Primary osteoarthrit is of left hip Start: 12-30-2024 End: 12-30-2024 ambulatory GONZALO GARCIA Not Available Start: 12-15-2024 End: 12-15-2024 Bamboo flowsheet Dennis Rai NP Work Phone: [facility] Start: 12-15-2024 End: 12-15-2024 Bamboo flowsheet Dennis Rai NP Work Phone: [facility] Start: 12-15-2024 End: 12-15-2024 ambulatory DENNIS RAI Not Available Start: 12-15-2024 End: 12-15-2024 Office outpatient visit 15 minutes Dennis Rai [employer] Work Phone: [facility] Comment on above: Primary osteoarthrit is of left hip (Primary Dx); Acute pain of left knee; Primary osteoarthritis of left knee; Left hip pain Start: 07-25-2024 End: 07-25-2024 Lab Drop off Carmen L Justin [facility] Start: 07-25-2024 End: 07-25-2024 ambulatory C CONSULTANT Carmen L Justin [place] Start: 06-16-2024 End: 06-16-2024 Office outpatient visit 15 minutes Jr. Gonzalo Amaral DO Work Phone: [facility] Comment on above: Primary osteoarthrit is of left hip (Primary Dx); Shoulder arthritis Start: 06-16-2024 End: 06-16-2024 ambulatory GONZALO GARCIA Not Available Start: 06-16-2024 End: 06-16-2024 Bamboo flowsheet Gonzalo Sloan Stepanic DO Work Phone: [facility] Start: 06-16-2024 End: 06-16-2024 Bamboo flowsheet Gonzalo Sloan Stepanic DO Work Phone: [facility] Start: 02-18-2024 End: 02-18-2024 Lab Drop off Carmen L Justin [facility] Start: 01-07-2024 End: 01-07-2024 Lab Drop off Carmen L Justin [facility] Start: 12-05-2023 Chart abstracting Gonzalo Sloan Stepanic DO Work Phone: [facility] Start: 11-15-2023 End: 11-15-2023 Lab Drop off Carmen L Justin [facility] Start: 10-04-2023 End: 10-04-2023 Lab Drop off Carmen L Justin [facility] Start: 08-22-2023 End: 08-22-2023 Lab Drop off Carmen L Justin [facility] Start: 11-30-2022 End: 12-01-[address] ANTONY MITCHELL Facility:[facility] Start: 01-25-2022 End: 01-26-[address] ANTONY MITCHELL Facility:[facility] Procedures Date Procedure Procedure Detail Performing Clinician Start: 02-26-2025 Cul prsmptv pthgnc o rganism scrn w/colony estimj Sarah Rojas PA-C Work Phone: Start: 02-26-2025 Ecg routine ecg w/le ast 12 lds w/i&r Sarah Rojas PA-C Work Phone: Start: 02-26-2025 Complete blood count with white cell differential, automated Sarah Rojas PA-C Work Phone: Start: 02-26-2025 End: 02-26-2025 Comprehensive metabolic panel Sarah Radiance [employer] Work Phone: Start: 02-26-2025 Urinalysis, reagent strip without microscopy Sarah [facility]iance [employer] Work Phone: Start: 02-03-2025 Mri any jt lower ext rem w/o contrast matrl Manjit Keane MD Work Phone: Start: 12-15-2024 End: 12-15-2024 Radex hip unilateral with pelvis 2-3 views Dennis Rai NP Work Phone: Start: 06-09-2021 Colonoscopy Jr. Lee galdamez DO Work Phone: Start: 10-22-2010 Colonoscopy Carmen rondon Fracture of odontoid peg (disorder) Carmen Anderson History of surgical procedure on cervical spine Carmen Anderson Plan of Treatment Date Care Activity Detail Author Start: 06-09-2031 Screening for malign ant neoplasm of colon [facility] Start: 2027 RSV VACCINE (1 - 1-d ose 75+ series) RSV VACCINE (1 - 1-dose 75+ series) [facility] Start: 06-03-2026 ambulatory Ambulatory Facility:[facility] Start: 07-29-2025 End: 07-29-2025 Patient encounter procedure 07/29/2025 1:00 PM EDT Office Visit [facility] [address] [place] [id number] Eliz Block [address] [place] [id number] [facility] Start: 05-01-2025 ambulatory Ambulatory Facility:[facility] Start: 04-16-2025 End: 04-16-2025 Patient encounter procedure 04/16/2025 3:20 PM EDT Office Visit [facility] [address] [facility] [place] [address] Pastora Deluca APRN-SMILEY [address] [facility] [place] [address] [facility] Start: 03-25-2025 End: 03-25-2025 Admission to same day surgery center 03/25/2025 7:30 AM EDT - 03/25/2025 8:45 AM EDT Surgery [facility] [address] [facility] [place] [address] Manjit Keane MD [address] [place] [address] ARTHROPLASTY HIP TOTAL *Needs approach* [facility] Comment on above: ARTHROPLASTY HIP TOT AL *Needs approach* Start: 03-25-2025 End: 03-25-2025 Arthrp acetblr/prox fem prostc agrft/algrft ARTHROPLASTY HIP TOTAL ANTERIOR APPROACH Osteoarthritis of left hip, unspecified osteoarthritis type 03/25/2025 7:30 AM EDT [facility] Start: 03-25-2025 Subsequent hospital visit by physician 03/25/2025 7:30 AM EDT [facility] [address] [place] [address] Manjit Keane MD [address] [place] [address] Osteoarthritis of left hip, unspecified osteoarthritis type [facility] Comment on above: Osteoarthritis of le ft hip, unspecified osteoarthritis type Start: 03-20-2025 Urine culture [facility] Start: 03-20-2025 Bacteria identified in Urine by Culture Urine Culture [facility] Start: 02-26-2025 End: 02-26-2025 Admission to establishment 02/26/2025 9:00 AM EDT Pre-Operative Nurse Assessment [facility] Pre Admission [address] [facility] [place] [address] [facility] Start: 02-10-2025 COVID-19 VACCINE ( season) COVID-19 VACCINE ( season) [facility] Start: 02-03-2025 End: 02-03-2025 Patient encounter procedure 02/03/2025 1:00 PM EDT Appointment [facility] [address] [place] [id number] Manjit Keane MD [address] [place] [address] [facility] Start: 12-30-2024 End: 12-30-2024 Patient encounter procedure 12/30/2024 11:30 AM EDT Office Visit [facility] [address] [facility] [phone] Jr. Gonzalo Amaral, DO [address] [place] [address] [facility] Start: 12-15-2024 End: 12-15-2024 Patient encounter procedure 12/15/2024 10:00 AM EST Office Visit [facility] [address] [place] [phone] Jr. Gonzalo Amaral, DO [address] [place] [address] [facility] Start: 06-22-2024 Influenza vaccination Influenza Vacc ine (#1) [facility] Start: 06-16-2024 End: 06-16-2024 Patient encounter procedure 06/16/2024 2:15 PM EDT Office Visit [facility] [address] [place] [phone] Jr. Gonzalo Amaral, DO [address] [place] [address] Arrived [facility] Comment on above: Arrived Start: 12-05-2023 End: 12-05-2023 Patient encounter procedure 12/05/2023 9:00 AM EST Office Visit [facility] [address] [place] [address] Jr. Gonzalo Amaral, DO [address] [facility] [address] [place] [address] [facility] Start: 06-22-2023 Influenza vaccination Influenza Vacc ine (#1) [facility] Start: 06-10-2022 Screening for malign ant neoplasm of colon COLORECTAL CANCER SCREENING DISCUSSION [facility] Start: 1992 Lipid panel LIPID SCREENING [facility] Start: 1992 Screening for malign ant neoplasm of breast [facility] Start: 1973 Screening for malign ant neoplasm of cervix CERVICAL CANCER SCREENING DISCUSSION [facility] Start: 1971 Third diphtheria, tetanus and acellular pertussis (DTaP) vaccination TDAP (ADULT) [facility] Start: 1952 Hepatitis C screening HEPATITI S C VIRUS SCREENING [facility] Start: 1952 Screening for malign ant neoplasm of colon [facility] Start: 1952 Screening for osteoporosis DEXA SCAN DISCUSSION [facility] Start: 1952 Tetanus vaccination TETANUS [facility] Start: 1952 Thyroid stimulating hormone measurement TSH [facility] End: 03-25-2025 Bacteria identified in Urine by Culture [facility] Work Phone: Comment on above: One Time for 1 Occur rences starting 03/25/2025 until 03/25/2025 MR Hip - left WO contrast MRI HIP LEFT WITHOUT CONTRAST Imaging Routine Left hip pain Ordered: 01/07/2025 [facility] Comment on above: Ordered: 01/07/2025 End: 03-25-2025 RF Unspecified body region Views during surgery [facility] Work Phone: Comment on above: One Time for 1 Occur rences starting 03/25/2025 until 03/25/2025 SURGICAL PATHOLOGY REQUEST SURGICAL PATHOLOGY REQUEST Surg Path Routine Osteoarthritis of left hip, unspecified osteoarthritis type Release Upon Ordering for 1 Occurrences starting 03/25/2025 [employer] Comment on above: Release Upon Orderin g for 1 Occurrences starting 03/25/2025 End: 03-25-2025 XR Pelvis 2 Views [employer] Comment on above: One Time for 1 Occur rences starting 03/25/2025 until 03/25/2025 XR Pelvis and Hip - left Views XR HIP WITH PELVIS LEFT Imaging Routine Left hip pain 01/07/2025 1:06 PM EDT [employer] Work Phone: XR Pelvis and Hip - left Views XR HIP WITH PELVIS LEFT Imaging Routine Hx of total hip arthroplasty, left 04/13/2025 1:14 PM EDT [employer] Work Phone: Immunizations Immunization Date Immunization Notes Care Provider Moises davis 09-09-2024 zoster vaccine recombinant Carmen Justin [facility] 08-12-2024 influenza virus vacc ine, unspecified formulation Dennis Rai [employer] Work Phone: [facility] 06-05-2024 zoster vaccine recombinant Carmen Justin [facility] 09-04-2023 influenza virus vacc ine, unspecified formulation Jr. Stepanic DO Work Phone: [facility] 08-15-2022 influenza virus vacc ine, unspecified formulation Carmen Justin [facility] 08-15-2022 Influenza, High-dose Seasonal, Quadrivalent, Preservative Free Jr. Stepanic DO Work Phone: [facility] 08-15-2022 SARS-CoV-2 (COVID-19 ) [id number] Carmen Justin [facility] 02-24-2022 SARS-CoV-2 mRNA (qmghcthlaiu-wtzb-oxjjgb e) vaccine Carmen Justin [facility] 08-05-2021 influenza virus vacc ine, unspecified formulation Carmen Justin [facility] 08-05-2021 Influenza, High-dose Seasonal, Quadrivalent, Preservative Free Jr. Stepanic DO Work Phone: [facility] 07-28-2021 SARS-CoV-2 (COVID-19 ) mRNA BNT-162b2 vax Carmen Justin [facility] 01-11-2021 SARS-CoV-2 (COVID-19 ) mRNA BNT-162b2 vax Carmen Justin [facility] 12-20-2020 SARS-CoV-2 (COVID-19 ) mRNA BNT-162n5 vax Carmen Justin [facility] 07-28-2020 influenza virus vacc ine, unspecified formulation Carmen Justin [facility] 07-28-2020 Influenza, Seasonal, Quadrivalent, Adjuvanted Jr. Stepanic DO Work Phone: [facility] 07-28-2020 pneumococcal polysaccharide vaccine, 23 valent Carmen Justin [facility] 08-22-2019 influenza virus vacc ine, unspecified formulation Carmen Justin [facility] 08-22-2019 influenza, high dose seasonal, preservative-free Jr. Stepanic DO Work Phone: [facility] 08-22-2019 pneumococcal conjuga te vaccine, 13 valent Carmen Justin [facility] Payers Date Payer Category Payer Self-pay 2024 Private Health Insurance [id number] 2024 Managed Care (unspecified) MEDICARE SUPPLEMENT [id number] 2017 Medicare [id number] 1959 Medicare [id number] 1959 Private Health Insurance [id number] 1952 Unknown [id number] 2.16.840.1.502854.3.579.2 .593 1952 Unknown [id number] 2.16.840.1.339818.3.579.2 .593 1952 Unknown [id number] 2.16.840.1.358284.3.579.2 .1259 1952 Unknown [id number] 2.16.840.1.304430.3.579.2 .1259 1952 Unknown [id number] 2.16.840.1.049540.3.579.2 .1259 1952 Unknown [id number] 2.16.840.1.166636.3.579.2 .1259 1952 Unknown [id number] 2.16.840.1.506139.3.579.2 .1259 1952 Unknown [id number] 2.16.840.1.646098.3.579.2 .983 1952 Unknown [id number] 2.16.840.1.136164.3.579.2 .727 1952 Unknown [id number] 2.16.840.1.832482.3.579.2 .983 1952 Unknown [id number] 2.16.840.1.523303.3.579.2 .983 1952 Unknown [id number] 2.16.840.1.764198.3.579.2 .983 1952 Unknown [id number] 2.16.840.1.652212.3.579.2 .983 1952 Unknown [id number] 2.16.840.1.529170.3.579.2 .983 1952 Unknown [id number] 2.16.840.1.451203.3.579.2 .983 1952 Unknown [id number] 2.16.840.1.485291.3.579.2 .727 1952 Unknown [id number] 2.16.840.1.000162.3.579.2 .727 1952 Unknown [id number] 2.16.840.1.322081.3.579.2 .727 1952 Unknown [id number] 2.16.840.1.948023.3.579.2 .727 1952 Unknown [id number] 2.16.840.1.281058.3.579.2 .727 1952 Unknown [id number] 2.16.840.1.480585.3.579.2 .727 1952 Unknown [id number] 2.16.840.1.954255.3.579.2 .727 1952 Unknown [id number] 2.16.840.1.608091.3.579.2 .727 1952 Unknown [id number] 2.16.840.1.071591.3.579.2 .727 1952 Unknown [id number] 2.16.840.1.508795.3.579.2 .727 1952 Unknown [id number] 2.16.840.1.478154.3.579.2 .727 1952 Unknown [id number] 2.16.840.1.155955.3.579.2 .727 1952 Unknown [id number] 2.16.840.1.154135.3.579.2 .727 1952 Unknown [id number] 2.16.840.1.890222.3.579.2 .727 1952 Unknown [id number] 2.16.840.1.101240.3.579.2 .727 1952 Unknown [id number] 2.16.840.1.840746.3.579.2 .727 1952 Unknown [id number] 2.16.840.1.561812.3.579.2 .727 Unknown [facility] [id number] Unknown [id number] 2.16.840.1.366776.3.579.2 .531 Social History Date Type Detail Facility Start: 04-30-2023 End: 04-27-2025 Tobacco smoking status Ex-smoker (finding) [facility] Start: 08-01-2023 End: 04-13-2025 Sex Assigned At Female Mehdi [facility] Start: 08-01-2023 End: 01-07-2025 Tobacco smoking status NHIS Never smoked tobacco [facility] Start: 08-01-2023 End: 01-07-2025 Tobacco use and exposure Smokeless tobacco non-user [facility] Start: 12-05-2023 End: 04-13-2025 Alcohol intake Current drinker of alcohol (finding) [facility] Start: 08-01-2023 End: 04-13-2025 History of Social function [facility] Start: 1950 Sex Assigned At Not on file [facility] How often to you hav e a drink containing alcohol? 2-4 times a month [facility] Start: 01-07-2025 Alcoholic beverage intake Ex-drinker (finding) [facility] Start: 12-30-2024 End: 03-21-2025 Sex Female (finding) [facility] Start: 01-06-2025 Gender identity Identifies as female gender (finding) [facility] Start: 01-06-2025 Sexual orientation Heterosexual (finding) [facility] Start: 02-10-2025 Alcohol Comment 3-4 drinks/week-wine and gin/tonic [facility] Start: 1950 Sex Assigned At Female [facility] Sexual Orientation [facility] Medical Equipment Procedure Code Equipment Code Equipment Origin al Text Equipment Identifier Dates [place] Griptio n Acetabular Shell Sector 52mm Od [id number] Start: 03-25-2025 [place] Altrx Polyethylene Acetabular Liner Neutral 36mm Id 52mm Od [id number] Start: 03-25-2025 Actis Duofix Hip Prosthesis Femoral Stem 10/04taper Cementless Size 5 Std Collar [id number] Start: 03-25-2025 Biolox Delta Cer amic Femoral Head +8.5 36mm Nidia 10/04 Taper [id number] Start: 03-25-2025 Clinical Notes 06-16-2024 to 06-03-2025 Katelynn Parra - 04/13/2025 1:20 PM Chandni Rojas PA-C - 04/13/2025 1:20 PM EDTNursing Notes - Elin Lopez RN - 03/25/2025 4:10 PM EDTNursing Notes - Karma Villa RN - 02/26/2025 10:04 AM EDT Note Date & Type Note Facility 06-03-2025 Note Patient Education Emergency Medicine Heart Attack A heart attack occurs when blood and oxygen supply to the heart is cut off. A heart attack can cause damage to the heart that cannot be fixed. A heart attack is also called a myocardial infarction, or CO. If you think you are having a heart attack, do not wait to see if the symptoms will go away. Get medical help right away. What are the causes? This condition may be caused by: ??? A fatty substance (plaque) in the blood vessels (arteries). This can block the flow of blood to the heart. ??? A blood clot in the blood vessels that go to the heart. The blood clot blocks blood flow. ??? An abnormal heartbeat. ??? Some diseases, such as problems in red blood cells (anemia)orproblems in breathing (respiratory failure). ??? Tightening (spasm) of a blood vessel [...] obese. ??? Having any of these conditions: ? High blood pressure. ? High cholesterol. ? Diabetes. ??? Making lifestyle choices such as: ? Drinking too much alcohol. ? Not getting regular exercise. ? Smoking. What are the signs or symptoms? Chest pain. It may feel like: ? Crushing or squeezing. ? Tightness, pressure, fullness, or heaviness. ??? Pain [...] possible. Treatment may include: ??? Medicines to: ? Break up or dissolve blood clots. ? Thin your blood and help prevent blood clots. ? Treat blood pressure. ? Improve blood flow to the heart. ? Reduce pain. ? Reduce cholesterol. ??? Procedures to widen a blocked artery and keep it open. ??? Open heart surgery. ??? Making your heart strong again (cardiac rehabilitation) through exercise, education, and counseling. Follow these instructions at home: Medicines ??? Take sgtx-qcq-rvvcwcq and prescription medicines only as told by your doctor. ??? Do not take these medicines unless your doctor says it is okay: ? NSAIDs, such as ibuprofen, naproxen, or celecoxib. ? Any vitamins or supplements. ? Hormone replacement therapy that has estrogen with or without progestin. ??? If you are taking blood thinners: ? Talk with your doctor before taking any medicines that have aspirin or NSAIDs, such as ibuprofen. ? Take medicines exactly as told. Take them at the same time each day. ? Avoid doing things that could hurt or bruise you. Take action to prevent falls. ? Wear an alert bracelet or carry a [...] use ??? Do not drink alcohol if: ? Your doctor tells you not to drink. ? You are , may be , or are planning to become . ??? If you drink alcohol: ? Limit how much you have to: ? 0?1 drink a day for women. ? 0?2 drinks a day for men. ? Know how much alcohol is in your drink. In the [place] one drink equals one 12 oz bottle of beer (355 mL), one 5 oz glass of wine (148 mL), or one 1? oz glass of hard liquor (44 mL). [...] may vomit or you vomit. ??? You fe (more content not included)... [facility] 06-02-2025 Note Patient Education Custom Cystoscopy ??? Voiding after the procedure: there [...] you have a fever over 100 degrees. [facility] 06-02-2025 Note History and Physical Patient: EUGENE ROGERS Age: 74 years Sex: Female : 1950 Associated Diagnoses: None Author: OSBALDO GAITAN, Reza Mercedes Preoperative Information Pneumaturia, Recurrent UTI's Chief Complaint [...] list: All Problems Hypothyroidism / SNOMED CT 65224809 / Confirmed Hyperlipidemia / SNOMED CT 48487346 / Confirmed GERD (gastroesophageal reflux disease) / SNOMED CT 693710670 / Confirmed HTN (hypertension) / SNOMED CT 8370480540 / Confirmed Pure hypercholesterolemia / SNOMED CT 171253879 / Confirmed BMI 23.0-23.9, adult / SNOMED CT 3771278609 / Confirmed Menopausal syndrome / SNOMED CT 990538146 / Confirmed Fatigue / SNOMED CT 247618563 / Confirmed Iron deficiency anemia / SNOMED CT 052883306 / Confirmed Pre-op exam / SNOMED CT 025580898 / Confirmed Pre-diabetes / SNOMED CT 8963731902 / Confirmed UTI symptoms / SNOMED CT 130423442 / Confirmed Cloudy urine / SNOMED CT 21590214 / Confirmed Urinary hesitancy / SNOMED CT 585193211 / Confirmed Pneumaturia / SNOMED CT 43682649 / Confirmed Recurrent UTI / SNOMED CT 651189672 / Confirmed Diverticulosis / SNOMED CT 6978856982 / Confirmed Dizziness / SNOMED CT 1798235503 / Confirmed Chronic UTI / SNOMED CT 800515051 / Confirmed Generalized anxiety disorder / SNOMED CT 43828935 / Confirmed Resolved: Iron deficiency / SNOMED CT 62846690 Canceled: Dysphagia / SNOMED CT 28571121 Canceled: Low hemoglobin / SNOMED CT 1900425259 Histories Family History: Heart disease Father NF - Neurofibromatosis Brother Hodgkin's disease Mother Procedure history: Colonoscopy ([id number]) in 2010 at 61 Years. Fracture of odontoid process (3499296007). History of cervical spine surgery ([id number]). Social History Social & Psychosocial Habits Alcohol [...] Soft. Musculoskeletal Normal strength. Integumentary: Warm, Dry, [place]. Neurologic: Alert, Oriented. Psychiatric: Cooperative, Appropriate mood & affect. Impression and Plan Diagnosis Pneumaturia (WZB17-AS R39.89, Working, Medical). Recurrent UTI (ZRL79-VL N39.0, Working, Medical). Condition: Stable. Counseled: Patient, Regarding diagnosis, Regarding treatment. [facility] Comment on above: Result Comment: Elec tronically Signed By: OSBALDO GIATAN, Reza Nix.melinda\Date and Time Signed: 06/02/25 07:57 EDT 04-27-2025 Hospital Discharge instructions Patient Education 04/27/2025 13:19:14 Antibiotic Medicine, Adult Antibiotic Medicine, Adult Antibiotic medicines are used to treat infections caused by bacteria. These medicines do not work for illnesses caused by viruses. Antibiotics work by killing the bacteria that are making you sick, but they can also have serious side effects. Antibiotics must be used safely and only when needed. When do I need to take antibiotics? You may need antibiotics for: A urinary tract infection (UTI). Strep throat. Bacterial sinus infection. Meningitis. Serious lung infections. Your health care provider may start you on antibiotics while you are waiting for test results. Tests may include a culture of the throat, urine, blood, or mucus. Your health care provider may change or stop your antibiotic depending on your test results. When are antibiotics not needed? You do not need antibiotics for most common illnesses. These illnesses may be caused by a virus, not by bacteria. You do not need antibiotics for: The common cold. The flu (influenza). Sore throat. Discolored mucus. Bronchitis. Antibiotics are not always needed for all infections caused by bacteria. Many of these infections clear up on their own. Do not take antibiotics when they are not needed. How long should I take my antibiotic? You must take the entire amount prescribed to you. Take your antibiotics as told by your health care provider. Do not stop taking your antibiotics even if you start to feel better. If you stop taking them too soon: You may feel sick again. Your infection may get harder to treat. Each course of antibiotics needs a different length of time to work. The length of time may vary from a few days to a few weeks. What if I miss a dose? Try not to miss any doses of medicine. If you miss a dose, call your health care provider or pharmacist for help. Sometimes, it is okay to take the missed dose as soon as possible. Do not take double or extra doses. What are the risks of taking antibiotics? Antibiotics can cause: Allergic reactions. Nausea. Yeast infections. Liver problems. Antibiotics can also cause an infection called Clostridioides difficile (C. difficile or C. diff), which causes severe diarrhea. This infection happens when the antibiotics kill the healthy bacteria in your intestines. This allows C. diff to grow. C. diff needs to be treated right away. Let your health care provider know if: You have diarrhea while taking an antibiotic. You have diarrhea after you stop taking an antibiotic. C. diff infection can start weeks after stopping the antibiotic. Taking an antibiotic also puts you at risk for getting sick in the future with bacteria that do not respond to medicine (antibiotic-resistant infection). Antibiotics can cause bacteria to change so that if the antibiotic is taken again, the medicine cannot kill the bacteria. These infections can be more serious because they are hard, or sometimes impossible, to treat. Do antibiotics affect control? control pills may not work while you are taking antibiotics. If you are taking control pills: Keep taking them as usual. Use a second form of control, such as a condom, to avoid unwanted . Do this for as long as told by your health care provider. What else should I know about taking antibiotics? Take antibiotics exactly as told. Take the correct amount of medicine at the same time each day. Ask your health care provider: ?How long to wait between doses. ?If you should take your antibiotic with food or water. ?If you should avoid certain foods, drinks, or medicines while taking your antibiotics. ?If you need to watch for any side effects. Use only the antibiotics prescribed to you by your health care provider. Do not use antibiotics prescribed for someone else. Drink a large glass of water when taking your antibiotics unless told otherwise. Drink enough fluid to keep your urine pale yellow. Ask your pharmacist for a dosage syringe, cup, or spoon that correctly measures your antibiotics. Ask your pharmacist or health care provider how to safely get rid of leftover medicine. Follow these instructions at home: Take your antibiotics as told by your health care provider. Do not stop taking your antibiotics even if you start to feel better. Return to your normal activities as told by your health care provider. Ask your health care provider what activities are safe for you. Contact a health care provider if: Your symptoms get worse. You have new joint pain or muscle aches that begin after starting your antibiotic. You have side effects from your antibiotic, such as: ?Stomach pain. ?Diarrhea. ?Nausea. ?White patches in your mouth or throat. Get help right away if: You have signs of a severe allergic reaction to antibiotics. If you have any of these signs, stop taking the antibiotic right away. Signs may include: ?Raised, itchy, red bumps on your skin (hives). ?Skin rash. ?Trouble breathing. ?High-pitched whistling sounds when you breathe, most often when you breathe out (wheezing). ?Swelling anywhere on your body. ?Feeling dizzy. ?Vomiting. You have signs of liver problems, such as: ?Dark or blood-colored urine. ?Yellow color to your skin. ?Bruising or bleeding easily. You have severe diarrhea, bloody diarrhea, or stomach cramps. You have a severe headache. These symptoms may be an emergency. Get help right away. Call 911. Do not wait to see if the symptoms will go away. Do not drive yourself to the hospital. This information is not intended to replace advice given to you by your health care provider. Make sure you discuss any questions you have with your health care provider. Document Revised: 05/08/2023 Document Reviewed: 05/08/2023 [employer] Patient Education 2023 [employer]. Follow Up Care 04/21/2025 10:24:27 With:REBECCA WILDE HIPOLITO Mague, URL Address: [address] [place] [address] Business (1) When: Unknown Comments:pending results of imaging/testing, will call with next steps [facility] 04-27-2025 Note Patient Education Caregiving Antibiotic Medicine, Adult Antibiotic medicines are used to treat infections caused by bacteria. These medicines do not work for illnesses caused by viruses. Antibiotics work by killing the bacteria that are making you sick, but they can also have serious side effects. Antibiotics must be used safely and only when needed. When do I need to take antibiotics? You may need antibiotics for: ??? A urinary tract infection (UTI). ??? Strep throat. ??? Bacterial sinus infection. ??? Meningitis. ??? Serious lung infections. Your health care provider may start you on antibiotics while you are waiting for test results. Tests may include a culture of the throat, urine, blood, or mucus. Your health care provider may change or stop your antibiotic depending on your test results. When are antibiotics not needed? You do not need antibiotics for most common illnesses. These illnesses may be caused by a virus, not by bacteria. You do not need antibiotics for: ??? The common cold. ??? The flu (influenza). ??? Sore throat. ??? Discolored mucus. ??? Bronchitis. Antibiotics are not always needed for all infections caused by bacteria. Many of these infections clear up on their own. Do not take antibiotics when they are not needed. How long should I take my antibiotic? You must take the entire amount prescribed to you. Take your antibiotics as told by your health care provider. Do not stop taking your antibiotics even if you start to feel better. If you stop taking them too soon: ??? You may feel sick again. ??? Your infection may get harder to treat. Each course of antibiotics needs a different length of time to work. The length of time may vary from a few days to a few weeks. What if I miss a dose? Try not to miss any doses of medicine. If you miss a dose, call your health care provider or pharmacist for help. Sometimes, it is okay to take the missed dose as soon as possible. Do not take double or extra doses. What are the risks of taking antibiotics? Antibiotics can cause: ??? Allergic reactions. ??? Nausea. ??? Yeast infections. ??? Liver problems. Antibiotics can also cause an infection called Clostridioides difficile (C. difficile or C. diff), which causes severe diarrhea. This infection happens when the antibiotics kill the healthy bacteria in your intestines. This allows C. diff to grow. C. diff needs to be treated right away. Let your health care provider know if: ??? You have diarrhea while taking an antibiotic. ??? You have diarrhea after you stop taking an antibiotic. C. diff infection can start weeks after stopping the antibiotic. Taking an antibiotic also puts you at risk for getting sick in the future with bacteria that do not respond to medicine (antibiotic-resistant infection). Antibiotics can cause bacteria to change so that if the antibiotic is taken again, the medicine cannot kill the bacteria. These infections can be more serious because they are hard, or sometimes impossible, to treat. Do antibiotics affect control? control pills may not work while you are taking antibiotics. If you are taking control pills: ??? Keep taking them as usual. ??? Use a second form of control, such as a condom, to avoid unwanted . Do this for as long as told by your health care provider. What else should I know about taking antibiotics? Take antibiotics exactly as told. ??? Take the correct amount of medicine at the same time each day. ??? Ask your health care provider: ? How long to wait between doses. ? If you should take your antibiotic with food or water. ? If you should avoid certain foods, drinks, or medicines while taking your antibiotics. ? If you need to watch for any side effects. ??? Use only the antibiotics prescribed to you by your health care provider. Do not use antibiotics prescribed for someone else. ??? Drink a large glass of water when taking your antibiotics unless told otherwise. Drink enough fluid to keep your urine pale yellow. ??? Ask your pharmacist for a dosage syringe, cup, or spoon that correctly measures your antibiotics. ??? Ask your pharmacist or health care provider how to safely get rid of leftover medicine. Follow these instructions at home: ??? Take your antibiotics as told by your health care provider. Do not stop taking your antibiotics even if you start to feel better. ??? Return to your normal activities as told by your health care provider. Ask your health care provider what activities are safe for you. Contact a health care provider if: ??? Your symptoms get worse. ??? You have new joint pain or muscle aches that begin after starting your antibiotic. ??? You have side effects from your antibiotic, such as: ? Stomach pain. ? Diarrhea. ? Nausea. ? White patches in your mouth or throat. Get help right away if: ??? You have sig (more content not included)... [facility] 04-13-2025 History of Present illness Narrative Ortho Nurse - Established Patient Intake Room#: 5 Date: 04/13/2025 1:16 PM Patient: Eugene Rogers MR#: [id number] : 1950 Age: 74 y.o. 3wk L ALESHIA DA Pt stated she is doing fine, not having any trouble or pain 0/10. Pt was wearing her rena hose at the time. Referring Physician: Pastora Deluca APRN-CNP Insurance: Payor: MEDICARE / Plan: MEDICARE A AND B / Product Type: *No Product type* / Chief Complaint Patient presents with Left Hip - Post Op Visit Visit Vitals Ht 1.727 m (5' 8 ) Wt 73.5 kg (162 lb) BMI 24.63 kg/m Pain Recent Labs No results found for: CRP No results found for: SEDRATE Lab Results Component Value Date WBC 6.4 02/26/2025 HGB 13.8 02/26/2025 HCT 40.8 02/26/2025 PLATELET 371 02/26/2025 MCV 87.3 02/26/2025 History Past Medical History: Diagnosis Date Arthritis Essential hypertension, benign Hyperlipidemia Hypothyroidism Tinnitus Past Surgical History: Procedure Laterality Date ARTHROPLASTY HIP TOTAL ANTERIOR APPROACH Left 03/25/2025 Laterality: Left; Surgeon: Manjit Keane MD; Location: [facility] NECK SURGERY Midline 06/2012 fractured C-2; surgery at [facility] Family History: Her family history includes Arthritis - Osteo in her mother; Heart Disease - Other in her mother; Myocardial Infarction in her brother, brother, and father; Other - Specify in her brother. Social History: Her reports that she has never smoked. She has never used smokeless tobacco. She reports current alcohol use. No history on file for drug use. Outpatient Medications Prior to Visit Medication Sig Dispense Refill Acetaminophen 325 MG tablet Take 2 tablets by mouth every 4 hours as needed for Mild Pain. Do not exceed 4000mg of Tylenol in 24 hour period. 50 tablet [address] tablet Take 1 tablet by mouth 2 times daily. This medication is for blood clot prevention. Take with food. 60 tablet 0 Atorvastatin 20 MG tablet Take 1 tablet by mouth daily. PM bisoprolol-hydrochlorothiazide 5-6.25 MG tablet Take by mouth daily every morning. Celecoxib 200 MG capsule Take 1 capsule by mouth 2 times daily. Take with food. 84 capsule 0 cholecalciferol 10 MCG (400 UNIT) tablet daily. Docusate 100 MG capsule Take 1 capsule by mouth 2 times daily. Hold for loose stools. 60 capsule 0 hydroCODone-acetaminophen 5-325 MG tablet Take 1-2 tablets by mouth every 6 hours as needed for Severe Pain for up to 7 days. Do not take over 4000mg acetaminophen daily. 10 tablet 0 Levothyroxine 100 MCG tablet Take 1 tablet by mouth every morning before breakfast. melatonin capsule Take 2 capsules by mouth at bedtime as needed. omeprazole [address] capsule Take 1 capsule by mouth daily. PM Ondansetron 4 MG tablet Take 1 tablet by mouth every 8 hours as needed for Nausea / Vomiting. 6 tablet 0 Polyethylene glycol 17 g Pack packet Take 1 packet by mouth daily. therapeutic multivitamin-minerals tablet Take 1 tablet by mouth at bedtime. 30 tablet 0 traMADol 50 MG tablet 1-2 tabs every 6 hours as needed for mild/moderate pain. 20 tablet 0 No facility-administered medications prior to visit. Current Outpatient Medications: Acetaminophen 325 MG tablet, Take 2 tablets by mouth every 4 hours as needed for Mild Pain. Do not exceed 4000mg of Tylenol in 24 hour period., Disp: 50 tablet, Rfl: [address] tablet, Take 1 tablet by mouth 2 times daily. This medication is for blood clot prevention. Take with food., Disp: 60 tablet, Rfl: 0 Atorvastatin 20 MG tablet, Take 1 tablet by mouth daily. PM, Disp: , Rfl: bisoprolol-hydrochlorothiazide 5-6.25 MG tablet, Take by mouth daily every morning., Disp: , Rfl: Celecoxib 200 MG capsule, Take 1 capsule by mouth 2 times daily. Take with food., Disp: 84 capsule, Rfl: 0 cholecalciferol 10 MCG (400 UNIT) tablet, daily., Disp: , Rfl: Docusate 100 MG capsule, Take 1 capsule by mouth 2 times daily. Hold for loose stools., Disp: 60 capsule, Rfl: 0 hydroCODone-acetaminophen 5-325 MG tablet, Take 1-2 tablets by mouth every 6 hours as needed for Severe Pain for up to 7 days. Do not take over 4000mg acetaminophen daily., Disp: 10 tablet, Rfl: 0 Levothyroxine 100 MCG tablet, Take 1 tablet by mouth every morning before breakfast., Disp: , Rfl: melatonin capsule, Take 2 capsules by mouth at bedtime as needed., Disp: , Rfl: omeprazole [address] capsule, Take 1 capsule by mouth daily. PM, Disp: , Rfl: Ondansetron 4 MG tablet, Take 1 tablet by mouth every 8 hours as needed for Nausea / Vomiting., Disp: 6 tablet, Rfl: 0 Polyethylene glycol 17 g Pack packet, Take 1 packet by mouth daily., Disp: , Rfl: therapeutic multivitamin-minerals tablet, Take 1 tablet by mouth at bedtime., Disp: 30 tablet, Rfl: 0 traMADol 50 MG tablet, 1-2 tabs every 6 hours as needed for mild/moderate pain., Disp: 20 tablet, Rfl: 0 Allergies: She is allergic to niacin-lovastatin. HPI: Eugene Rogers is 3 weeks status post direct anterior total hip arthroplasty. She is pleased with their recovery to date. She reports her pain is 0 on a 10 point scale. she is usinig RENA hose and ASA for DVT prophylaxis and nothing for pain control. Visit Vitals Ht 1.727 m (5' 8 ) Wt 73.5 kg (162 lb) BMI 24.63 kg/m Current Outpatient Medications: Acetaminophen 325 MG tablet, Take 2 tablets by mouth every 4 hours as needed for Mild Pain. Do not exceed 4000mg of Tylenol in 24 hour period., Disp: 50 tablet, Rfl: 1 Amoxicillin 500 MG capsule, Take 4 capsules 1 hour before procedure, Disp: 8 capsule, Rfl: [address] tablet, Take 1 tablet by mouth 2 times daily. This medication is for blood clot prevention. Take with food., Disp: 60 tablet, Rfl: 0 Atorvastatin 20 MG tablet, Take 1 tablet by mouth daily. PM, Disp: , Rfl: bisoprolol-hydrochlorothiazide 5-6.25 MG tablet, Take by mouth daily every morning., Disp: , Rfl: Celecoxib 200 MG capsule, Take 1 capsule by mouth 2 times daily. Take with food., Disp: 84 capsule, Rfl: 0 cholecalciferol 10 MCG (400 UNIT) tablet, daily., Disp: , Rfl: Docusate 100 MG capsule, Take 1 capsule by mouth 2 times daily. Hold for loose stools., Disp: 60 capsule, Rfl: 0 hydroCODone-acetaminophen 5-325 MG tablet, Take 1-2 tablets by mouth every 6 hours as needed for Severe Pain for up to 7 days. Do not take over 4000mg acetaminophen daily., Disp: 10 tablet, Rfl: 0 Levothyroxine 100 MCG tablet, Take 1 tablet by mouth every morning before breakfast., Disp: , Rfl: melatonin capsule, Take 2 capsules by mouth at bedtime as needed., Disp: , Rfl: omeprazole [address] capsule, Take 1 capsule by mouth daily. PM, Disp: , Rfl: Ondansetron 4 MG tablet, Take 1 tablet by mouth every 8 hours as needed for Nausea / Vomiting., Disp: 6 tablet, Rfl: 0 Polyethylene glycol 17 g Pack packet, Take 1 packet by mouth daily., Disp: , Rfl: therapeutic multivitamin-minerals tablet, Take 1 tablet by mouth at bedtime., Disp: 30 tablet, Rfl: 0 traMADol 50 MG tablet, 1-2 tabs every 6 hours as needed for mild/moderate pain., Disp: 20 tablet, Rfl: 0 Physical Exam: This patient is alert and oriented in no acute distress. She is pleasant and cooperative The bilateral lower extremities were evaluated and revealed bilateral thigh and calves that are soft and nontender with negative Homans sign. The incision is well approximated and healing nicely without erythema, drainage or evidence of dehiscence. Range of motion is full and supple with no pain or impingement. The distal neurovascular exam is intact bilaterally. Diagnostic Study/ Interpretation: Plain film radiographs were reviewed and reveal a Left total hip arthroplasty in good position and alignment. No evidence of periprosthetic implant loosening or migration when compared to the immediate postop film. Impression: Stable 3 weeks status post Left total hip arthroplasty via direct anterior approach. Reports that she was recently treated for UTI and completed the antibiotic 4 days ago. Will see PCP this week but she took the sample in an empty pill bottle. Plan: Continue DVT prophylaxis as prescribed. A prescription for dental propphylaxis was given. All questions and concerns were addressed at this visit and understanding was expressed. She will follow up at [address] Keane for repeat clinical and radiologic evaluation unless an earlier need should arise. Sarah Rojas PA-C documented in this encounter [facility] 03-25-2025 Miscellaneous Notes Written and verbal discharge instructions reviewed. Significant other at bedside. Understanding voiced. Questions encouraged and answered. Meds to beds reviewed and provided to patient bag sealed. VS assessed. Set up with meal tray. Menu provided. Up to restroom with PT, walker. Gait belt on. Markell PT working with patient Karma SAGASTUME nurse navigator at bedside talking with patient. Markell PT at bedside to see patient. 02/26/25 0956 Referral Information Arrived From home or self-care Information Source Information Source patient Contact Information This Architectural Administrative Assistant is Primary Mixer Operator Hot Metal/SW Yes Mixer Operator Hot Metal Name Karma Villa RN3d technologist's Living Environment Lives With spouse Living Arrangement and Set Up house (one level living, two steps to enter the home) Provides Primary Care For no one Primary Care Provided By self Support System Immediate family;Extended family;Friends Able to Return to Prior Arrangements yes Functional Status Patient's Functional Status Prior To This Admission? Independent Concerns With Patient Being Able To Care For Themselves At Discharge? Has Assistance (Friend, Family, Skilled Provider) Employment/Financial Employed? No Employment/Financial Concerns no Financial Concerns none Initial Discharge Planning DME (FRANCHISE DEVELOPMENT MANAGER) Walker (Has FWW) Patient Goal for Discharge Return home with assistance from family and friends (July travel, in and out of inground pool, normal walking) Expected Discharge Disposition Home Anticipated Services at Discharge Outpatient follow up Transportation Available car;family or friend will provide Assessment/Concerns to be Addressed Concerns To Be Addressed no discharge needs identified;denies needs/concerns at this time CM met with patient this date to discuss post-surgical discharge plans. Patient states the plan is to discharge home with family/friends assistance. Patient has a wheeled walker. Patient denies any other questions or needs at this time. CM to continue to follow and assist with discharge plans. documented in this encounter [facility] 03-25-2025 Nurse Note Written and verbal discharge instructions reviewed. Significant other at bedside. Understanding voiced. Questions encouraged and answered. Meds to beds reviewed and provided to patient bag sealed. VS assessed. [facility] 03-25-2025 Nurse Note Set up with meal tray. [facility] 03-25-2025 History of Present illness Narrative Occupation Therapy Inpatient Initial Assessment Date: 03/25/25 Time in: 0925-3612 Time out:[id number] Total treatment time: 48 Diagnosis: osteoarthritis of hip Surgery: left ALESHIA (direct anterior) Past Medical History: Past Medical History: Diagnosis Date Arthritis Essential hypertension, benign Hyperlipidemia Hypothyroidism Tinnitus Past Surgical History: Past Surgical History: Procedure Laterality Date NECK SURGERY Midline 06/2012 fractured C-2; surgery at [facility] Precautions: fall, WBAT Subjective: Pt is sitting up in recliner chair agreeable to session Orientation: x4, alert, following directions, intact safety awareness Pain: 10/31 Pre-Admission Living Environment: Patient lives: spouse Home environment: 1 story house Steps in home: 0 Steps to enter home: 2 Shower type/location: walk in shower with grab bars Pre-Admission Functional Status: Equipment in Home: shower chair, walker, cane, high rise toilet, green chainer, sock aid, shoe horn, Prior level ADL function: Toileting: independent Bathing: independent Upper body dressing: independent Lower body dressing: independent Grooming: independent Current Functional Status: ROM: UE WFL Strength: UE WFL Bed Mobility: not completed Transfers: CGA Gait: CGA utilizing front wheeled walker Balance: good Sensation: intact ADLS: Toileting: not completed Bathing: not completed Upper body dressing: independent in sitting Lower body dressing: SBA Grooming: not completed OT Treatment Provided: OT evaluation and self care training Education: patient instructed on LB dressing techniques donning shorts CGA in sitting and standing with training for ABD pad placement, proper underwear to use. Patient has disposable underwear on at this time. Review incision hygiene for sponge bathing and shower tasks. Review safety during walk in shower transfer including shower chair placement and using grab bars vs. Walker. Patient instructed on RENA hose wearing schedule and hygiene, doffing left sock and RENA hose with modified method SBA. Patient leatha with set up assistance, leatha tennis shoes with set up. Assessment: patient presents s/p left ALESHIA completed today. Patient is doing well, initially she is alert and following directions during session patient becomes more sleepy and spouse is present for education. Patient demonstrates good safety awareness during functional mobility and transfer training. Patient spouse will be able to assist at home as needed Discharge Recommendations: home Equipment Recommendations at Discharge: OT Frequency: 7 times per week OT Interventions: ADL retraining, balance and transfer training Rehab Potential: good Plan for next treatment: continue with simulated bathing, dressing, bathroom transfers and hygiene training Occupational Therapy Goals: 1. Pt will complete LB dressing MOD I 2. Pt will complete sponge bathing MOD I 3. Pt will complete toileting MOD I 4. Pt will complete hygiene/grooming standing at sink independent 5. Pt will complete walk in shower transfer MOD I Physical Therapy Inpatient Initial Assessment Date: 03/25/25 Time in: 10:31 - 10:41 Time out: 11:22 - 12:00 Total treatment time: 48 minutes Diagnosis: left hip OA Surgery: s/p left DA ALESHIA done 03/25/25 Past Medical History: Past Medical History: Diagnosis Date Arthritis Essential hypertension, benign Hyperlipidemia Hypothyroidism Tinnitus Past Surgical History: Past Surgical History: Procedure Laterality Date NECK SURGERY Midline 06/2012 fractured C-2; surgery at [facility] Precautions: Fall, WBAT left LE Pre-Admission Living Environment: Patient lives: with spouse in 2-story house Home environment: bedroom/bathroom on first floor of home, walk-in shower with suction cup grab bars, hand-held shower head Steps in home: 13 to second floor with railing, does not regularly access Steps to enter home: 3 with railing Pre-Admission Functional Status: The patient reports living independently, ambulates independently without AD, drives, shops Equipment in Home: SPC, FWW, sock aid, reahcer Subjective: The patient notes feeling tired and a little dizzy Pain: 1-2/10 left hip both at rest and with activity Orientation: A&O x 4 Current Functional Status: ROM: WFL BLE's Strength: RLE 4+/5 to 5/5 throughout, 3+/5 throughout left LE knee and hip Bed Mobility: SBA Transfers: CGA using FWW for support, cues for UE pushing from bed Gait: Patient ambulates CGA with FWW x 50 ft with slow, but steady gait. Patient initially demo's step-to pattern, cues required to complete Balance: Static standing balance: Fair- Sensation: N/A PT Treatment Provided: PT evaluation, therapeutic exercises per protocol: ankle pumps, quad sets, SAQ, glute sets, heel slides AROM, SLR flexion, and knee extensions Assessment: The patient is s/p left DA ALESHIA POD#[address] Keane. The patient is WBAT left LE, no formal hip precautions. The patient demo's mild pain in left hip both with rest or activity, but is chiefly limited by increased sedation coming out from anesthesia. The patient requires assistance x 1 person and use of FWW to safely complete mobility at this time. Discharge Recommendations: The patient will return home with spouse's assistance with HEP to follow Equipment Recommendations at Discharge: None PT Therapy Frequency: (P) BID (twice a day) PT Interventions: Gait training, transfers, stairs, HEP Rehab Potential: Good Plan for next treatment: Gait training, transfers, stairs, HEP Physical Therapy Goals: The patient will complete all transfers, bed mobility SBA with FWW to demonstrate safety with all functional mobility The patient will ambulate x 100 ft SBA with FWW with proper step-thru pattern to safely ambulate about the home and limited community distances The patient will ascend/descend x 4 steps SBA with single railing to safely enter/exit the home The patient will demo independence with HEP to improve LE strength, transfers, gait Patient was assessed in [facility] on 02/26. Met with patient for follow up after surgery to discuss discharge plan. Patient states the plan is to discharge home with family/friends assistance. Patient has a wheeled walker and denies any additional equipment needs at this time. Nursing reports that the incision has been closed with sutures/dermabond, ABD, 3 week follow-up appointment scheduled for 04/16 at 320p. present and attentive cartside. Informed patient of follow-up call tomorrow. Patient denies any other questions or needs at this time. THIS PATIENT HAS HAD ORTHOPEDIC SURGERY AND IS EXPECTED TO HAVE PAIN REQUIRING NARCOTICS FOR >7 DAYS AND MAY NEED UP TO 8 tabs of Tramadol PER DAY AND THEREFORE 20 tabs ARE BEING DISPENSED IN ACCORDANCE WITH POC DISCUSSED WITH DR KEANE. An additional 10 tabs of Milmay are given as a rescue opiate. Patient called in and informed this CM that she has a positive UTI reading from visiting Urgent Care over the weekend, and was prescribed an antibiotic for four days, with two additional days of antibiotics to be ordered for her. This CM instructed the patient to call PAT to let them know of the additional medication ordered, and this CM notified Elizabeth and Sarah in the office regarding the patient calling this CM with the positive UTI results. Office staff to follow-up with patient. Pre-op call attempted with no answer at this time, VM left with arrival time of 545a on Sunday, pre-op reminders and call back information. We are excited for you to be our guest for your Orthopedic Surgery. We want to reach out today to see if you have any questions and remind of you of some important details in preparation for your upcoming surgery . Patient given arrival time of 545a on Sunday morning. Do you have a front wheeled walker?Yes Patient instructed to please bring this into the hospital with you on the day of surgery. Do you have the instructions and medication list you were given in Pre-surgical testing? yes Review list with patient Have you stopped that medications that were indicated on your instructions? yes Have you been prescribed any new medications since you were seen at [facility]? No Patient instructed to call [facility] to add medication to list. Have you had any falls, cuts or open areas prior to surgery? Eugene denies falls cuts or open areas Remember that while you cannot eat after midnight, you may have 20 ounces of water or Powerade/Gatorade in the morning before leaving your home for surgery. Patient verbalizes understanding. Patient plans to discharge with friends/family assistance to home. Instructed patient to call [facility] to submit copay payment info for Meds to Beds, gave patient phone number to call. Patient states she will provide payment day of surgery. Patient states she thinks she has a UTI, as her urine is cloudy despite drinking water and cranberry juice. She states that she has an appt with her PCP on Sunday to be seen but since her surgery is next week, she states she will go to Urgent Care today to get her urine sampled. This CM instructed her to call PAT if a new prescription for an antibiotic is prescribed, patient states compliance with instruction. This CM notified Elizabeth and Sarah in the office to let them know of the patient going to Urgent Care later today. We look forward to assisting you with your Joint Replacement and meeting your needs for a successful recovery. Questions answered regarding upcoming surgery, patient denies any additional needs, instructed to call office with any concerns. documented in this encounter [facility] 03-25-2025 Hospital Discharge instructions Elin Lopez RN - 03/25/2025 12:18 PM EDT Diet: Resume diet tolerated. Medications: > Patients will be sent home with prescriptions, including medication for pain to be taken as directed. Stay ahead and do not allow your pain to get out of control. > If prescribed Aspirin, take twice a day for 30 days. Do not skip a dose, this is your medication for the prevention of blood clots. > If you have not had a bowel movement by your 3rd post-operative day you will need to use a gentle over the counter laxative such as Milk of magnesia, Fiberlax, Miralax, etc. Bowels need to move within 3 days or take action. Rena Hose: > Help reduce the risk of blood clots and decrease swelling > To be worn bilaterally to the lower extremities for 30 days post-op > Patients can take their rena hose off for 1 hour for every 8 hours that they wear them You will be discharged with two pairs of RENA hose. Gel Ice Packs: > Change every 4 hours or as needed for swelling and pain for at least the first 2 weeks You will be discharged with six ice gel packs, and one ice gel compression wrap. Wound Care Instructions: Your incision is closed with Dermabond, this is a skin glue that will come off in time. You may shower with this after one week, however, do NOT saturate or submerge extremity in water (i.e. Bathtub, hot tub, etc.) until cleared by the provider. At one week post op you may begin directly washing the incision. A big concern with this is cross contamination with a dirty part of the body, so we advise to do this with a clean cotton wash cloth and Dial antibacterial soap. Please do not scrub the incision, simply make 3-4 one directional passes down it. Rinse it well. Pat your incision dry, do not rub your incision with a towel. Do not place any lotions, ointments, creams or powder on your incision or operative leg until cleared by the provider. Do not pick at the glue. When applying your new ABD pad after showering as a reminder do not place any tape over you ABD pad. Your underware are to hold your pad in place. When to call us: If you have any concerns regarding your incision, please contact the office immediately. This includes areas of redness, drainage, or concerns for opening in the incision. You will be discharged with a box of 25 ABD pads. Ambulation: > Weight bearing status as tolerated. For Hip Replacements: > No formal physical therapy, walking is the patients best therapy, unless otherwise noted. > General Hip Precautions Post op (unless otherwise noted from the doctor): * Do not cross legs at knee or ankles * Do not bend past 90 degrees * Do not twist * May roll to side with pillow between legs Hip Precautions: Dr. Keane's office number is [phone], option #2 for the nurse. We want to hear from you if you are having any concerns related to the surgery. If after hours, please be assured that we are still available to you! Simply contact the [facility] hospital number, and ask for Dr. Keane's on-call provider. You will be in touch with a provider within 30 minutes. Common reasons to contact us: > Redness, drainage or swelling at the incision site that is out of the ordinary from post-operative findings. Minor redness, bruising, swelling and warmth around the entire joint are common post-operatively. Some scant/scattered drainage can be normal as well. If it is persistent, or greater than the size of a dime, call us. >If applicable to your surgery, please contact us at any time if there is a concern with the drain or ONQ pump. This includes any concerning bleeding around the site, disconnection of the tubing, malfunctioning of the drain or pump, concern for drain appearance, etc. Please also alert us to any problems with drain removal or concerns post-removal, including inability to remove or continued drainage after removal. >If you had a total knee replacement and your ROM is < 90 degrees upon admission to home health or at any time during recovery period (unless specifically limited per the providers). > Any falls or injuries > Patient non-compliance with assistive devices during gait > Fever that is > 101 degrees. For low grade fevers use Incentive Spirometry @ 10 puffs per hour and Tylenol as directed The morning after your discharge, Dr. Keane's office will contact you to follow up with how your recovery is progressing at home. Anesthesia Precautions & Expectations: After anesthesia, rest for [address], drink alcoholic beverages or make any important decisions during this time. General anesthesia may cause a sore throat, jaw discomfort or muscle aches. These symptoms can last for one or two days. documented in this encounter [facility] 03-25-2025 Nurse Note Menu provided. [facility] Up to restroom with PT, walker. Gait belt on. [facility] 03-25-2025 Nurse Note Markell PT working with patient [facility] 03-25-2025 Nurse Note Karma SAGASTUME nurse navigator at bedside talking with patient. [facility] 03-25-2025 Nurse Note Markell PT at bedside to see patient. [facility] 03-25-2025 Nurse Note Patient transported to PACU with Juan M FOSTER and RN boilermaker's assistant. Reports given to Rowena SAGASTUME at 0937H. OR 3 Temp 67.5F Humidity 43.6% documented in this encounter [facility] 03-25-2025 Nurse Surgical operation note Patient transported to PACU with Juan M FOSTER and RN boilermaker's assistant. Reports given to Rowena SAGASTUME at 0937H. [facility] 03-25-2025 Nurse Surgical operation note OR 3 Temp 67.5F Humidity 43.6% [facility] 02-26-2025 Nurse Note 02/26/25 0956 Referral Information Arrived From home or self-care Information Source Information Source patient Contact Information This Architectural Administrative Assistant is Primary Mixer Operator Hot Metal/SW Yes Mixer Operator Hot Metal Name Karma Villa RN3d technologist's Living Environment Lives With spouse Living Arrangement and Set Up house (one level living, two steps to enter the home) Provides Primary Care For no one Primary Care Provided By self Support System Immediate family;Extended family;Friends Able to Return to Prior Arrangements yes Functional Status Patient's Functional Status Prior To This Admission? Independent Concerns With Patient Being Able To Care For Themselves At Discharge? Has Assistance (Friend, Family, Skilled Provider) Employment/Financial Employed? No Employment/Financial Concerns no Financial Concerns none Initial Discharge Planning DME (FRANCHISE DEVELOPMENT MANAGER) Walker (Has FWW) Patient Goal for Discharge Return home with assistance from family and friends (July travel, in and out of inground pool, normal walking) Expected Discharge Disposition Home Anticipated Services at Discharge Outpatient follow up Transportation Available car;family or friend will provide Assessment/Concerns to be Addressed Concerns To Be Addressed no discharge needs identified;denies needs/concerns at this time CM met with patient this date to discuss post-surgical discharge plans. Patient states the plan is to discharge home with family/friends assistance. Patient has a wheeled walker. Patient denies any other questions or needs at this time. CM to continue to follow and assist with discharge plans. [facility] 02-26-2025 History of Present illness Narrative PAT- ADDITIONAL QUESTIONS Reviewed medication list with patient, asked and added any additional medicines, vitamins, supplements and diet pills or appetite suppressants to the patient Med Review. Also Reconciled Medications from outside sources to Med Review. Patient verified Med Review is accurate. yes IF pt is taking GPL-1 Agonists: Have they had a dosage change in the previous 2 weeks or complaints of N/V? Weekly Medicine: May continue if no change in dose in the previous 2 weeks and no complaints of N/V. If N/V and or change in dose will need to hold one week prior. Daily Medicine: May continue if no change in dose in the previous 2 weeks and no complaints of N/V. If N/V and or change in dose will need to hold 24 hours prior to Surgery N/a HISTORY OF ANGIOEDEMA IF YES, TRIGGERS? C1-esterase inhibitor (C1-INH) gene? No; pt states has facial flushing every evening not associated with taking medications, or alcoholic beverage or activity PATIENT HISTORY OF BLOOD CLOTS no FAMILY HISTORY OF BLOOD CLOTS OR BLOOD DISORDER no ACTIVITY TOLERANCE (MET LEVEL) >4mets CHEST PAIN (SEE ADDITIONAL CHEST PAIN QUESTIONNAIRE IF APPLICABLE) no HISTORY OF HEART CATH/STENT PLACEMENT no RECENT COLD/FLU/PNEUMONIA, FEVER, COUGH? Sinus congestion related to weather PATIENT HISTORY OF ANESTHESIA COMPLICATION (PONV, PROLONGED SEDATION, MALIGNANT HYPERTHERMIA, etc. ) no FAMILY HISTORY OF ANESTHESIA COMPLICATION (PONV, PROLONGED SEDATION, MALIGNANT HYPERTHERMIA, etc. ) no DIFFICULT IV PLACEMENT no LIMB RESTRICTIONS no MEDICAL IMPLANTS (DIABETIC, NERVE STIMULATORS, POWER PORTS, LOOP RECORDER, ETC) Pin in cervical area (C-2) MEDICAL CLEARANCE, CARDIOLOGY CLEARANCE Shaye JOHNSTON (Mehdi Kearney)-Eloisa 03/03 HISTORY OF ANTIBIOTIC RESISTANT BACTERIAL INFECTION (MRSA, C-DIFF) no VISION (glasses, contacts, or other impairments) Reading glasses HEARING AIDS OR ANY TROUBLE HEARING no DIFFICULTY SWALLOWING no DENTAL APPLIANCES OR PROBLEMS (dentures, partials, loose teeth, missing teeth, broken teeth, caps or crowns) Denies any problems with teeth or has current oral abscess/infection. 4 crowns BETA MAYCOL USE yes STEROIDS IN THE PAST YEAR no HISTORY OF BLOOD TRANSFUSION/REACTION no DIETARY RESTRICTIONS no Have you been diagnosed with a concussion in the past 6 months? no CONCERNS FOR PERSONAL SAFETY no CULTURAL OR LUTHERAN BELIEFS THAT WILL AFFECT CARE no ADVANCE DIRECTIVES Living will and health care POA-not on file IF PATIENT HAS NOT BEEN DIAGNOSED WITH SLEEP APNEA PLEASE COMPLETE STOP-BANG STOP Do you SNORE loudly (louder than talking or loud enough to be heard through closed doors)? yes Has anyone OBSERVED you stop breathing during your sleep? no Do you often feel TIRED, fatigued, or sleepy during daytime? no Do you have or are you being treated for high blood PRESSURE? yes BMI more than 35kg/m2? no AGE over 50 years old? yes NECK circumference > 16 inches (40 cm)? GENDER: Male? no TOTAL SCORE 3 PT ACCEPTED REFERRAL Patient is at risk for sleep apnea and declined pulmonary consult referral at this PAT visit. High risk of THOMAS: Yes 5-8 Intermediate risk of THOMAS: Yes 3-4 Low risk of THOMAS: Yes 0-2 * See DEPARTMENT OF SURGERY AND ANESTHESIA REFERRAL FOR SLEEP STUDY AND/OR PULMONARY CONSULT paper form signed by patient in chart. Phone review done to verify procedure and surgery date with patient. Reviewed pt history and medications with patient. Patient made aware that we will go over pre-op med instructions during PAT visit prior to attending joint camp. Encouraged pt to bring booklet from Dr Keane's office. Pt states understanding. documented in this encounter [facility] 02-26-2025 Instructions Man Sotelo RN - 02/26/2025 9:00 AM EDT Images from the original note were not included. Dr Keane's office will call you for your arrival time, 1-2 business days before your scheduled surgery. Please review your surgery checklist and bring your guide or booklet the day of surgery. Pre-Admission Testing Dept. [phone] Call if you have any changes in your medications, questions about your medication instructions or have additional health information you want added to your chart. Refer to the Pre-Op Bathing Instructions and use the wipes the night before surgery on pages 21-22. Please refer to pages 10-11 for additional medicines and supplements to avoid prior to surgery. STOP any NSAIDs (Ibuprofen, Motrin, Aleve, Advil, etc.), herbal supplements, vitamins, diet pills, appetite suppressants, energy drinks and essential oils 7 days before surgery or as instructed by your physician. *If you are prescribed any new medicines between your PAT appointment and your surgery date, please call the PAT office for specific instructions regarding you new medicines.* No alcohol during the 48-hours prior to your surgery. No illicit drugs during the 5 days prior to your surgery. Nothing by mouth after midnight except for 16 ounces of water or Gatorade/powerade which can be consumed up until you leave for the hospital. DIRECTIONS: Park in the [facility] facing [address]. Enter through the front entrance and sign in at the Registration Desk at the [facility]. Thank you for allowing us the privilege to care for you! *If you are prescribed any new medicines between your PAT appointment and your surgery date, please call the PAT office for specific instructions regarding you new medicines.* Please record date and time of your medications on this sheet and bring this with you on the day of surgery. Yellow - take the day of surgery [place] - hold according to the doctor's instructions or pre-admission testing instructions Current Outpatient Medications Medication Instructions Atorvastatin 20 MG tablet Take 1 tablet by mouth daily. PM CONTINUE SCHEDULED LAST DOSE: DATE TIME __ bisoprolol-hydrochlorothiazide 5-6.25 MG tablet Take by mouth daily every morning. CONTINUE AND TAKE THE MORNING OF SURGERY WITH SIP OF WATER LAST DOSE: DATE TIME __ Celecoxib 200 MG capsule Take 1 capsule by mouth 2 times daily as needed. CONTINUE but DO NOT take the morning of surgery LAST DOSE: DATE TIME __ cholecalciferol 10 MCG (400 UNIT) tablet daily. STOP 7 DAYS BEFORE YOUR SURGERY LAST DOSE: DATE TIME __ Ibuprofen-diphenhydrAMINE Cit (Ibuprofen PM) 200-38 MG tablet Take by mouth as needed. STOP 7 DAYS BEFORE YOUR SURGERY LAST DOSE: DATE TIME __ Levothyroxine 100 MCG tablet Take 1 tablet by mouth every morning before breakfast. CONTINUE AND TAKE THE MORNING OF SURGERY WITH SIP OF WATER LAST DOSE: DATE TIME __ melatonin capsule Take 2 capsules by mouth at bedtime as needed. STOP 7 DAYS BEFORE YOUR SURGERY LAST DOSE: DATE TIME __ Meloxicam 15 MG Tab Dispersible Take 1 tablet by mouth as needed. STOP 7 DAYS BEFORE YOUR SURGERY LAST DOSE: DATE TIME __ Multiple Vitamins-Minerals (WOMENS 50+ MULTI VITAMIN/MIN PO) Take by mouth daily. STOP 7 DAYS BEFORE YOUR SURGERY LAST DOSE: DATE TIME __ omeprazole [address] capsule Take 1 capsule by mouth daily. PM CONTINUE SCHEDULED LAST DOSE: DATE TIME __ Polyethylene glycol 17 g Pack packet Take 1 packet by mouth daily. CONTINUE but DO NOT take the morning of surgery LAST DOSE: DATE TIME __ documented in this encounter [facility] 01-07-2025 History of Present illness Narrative Ortho Nurse - Established Patient Intake Room#: Room 1---PAINT TRIMMER PIPE BOWLS- PAINT TRIMMER PIPE BOWLS Referral from Dr. Amaral for: Evaluate and treat L hip OA. Ready to discuss surgery. Pt requesting anterior approach. Patient states the pain has been going on for a couple years now. No conservative measures. No recent falls for injuries. She rates her pain 12/29 Denies nicotine Date: 01/07/2025 1:11 PM Patient: Eugene Rogers MR#: [id number] : 1950 Age: 74 y.o. Referring Physician: Gonzalo Amaral Jr., DO Insurance: Payor: MEDICARE / Plan: MEDICARE A AND B / Product Type: *No Product type* / Chief Complaint Patient presents with Left Hip - Pain There were no vitals taken for this visit. Pain 1. Are you having pain? 2. On a scale from 1-10: Recent Labs No results found for: CRP No results found for: SEDRATE No results found for: WBC , WBCCOUNT , WBCFETAL , HGB , HCT , PLATELET , MCV History No past medical history on file. No past surgical history on file. Family History: Her family history is not on file. Social History: Her has no history on file for tobacco use, alcohol use, and drug use. No outpatient medications prior to visit. No facility-administered medications prior to visit. Allergies: She has no allergies on file. HPI: Eugene is here, with her , as new patient of mine. She is referred from Dr. Amaral for left hip pain. She is noticing that she is slowing down during daily activities. Primary complaint is pain, impairment and a decrease in quality of life secondary to the left hip pain. The pain radiates in the groin and laterallyand is not associated with numbness or tingling. She is experiencing locking, popping, catching and clicking. She has attempted and failed various methods of conservative treatment in the past. Her pain is a 3 on a 10 point scale today. 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 PHYSICAL EXAM: This is an alert, oriented, and age-appropriate female. She is in no distress. Pleasant and cooperative. EXTREMITIES: The upper extremities have no gross deformity. Normal stability. 5/5 motor. Intact sensation. Normal coordination. Skin intact. Lower extremities have no gross deformity. Slightly unsteady during on leg stance, walks slightly hunched over. 5/5 motor. Intact sensation. Normal coordination. Skin intact. left hip demonstrates Normal flexion, minimal internal rotation, WNL external rotation with replication of symptoms. Painful range of motion. Contralateral hip has full and supple motion. No pain. No impingement. No instability. Normal neurovascular status in lower extremities bilaterally. IMAGING: Plain film radiographs were reviewed. AP hip and pelvis series demonstrate severe arthritis to left hip, loss of joint space, subchondral sclerosis, osteophyte formation, and [id number] contact. There is calcific tendonitis concerning for an abductor partial thickness tearing and fatty atrophy. IMPRESSION: Severe symptomatic end-stage arthritis, left hip PLAN: We have discussed in great detail the nature of the diagnosis, the natural history and expected progression which is likely worsening pain, instability with risks of falls, and additional joint wear and or bone loss. We have discussed the options for treatment including both conservative and operative treatments. We have discussed the risks, benefits, and alternatives to each treatment. Eugene is interested in surgical management in the form of a left total hip replacement. Eugene understands that the potential benefits are reduced pain, improved stability and improved function. Eugene also understands that the major life or limb threatening risks include, but are not limited to: bleeding, infection, neurovascular injury including foot drop or paralysis, dislocation, component failure, implant loosening, leg length inequality, ligament or tendon disruption, fracture, stiffness, chronic pain, chronic limp, chronic disability, need for further surgery, blood clots in the extremities or lungs, stroke, heart attack, loss of limb, and ultimately loss of life. care home expectations, risks and general implant survivorship were also discussed. Despite these risks, the patient would like to proceed with surgical planning. Today, we will initiate the pre-surgical process including nasal MRSA screening, scheduling an appointment for [facility] and the potential surgical date, and reviewing and signing the consent forms. We will decide the approach after MRI results are availble. I have reviewed the findings of my clinical staff below and agree with their assessment. Vitals: 01/07/25 1313 Weight: 73.6 kg (162 lb 3.2 oz) Height: 1.727 m (5' 8 ) Pain Recent Labs No results found for: CRP No results found for: SEDRATE No results found for: WBC , WBCCOUNT , WBCFETAL , HGB , HCT , PLATELET , MCV Past Medical History: Diagnosis Date Arthritis Essential hypertension, benign Hyperlipidemia Hypothyroidism Past Surgical History: Procedure Laterality Date NECK SURGERY Midline 06/2012 c2 History reviewed. No pertinent family history. Social History Socioeconomic History Marital status: Tobacco Use Smoking status: Never Smokeless tobacco: Never Vaping Use Vaping status: Never Used Substance and Sexual Activity Alcohol use: Not Currently Current Outpatient Medications: bisoprolol-hydrochlorothiazide 5-6.25 MG tablet, Take by mouth., Disp: , Rfl: Ibuprofen-diphenhydrAMINE Cit (Ibuprofen PM) 200-38 MG tablet, Take by mouth., Disp: , Rfl: Celecoxib 200 MG capsule, Take 1 capsule by mouth Twice daily., Disp: , Rfl: cholecalciferol 10 MCG (400 UNIT) tablet, daily., Disp: , Rfl: Allergies Allergen Reactions Niacin-Lovastatin Other Reaction(s): Unknown documented in this encounter [facility] 12-30-2024 History of Present illness Narrative Images from the original note were not included. HISTORY OF PRESENT ILLNESS: EST PT Eugene Rogers is an 74 y.o. @ female. EST PT RECHECK LT HIP PAIN- HERE TO DISCUSS POSSIBLE ALESHIA (PER DENNIS) XRAY LT HIP TODAY 12/15/24 XRAY LT HIP CHANGE 12/05/23 XRAY LT HIP EXA 01/17/23 XRAY 08/02/22 EXA (UNAVAILABLE) NO MRI DEXA SCAN 04/2023 [facility] NO CORTISONE INJ NO MDP/PREDNISONE NO PHYSICALTHERAPY NO PAIN MANAGEMENT PAIN X 2 YEARS- ADMITS LIMPING- DIFFICULTY GETTING OUT OF BED AND WITH SIT TO STAND- PAIN OVER LATERAL HIP AND BUTTOCK- DESCRIBES ACHING- + WEAKNESS- DENIES N/T- TAKING IBU PM- TAKES ALEVE/IBU/MELOXICAM/CELEBREX/TYLEN OL- ALLERGIES: No Known Allergies HOME MEDICATIONS: Current Outpatient Medications Medication Instructions atorvastatin (Lipitor) 20 MG tablet Every 24 hours bisoprolol-hydroCHLOROthiazide (Ziac) 5-6.25 MG tablet Every 24 hours cholecalciferol (Vitamin D-3) 10 MCG (400 UNIT) tablet Every 24 hours levothyroxine (Synthroid, Levoxyl) 100 MCG tablet Oral, Daily before breakfast Multiple Vitamins-Minerals (Centrum Adults) tablet as directed Orally omeprazole (PriLOSEC) [address] capsule PHYSICAL EXAM: Hip Musculoskeletal Exam Gait Antalgic: left Inspection Leg length disparity: no discrepancy Left Erythema: none Ecchymosis: none Edema: none Deformity: none Palpation Left Increased warmth: none Tenderness: present Greater trochanteric region pain: mild Pubic rami pain: mild Lower lumbar region pain: mild Range of Motion Left Left hip range of motion is within functional limits. Active ROM: pain. Passive ROM: pain. Active extension: 15. Passive extension: 15. Active flexion: 80. Passive flexion: 80. Active internal rotation: 20. Passive internal rotation: 20. Active external rotation: 35. Passive external rotation: 35. Active adduction: 15. Passive adduction: 15. Active abduction: 20. Passive abduction: 20. Range of motion additional comments: Terminal motion on IR and ER limited by pain. Strength Left Left hip strength is normal. Extension: 5/5. Flexion: 4+/5. Flexion is affected by pain. Internal rotation: 5/5. External rotation: 5/5. Adduction: 5/5. Abduction: 4+/5. Abduction is affected by pain. Neurovascular Left Left hip neurovascular exam is normal. Pulses - PT: normal Posterior tibial: 2+ Special Tests Left Log roll test: positive General Constitutional: appears stated age Labored breathing: no Psychiatric: normal mood and affect Neurological: alert and oriented x3 Skin: intact Lymphadenopathy: none Vitals: There is no height or weight on file to calculate BMI. Tobacco Use: Low Risk (12/15/2024) Patient History Smoking Tobacco Use: Never Smokeless Tobacco Use: Never Passive Exposure: Not on file Alcohol Use: Unknown (12/05/2023) AUDIT-C Frequency of Alcohol Consumption: 2-4 times a month Average Number of Drinks: Not on file Frequency of Binge Drinking: Not on file IMAGING: Procedures Orders Placed This Encounter Procedures Ambulatory referral to Orthopaedic Surgery EVAL AND TREAT LT HIP OA, PT REQUESTING ANTERIOR APPROACH. Standing Status: Future Standing Expiration Date: 07/02/2025 Referral Priority: Routine Referral Type: Consultation Referral Reason: Consult and Treat Referred to Provider: Manjit Keane MD Requested Specialty: Orthopaedic Surgery Number of Visits Requested: 1 ASSESSMENT: ICD-10-CM 1. Primary osteoarthritis of left hip M16.12 Ambulatory referral to Orthopaedic Surgery PLAN: We have discussed her symptoms, physical exam, and x-rays today in the office. We have recommended that she follow-up with Dr. Manjit Keane for anterior approach left total hip arthroplasty. We have discussed her restrictions in her home exercise program in the interim. Questions answered in laymen terms at the bedside. The diagnosis, home exercise plan and any ongoing restrictions/ recommendations reviewed. If unable to be reached in office, I recommend evaluation at nearest Emergency Room if any symptoms worsened or new symptoms develop for requiring urgent evaluation. documented in this encounter [facility] 12-15-2024 History of Present illness Narrative Images from the original note were not included. HISTORY OF PRESENT ILLNESS: EST PT Eugene Rogers is an 74 y.o. @ female. EST PT WITH LT KNEE PAIN ~1YR- NO KNOW INJURY - XRAY LT KNEE TODAY EPIC 12/15/24 PAIN LATERAL ASPECT- DENIES SWELLING- OCCASIONAL INSTABILITY- INCREASE PAIN WITH COLD DAMP WEATHER- +STIFFNESS WITH PROLONG SITTING- PAIN GENERALLY WITH WB ACTIVITY- SOME SHOOTING PAIN- SLEEPS WITH PILLOW UNDER LEG- TRIED CELEBREX/MELOXICAM; MINIMAL RELIEF - +ALEVE; SOME RELIEF *LT HIP* EST PT RECHECK LT HIP PAIN- 6MO F/U- LAST VISIT 06/16/[address] AMARAL XRAY LT HIP TODAY EPIC 12/15/34 XRAY LT HIP CHANGE 12/05/23 XRAY LT HIP EXA 01/17/23 XRAY 08/02/22 EXA (UNAVAILABLE) NO MRI DEXA SCAN 04/2023 [facility] NO CORTISONE INJ NO MDP/PREDNISONE CONTINUES TO HAVE PAIN ALLERGIES: No Known Allergies HOME MEDICATIONS: Current Outpatient Medications Medication Instructions atorvastatin (Lipitor) 20 MG tablet Every 24 hours bisoprolol-hydroCHLOROthiazide (Ziac) 5-6.25 MG tablet Every 24 hours cholecalciferol (Vitamin D-3) 10 MCG (400 UNIT) tablet Every 24 hours levothyroxine (Synthroid, Levoxyl) 100 MCG tablet Oral, Daily before breakfast Multiple Vitamins-Minerals (Centrum Adults) tablet as directed Orally omeprazole (PriLOSEC) [address] capsule PHYSICAL EXAM: Left Knee Exam Tenderness The patient is experiencing tenderness in the patella. Range of Motion Extension: 0 Flexion: 120 Tests Varus: negative Valgus: negative Other Sensation: normal Pulse: present Swelling: none Left Hip Exam Tenderness The patient is experiencing tenderness in the anterior, posterior and lateral. Range of Motion External rotation: 20 Internal rotation: 10 Muscle Strength Abduction: 4/5 Adduction: 4/5 Flexion: 4/5 Other Erythema: absent Left hip sensation: radicular pain. Pulse: present Vitals: Body mass index is 23.57 kg/m . Tobacco Use: Low Risk (12/15/2024) Patient History Smoking Tobacco Use: Never Smokeless Tobacco Use: Never Passive Exposure: Not on file Alcohol Use: Unknown (12/05/2023) AUDIT-C Frequency of Alcohol Consumption: 2-4 times a month Average Number of Drinks: Not on file Frequency of Binge Drinking: Not on file IMAGING: XR knee 1 or 2 views left Imaging Result: 12/15/2024: AP and lateral views of left knee showed mild decreased medial joint space, flattening of the articular surfaces to the medial joint line and bone on bone patellofemoral arthritis. Subchondral sclerosis was noted at the medial joint line surfaces as well as the patellofemoral joint. Atherosclerosis noted. Osteophytic formation was noted medially on poles of patella. There is no evidence of fracture or dislocation. 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 There is spurring at the inferior medial aspect of the femoral acetabular junction. There was severe decrease in joint space height. There was no acute bony process including but not limited to, fracture and/or dislocation. Impression Severe degenerative joint disease, left hip Dennis Rai APRN-FACING SLITTER Procedures Orders Placed This Encounter Procedures XR knee 1 or 2 views left Order Specific Question: Reason for exam: Answer: PAIN XR hip left 2 or 3 views Order Specific Question: Reason for exam: Answer: PAIN ASSESSMENT: ICD-10-CM 1. Primary osteoarthritis of left hip M16.12 XR hip left 2 or 3 views 2. Acute pain of left knee M25.562 XR knee 1 or 2 views left 3. Primary osteoarthritis of left knee M17.12 4. Left hip pain M25.552 PLAN: I reviewed xray findings with the patient of both the left hip and knee. I discussed treatment options, answered questions. I believe that most of the patients pain is coming from her hip. I discussed multiple treatment options including IA injection and ALESHIA. Patient states that she would like to further discuss LT ALESHIA with Dr. Amaral. Questions answered in laymen terms at the bedside. The diagnosis, home exercise plan and any ongoing restrictions/ recommendations reviewed. If unable to be reached in office, I recommend evaluation at nearest Emergency Room if any symptoms worsened or new symptoms develop for requiring urgent evaluation. Dennis Rai APRN-FACING SLITTER documented in this encounter [facility] 06-16-2024 History of Present illness Narrative Images from the original note were not included. HISTORY OF PRESENT ILLNESS: EST PT Eugene Luther Rogers is an 73 y.o. @ female. EST PT RECHECK LT HIP PAIN- 6MO F/U- DOING WELL XRAY LT HIP CHANGE 12/05/23 XRAY LT HIP EXA 01/17/23 XRAY 08/02/22 EXA (UNAVAILABLE) NO MRI DEXA SCAN 04/2023 [facility] NO CORTISONE INJ NO MDP/PREDNISONE NO PREVIOUS TX NOTES INTERMITTENT DISCOMFORT- SYMPTOMS WITH WEATHER CHANGE- GOOD ROM- +CELEBREX - SYMPTOMS TOLERABLE Rt Shoulder: EST PT RECHECK RT SHOULDER PAIN- 6MO F/U XRAY RT SHOULDER AND LT HIP EXA 01/17/23 (CAN VIEW IN XRAY) XRAY EXA 01/25/22 (UNAVAILABLE) XRAY [facility] 04/11/21 MRI RT SHOULDER 06/06/22 EXA DEXA SCAN CORTISONE INJ 06/08/21, 01/25/22, 05/31/22 NO MDP/PREDNISONE NO PT HEP NO PAIN MANAGEMENT DOING WELL- NOTES SOME CLICKING- GOOD ROM- GOOD STRENGTH- PT STATES SYMPTOMS ARE TOLERABLE ALLERGIES: No Known Allergies HOME MEDICATIONS: Current Outpatient Medications Medication Instructions atorvastatin (Lipitor) 20 MG tablet Every 24 hours bisoprolol-hydroCHLOROthiazide (Ziac) 5-6.25 MG tablet Every 24 hours cholecalciferol (Vitamin D-3) 10 MCG (400 UNIT) tablet Every 24 hours ferrous sulfate (FEROSUL) 325 mg, Oral, Daily with breakfast levothyroxine (SYNTHROID, LEVOXYL) 100 mcg, Oral, Daily before breakfast Multiple Vitamins-Minerals (Centrum Adults) tablet as directed Orally omeprazole (PriLOSEC) [address] capsule PHYSICAL EXAM: Hip Musculoskeletal Exam Gait Gait is normal. Inspection Leg length disparity: right greater than left Left Erythema: none Ecchymosis: none Edema: none Deformity: none Previous incision: no previous incision Palpation Left Increased warmth: none Tenderness: present Greater trochanteric region pain: moderate Pubic rami pain: none Lower lumbar region pain: none Range of Motion Left Active ROM: abnormal and no pain. Passive ROM: abnormal and no pain. Active extension: 10. Passive extension: 5. Active flexion: 30. Active internal rotation: 5. Passive internal rotation: 10. Active external rotation: 10. Passive external rotation: 15. Active adduction: 10. Passive adduction: 15. Active abduction: 10. Passive abduction: 15. Strength Left Flexion: 5/5. Internal rotation: 5/5. External rotation: 5/5. Adduction: 5/5. Abduction: 5/5. Neurovascular Left Left hip neurovascular exam is normal. Sensation: sural, saphenous, tibial, superficial peroneal and deep peroneal Dorsalis pedis: 2+ Posterior tibial: 2+ Special Tests Left Log roll test: positive Impingement test: positive Trendelenburg test: positive Internal rotation: positive External rotation: positive Shoulder Musculoskeletal Exam Inspection Right Ecchymosis: none Peripheral edema: none Atrophy: mild Deformity: AC joint prominence Masses: none Skin tenting: none Prior incision: none Palpation Right Crepitus: moderate Increased warmth: none Tenderness: none Range of Motion Right Active ROM: abnormal and no pain. Passive ROM: abnormal and no pain. Active forward elevation: 90. Shoulder active abduction: 90. Active external rotation at side: 30. Active external rotation in abduction: 30. Active internal rotation in abduction: 30. Internal rotation: side. Strength Right External rotation: 3/5. Internal rotation: 4+/5. Abduction: 3/5. Biceps: 4/5. Triceps: 4/5. Neurovascular Right Radial pulse: normal and 2+ Capillary refill: brisk Axillary nerve sensory distribution: normal Ulnar nerve sensory distribution: normal Median nerve sensory distribution: normal Radial nerve sensory distribution: normal Musculocutaneous nerve sensory distribution: normal Scapula Right Position: normal Dyskinesia: none Winging: none Special Tests Right Rotator Cuff Signs Neer's test: positive Leon test: positive Supraspinatus: positive Lift-off sign: positive Biceps/mary Signs Arroyo's test: positive Speed's test: positive AC Joint Signs Active horizontal adduction pain: positive Vitals: There is no height or weight on file to calculate BMI. Tobacco Use: Low Risk (06/16/2024) Patient History Smoking Tobacco Use: Never Smokeless Tobacco Use: Never Passive Exposure: Not on file Alcohol Use: Unknown (12/05/2023) AUDIT-C Frequency of Alcohol Consumption: 2-4 times a month Average Number of Drinks: Not on file Frequency of Binge Drinking: Not on file IMAGING: Procedures No orders of the defined types were placed in this encounter. ASSESSMENT: ICD-10-CM 1. Primary osteoarthritis of left hip M16.12 2. Shoulder arthritis M19.019 PLAN: We have answered all the patients questions and explained the patients condition, decision making and plan including the risks and benefits associated with said plan in layman''s terms in a language the patient could understand easily. If patient''s symptoms significantly worsen and they cannot get a hold of us or their family physician, we have recommended that the patient proceed to the nearest emergency department (room). Dr. Amaral obtained history and examined the patient, I am acting as scribe for Dr. Amaral/evonne, PLAN: 1. We have reviewed prior (L) hip xrays. She appears to have lost slight ROM from prior examination. She is refusing to entertain the thought of surgical intervention as she feels she Is functioning too well at this time. 2. We have reviewed prior (R) shoulder xrays. Exam appears to be the same as prior exam ; she feels she is functioning too well at this time to entertain the thought of surgical intervention. She is understanding she is unable to take additional NSAIDs when she takes Celebrex, as she admits she has been taking Motrin with Celebrex. We have discussed her HEP and restrictrions and will see her back in 6 months to reassess her left hip and right shoulder with repeat xrays. Gonzalo Amaral D.O. documented in this encounter [facility] Evaluation + Plan note Future Appointments Appointment Date:04/10/2024 09:30:00 AM Scheduled Provider: Location:[facility] Appointment Type: Medicare Wellness Subsequent Future Scheduled TestsBasic Metabolic Panel 04/02/23ALT 04/02/23AST 04/02/23Lipid Panel 04/02/23Thyroid Stimulating Hormone 07/11/23Thyroid Stimulating Hormone 04/02/23 [facility] Evaluation + Plan note Future Appointments Appointment Date:01/07/2024 10:00:00 AM Scheduled Provider: Location:[facility] Appointment Type:FM Lab Draw Appointment Date:04/10/2024 09:30:00 AM Scheduled Provider: Location:[facility] Appointment Type: Medicare Wellness Subsequent [facility] Evaluation + Plan note Future Appointments Appointment Date:02/18/2024 09:20:00 AM Scheduled Provider: Location:[facility] Appointment Type:FM Lab Draw Appointment Date:04/10/2024 09:30:00 AM Scheduled Provider: Location:[facility] Appointment Type: Medicare Wellness Subsequent [facility] Evaluation + Plan note Future Appointments Appointment Date:04/10/2024 09:30:00 AM Scheduled Provider: Location:[facility] Appointment Type: Medicare Wellness Subsequent [facility] Evaluation + Plan note Future Appointments Appointment Date:03/31/2025 11:00:00 AM Scheduled Provider: Location:[facility] Appointment Type: Medicare Wellness Subsequent Diagnostic Tests PendingHCV Antibody RFX to Quant PCR 07/25/24 [facility] Evaluation + Plan note Future Appointments Appointment Date:04/10/2024 09:30:00 AM Scheduled Provider: Location:[facility] Appointment Type: Medicare Wellness Subsequent Future Scheduled TestsBasic Metabolic Panel 04/02/23ALT 04/02/23AST 04/02/23Lipid Panel 04/02/23Thyroid Stimulating Hormone 07/11/23Thyroid Stimulating Hormone 04/02/23 [facility] Evaluation + Plan note Future Appointments Appointment Date:06/03/2025 01:00:00 PM Scheduled Provider: Location:[facility] Appointment Type: Medicare Wellness Subsequent Appointment Date:06/03/2025 02:00:00 PM Scheduled Provider:Carmen Cerda Location:[facility] Appointment Type:FM Open Diagnostic Tests PendingUrine Culture 04/02/25 [facility] Evaluation + Plan note Future Appointments Appointment Date:05/01/2025 09:00:00 AM Scheduled Provider:Carmen Cerda [facility] Type:FM Open Appointment Date:06/03/2025 01:00:00 PM Scheduled Provider: Location:[facility] Appointment Type: Medicare Wellness Subsequent Appointment Date:06/03/2025 02:00:00 PM Scheduled Provider:Carmen Cerda Location:[facility] Appointment Type:FM Open Diagnostic Tests PendingUrine Culture 04/17/25 [facility] Evaluation + Plan note Future Appointments Appointment Date:05/01/2025 09:00:00 AM Scheduled Provider:Carmen Cerda Location:[facility] Appointment Type:FM Open Appointment Date:06/03/2025 01:00:00 PM Scheduled Provider: Location:[facility] Appointment Type:FM Medicare Wellness Subsequent Appointment Date:06/03/2025 02:00:00 PM Scheduled Provider:Carmen Cerda Location:[facility] Appointment Type:FM Open [facility] Evaluation note Diagnosis Primary osteoarthritis of left hip- Primary Shoulder arthritis Unspecified arthropathy, shoulder region documented in this encounter [facility] HealthcareEvaluation [facility]* Diagnosis Primary osteoarthritis of left hip- Primary Acute pain of left knee Primary osteoarthritis of left knee Left hip pain Pain in joint, pelvic region and thigh documented in this encounter [facility] HealthcareEvaluation note* Diagnosis Primary osteoarthritis of left hip documented in this encounter [facility] HealthcareEvaluation note* Diagnosis Left hip pain- Primary Pain in joint, pelvic region and thigh Osteoarthritis of left hip, unspecified osteoarthritis type [facility] Preop testing- Primary Preoperative examination, unspecified Alteration in blood glucose level Pain in other specified joint Osteoarthritis of left hip, unspecified osteoarthritis type [facility] noteNo assessment information availableSt. [facility] Work Phone: Evaluation note* Diagnosis Acute postoperative pain of left hip- Primary Osteoarthritis of left hip, unspecified osteoarthritis type [facility] Diagnosis Hx of total hip arthroplasty, left- Primary [facility] N[facility] No data available for this section [facility] No data available for this section [facility] No data available for this section [facility] N[facility]ative* Diagnostic X-Ray (Routine) - New Request Specialty Diagnoses / Procedures Referred By Danny t Referred To Contact Diagnoses Left hip pain Procedures XR HIP WITH PELVIS LEFT Manjit Keane MD [address] [place] [id number] Phone: tel: fax: Referral ID Status Reason Start Date Expiration Date V isits Requested Visits Authorized [id number] New Request 01/06/2025 01/31/2026 1 1 [employer]Reason for visit Narrative* MRI/CAT Scan (Routine) - Closed Specialty Diagnoses / Procedures Referred By Contac t Referred To Contact Diagnoses Left hip pain Procedures MRI HIP LEFT WITHOUT CONTRAST CHG MRI ANY JT LOWER EXTREM W/O CONTRAST MATRL Manjit Keane MD [address] [place] [phone] Phone: tel: fax: Referral ID Status Reason Start Date Expiration Date Visits Re quested Visits Authorized [id number] Closed 01/07/2025 02/01/2026 1 1 [employer] TechnologiesReason for visit Narrative* Auth/Cert Specialty Diagnoses / Procedures Referred By Contac t Referred To Contact Diagnoses Osteoarthritis of left hip, unspecified osteoarthritis type Osteoarthritis of left hip, unspecified osteoarthritis type [M16.12] Procedures RI ARTHRP ACETBLR/PROX FEM PROSTC AGRFT/ALGRFT ARTHROPLASTY HIP TOTAL ANTERIOR APPROACH Manjit Keane MD [address] [place] [phone] Phone: tel: fax: [employer] [address] [place] [phone] Referral ID Status Reason Start Date Expiration Date Visits Re quested Visits Authorized [id number] 1 1 [employer] TechnologiesReason for visit Narrative* Diagnostic X-Ray (Routine) - New Request Specialty Diagnoses / Procedures Referred By Contac t Referred To Contact Diagnoses Hx of total hip arthroplasty, left Procedures XR HIP WITH PELVIS LEFT Pastora Deluca, SANDRA-SMILEY [address] [place] [phone] Phone: tel: fax: Referral ID Status Reason Start Date Expiration Date V isits Requested Visits Authorized [id number] New Request 04/13/2025 05/08/2026 1 1 [employer] Summary Purpose Family History No Family History Records FoundNo Family History Records Found No data available for this section No data available for this section No data available for this section No data available for this section No data available for this section No Family History Records FoundNo Family History Records FoundNo Family History Records Found No data available for this section No data available for this section No Family History Records FoundNo Family History Records FoundNo Family History Records Found No data available for this section No Family History Records FoundNo Family History Records FoundNo Family History Records FoundNo Family History Records Found No data available for this section No Family History Records FoundNo Family History Records Found No data available for this section No Family History Records FoundNo Family History Records FoundNo Family History Records FoundNo Family History Records FoundNo Family History Records FoundNo Family History Records FoundNo Family History Records FoundNo Family History Records FoundNo Family History Records Found Advance Directives No Advanced Directives Records Found Advance Directive Response Recorded Date/ Time Advance Directives No November 4:22pm Documents on File Type Date Recorded 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 dical Specialist DATE CREATED AUTHOR AUTHOR'S ORGANIZ ATION 12/04/2022 [facility] DATE CREATED AUTHOR AUTHOR'S ORGANIZ ATION 07/27/2024 [facility] DATE CREATED AUTHOR AUTHOR'S ORGANIZ ATION 07/28/2024 [facility] DATE CREATED AUTHOR AUTHOR'S ORGANIZ ATION 01/01/2025 [facility] Specialists EPIC DATE CREATED AUTHOR AUTHOR'S ORGANIZ ATION 02/05/2025 [facility] DATE CREATED AUTHOR AUTHOR'S ORGANIZ ATION 03/23/2025 [facility] DATE CREATED AUTHOR AUTHOR'S ORGANIZ ATION 04/05/2025 [facility] DATE CREATED AUTHOR AUTHOR'S ORGANIZ ATION 04/07/2025 [facility] DATE CREATED AUTHOR AUTHOR'S ORGANIZ ATION 04/16/2025 [facility] DATE CREATED AUTHOR AUTHOR'S ORGANIZ ATION 04/18/2025 [facility] DATE CREATED AUTHOR AUTHOR'S ORGANIZ ATION 04/20/2025 [facility] DATE CREATED AUTHOR AUTHOR'S ORGANIZ ATION 06/05/2025 [facility] DATE CREATED AUTHOR AUTHOR'S ORGANIZ ATION 06/06/2025 [facility] DATE CREATED AUTHOR AUTHOR'S ORGANIZ ATION 06/07/2025 [facility] Patient Care team informatio n (unrecognized section and content) Mechanical Technologist Relationship Specialty Start Date End Date Antony Mitchell MD [address] [place] [address] PCP - General Family Medicine 03/01/23 Mechanical Technologist Relationship Specialty Start Date End Date Antony Mitchell MD [address] [place] [place] [address] PCP - General Family Medicine 03/01/23 Mechanical Technologist Relationship Specialty Start Date End Date Antony Mitchell MD [address] [place] [address] PCP - General Family Medicine 03/01/23 Mechanical Technologist Relationship Specialty Start Date End Date Antony Mitchell MD [address] [place] [address] PCP - General Family Medicine 03/01/23 Mechanical Technologist Relationship Specialty Start Date End Date Trent Nielsen MD [address] [place] [address] Referring Physician Family Medicine 12/30/24 Carmen Anderson MD [address] [place] [address] Referring Physician Family Medicine 12/30/24 Mechanical Technologist Relationship Specialty Start Date End Date Gifty Andersondi [address] [facility] [phone] PCP - General Certified Nurse Practitioner 01/06/25 Mechanical Technologist Relationship Specialty Start Date End Date Gifty Andersondi [address] [facility] [place] [phone] PCP - General Certified Nurse Practitioner 01/06/25 Mechanical Technologist Relationship Specialty Start Date End Date Gifty Andersondi [address] [facility] [place] [phone] PCP - General Certified Nurse Practitioner 01/06/25 Mechanical Technologist Relationship Specialty Start Date End Date JustinGiftydi [address] [place] [address] PCP - General Certified Nurse Practitioner 01/06/25 Team Status: Active Member Role Status Dates Carmen Anderson NP-C Primary Care Provider Active Team Status: Inactive Member Role Status Dates Nicole Goff APRN Attending Provider Active Start: March 20, 2025 End: March 20, 2025 Carmen Anderson PAINT TRIMMER [employer]-C Primary Care Provider Active Start: March 20, 2025 End: March 20, 2025 Team Status: Inactive Member Role Status Dates Nicole Goff APRN Attending Provider Active Start: March 20, 2025 End: March 20, 2025 Mechanical Technologist Relationship Specialty Start Date End Date [address]Gifty[address] [facility] [phone] PCP - General Certified Nurse Practitioner 01/06/25 Mechanical Technologist Relationship Specialty Start Date End Date JustinGiftydi [address] [facility] [address] PCP - General Certified Nurse Practitioner 01/06/25 Mechanical Technologist Relationship Specialty Start Date End Date Carmen Anderson [address] [place] [address] PCP - General Certified Nurse Practitioner 01/06/25 Reason for Visit (unrecogniz ed section and content) Reason Comments Pain Reason Comments Pain Reason Comments Pain Reason Comments Preoperative Nurse Assessment LTHA 03/25 S AF Reason Comments Post Op Visit Goals (unrecognized section and content) Goals may be documented in a n alternate section Scheduled Active and Recently Administ ered Medications (unrecognized section and content) Medication Order 03/23/2025 03/24/2025 03/25/2025 acetaminophen (TYLENOL) tablet 1,000 mg 1,000 mg, Oral, EVERY 6 HOURS NON-STANDARD, First dose on Sun03/25/25 at 1300, Until Discontinued, Maximum dose of acetaminophen is 4000 mg from all sources in 24 hours., Post-op/Post-Proc 1229 (Given - Provid er: Elin Lopez RN) Aspirin tablet delayed release 81 mg 81 mg, Oral, EVERY 12 HOURS, First dose on Sun03/26/25 at 0900, Until Discontinued, Start in AM day after surgery, Post-op/Post-Proc ceFAZolin (ANCEF) 2 g in dextrose 100 mL premix IVPB 2 g, Intravenous, Administer over 30 Minutes, EVERY 8 HOURS NON-STANDARD, 3 doses, First dose on Sun03/25/25 at 1600, Last dose on Sun03/26/25 at 0800, Post-op/Post-Proc 1600 ($$New Bag$$ - Provider: Elin Lopez RN) cloNIDine injection 150 mcg(Linked Group 1) 150 mcg (rounded from 147.2 mcg = 2 mcg/kg 73.6 kg Order-specific weight), Intra-articular, INTRA-OP ONCE, Starting on Sun03/25/25 at 0819, Until Sun03/25/25 at 1839, Intra-op/Intra-Proc 0820 (Given - Provid er: Vashti Hobson RN - Comment: Given by Dr. Keane, intraop.) dexAMETHasone (DECADRON) injection 10 mg (COMPLETED) 10 mg, Intravenous, EVERY 24 HOURS, 1 dose, First dose on Sun03/25/25 at 1600, 24 hours post op, Post-op/Post-Proc 1549 (Given - Provid er: Farrah Mathias RN) Docusate (COLACE) capsule 100 mg 100 mg, Oral, 2 TIMES DAILY, First dose on Sun03/25/25 at 1045, Until Discontinued, Post-op/Post-Proc 1229 (Given - Provid er: Elin Lopez, MITESH)1700 (Canceled Entry - Provider: System Discharge - Comment: Automatically canceled at discontinue of medication order) total joint mixture (no clonidine) premade bag 1 Bag(Linked Group 1) Intra-articular, INTRA-OP ONCE, Starting on Sun03/25/25 at 0819, Until Sun03/25/25 at 1839, To be mixed by pharmacy. NOT for IV use., Intra-op/Intra-Proc 0819 (Given - Provid er: Vashti Hobson RN - Comment: Given by Dr. Keane, intraop.) Continuous Medication Order 03/23/2025 03/24/2025 03/25/2025 Lactated ringers IV solution Intravenous, at 75 mL/hr, CONTINUOUS, Starting on Sun03/25/25 at 0600, Until Sun03/25/25 at 1839, Pre-op/Pre-Proc 0744 ($$New Bag$$ - Provider: JIM BellCOMPUTER SYSTEMS ADMINISTRATOR)0808 ($$New Bag$$ - Provider: JIM BellCOMPUTER SYSTEMS ADMINISTRATOR)1125 (Stopped - Provider: Elin Lopez RN) Sodium chloride 0.9% IV solution Intravenous, at 100 mL/hr, CONTINUOUS, Starting on Sun03/25/25 at 1045, Until Sun03/25/25 at 1839, Convert IV to PRN adapter post op day 1 if adequate oral intake, Post-op/Post-Proc 1045 (Canceled Entry - Provider: System Discharge - Comment: Automatically canceled at discontinue of medication order) PRN Medication Order 03/23/2025 03/24/2025 03/25/2025 acetaminophen (TYLENOL) tablet 1,000 mg (COMPLETED) 1,000 mg, Oral, ONCE DIRECTED, 1 dose, Starting on Sun03/25/25 at 0545, Until Sun03/25/25 at 0612, See admin instructions, Administer 1 hour preop., Pre-op/Pre-Proc 611 (Given - Provid er: Rowena Leroy RN) bisacodyl (DULCOLAX) suppository 10 mg 10 mg, Rectal, DAILY NEEDED, Starting on Sun03/25/25 at 1031, Until Sun03/25/25 at 1839, constipation, Post-op/Post-Proc ceFAZolin (ANCEF) 2 g in dextrose 100 mL premix IVPB (COMPLETED) 2 g, Intravenous, Administer over 15 Minutes, PRODUCTION ESTIMATOR TO PROCEDURE, 1 dose, Starting on Sun03/25/25 at 0545, Until Sun03/25/25 at 0806, Other, Pre-operative antibiotic, Pre-op/Pre-Proc 0751 ($$New Bag$$ - Provider: Juan M Ibanez APRN-COMPUTER SYSTEMS ADMINISTRATOR) Celecoxib (CELEBREX) capsule 200 mg (COMPLETED) 200 mg, Oral, ONCE DIRECTED, 1 dose, Starting on Sun03/25/25 at 0545, Until Sun03/25/25 at 0612, See admin instructions, Administer 2 hours preop., Pre-op/Pre-Proc 611 (Given - Provid er: Rowena Leroy RN) hydrALAZINE (APRESOLINE) injection 5 mg 5 mg, Intravenous, EVERY 30 MINUTES NEEDED, 2 doses, Starting on Sun03/25/25 at 0940, Until Sun03/25/25 at 1839, SBP > 160 mmHg with HR <60 bpm, If BP not controlled after 2 doses or unable to administer due to HR Greater than 60bpm, notify ordering provider., Recovery HYDROmorphone (DILAUDID) injection 0.5 mg 0.5 mg, Intravenous, EVERY 15 MINUTES NEEDED, 2 doses, Starting on Sun03/25/25 at 0940, Until Sun03/25/25 at 1839, Severe Pain, Recovery HYDROmorphone (DILAUDID) injection 0.5 mg 0.5 mg, Intravenous, EVERY 4 HOURS NEEDED, Starting on Sun03/25/25 at 1031, Until Sun03/25/25 at 1839, Severe Pain, Post-op/Post-Proc Ondansetron 4mg/2ml (ZOFRAN) injection 4 mg 4 mg, Intravenous, EVERY 4 HOURS NEEDED, Starting on Sun03/25/25 at 1031, Until Sun03/25/25 at 183, Nausea / Vomiting, Post-op/Post-Proc senna-docusate (SENOKOT-S) 8.6-50 MG per tablet 2 tablet 2 tablet, Oral, 2 TIMES DAILY NEEDED, Starting on Sun03/25/25 at 1031, Until Sun03/25/25 at 1839, constipation, Post-op/Post-Proc Sodium chloride 0.9 % irrigation (CANCELED) NEEDED, Starting on Sun03/25/25 at 0730, Until Sun03/25/25 at 0942, Intra-op/Intra-Proc 0730 (Given - Provid er: Florence Alanis RN - Comment: Given to the sterile field)0815 (Given - Provider: Florence Alanis RN - Comment: Attached to aquamantys irrigation tubing, used intraop.) sodium phosphate w/sodium biphosphate (FLEETS) enema 1 enema 1 enema, Rectal, DAILY NEEDED, Starting on Sun03/25/25 at 1031, Until Sun03/25/25 at 183, Refractory Constipation, use per package instructions, Post-op/Post-Proc traMADol (ULTRAM) tablet 50-100 mg 50-100 mg, Oral, EVERY 6 HOURS NEEDED, Starting on Sun03/25/25 at 1031, Until Sun03/25/25 at 183, Mild Pain, Moderate Pain, Post-op/Post-Proc tranexamic acid (LYSTEDA) tablet 1,950 mg (COMPLETED) 1,950 mg, Oral, ONCE DIRECTED, 1 dose, Starting on Sun03/25/25 at 0545, Until Sun03/25/25 at 0612, See admin instructions, Administer 2 hours preop, Pre-op/Pre-Proc 0612 (Given - Provid er: Rowena Leroy RN) Zolpidem (AMBIEN) tablet 5 mg 5 mg, Oral, DAILY AT BEDTIME NEEDED, Starting on Sun03/25/25 at 1031, Until Sun03/25/25 at 183, Sleep, Post-op/Post-Proc Linked Groups Order Group 1: total joint mixture (no clonidine) premade bag 1 BagJump to med Intra-articular, INTRA-OP ONCE, Starting on Sun03/25/25 at 08, Until Sun03/25/25 at 1838, To be mixed by pharmacy. NOT for IV use., Intra-op/Intra-Proc And cloNIDine injection 150 mcgJump to med 150 mcg (rounded from 147.2 mcg = 2 mcg/kg 73.6 kg Order-specific weight), Intra-articular, INTRA-OP ONCE, Starting on Sun03/25/25 at 08, Until Sun03/25/25 at 1838, Intra-op/Intra-Proc FOR RECORDS PERTAINING TO PATIENTS WHO ARE OR HAVE BEEN ENROLLED IN A CHEMICAL DEPENDENCY/SUBSTANCEABUSE PROGRAM, SOME INFORMATION MAY BE OMITTED. This clinical summary was aggregated from multiple sources. Caution should be exercised in using it in the provision of clinical care. This summary normalizes information from multiple sources, and as a consequence, information in this document may materially change the coding, format and clinical context of patient data. In addition, data may be omitted in some cases. CLINICAL DECISIONS SHOULD BE BASED ON THE PRIMARY CLINICAL RECORDS. [facility]. provides no warranty or guarantee of the accuracy or completeness of information in this document.
== END 2025-06-09 09:53 | disposition home or self-care (01) ==
LOC: RAD 09:52
PROVIDERS: PCP Nurse Practitioner; Visit Provider Nurse Practitioner
DX: E28.39 Other primary ovarian failure (principal); M85.88 Other specified disorders of bone density and structure, other site
CPT/HCPCS: 77080